=== PATIENT | male | born 1935 | race Caucasian/White ===

== ENCOUNTER 2016-10-13 05:53 | Day surgery (SDC) | payer MEDICARE, BC ==
[~2016-10-13] VITALS: Ht 188 cm; Wt 86.2 kg
[2016-10-13] VITALS (13 sets, daily range): BP systolic 114–152; BP diastolic 45–94; PULSE 68–134; RESP 18; TEMP 96.8–98.5; O2SAT 96–99
[~2016-10-13 05:53] MED LIST: ACIDTAB4 PO; BISA10SU8 PR; C 50TAB PO; CIPR500T93 PO; CLIN150 PO; CLOP75 PO; DIGO0.12 PO; DOCU1CAP39 PO; FE T325T PO; FLEEENE3 PR; MAGN30S PO; METO25 PO; OXYC5 PO; PANT20 PO; SUPETAB30 PO; TAMS0.4C67 PO; WARF-60 PO
[2016-10-13] MEDS ORDERED: HYDRGEL4 TOPICAL (06:38)
[2016-10-13] MEDS ORDERED: ENOX80P SQ (06:38)
[2016-10-13] MEDS ORDERED: DIGO0.12 PO (06:38)
[2016-10-13] MEDS ORDERED: MULT-135 PO (06:38)
[2016-10-13] MEDS ORDERED: HYDR-3535 PO (06:38)
[2016-10-13] MEDS ORDERED: COUM2.5T PO (06:38)
[2016-10-13] MEDS ORDERED: TAMS5CAP PO (06:38)
[2016-10-13] MEDS ORDERED: NITR2OIN (06:38)
[2016-10-13] MEDS ORDERED: MILK2400 PO (06:38)
[2016-10-13] MEDS ORDERED: LISI10TA3 PO (06:38)
[2016-10-13] MEDS ORDERED: ASCO500C PO (06:41)
[2016-10-13] MEDS ORDERED: ZINC220C3 PO (06:41)
[2016-10-13] MEDS ORDERED: HEPARIN-NS/PF INJ 500 ML ONE (08:20)
[2016-10-13] MEDS ORDERED: MIDAZOLAM HCL 2 MG/2 ML VIAL ONE ×2 (08:21→09:52)
[2016-10-13] MEDS ORDERED: HEPARIN SODIUM - IV 10,000 UNITS/10 ML VIAL ONE (09:02)
[2016-10-13] MEDS ORDERED: ADENOSINE IV SOLN 3 MG/ML 2 ML VIAL ONE (09:39)
[2016-10-13] MEDS ORDERED: CLOPIDOGREL 300 MG TAB ONE (10:25)
[2016-10-13] MEDS ORDERED: SODIUM CHLOR 0.9% 1000 ML INJ 1,000 ML IV SCH (10:25)
[2016-10-13] MEDS ORDERED: ATROPINE SULFATE 1 MG/ML VIAL IV PRN (10:30)
[2016-10-13] MEDS ORDERED: SODIUM CHLOR 0.9% 250 ML INJ 250 ML IV PRN (10:30)
[2016-10-13] MEDS ORDERED: ACETAMINOPHEN/HYDROcodone 325 MG/10 MG TAB PO PRN (10:30)
[2016-10-13] MEDS ORDERED: MORPHINE SULFATE 4 MG/ML INJ IV PUSH PRN (10:30)
[2016-10-13] MEDS ORDERED: MISC INFORMATION XX ONE (10:30)
[2016-10-13] MEDS ORDERED: oxyCODONE/ACETAMINOPHEN 10 MG/325 MG TAB PO PRN (10:30)
[2016-10-13] MEDS ORDERED: LORazepam 2 MG/ML VIAL IV PRN (10:30)
[2016-10-13] MEDS ORDERED: METOCLOPRAMIDE HCL 10 MG/2 ML VIAL IV PRN (10:30)
[2016-10-13] MEDS ORDERED: LIDOCAINE 2% JELLY 30 ML TUBE TOP PRN (10:30)
[2016-10-13] MEDS ORDERED: ONDANSETRON HCL 4 MG/2 ML VIAL IV PRN (10:30)
[2016-10-13] MEDS ORDERED: LIDOCAINE HCL 1% 50 ML VIAL INFIL PRN (10:30)
[2016-10-13] MEDS ORDERED: PLAV75TA29 PO (10:31)
[2016-10-13] MEDS ORDERED: CILO100T PO (10:31)
[2016-10-13] MEDS ORDERED: CLOPIDOGREL 300 MG TAB PO ONE (11:00)
[2016-10-13] MEDS ORDERED: BACITRACIN OINT 0.9 GM PKT TOP ONE (11:00)
[2016-10-13] MEDS ORDERED: MAGNESIUM HYDROXIDE SUSP 30 ML CUP PO PRN (11:00)
[2016-10-13] MEDS: oxyCODONE/ACETAMINOPHEN 5 MG/325 MG TAB PO PRN (11:04)
[2016-10-13 11:30] LABS: INTERNATIONAL NORMALIZED RATIO 1.4 RATIO; PROTHROMBIN TIME - PATIENT 16.1 SEC (9.8-11.6)
[2016-10-13] MEDS ORDERED: IOHEXOL 350 MG/ML 50 ML BTL (for Cath Lab) OTHER ONE (11:50)
[2016-10-13] MEDS ORDERED: IOHEXOL 350 MG/ML 100 ML BTL (for Cath Lab) OTHER ONE (11:50)
--- NOTE | 2016-10-13 13:02 | MA ---
cc: MORRO SIMS DATE: 10/13/2016 TYPE OF PROCEDURE: Peripheral angiography intervention. PROCEDURE PERFORMED 1. Fluoroscopy interpretation 2. Descending aortography. 3. Right lower extremity peripheral angiography with first, second, third order visualization interpretation. METHOD: Risks, benefits and alternatives were discussed with the patient, the patient understood, consented to the procedure. PROCEDURE The patient brought into the catheterization lab, placed on the catheterization table. Left groin was prepped and draped in sterile fashion. The left groin was anesthetized 2% lidocaine. The left common femoral artery was cannulated and a 5-Ethiopian 11 cm sheath was placed without difficulty. Descending aortography; descending aortography is preformed, in anterior-posterior view using 24 cc contrast injection, with good opacification. The He is aortography revealed mild infrarenal issues atherosclerosis. Bilateral renal arteries appear to be widely patent. Peripheral angiography; Right internal, external common iliac arteries have minor irregularities. Right common femoral and profunda arteries are patent. The right superficial femoral artery has mild stenosis proximally. The distal segment has high-grade calcific 90% stenosis. There is a tandem 80% stenosis in the proximal popliteal artery. Both the distal SFA and popliteal are heavily calcified. There is severe distal runoff to the foot. The anterior tibial is patent to the level of the ankle but the dorsalis pedis is occluded and there is minimal collateralization to the distal foot. Posterior tibial peroneal vessels are also occluded and not well collateralized distally. PERCUTANEOUS INTERVENTION: 6-Ethiopian 45 cm tumoral destination pinnacle sheath was advanced up-and-over the arch into the right superficial femoral artery 0.035 inches 260 cm stiff angle Glidewire was navigated down to the distal popliteal artery. A 0.035 inches trailblazer catheter is advanced behind it. Digital subtraction angiography was confirmed through the trailblazer catheter to best visualize the distal vessel. Anterior tibial has minor luminal irregularities up to the level of the ankle and then he was totally occluded. The posterior tibial is occluded. The peroneal is diffusely diseased in the proximal segment and then is occluded in the mid segment without good collateralization distally. We advanced a hydro ST 300 cm 0.014 inches wire down to the distal anterior tibial vessel. We tried to see if we can navigate wire down into the distal dorsalis pedis to improve flow to the foot, but we were unsuccessful. A 0.014 inch 300 cm Confianza wire was also unsuccessful. Since there was no collateralization to the distal posterior tibial peroneal vessels. It is very unlikely that even if we were able to get through the occlusion that it would maintain patency. Therefore we elected to proceed with intervention of the superficial popliteal arteries to a attempt to try and improve the inflow the best we could a 0.014 inch 335 cm viper wire was navigated down the distal anterior tibial vessel. Several adenosine and nitroglycerin injections were administered to avoid no reflow phenomenon due to poor distal runoff. A 1.5 mm CSI atherectomy catheter was then prepped. Orbital rotational atherectomy was performed and distal superficial femoral and proximal popliteal arteries. A 6.0 x 120 mm PATHSENSORStronic balloon was then deployed on two sequential inflations and the popliteal and distal superficial femoral artery. Repeat angiography showed TAM-III flow still some residual stenosis, a 6.0 x 150 mm drug coated balloon was then deployed in the distal superficial proximal popliteal artery for prolonged inflation. Repeat angiography showed no significant residual stenosis. There still was worsening of the distal runoff but there was still TAM II flow distally. The sheath was removed and was replaced with a short 6-Ethiopian 11 cm sheath. Heparin was administered throughout the entire procedure to maintain appropriate coagulation. CONCLUSIONS: 1. Severe right superficial popliteal artery is calcific stenosis. 2. Severe right lower extremity infrapopliteal disease with patent anterior tibial, but occluded posterior tibial peroneal, and dorsalis pedis vessels. 3. A successful rotational atherectomy and balloon angioplasty of the right superficial femoral and popliteal arteries. PLAN Hopefully this will translate to some improvement in distal runoff. Unfortunately do not think that his long-term prognosis for the foot is very good. Given that he has limited runoff from the anterior tibial the remainder of the vessels distally are small and not well collateralized. Lets hope his first toes heals. Discussed the case in detail with Dr. Byrne and we will watch him closely. He will be admitted overnight. Anticipate discharge tomorrow. Will see how he does in his recovery we may consider actually taking him back to the latter at some point the future to reevaluate the left lower extremity due to the nonhealing ulcer in the heel. MD Deborah Butt /10:37 AM /12:37 PM [email or web address]
[2016-10-13] MEDS: WARFARIN SOD 2.5 MG TAB PO SCH (15:49)
[2016-10-13] MEDS: CILOSTAZOL 100 MG TAB PO SCH (15:49)
[2016-10-13] MEDS: TAMSULOSIN HCL 0.4 MG CAP PO SCH (21:13)
[2016-10-14] VITALS (25 sets, daily range): BP systolic 83–144; BP diastolic 52–88; PULSE 79–132; RESP 12–18; TEMP 97.7–98.6; O2SAT 95–98
[2016-10-14] MEDS: CLOPIDOGREL 75 MG TAB PO SCH (07:47)
[2016-10-14] MEDS: MULTIVITAMIN TAB PO SCH (07:47)
[2016-10-14] MEDS: ZINC SULFATE 220 MG CAP PO SCH (07:47)
[2016-10-14] MEDS: CILOSTAZOL 100 MG TAB PO SCH ×2 (07:48→16:04)
[2016-10-14] MEDS: DIGOXIN 0.125 MG TAB PO SCH (07:48)
[2016-10-14] MEDS: LISINOPRIL 10 MG TAB PO SCH (07:48)
[2016-10-14] MEDS ORDERED: DILTIAZEM-CD 120 MG CAP ER PO SCH (09:00)
--- NOTE | 2016-10-14 09:59 | PD.CARD.PN ---
Subjective Subjective Remarks Mildly fast afib on tele, no sx. Objective Medications Administered Medications Medications (Trade) Dose Ordered Sig/Dustin Route PRN Reason Start Time Stop Time Status Last Admin Dose Admin Oxycodone/ Acetaminophen (Percocet 5-325 Mg) 1 tab Q4H PRN PO PAIN SCALE 3 TO 5 10/13/16 10:30 10/13/16 11:04 Oxycodone/ Acetaminophen (Percocet 10-325 Mg) 1 tab Q4H PRN PO PAIN SCALE 6 TO 10 10/13/16 10:30 10/13/16 16:44 Morphine Sulfate (Morphine Inj) 2 mg Q30M PRN IV PUSH BREAKTHROUGH PAIN 10/13/16 10:30 10/13/16 17:46 Clopidogrel Bisulfate (Plavix) 75 mg DAILY PO 10/14/16 09:00 10/14/16 07:47 Digoxin (Lanoxin) 0.125 mg DAILY PO 10/14/16 09:00 10/14/16 07:48 Lisinopril (Prinivil) 10 mg DAILY PO 10/14/16 09:00 10/14/16 07:48 Multivitamins (Theragran) 1 tab DAILY PO 10/14/16 09:00 10/14/16 07:47 Tamsulosin HCl (Flomax) 0.4 mg HS PO 10/13/16 21:00 10/13/16 21:13 Zinc Sulfate (Zinc Sulfate) 220 mg DAILY PO 10/14/16 09:00 10/14/16 07:47 Cilostazol (Pletal) 100 mg BIDAC PO 10/13/16 16:00 10/14/16 07:48 Warfarin Sodium (Coumadin) 2.5 mg DAILY@16 PO 10/13/16 16:00 10/13/16 15:49 Vital Signs / I&O Vital Signs Date Time Temp Pulse Resp B/P Pulse Ox O2 Delivery O2 Flow Rate FiO2 10/14/16 08:00 118 10/14/16 07:30 97.8 79 18 144/88 97 10/14/16 07:00 132 10/14/16 06:00 120 10/14/16 05:00 112 10/14/16 04:00 110 10/14/16 03:00 122 10/14/16 03:00 98.4 108 18 110/63 97 10/14/16 02:00 120 10/14/16 01:00 104 10/14/16 00:00 104 10/13/16 23:00 96.8 96 18 128/76 96 10/13/16 23:00 97 10/13/16 22:00 100 10/13/16 21:00 94 10/13/16 20:00 100 10/13/16 19:00 97 10/13/16 19:00 97.2 98 18 128/70 96 10/13/16 18:00 102 10/13/16 17:00 134 10/13/16 16:00 82 10/13/16 15:00 98.5 91 18 114/65 96 Arterial Line 10/13/16 15:00 97 10/13/16 14:00 68 10/13/16 13:00 94 10/13/16 12:30 98.5 88 18 136/45 98 Automatic Cuff 10/13/16 12:30 88 10/13/16 10:46 98 Room Air I/O 10/13/16 10/13/16 10/13/16 10/14/16 10/14/16 10/14/16 07:00 15:00 23:00 07:00 15:00 23:00 Intake Total 480 ml 240 ml Output Total 600 ml 300 ml Balance -120 ml -60 ml Intake Oral 480 ml 240 ml Output Urine Total 600 ml 300 ml Physical Exam GENERAL: This is a well-nourished, well-developed patient, in no apparent distress. CARDIOVASCULAR: mildly rapid rate and irregular rhythm without murmurs, gallops , or rubs. RESPIRATORY: Clear to auscultation. Breath sounds equal bilaterally. No wheezes , rales, or rhonchi. GASTROINTESTINAL: Abdomen soft, non-tender, nondistended. Normal, active bowel sounds MUSCULOSKELETAL:LLE partial foot amputation, cyanosis of R foot NEURO: Alert & Oriented x4 to person, place, time, situation. Moves all ext x4 Laboratory Laboratory Tests Test 10/13/16 11:00 Prothrombin Time 16.1 SEC Prothromb Time International 1.4 RATIO Ratio Assessment and Plan Problem List: (1) Atrial fibrillation Assessment and Plan: on warfarin, still fast, added another 120mg cardizem ( 240mg qd total). (2) PAD (peripheral artery disease) Assessment and Plan: s/p RLE arthrectomy by Dr. Harding, on plavix. Assessment and Plan If rate controlled on increased meds might be able to go home today, or more likely tomorrow. Bill Melo MD Oct 14, 2016 09:59
[2016-10-14] MEDS ORDERED: DILTIAZEM-CD 120 MG CAP ER PO ONE (10:00)
[2016-10-14] MEDS: oxyCODONE/ACETAMINOPHEN 5 MG/325 MG TAB PO PRN (13:01)
[2016-10-14] MEDS ORDERED: GLUCAGON 1 MG/ML VIAL OTHER PRN (15:30)
[2016-10-14] MEDS ORDERED: DEXTROSE 50% IN WATER 50 ML VIAL(D50) IV PUSH PRN (15:30)
[2016-10-14] MEDS ORDERED: WARFARIN SOD 2.5 MG TAB PO SCH (16:00)
[2016-10-14] MEDS: WARFARIN SOD 2.5 MG TAB PO SCH (16:03)
[2016-10-14] MEDS: MEDIUM DOSE INSULIN NOVOLOG SUPPLEMENTAL SCALE SQ SCH ×2 (16:09→21:00)
[2016-10-14] MEDS: TAMSULOSIN HCL 0.4 MG CAP PO SCH (21:00)
[2016-10-15] VITALS (16 sets, daily range): BP systolic 87–109; BP diastolic 45–56; PULSE 92–115; RESP 16–18; TEMP 98.2–98.6; O2SAT 94–97
[2016-10-15] MEDS: MEDIUM DOSE INSULIN NOVOLOG SUPPLEMENTAL SCALE SQ SCH ×2 (07:00→11:40)
[2016-10-15] MEDS: ZINC SULFATE 220 MG CAP PO SCH (07:54)
[2016-10-15] MEDS: CILOSTAZOL 100 MG TAB PO SCH (07:54)
[2016-10-15] MEDS: DIGOXIN 0.125 MG TAB PO SCH (07:54)
[2016-10-15] MEDS: CLOPIDOGREL 75 MG TAB PO SCH (07:54)
[2016-10-15] MEDS: LISINOPRIL 10 MG TAB PO SCH (07:54)
[2016-10-15] MEDS: MULTIVITAMIN TAB PO SCH (07:55)
[2016-10-15] MEDS ORDERED: DILTIAZEM-CD 120 MG CAP ER PO SCH (09:00)
--- NOTE | 2016-10-15 10:15 | PD.CARD.PN ---
Subjective Subjective Remarks Rates improved on diltiazem, no sx, he wants to go back to rehab Objective Medications Administered Medications Medications (Trade) Dose Ordered Sig/Dustin Route PRN Reason Start Time Stop Time Status Last Admin Dose Admin Oxycodone/ Acetaminophen (Percocet 5-325 Mg) 1 tab Q4H PRN PO PAIN SCALE 3 TO 5 10/13/16 10:30 10/14/16 13:01 Oxycodone/ Acetaminophen (Percocet 10-325 Mg) 1 tab Q4H PRN PO PAIN SCALE 6 TO 10 10/13/16 10:30 10/13/16 16:44 Morphine Sulfate (Morphine Inj) 2 mg Q30M PRN IV PUSH BREAKTHROUGH PAIN 10/13/16 10:30 10/13/16 17:46 Clopidogrel Bisulfate (Plavix) 75 mg DAILY PO 10/14/16 09:00 10/15/16 07:54 Digoxin (Lanoxin) 0.125 mg DAILY PO 10/14/16 09:00 10/15/16 07:54 Multivitamins (Theragran) 1 tab DAILY PO 10/14/16 09:00 10/15/16 07:55 Tamsulosin HCl (Flomax) 0.4 mg HS PO 10/13/16 21:00 10/14/16 21:00 Zinc Sulfate (Zinc Sulfate) 220 mg DAILY PO 10/14/16 09:00 10/15/16 07:54 Cilostazol (Pletal) 100 mg BIDAC PO 10/13/16 16:00 10/15/16 07:54 Warfarin Sodium (Coumadin) 2.5 mg DAILY@16 PO 10/13/16 16:00 10/14/16 16:03 Diltiazem HCl (Cardizem Cd) 240 mg DAILY PO 10/15/16 09:00 10/15/16 07:54 Vital Signs / I&O Vital Signs Date Time Temp Pulse Resp B/P Pulse Ox O2 Delivery O2 Flow Rate FiO2 10/15/16 08:00 98.2 115 18 109/56 97 10/15/16 07:00 108 10/15/16 06:00 96 10/15/16 05:00 104 10/15/16 04:00 104 10/15/16 03:00 105 10/15/16 03:00 98.6 104 16 92/54 96 10/15/16 02:00 100 10/15/16 01:00 104 10/15/16 00:00 102 10/14/16 23:00 98.6 114 16 83/52 95 10/14/16 23:00 103 10/14/16 22:00 112 10/14/16 21:00 112 10/14/16 20:00 106 10/14/16 19:00 106 10/14/16 19:00 98.1 98 12 97/57 96 10/14/16 18:04 97 10/14/16 17:01 98 10/14/16 16:00 97.7 108 18 124/60 97 10/14/16 16:00 105 10/14/16 15:00 101 10/14/16 14:00 106 10/14/16 13:00 111 10/14/16 12:00 109 10/14/16 11:00 116 10/14/16 11:00 98.1 119 18 110/59 98 I/O 10/14/16 10/14/16 10/14/16 10/15/16 10/15/16 10/15/16 07:00 15:00 23:00 07:00 15:00 23:00 Intake Total 240 ml 480 ml 240 ml Output Total 300 ml 220 ml 50 ml Balance -60 ml 260 ml 190 ml Intake Oral 240 ml 480 ml 240 ml Output Urine Total 300 ml 220 ml 50 ml # Voids 2 1 # Bowel Movements 0 Physical Exam GENERAL: This is a well-nourished, well-developed patient, in no apparent distress. CARDIOVASCULAR: mildly rapid rate and irregular rhythm without murmurs, gallops , or rubs. RESPIRATORY: Clear to auscultation. Breath sounds equal bilaterally. No wheezes , rales, or rhonchi. GASTROINTESTINAL: Abdomen soft, non-tender, nondistended. Normal, active bowel sounds MUSCULOSKELETAL:LLE partial foot amputation, cyanosis of R foot NEURO: Alert & Oriented x4 to person, place, time, situation. Moves all ext x4 Assessment and Plan Problem List: (1) Atrial fibrillation Assessment and Plan: on warfarin, up to 240mg diltiazem (2) PAD (peripheral artery disease) Assessment and Plan: s/p RLE arthrectomy by Dr. Harding, on plavix. Assessment and Plan ok to d/c home on med adjustments, has an order for INR tomorrow. Bill Melo MD Oct 15, 2016 10:15
[2016-10-15] MEDS ORDERED: LISI-519 PO (10:32)
[2016-10-15] MEDS ORDERED: CARD240C6 PO (10:35)
[2016-10-16] MEDS ORDERED: LISINOPRIL 5 MG TAB PO SCH (09:00)
[2016-11-07] MEDS ORDERED: MEGE40SU PO (14:46)
[2016-11-07] MEDS ORDERED: LISI-519 PO (14:46)
[2016-11-07] MEDS ORDERED: MULT-135 PO (14:46)
[2016-11-07] MEDS ORDERED: OXYC1TAB63 PO (14:46)
[2016-11-07] MEDS ORDERED: BACL10TA PO (14:46)
[2016-11-07] MEDS ORDERED: DOCU1CAP39 PO (14:46)
[2016-11-07] MEDS ORDERED: METF500 PO (14:46)
[2016-11-07] MEDS ORDERED: DILT-48 PO (14:46)
[2016-11-07] MEDS ORDERED: TAMS5CAP PO (14:46)
[2016-11-07] MEDS ORDERED: DIGO0.12 PO (14:46)
[2016-11-07] MEDS ORDERED: COUM4TAB PO (14:46)
[2016-11-07] MEDS ORDERED: FERR325T PO (14:46)
[2016-12-20] MEDS ORDERED: SENN1TAB PO (21:01)
[2016-12-20] MEDS ORDERED: VITA500T2 PO (21:01)
[2016-12-20] MEDS ORDERED: SENS113T TOPICAL (21:01)
[2016-12-20] MEDS ORDERED: COUM6TAB PO (21:01)
[2016-12-20] MEDS ORDERED: POLY17S PO (21:01)
== END 2016-10-15 13:11 ==
LOC: HDOC 05:53 → HDIC 05:55 → HCIS 13:05 → UNDOADMOB 16:58 → HDOC 16:58 → HCIS 16:58 → UNDODISOB 10-15 13:11 → HDOC 10-15 13:11
PROVIDERS: ATTEND Internal Medicine
DX: I70.211 Atherosclerosis of native arteries of extremities with intermittent claudication, right leg (principal); I48.91 Unspecified atrial fibrillation; I10 Essential (primary) hypertension; E11.9 Type 2 diabetes mellitus without complications; Z79.02 Long term (current) use of antithrombotics/antiplatelets; Z79.01 Long term (current) use of anticoagulants; Z79.84 Long term (current) use of oral hypoglycemic drugs
CPT/HCPCS: 36200; 37224; 37225; 75625; 75710; 85002; 85610; 86850; 86900; 86901; C1714; C1725; C1751; C1769; C1893; C2623; J0153; J1644; J1815; J2250; J2270; J3010; Q9967

== ENCOUNTER 2016-10-20 12:41 | Inpatient (IN) | payer MEDICARE, BC ==
[~2016-10-20] VITALS: Ht 188 cm; Wt 84.0 kg
[~2016-10-20 12:41] MED LIST changes: -ACIDTAB4 PO; +ASCO500C PO; -BISA10SU8 PR; -C 50TAB PO; +CARD240C6 PO; +CILO100T PO; -CIPR500T93 PO; -CLIN150 PO; -CLOP75 PO; +COUM2.5T PO; -DOCU1CAP39 PO; -FE T325T PO; -FLEEENE3 PR; +HYDR-3535 PO; +HYDRGEL4 TOPICAL; +LISI-519 PO; -MAGN30S PO; -METO25 PO; +MILK2400 PO; +MULT-135 PO; +NITR2OIN; -OXYC5 PO; -PANT20 PO; +PLAV75TA29 PO; -SUPETAB30 PO; -TAMS0.4C67 PO; +TAMS5CAP PO; -WARF-60 PO; +ZINC220C3 PO
[2016-10-20 12:45] VITALS: BP 119/64; PULSE 86; RESP 15; TEMP 97.6; O2SAT 97
--- NOTE | 2016-10-20 14:50 | PD ---
HPI Chief Complaint: Medical Clearance Time Seen by Provider: 14:04 Travel History International Travel<30 days: No Contact w/Intl Traveler<30days: No Traveled to known affect area: No History of Present Illness HPI 81 y/o male presents with black digit to his right big toe that is been present over the past couple weeks. The patient's states that they went to Dr. Cabral who is the clerk operator and shows me a prescription that he was referred here for admission and consultation with Dr. Ortiz with vascular surgery. Patient states that he was here recently 2 weeks ago and had an angiogram with Dr. fuentes. He states that he's had pain in that foot as well but denies other significant complaints. Quality pain is sharp. Severity is severe per patient. He denies any specific trauma. Duration is 3 or 4 weeks. helps supplement history. PFSH Past Medical History Hx Anticoagulant Therapy: Yes (COUMADIN) Atrial Fibrillation: Yes Autoimmune Disease: No Anxiety: No Depression: No Heart Rhythm Problems: No Cancer: Yes (BASAL CELL CARCINONA) Cardiovascular Problems: Yes (A-FIB) High Cholesterol: Yes Chemotherapy: No Chest Pain: No Congestive Heart Failure: No Diabetes: Yes Patient Takes Glucophage: No Diminished Hearing: No Endocrine: Yes Gastrointestinal Disorders: No GERD: No Genitourinary: No Hiatal Hernia: No Hypertension: Yes Immune Disorder: No Implanted Vascular Access Dvce: Yes Kidney Stones: No Musculoskeletal: No Neurologic: No 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) Reproductive: No Respiratory: No Integumentary: Yes Radiation Therapy: No Renal Failure: No Sickle Cell Disease: No Thyroid Disease: No Ulcer: No Past Surgical History Abdominal Surgery: No AICD: No Arteriovenous Shunt: No Cardiac Surgery: No Ear Surgery: No Eye Surgery: Yes (CATARACT ) Genitourinary Surgery: No Gynecologic Surgery: No Insulin Pump: No Joint Replacement: Yes (L KNEE SURGERY ) Oral Surgery: No Thoracic Surgery: No Other Surgery: Yes (left foot 5 digit amputation) Social History Alcohol Use: No Tobacco Use: No (quit) Substance Use: No Allergies-Medications (Allergen,Severity, Reaction): Coded Allergies: *MDRO Multi-Drug Resistant Organism (Verified Adverse Reaction, Unknown, ) 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 Reported Meds & Prescriptions Reported Meds & Active Scripts Active Cilostazol 100 Mg Tab 100 Mg PO BID Plavix (Clopidogrel Bisulfate) 75 Mg Tab 75 Mg PO DAILY Reported Mapap (Acetaminophen) 325 Mg Tab 650 Mg PO Q4HR PRN Diltiazem ER 24 HR 240 Mg Caper 240 Mg PO DAILY Lisinopril 5 Mg Tab 5 Mg PO DAILY Zinc Sulfate 220 Mg Cap 220 Mg PO DAILY Vitamin C (Ascorbic Acid) 500 Mg Cap 500 Mg PO DAILY Multi Vitamin (Multiple Vitamin) 1 Tab Tab 1 Tab PO DAILY Milk of Magnesia Concentrate Liq (Magnesium Hydroxide) 1,200 Mg/5 Ml Susp 30 Ml PO DAILY PRN Lortab (Hydrocodone-Acetaminophen) 10-325 Mg Tab 1 Tab PO Q4H PRN Hydrogel (Wound Dressings) 1 Application Gel 1 Applic TOPICAL EACH EVENING SHIFT Flomax (Tamsulosin HCl) 0.4 Mg Cap 0.4 Mg PO DAILY Digoxin 0.125 Mg Tab 0.125 Mg PO DAILY@0600 Coumadin (Warfarin) 2.5 Mg Tab 2.5 Mg PO DAILY@1600 Review of Systems Except as stated in HPI: all other systems reviewed are Neg Physical Exam Narrative GENERAL: Well-nourished, well-developed patient. SKIN: Black discoloration to right hallux with decreased cap refill HEAD: Normocephalic and atraumatic. EYES: No injection or drainage. ENT: No nasal drainage noted. NECK: Supple, trachea midline. CARDIOVASCULAR: Regular rate and rhythm RESPIRATORY: No increased effort. No accessory muscle use. GASTROINTESTINAL: Abdomen soft, non-tender, nondistended. EXTREMITIES: No edema.Pain with palpation of right hallux, no pain with other joints specifically other than generalized pain to right foot , palpable dorsalis pedis pulse noted on right and left, no lacerations over, compartments soft. NEUROLOGICAL: Awake and alert. Moves all extremities. Normal speech. Data Data Last Documented VS Vital Signs Date Time Temp Pulse Resp B/P Pulse Ox O2 Delivery O2 Flow Rate FiO2 10/20/16 14:17 16 10/20/16 12:45 97.6 86 119/64 97 Orders Magnesium (Mg) (10/20/16 14:12) Phosphorus (Po4) (10/20/16 14:12) Complete Blood Count With Diff (10/20/16 14:12) Comprehensive Metabolic Panel (10/20/16 14:12) Act Partial Throm Time (Ptt) (10/20/16 14:12) Prothrombin Time / Inr (Pt) (10/20/16 14:12) Iv Access Insert/Monitor (10/20/16 14:12) Ecg Monitoring (10/20/16 14:12) Oximetry (10/20/16 14:12) Type And Screen (10/20/16 14:12) Foot, Complete ([id number]) (10/20/16 ) Consult Vascular Surgery (10/20/16 ) Blood Culture (10/20/16 15:01) Vancomycin Inj (Vancomycin Inj) (10/20/16 15:15) Consult Podiatry (10/20/16 ) (Hub Use Only)Inp Phy Cons/Ref (10/20/16 ) Admit Order (Ed Use Only) (10/20/16 15:33) Labs Laboratory Tests Test 10/20/16 14:32 White Blood Count 17.8 TH/MM3 Red Blood Count 3.42 MIL/MM3 Hemoglobin 9.7 GM/DL Hematocrit 29.3 % Mean Corpuscular Volume 85.9 FL Mean Corpuscular Hemoglobin 28.4 PG Mean Corpuscular Hemoglobin 33.0 % Concent Red Cell Distribution Width 13.6 % Platelet Count 467 TH/MM3 Mean Platelet Volume 7.7 FL Neutrophils (%) (Auto) 82.8 % Lymphocytes (%) (Auto) 9.5 % Monocytes (%) (Auto) 5.8 % Eosinophils (%) (Auto) 0.9 % Basophils (%) (Auto) 1.0 % Neutrophils # (Auto) 14.8 TH/MM3 Lymphocytes # (Auto) 1.7 TH/MM3 Monocytes # (Auto) 1.0 TH/MM3 Eosinophils # (Auto) 0.2 TH/MM3 Basophils # (Auto) 0.2 TH/MM3 CBC Comment DIFF FINAL Differential Comment Prothrombin Time 27.3 SEC Prothromb Time International 2.4 RATIO Ratio Activated Partial 48.6 SEC Thromboplast Time Sodium Level 136 MEQ/L Potassium Level 4.0 MEQ/L Chloride Level 101 MEQ/L Carbon Dioxide Level 26.8 MEQ/L Anion Gap 8 MEQ/L Blood Urea Nitrogen 18 MG/DL Creatinine 1.38 MG/DL Estimat Glomerular Filtration 49 ML/MIN Rate Random Glucose 201 MG/DL Calcium Level 9.2 MG/DL Phosphorus Level 2.8 MG/DL Magnesium Level 1.9 MG/DL Total Bilirubin 0.6 MG/DL Aspartate Amino Transf 18 U/L (AST/SGOT) Alanine Aminotransferase 18 U/L (ALT/SGPT) Alkaline Phosphatase 102 U/L Total Protein 7.7 GM/DL Albumin 3.3 GM/DL Blood Type O POSITIVE Antibody Screen NEGATIVE MDM Medical Decision Making Medical Screen Exam Complete: Yes Emergency Medical Condition: Yes Medical Record Reviewed: Yes (past history confirmed, h/o mrsa) Interpretation(s) CBC & BMP Diagram 10/20/16 14:32 Last 24 hours Impressions Foot X-Ray 10/20/16 0000 Signed Impressions: Service Date/Time: Thursday, October 20, 2016 14:50 - CONCLUSION: Chronic changes and no evidence for acute fracture. Ryan Murhpy MD CBC & BMP Diagram 10/20/16 14:32 Differential Diagnosis Arterial occlusion, osteomyelitis, embolization Narrative Course Will check blood work, x-ray and discussed with vascular surgery Given elevated white count will discuss with his clerk operator about possible antibiotic coverage patient agrees to admit Physician Communication Physician Communication dr ortiz states to admit to medicine and no anticoagulant or imaging needed at this time dr peterson states to place on vancomycin with h/o mrsa and will follow dr julian agrees to admit Diagnosis Primary Impression: Ischemic foot Additional Impressions: Ischemic pain of foot Qualified Code: M79.671 - Ischemic pain of foot, right PAD (peripheral artery disease) Cellulitis of foot, right Admitting Information Admitting Physician Requests: Admit Vanessa Wilde MD Oct 20, 2016 14:50
--- NOTE | 2016-10-20 14:53 | RADRPT ---
EXAM DATE/TIME: 10/20/2016 14:50 [facility] COMPARISON: No previous studies available for comparison. INDICATIONS : Right foot pain, diabetic wound great toe and surrounding area. MEDICAL HISTORY : Diabetes mellitus type II. SURGICAL HISTORY : None. ENCOUNTER: Initial ACUITY: 3 weeks PAIN SCORE: 8/10 LOCATION: Right foot. FINDINGS: No definite fractures, or dislocations are identified. No definite lytic or sclerotic lesion is seen . Slight osteopenia is seen. There are degenerative changes within multiple joints mainly the interp halangeal joints and the first metatarsophalangeal joint. Chronic atherosclerotic calcifications are seen involving the visualized arteries. CONCLUSION: Chronic changes and no evidence for acute fracture. Ryan Murphy MD on October 20, 2016 at 14:49 Board Certified Radiologist. This report was verified electronically.
[2016-10-20 14:58] LABS: AUTOMATED NEUTROPHIL # 14.8 TH/MM3 (1.8-7.7); BASOPHIL # 0.2 TH/MM3 (0-0.2); EOSINOPHIL # 0.2 TH/MM3 (0-0.4); EOSINOPHIL % 0.9 % (0.0-4.0); HEMATOCRIT 29.3 % (39.0-51.0); HEMO FLAGS DIFF FINAL; LYMPH % 9.5 % (9.0-44.0); LYMPHOCYTE # 1.7 TH/MM3 (1.0-4.8); MEAN CELL VOLUME 85.9 FL (80.0-100.0); MEAN CORPUSCULAR HEMOGLOBIN 28.4 PG (27.0-34.0); MONO % 5.8 % (0.0-8.0); NEUT % 82.8 % (16.0-70.0); PLATELET COUNT 467 TH/MM3 (150-450); RED BLOOD COUNT 3.42 MIL/MM3 (4.50-5.90); RED CELL DISTRIBUTION WIDTH 13.6 % (11.6-17.2); WHITE BLOOD COUNT 17.8 TH/MM3 (4.0-11.0)
[2016-10-20] MEDS ORDERED: VANCOMYCIN INJ 1,000 MG in SODIUM CHLOR 0.9% 250 ML INJ 250 ML IV ONE (15:15)
[2016-10-20 15:22] LABS: ALT (GPT) 18 U/L (12-78); ANION GAP 8 MEQ/L (5-15); AST (GOT) 18 U/L (15-37); BICARBONATE 26.8 MEQ/L (21.0-32.0); BLOOD UREA NITROGEN 18 MG/DL (7-18); CHLORIDE 101 MEQ/L (98-107); GLOMERULAR FILTRATION RATE 49 ML/MIN (>89); MAGNESIUM 1.9 MG/DL (1.5-2.5); SODIUM (NA) 136 MEQ/L (136-145)
[2016-10-20 15:24] LABS: ALKALINE PHOSPHATASE 102 U/L (45-117); TOTAL BILIRUBIN ADULT 0.6 MG/DL (0.2-1.0)
[2016-10-20 15:36] LABS: APTT (PATIENT) 48.6 SEC (24.3-30.1); INTERNATIONAL NORMALIZED RATIO 2.4 RATIO; PROTHROMBIN TIME - PATIENT 27.3 SEC (9.8-11.6)
--- NOTE | 2016-10-20 15:46 | HHI.HP ---
[facility] Physician Non-Staff Admission Diagnosis right hallux pain and ischemia Diagnoses: (1) Ischemic pain of right foot (2) Ischemic foot (3) PAD (peripheral artery disease) (4) Cellulitis of foot, right (5) Gangrene of toe Chief Complaint: Right hallus pain Travel History International Travel<30 Days: No Contact w/Intl Traveler <30 Da: No Traveled to Known Affected Are: No History of Present Illness 81-year-old male with a history of paroxysmal atrial fibrillation, diabetes, severe PAD of the right foot who is s/p RLE arthrectomy 10/13/16 presented to the ED at the request of these podiatrists for evaluation of black and painful digit right big toe times several weeks duration. Patient states, despite recent angiography he continued to have severe right foot pain rated 10 out of 10 in intensity. He denies any recent trauma. Denies any febrile episode. Vascular surgery has been consulted Review of Systems Other 12 systems reviewed and are negative except for the one mentioned in history of present illness Past Family Social History Past Medical History Hypertension Diabetesnow diet controlled Atrial fibrillationon Coumadin PADstatus post left second toe amputation due to ischemia, status post right lower extremity arthrectomy and balloon angioplasty Past Surgical History s/p RLE arthrectomy 10/13/16 Left second toe amputation Right lower extremity arthrectomy and balloon angioplasty Left knee surgery Basal fall carcinoma of skin removal Reported Medications Cardizem CD 24 HR (Diltiazem CD 24 HR) 240 Mg Caper 240 Mg PO DAILY Lisinopril 5 Mg Tab 5 Mg PO DAILY Zinc Sulfate 220 Mg Cap 220 Mg PO DAILY Vitamin C (Ascorbic Acid) 500 Mg Cap 500 Mg PO Nitro-Bid Topical (Nitroglycerin) 2 % Oint 1 Inch .XX Q6H Multi Vitamin (Multiple Vitamin) 1 Tab Tab 1 Tab PO DAILY Milk of Magnesia Concentrate Liq (Magnesium Hydroxide) 1,200 Mg/5 Ml Susp 15 Ml PO DAILY PRN Lortab (Hydrocodone-Acetaminophen) 10-325 Mg Tab 1 Tab PO Q4H PRN Hydrogel (Wound Dressings) 1 Application Gel Flomax (Tamsulosin HCl) 0.4 Mg Cap 0.4 Mg PO HS Digoxin 0.125 Mg Tab 0.125 Mg PO DAILY Coumadin (Warfarin) 2.5 Mg Tab 2.5 Mg PO DAILY Allergies: Coded Allergies: *MDRO Multi-Drug Resistant Organism (Verified Adverse Reaction, Unknown, ) 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 Social History Alcohol Use: No Tobacco Use: No (quit) Substance Use: No Physical Exam Vital Signs Vital Signs Date Time Temp Pulse Resp B/P Pulse Ox O2 Delivery O2 Flow Rate FiO2 10/20/16 14:17 16 10/20/16 12:45 97.6 86 15 119/64 97 Physical Exam GENERAL: This is a well-nourished, well-developed patient, in no apparent distress. SKIN: Black discoloration to right hallux HEAD: Atraumatic. Normocephalic. No temporal or scalp tenderness. EYES: Pupils equal round and reactive. Extraocular motions intact. No scleral icterus. No injection or drainage. ENT: Nose without bleeding, purulent drainage or septal hematoma. Throat without erythema, tonsillar hypertrophy or exudate. Uvula midline. Airway patent. NECK: Trachea midline. No JVD or lymphadenopathy. Supple, nontender, no meningeal signs. CARDIOVASCULAR: Regular rate and rhythm without murmurs, gallops, or rubs. RESPIRATORY: Clear to auscultation. Breath sounds equal bilaterally. No wheezes , rales, or rhonchi. GASTROINTESTINAL: Abdomen soft, non-tender, nondistended. No hepato-splenomegaly , or palpable masses. No guarding. MUSCULOSKELETAL: Extremities without clubbing, cyanosis, or edema. No joint tenderness, effusion, or edema noted. No calf tenderness. Negative Homans sign bilaterally. NEUROLOGICAL: Awake and alert. Cranial nerves II through XII intact. Motor and sensory grossly within normal limits. Five out of 5 muscle strength in all muscle groups. Normal speech. Laboratory Laboratory Tests Test 10/20/16 14:32 White Blood Count 17.8 Red Blood Count 3.42 Hemoglobin 9.7 Hematocrit 29.3 Mean Corpuscular Volume 85.9 Mean Corpuscular Hemoglobin 28.4 Mean Corpuscular Hemoglobin 33.0 Concent Red Cell Distribution Width 13.6 Platelet Count 467 Mean Platelet Volume 7.7 Neutrophils (%) (Auto) 82.8 Lymphocytes (%) (Auto) 9.5 Monocytes (%) (Auto) 5.8 Eosinophils (%) (Auto) 0.9 Basophils (%) (Auto) 1.0 Neutrophils # (Auto) 14.8 Lymphocytes # (Auto) 1.7 Monocytes # (Auto) 1.0 Eosinophils # (Auto) 0.2 Basophils # (Auto) 0.2 CBC Comment DIFF FINAL Differential Comment Prothrombin Time 27.3 Prothromb Time International 2.4 Ratio Activated Partial 48.6 Thromboplast Time Sodium Level 136 Potassium Level 4.0 Chloride Level 101 Carbon Dioxide Level 26.8 Anion Gap 8 Blood Urea Nitrogen 18 Creatinine 1.38 Estimat Glomerular Filtration 49 Rate Random Glucose 201 Calcium Level 9.2 Phosphorus Level 2.8 Magnesium Level 1.9 Total Bilirubin 0.6 Aspartate Amino Transf 18 (AST/SGOT) Alanine Aminotransferase 18 (ALT/SGPT) Alkaline Phosphatase 102 Total Protein 7.7 Albumin 3.3 Blood Type O POSITIVE Antibody Screen NEGATIVE Result Diagram: 10/20/16 1432 10/20/16 143 Assessment and Plan Problem List: (1) Ischemic pain of right foot ICD Code: M79.671 Status: Acute (2) Ischemic foot ICD Code: I99.8 Status: Acute (3) PAD (peripheral artery disease) ICD Code: I73.9 Status: Acute (4) Atrial fibrillation ICD Code: I48.91 Status: Chronic (5) Cellulitis of foot, right ICD Code: L03.115 Status: Acute (6) Gangrene of toe ICD Code: I96 Status: Acute Assessment and Plan 81-year-old man with Ischemic pain of right foot Ischemic foot Severe PAD right foot Gangrene of toe Status post recent RLE arthrectomy 10/13/16 -Vascular surgery has been consulted for evaluation for possible amputation -Continue to hold Coumadin and monitor INR/PT and hold on starting heparin drip -Resume Plavix however hold on 10/22/16 Cellulitis right foot Status post post vancomycin 1 in ED, continue with antibiotic History of paroxysmal atrial fibrillation Hold Coumadin Resume Cardizem and digoxin. Monitor level Acute renal failure Gentle IV fluid hydration Anemia of chronic disease Check FOBT and Monitor H&H DVT prophylaxis: SCD to LLE only Code Status Full code Discussed Condition With Patient, ED physician Physician Certification 2 Midnight Certification Type: Admission for Inpatient Services Order for Inpatient Services The services are ordered in accordance with Medicare regulations or non- Medicare payer requirements, as applicable. In the case of services not specified as inpatient-only, they are appropriately provided as inpatient services in accordance with the 2-midnight benchmark. Estimated LOS (days): 2 days is the estimated time the patient will need to remain in the hospital, assuming treatment plan goals are met and no additional complications. Post-Hospital Plan: Not yet determined Jw Jaimes MD Oct 20, 2016 15:46
[2016-10-20 15:56] VITALS: O2SAT 98
[2016-10-20] MEDS ORDERED: DILT-48 PO (15:58)
[2016-10-20] MEDS ORDERED: ONDANSETRON HCL 4 MG/2 ML VIAL IVP PRN (16:00)
[2016-10-20] MEDS ORDERED: SODIUM CHLORIDE 0.9% FLUSH 10 ML FLUSH IV FLUSH PRN (16:00)
[2016-10-20] MEDS ORDERED: ENALAPRILAT 1.25 MG/ML VIAL IV PUSH PRN (16:00)
[2016-10-20] MEDS ORDERED: NALOXONE HCL 0.4 MG/ML AMP IV PRN (16:00)
[2016-10-20] MEDS ORDERED: ACETAMINOPHEN 325 MG TAB PO PRN (16:00)
[2016-10-20] MEDS ORDERED: MAPA325T PO (16:06)
--- NOTE | 2016-10-20 16:23 | PD.CAR.PN ---
CVT Progress Note Subjective/Hospital Course: Full consult dictated Patient has known unreconstructable disease in both legs and right forefoot is now gangrenous with streaking over the dorsum of the foot There is nothing to reconstruct by endovascular or open means in this patient will require right below-knee amputation Patient is on Coumadin and I will hold Coumadin for another day or 2 so probably by Sunday the INR will be below 2 at which point patient can go to the operating room to have the surgery Thanks J Objective: Vital Signs Date Time Temp Pulse Resp B/P Pulse Ox O2 Delivery O2 Flow Rate FiO2 10/20/16 15:56 98 Room Air 10/20/16 14:17 16 10/20/16 12:45 97.6 86 15 119/64 97 Labs: Laboratory Tests Test 10/20/16 14:32 White Blood Count 17.8 TH/MM3 (4.0-11.0) Red Blood Count 3.42 MIL/MM3 (4.50-5.90) Hemoglobin 9.7 GM/DL (13.0-17.0) Hematocrit 29.3 % (39.0-51.0) Mean Corpuscular Volume 85.9 FL (80.0-100.0) Mean Corpuscular Hemoglobin 28.4 PG (27.0-34.0) Mean Corpuscular Hemoglobin 33.0 % Concent (32.0-36.0) Red Cell Distribution Width 13.6 % (11.6-17.2) Platelet Count 467 TH/MM3 (150-450) Mean Platelet Volume 7.7 FL (7.0-11.0) Neutrophils (%) (Auto) 82.8 % (16.0-70.0) Lymphocytes (%) (Auto) 9.5 % (9.0-44.0) Monocytes (%) (Auto) 5.8 % (0.0-8.0) Eosinophils (%) (Auto) 0.9 % (0.0-4.0) Basophils (%) (Auto) 1.0 % (0.0-2.0) Neutrophils # (Auto) 14.8 TH/MM3 (1.8-7.7) Lymphocytes # (Auto) 1.7 TH/MM3 (1.0-4.8) Monocytes # (Auto) 1.0 TH/MM3 (0-0.9) Eosinophils # (Auto) 0.2 TH/MM3 (0-0.4) Basophils # (Auto) 0.2 TH/MM3 (0-0.2) CBC Comment DIFF FINAL Differential Comment Prothrombin Time 27.3 SEC (9.8-11.6) Prothromb Time International 2.4 RATIO Ratio Activated Partial 48.6 SEC Thromboplast Time (24.3-30.1) Sodium Level 136 MEQ/L (136-145) Potassium Level 4.0 MEQ/L (3.5-5.1) Chloride Level 101 MEQ/L (98-107) Carbon Dioxide Level 26.8 MEQ/L (21.0-32.0) Anion Gap 8 MEQ/L (5-15) Blood Urea Nitrogen 18 MG/DL (7-18) Creatinine 1.38 MG/DL (0.60-1.30) Estimat Glomerular Filtration 49 ML/MIN (>89) Rate Random Glucose 201 MG/DL (74-106) Calcium Level 9.2 MG/DL (8.5-10.1) Phosphorus Level 2.8 MG/DL (2.5-4.9) Magnesium Level 1.9 MG/DL (1.5-2.5) Total Bilirubin 0.6 MG/DL (0.2-1.0) Aspartate Amino Transf 18 U/L (15-37) (AST/SGOT) Alanine Aminotransferase 18 U/L (12-78) (ALT/SGPT) Alkaline Phosphatase 102 U/L (45-117) Total Protein 7.7 GM/DL (6.4-8.2) Albumin 3.3 GM/DL (3.4-5.0) Blood Type O POSITIVE Antibody Screen NEGATIVE Result Diagram: 10/20/162 10/20/162 Delmis Hess MD Oct 20, 2016 16:23
[2016-10-20] MEDS ORDERED: Vancomycin Consult Pharmacy 1 EA OTHER SCH (17:15)
--- NOTE | 2016-10-20 17:47 | MB ---
cc: MD BRIGIDO,[facility] DATE OF CONSULTATION: 10/20/2016. REASON FOR CONSULTATION: Gangrene of the right foot, ischemia of the right leg. HISTORY OF PRESENT ILLNESS: This 81-year-old gentleman presented to the office of Dr. Byrne with a gangrenous great toe of the right foot and cellulitis creeping up the right leg. The patient was transferred to the hospital for further care. It is noted that this gentleman has had this going on for several weeks and apparently he underwent two weeks ago and angiogram by Dr. Fuentes with some stent placement. There is a CT angiogram from earlier this month that reveals essentially occlusion of the vessels below the level of the knee. PAST MEDICAL HISTORY: His past medical history is that of: 1. Atrial fibrillation. 2. Diabetes mellitus, longstanding. 3. Hypertension. 4. Coronary artery disease. 5. Cataracts. PAST SURGICAL HISTORY: 1. Left knee replacement. 2. Left foot fifth digit amputation. 3. Basal cell carcinoma removal. MEDICATIONS: Coumadin. ALLERGIES: NO KNOWN ALLERGIES: SOCIAL HISTORY: The patient does not smoke anymore. He quit. He does not drink. PHYSICAL EXAMINATION: GENERAL: This is a pleasant 81-year-old gentleman in no acute distress. HEAD, EYES, EARS, NOSE, THROAT: Normocephalic. No trauma to the head. Pupils equal and reactive. Extraocular muscles intact. NECK: Bilateral carotid pulses and bilateral faint carotid bruits. CHEST: Bilateral breath sounds decreased over both lung reid consistent with some degree of COPD. HEART: Irregular rhythm about 86 to 87 beats per minute. ABDOMEN: Abdomen soft. No rebound. No guarding. No masses. EXTREMITIES: The patient actually has palpable femoral pulses and then no pulses beyond that in either leg. There is no popliteal pulse on the right or the left and then I get a very faint posterior tibial bilaterally which is probably by reconstitution. The left foot is cellulitic, cold and the great toe is gangrenous white and the second and the second and third toes are white and insensate. NEUROLOGIC: The patient is intact except for the feet where the patient has decreased sensation. GCS is 15. IMPRESSION AND RECOMMENDATIONS: A patient with cellulitis of the right foot and gangrene of the toes. I reviewed the CT angiogram. The patient has a non-reconstructable vascular disease. Inflow is compromised however present going down the superficial femoral artery as the patient has occlusion. The popliteal arteries are completely occluded. I cannot even tell the trifurcation vessels one from another except by the calcific courses. These are interrupted vessels and none of them run to the foot. The patient essentially has no viable recognizable flow below the level of the knee other than collateral flow with bits and pieces of each vessel. At this point, the patient will need a right below-knee amputation. There is nothing to reconstruct here. Will consult Dr. fuentes on Sunday for he saw the patient in placed stents earlier this month and will consult Dr. Soto for second opinion for amputation versus perhaps another round of angiography. CRITICAL CARE TIME: Forty (40) minutes. Delmis BONE/MARLEE /4:20 PM /5:38 PM JOSHUA
[2016-10-20] MEDS ORDERED: VANCOMYCIN 500 MG/NS 100 ML IV ONE ×2 (18:15)
[2016-10-20 20:01] VITALS: BP 112/59; PULSE 117; RESP 18; TEMP 96.5; O2SAT 97
[2016-10-20] MEDS: SODIUM CHLORIDE 0.9% FLUSH 10 ML FLUSH IV FLUSH SCH (20:14)
[2016-10-20] MEDS: ACETAMINOPHEN 325 MG TAB PO PRN (22:48)
[2016-10-20 23:52] VITALS: BP 122/55; PULSE 104; RESP 18; TEMP 97.1; O2SAT 94
[2016-10-21 04:41] LABS: AUTOMATED NEUTROPHIL # 10.1 TH/MM3 (1.8-7.7); BASOPHIL # 0.1 TH/MM3 (0-0.2); BASOPHIL % 0.4 % (0.0-2.0); EOSINOPHIL # 0.2 TH/MM3 (0-0.4); EOSINOPHIL % 1.8 % (0.0-4.0); HEMATOCRIT 24.2 % (39.0-51.0); HEMO FLAGS DIFF FINAL; LYMPH % 13.5 % (9.0-44.0); LYMPHOCYTE # 1.8 TH/MM3 (1.0-4.8); MEAN CORPUSCULAR HEMOGLOBIN 27.8 PG (27.0-34.0); MEAN CORPUSCULAR HGB CONC 33.1 % (32.0-36.0); MONO % 7.1 % (0.0-8.0); NEUT % 77.2 % (16.0-70.0); PLATELET COUNT 413 TH/MM3 (150-450); RED BLOOD COUNT 2.88 MIL/MM3 (4.50-5.90); RED CELL DISTRIBUTION WIDTH 13.9 % (11.6-17.2); WHITE BLOOD COUNT 13.1 TH/MM3 (4.0-11.0)
[2016-10-21 05:26] LABS: ALKALINE PHOSPHATASE 81 U/L (45-117); ALT (GPT) 15 U/L (12-78); ANION GAP 8 MEQ/L (5-15); AST (GOT) 11 U/L (15-37); BICARBONATE 28.1 MEQ/L (21.0-32.0); BLOOD UREA NITROGEN 17 MG/DL (7-18); CHLORIDE 103 MEQ/L (98-107); GLOMERULAR FILTRATION RATE 61 ML/MIN (>89); POTASSIUM 3.5 MEQ/L (3.5-5.1); SODIUM (NA) 139 MEQ/L (136-145); TOTAL BILIRUBIN ADULT 0.5 MG/DL (0.2-1.0)
[2016-10-21] MEDS: DIGOXIN 0.125 MG TAB PO SCH (05:33)
[2016-10-21] MEDS: ACETAMINOPHEN 325 MG TAB PO PRN (06:39)
[2016-10-21] MEDS ORDERED: CILOSTAZOL 100 MG TAB PO SCH (07:00)
[2016-10-21 08:00] VITALS: BP 142/74; PULSE 96; RESP 17; TEMP 96.6; O2SAT 96
[2016-10-21] MEDS: DILTIAZEM-CD 240 MG CAP ER PO SCH (08:42)
[2016-10-21] MEDS: LISINOPRIL 5 MG TAB PO SCH (08:42)
[2016-10-21] MEDS: TAMSULOSIN HCL 0.4 MG CAP PO SCH (08:42)
[2016-10-21] MEDS: SODIUM CHLORIDE 0.9% FLUSH 10 ML FLUSH IV FLUSH SCH ×2 (08:43→21:00)
[2016-10-21] MEDS ORDERED: CLOPIDOGREL 75 MG TAB PO SCH (09:00)
[2016-10-21] MEDS ORDERED: VANCOMYCIN INJ 1,000 MG in SODIUM CHLOR 0.9% 250 ML INJ 250 ML IV SCH (09:00)
--- NOTE | 2016-10-21 09:00 | PD.CONS ---
History of Present Illness Service Podiatry Consult Requested By ED Reason for Consult R necrotic foot Primary Care Physician Non-Staff Diagnoses: History of Present Illness Patient is known vasculopath who has had attempted procedures with Dr Harding in the past when the R toes began turning purple. I explained to the patient that demarcation of tissue may occur and he was followed up in clinic yesterday with worsening discoloration, cold R foot, and erythema to rearfoot/ankle. He was admitted for consultation for BKA and IV antibiotics. Past Family Social History Allergies: Coded Allergies: *MDRO Multi-Drug Resistant Organism (Verified Adverse Reaction, Unknown, ) 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 Past Medical History Hypertension Diabetesnow diet controlled Atrial fibrillationon Coumadin PADstatus post left second toe amputation due to ischemia, status post right lower extremity arthrectomy and balloon angioplasty Past Surgical History s/p RLE arthrectomy 10/13/16 Left transmetatarsal Right lower extremity arthrectomy and balloon angioplasty R TKA knee surgery Basal cell carcinoma of skin removal Active Ordered Medications Current Medications Medications (Trade) Dose Ordered Sig/Dustin Route Start Time Stop Time Status Last Admin (NS Flush) 2 ml UNSCH PRN IV FLUSH 10/20/16 16:00 (NS Flush) 2 ml BID IV FLUSH 10/20/16 21:00 10/21/16 08:43 (Tylenol) 650 mg Q4H PRN PO 10/20/16 16:00 (Zofran Inj) 4 mg Q6H PRN IVP 10/20/16 16:00 (Tylenol) 650 mg Q6H PRN PO 10/20/16 16:00 10/21/16 06:39 (Morphine Inj) 2 mg Q3H PRN IV 10/20/16 16:00 (Narcan Inj) 0.4 mg UNSCH PRN IV 10/20/16 16:00 (Vasotec Inj) 1.25 mg Q6H PRN IV PUSH 10/20/16 16:00 (Lanoxin) 0.125 mg DAILY@0600 PO 10/21/16 06:00 10/21/16 05:33 (Cardizem Cd) 240 mg DAILY PO 10/21/16 09:00 10/21/16 08:42 (Prinivil) 5 mg DAILY PO 10/21/16 09:00 10/21/16 08:42 Tamsulosin HCl 0.4 mg 0.4 mg DAILY PO 10/21/16 09:00 10/21/16 08:42 Pharmacy Profile Note 0 ml @ 0 mls/hr UNSCH OTHER 10/20/16 17:15 (Vancomycin Inj/ NS 500 ml Inj) 513 ml @ 250 mls/hr Q24H IV 10/21/16 18:00 Miscellaneous Information SPECIFIC LAB TO BE BRIAN... ONCE ONCE .XX 10/23/16 17:45 10/23/16 17:46 Family History Reported Medications nc Social History history of smoking, but quit Physical Exam Vital Signs Vital Signs Date Time Temp Pulse Resp B/P Pulse Ox O2 Delivery O2 Flow Rate FiO2 10/21/16 08:00 96.6 96 17 142/74 96 10/20/16 23:52 97.1 104 18 122/55 94 10/20/16 20:01 96.5 117 18 112/59 97 10/20/16 15:56 98 Room Air 10/20/16 14:17 16 10/20/16 12:45 97.6 86 15 119/64 97 Physical Exam L plantar posterior heel area has small ulcer 1cm diameter with 100% fibrous tissue. No surrounding erythema. No purulence. R foot cold to ankle and hallux purple, remaining digits white. Erythema to ankle. No jerel purulence noted. Painful Laboratory Laboratory Tests Test 10/20/16 10/21/16 14:32 03:46 White Blood Count 17.8 13.1 Red Blood Count 3.42 2.88 Hemoglobin 9.7 8.0 Hematocrit 29.3 24.2 Mean Corpuscular Volume 85.9 84.0 Mean Corpuscular Hemoglobin 28.4 27.8 Mean Corpuscular Hemoglobin 33.0 33.1 Concent Red Cell Distribution Width 13.6 13.9 Platelet Count 467 413 Mean Platelet Volume 7.7 7.3 Neutrophils (%) (Auto) 82.8 77.2 Lymphocytes (%) (Auto) 9.5 13.5 Monocytes (%) (Auto) 5.8 7.1 Eosinophils (%) (Auto) 0.9 1.8 Basophils (%) (Auto) 1.0 0.4 Neutrophils # (Auto) 14.8 10.1 Lymphocytes # (Auto) 1.7 1.8 Monocytes # (Auto) 1.0 0.9 Eosinophils # (Auto) 0.2 0.2 Basophils # (Auto) 0.2 0.1 CBC Comment DIFF FINAL DIFF FINAL Differential Comment Prothrombin Time 27.3 Prothromb Time International 2.4 Ratio Activated Partial 48.6 Thromboplast Time Sodium Level 136 139 Potassium Level 4.0 3.5 Chloride Level 101 103 Carbon Dioxide Level 26.8 28.1 Anion Gap 8 8 Blood Urea Nitrogen 18 17 Creatinine 1.38 1.15 Estimat Glomerular Filtration 49 61 Rate Random Glucose 201 103 Calcium Level 9.2 8.4 Phosphorus Level 2.8 Magnesium Level 1.9 Total Bilirubin 0.6 0.5 Aspartate Amino Transf 18 11 (AST/SGOT) Alanine Aminotransferase 18 15 (ALT/SGPT) Alkaline Phosphatase 102 81 Total Protein 7.7 6.1 Albumin 3.3 2.4 Blood Type O POSITIVE Antibody Screen NEGATIVE Date/Time Procedure Status Source Growth 10/20/16 15:45 Aerobic Blood Culture Received Blood Peripheral Pending 10/20/16 15:45 Anaerobic Blood Culture Received Blood Peripheral Pending Result Diagram: 10/21/16 0346 10/21/16 0346 Imaging Last Impressions Foot X-Ray 10/20/16 0000 Signed Impressions: Service Date/Time: Thursday, October 20, 2016 14:50 - CONCLUSION: Chronic changes and no evidence for acute fracture. Ryan Murphy MD Assessment and Plan Assessment and Plan Necrotic R foot with cellulitis. Agree with amputation per Dr Hess No further podiatric treatment planned her R foot. Ulcer L posterior heel Ordering multipodus boot L heel. Float heels in the meantime to reduce pressure. Dressing change orders in per nursing daily. Darlene Byrne DPM Oct 21, 2016 09:00
--- NOTE | 2016-10-21 09:53 | HHI.PR ---
Subjective Remarks 81-year-old male with a history of paroxysmal atrial fibrillation, diabetes, severe PAD of the right foot who is s/p RLE arthrectomy 10/13/16 presented to the ED at the request of these podiatrists for evaluation of black and painful digit right big toe times several weeks duration. Patient states, despite recent angiography he continued to have severe right foot pain rated 10 out of 10 in intensity. He denies any recent trauma. Denies any febrile episode. Vascular surgery has been consulted 10/21/2016-patient evaluated this AM. Tachycardic up to the 110s overnight. Patient is concerned about lesion over left heel that could be pressure ulcer. Otherwise, has no complaints. Pain well controlled. No CP or SOB. No F/C. Objective Vitals Vital Signs Date Time Temp Pulse Resp B/P Pulse Ox O2 Delivery O2 Flow Rate FiO2 10/21/16 08:00 96.6 96 17 142/74 96 10/20/16 23:52 97.1 104 18 122/55 94 10/20/16 20:01 96.5 117 18 112/59 97 10/20/16 15:56 98 Room Air 10/20/16 14:17 16 10/20/16 12:45 97.6 86 15 119/64 97 I/O 10/20/16 10/20/16 10/20/16 10/21/16 10/21/16 10/21/16 07:00 15:00 23:00 07:00 15:00 23:00 Intake Total 280 ml 280 ml Output Total 500 ml Balance 280 ml -220 ml Intake Oral 280 ml 280 ml IV Total 0 ml Output Urine Total 500 ml # Voids 1 # Bowel Movements 1 Result Diagram: 10/21/16 0346 10/21/16 0346 Objective Remarks GENERAL: This is a well-nourished, well-developed patient, in no apparent distress. SKIN: Cool and dry. LEs hairless. Gangrene over right 1st hallux. Stage 1 pressure ulcer over left heel. HEAD: Atraumatic. Normocephalic. No temporal or scalp tenderness. CARDIOVASCULAR: Regular rate and rhythm without murmurs, gallops, or rubs. No palpable pulses in LEs beyond femoral pulse. RESPIRATORY: Clear to auscultation. Breath sounds equal bilaterally. No wheezes , rales, or rhonchi. GASTROINTESTINAL: Abdomen soft, non-tender, nondistended. No hepato-splenomegaly , or palpable masses. No guarding. MUSCULOSKELETAL: Extremities without clubbing, cyanosis, or edema. No joint tenderness, effusion, or edema noted. No calf tenderness. Negative Homans sign bilaterally. NEUROLOGICAL: Awake and alert. Cranial nerves II through XII intact. Motor and sensory grossly within normal limits. Five out of 5 muscle strength in all muscle groups. Normal speech. A/P Problem List: (1) Ischemic pain of right foot ICD Code: M79.671 Status: Acute (2) Ischemic foot ICD Code: I99.8 Status: Acute (3) PAD (peripheral artery disease) ICD Code: I73.9 Status: Acute (4) Atrial fibrillation ICD Code: I48.91 Status: Chronic (5) Cellulitis of foot, right ICD Code: L03.115 Status: Acute (6) Gangrene of toe ICD Code: I96 Status: Acute (7) Pressure ulcer ICD Code: L89.90 Status: Acute Assessment and Plan 81-year-old man with 1. PAD right foot with gangrene hallux: vascular surgery has been consulted. Appreciate their care. They have recommended right BKA. Continue to hold Coumadin and Plavix. Monitor INR/PT in anticipation of surgery. 2. Cellulitis right foot: status post post vancomycin 1 in ED. Continue with vancomycin (10/20-). 3. History of paroxysmal Afib: hold Coumadin. INR 2.1 yesterday. Will add coags to today's labs. Resume Cardizem and digoxin. Add dig level to labs today. 4. ARF: resolved. Encourage PO hydration. 5. Anemia of chronic disease: check FOBT (I don't see hemoccult in EMR, will discuss with nurse). Hemoglobin down to 8 today from 9.7 on admission (suspect related to dilution, in part, with all cell lines decreased). 6. Left foot pressure ulcer: wound care nurse. 7. DVT prophylaxis: SCD to LLE only Problem Qualifiers (1) Pressure ulcer: Qualified Code: L89.621 - Decubitus ulcer of left heel, stage 1 Korey Pimentel MD R3 Oct 21, 2016 09:53
[2016-10-21 11:25] LABS: INTERNATIONAL NORMALIZED RATIO 2.6 RATIO; PROTHROMBIN TIME - PATIENT 30.1 SEC (9.8-11.6)
[2016-10-21 12:00] VITALS: BP 135/58; PULSE 94; RESP 17; TEMP 98; O2SAT 95
--- NOTE | 2016-10-21 12:09 | PD.VS.CON ---
History of Present Illness Chief Complaint: R great toe tissue loss Consult Requested by: Dr. Hess History of Present Illness 81 yo male with TL R LE. Recent R LE angiogram by Dr. Harding on 10/13. Pt notes that his great toe has progressed. Living in rehab at present. Previously reported to be ambulatory. L TMA from 2y ago. Past/Family/Social History Past Medical History HTN DM CAD a fib OA PAD Past Surgical History R knee replacement Home Medications Active Scripts Cilostazol 100 Mg Hwe136 Mg PO BID #60 TAB Ref 6 Prov:Branden Harding MD 10/13/16 Clopidogrel (Plavix)75 Mg Tab75 Mg PO DAILY #30 TAB Ref 11 Prov:Branden Harding MD 10/13/16 Reported Medications Acetaminophen (Mapap)325 Mg Lil643 Mg PO Q4HR PRN (MILD PAIN/ TEMP 100.4 OR OVER ) Ref 0 10/20/16 Diltiazem ER 24 HR 240 Mg Hsucf464 Mg PO DAILY #30 CAP Ref 0 10/20/16 Lisinopril 5 Mg Tab5 Mg PO DAILY #30 TAB Ref 0 10/15/16 Zinc Sulfate 220 Mg Fbn316 Mg PO DAILY Ref 0 10/13/16 Ascorbic Acid (Vitamin C)500 Mg Sdq085 Mg PO DAILY Ref 0 10/13/16 Multiple Vitamin (Multi Vitamin)1 Tab Tab1 Tab PO DAILY 10/13/16 Magnesium Hydroxide Concentrate Liq (Milk of Magnesia Concentrate Liq)1,200 Mg/ 5 Ml Susp30 Ml PO DAILY PRN (CONSTIPATION) #1 BOTTLE 10/13/16 Hydrocodone-Acetaminophen (Lortab)10-325 Mg Tab1 Tab PO Q4H PRN (MOD-SEV PAIN SCALE 4-10) Ref 0 10/13/16 Wound Dressings (Hydrogel)1 Application Gel1 Applic TOPICAL EACH EVENING SHIFT 10/13/16 Tamsulosin (Flomax)0.4 Mg Cap0.4 Mg PO DAILY #30 CAP Ref 0 10/13/16 Digoxin 0.125 Mg Tab0.125 Mg PO DAILY@0600 #30 TAB Ref 0 10/13/16 Warfarin (Coumadin)2.5 Mg Tab2.5 Mg PO DAILY@1600 #30 TAB Ref 0 10/13/16 Discontinued Reported Medications Diltiazem CD 24 HR (Cardizem CD 24 HR)240 Mg Neuzb108 Mg PO DAILY #30 CAP Ref 0 10/15/16 Nitroglycerin Topical (Nitro-Bid Topical)2 % Oint1 Inch .XX Q6H #1 TUBE Ref 0 10/13/16 Lisinopril 10 Mg Tab10 Mg PO DAILY #30 TAB Ref 0 10/13/16 Coded Allergies: *MDRO Multi-Drug Resistant Organism (Verified Adverse Reaction, Unknown, ) 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 Review of Systems Cardiovascular: COMPLAINS OF: Dyspnea on Exertion, DENIES: Chest pain Musculoskeletal: COMPLAINS OF: Joint pain Neurologic: COMPLAINS OF: Abnormal gait Physical Exam Vitals/I&O Date Time Temp Pulse Resp B/P Pulse Ox O2 Delivery O2 Flow Rate FiO2 10/21/16 08:00 96.6 96 17 142/74 96 10/20/16 23:52 97.1 104 18 122/55 94 10/20/16 20:01 96.5 117 18 112/59 97 10/20/16 15:56 98 Room Air 10/20/16 14:17 16 10/20/16 12:45 97.6 86 15 119/64 97 10/21/16 10/21/16 10/21/16 07:00 15:00 23:00 Intake Total 280 ml Output Total 500 ml Balance -220 ml Neuro: alert, oriented, [place] HEENT: NC/AT Neck: no JVD Heart: irreg rate Lungs: clear B Abdomen: NT Vascular: palpable R popliteal pulse, nothing distal Extremities: R great toe jerel tissue loss without obvious infection. No streaking erythema Forefoot ruborous c/w ischemia. L TMA well healed Laboratory Tests Test 10/20/16 10/21/16 10/21/16 14:32 03:46 10:58 White Blood Count 17.8 13.1 Red Blood Count 3.42 2.88 Hemoglobin 9.7 8.0 Hematocrit 29.3 24.2 Mean Corpuscular Volume 85.9 84.0 Mean Corpuscular Hemoglobin 28.4 27.8 Mean Corpuscular Hemoglobin 33.0 33.1 Concent Red Cell Distribution Width 13.6 13.9 Platelet Count 467 413 Mean Platelet Volume 7.7 7.3 Neutrophils (%) (Auto) 82.8 77.2 Lymphocytes (%) (Auto) 9.5 13.5 Monocytes (%) (Auto) 5.8 7.1 Eosinophils (%) (Auto) 0.9 1.8 Basophils (%) (Auto) 1.0 0.4 Neutrophils # (Auto) 14.8 10.1 Lymphocytes # (Auto) 1.7 1.8 Monocytes # (Auto) 1.0 0.9 Eosinophils # (Auto) 0.2 0.2 Basophils # (Auto) 0.2 0.1 CBC Comment DIFF FINAL DIFF FINAL Differential Comment Prothrombin Time 27.3 30.1 Prothromb Time International 2.4 2.6 Ratio Activated Partial 48.6 57.0 Thromboplast Time Sodium Level 136 139 Potassium Level 4.0 3.5 Chloride Level 101 103 Carbon Dioxide Level 26.8 28.1 Anion Gap 8 8 Blood Urea Nitrogen 18 17 Creatinine 1.38 1.15 Estimat Glomerular Filtration 49 61 Rate Random Glucose 201 103 Calcium Level 9.2 8.4 Phosphorus Level 2.8 Magnesium Level 1.9 Total Bilirubin 0.6 0.5 Aspartate Amino Transf 18 11 (AST/SGOT) Alanine Aminotransferase 18 15 (ALT/SGPT) Alkaline Phosphatase 102 81 Total Protein 7.7 6.1 Albumin 3.3 2.4 Blood Type O POSITIVE Antibody Screen NEGATIVE Digoxin Level 1.2 Date/Time Procedure Status Source Growth 10/20/16 15:45 Aerobic Blood Culture - Preliminary Resulted Blood Peripheral NO GROWTH IN 1 DAY 10/20/16 15:45 Anaerobic Blood Culture - Preliminary Resulted Blood Peripheral NO GROWTH IN 1 DAY Last 48 hours Impressions Foot X-Ray 10/20/16 0000 Signed Impressions: Service Date/Time: Thursday, October 20, 2016 14:50 - CONCLUSION: Chronic changes and no evidence for acute fracture. Ryan Murphy MD Angiogram from 10/13 reviewed - occlusion of distal tibial arteries Assessment and Plan Plan Severe PAD and I agree with Dr. Hess that ultimately may require BKA However, I think one attempt at aggressive endovascular recanalization of the infrapopliteal vessels is appropriate and am happy to perform this early in the week. However, since the patient is a known patient to Dr. Harding, I would ask that he be consulted first. I am available to help if needed. Rian Soto MD FACS education technician [facility] - Heart and Vascular Surgery at [facility] [phone] Rian Soto MD Oct 21, 2016 12:09
[2016-10-21 16:00] VITALS: BP 130/61; PULSE 85; RESP 16; TEMP 96.4; O2SAT 97
[2016-10-21] MEDS ORDERED: COLLAGENASE OINT 30 GM TUBE TOPICAL ONE (17:15)
[2016-10-21] MEDS: VANCOMYCIN INJ 1,300 MG in SODIUM CHLORID 0.9% 500 ML INJ 500 ML IV SCH (18:05)
[2016-10-21 20:00] VITALS: BP 130/60; PULSE 103; RESP 21; TEMP 96.9; O2SAT 96
[2016-10-21 23:39] VITALS: BP 120/59; PULSE 99; RESP 20; TEMP 97; O2SAT 95
[2016-10-22] VITALS (10 sets, daily range): BP systolic 132–149; BP diastolic 63–77; PULSE 86–104; RESP 16–19; TEMP 96.2–97.3; O2SAT 94–98
[2016-10-22] MEDS ORDERED: LACTATED RINGER'S 1000 ML IV PRN (01:15)
[2016-10-22] MEDS ORDERED: POVIDONE IODINE 5% (ANTISEPSIS KIT) 4 APPLICATIONS EACH NARE PRN (01:15)
[2016-10-22] MEDS ORDERED: CHLORHEXIDINE GLUCONATE 2 % 1 PACK (2 CLOTHS) TOPICAL PRN (01:15)
[2016-10-22 05:21] LABS: AUTOMATED NEUTROPHIL # 9.1 TH/MM3 (1.8-7.7); BASOPHIL # 0.1 TH/MM3 (0-0.2); BASOPHIL % 0.6 % (0.0-2.0); EOSINOPHIL # 0.2 TH/MM3 (0-0.4); EOSINOPHIL % 1.9 % (0.0-4.0); HEMATOCRIT 25.9 % (39.0-51.0); HEMO FLAGS DIFF FINAL; LYMPH % 13.8 % (9.0-44.0); LYMPHOCYTE # 1.7 TH/MM3 (1.0-4.8); MEAN CELL VOLUME 84.9 FL (80.0-100.0); MEAN CORPUSCULAR HEMOGLOBIN 27.8 PG (27.0-34.0); MEAN CORPUSCULAR HGB CONC 32.8 % (32.0-36.0); MONO % 8.4 % (0.0-8.0); NEUT % 75.3 % (16.0-70.0); PLATELET COUNT 419 TH/MM3 (150-450); RED BLOOD COUNT 3.05 MIL/MM3 (4.50-5.90); RED CELL DISTRIBUTION WIDTH 13.7 % (11.6-17.2); WHITE BLOOD COUNT 12.1 TH/MM3 (4.0-11.0)
[2016-10-22 05:40] LABS: APTT (PATIENT) 55.3 SEC (24.3-30.1); INTERNATIONAL NORMALIZED RATIO 2.3 RATIO; PROTHROMBIN TIME - PATIENT 26.8 SEC (9.8-11.6)
[2016-10-22 05:51] LABS: BICARBONATE 26.6 MEQ/L (21.0-32.0); POTASSIUM 3.5 MEQ/L (3.5-5.1)
[2016-10-22] MEDS: DIGOXIN 0.125 MG TAB PO SCH (06:21)
--- NOTE | 2016-10-22 08:16 | HHI.PR ---
Subjective Remarks Patient seen and examined this am. His vitals are stable and the patient is afebrile. Reporting some pain in his foot, but otherwise without any complaints. He denies SOB, difficulty breathing, or CP. Objective Vital Signs Date Time Temp Pulse Resp B/P Pulse Ox O2 Delivery O2 Flow Rate FiO2 10/22/16 03:18 18 10/21/16 23:39 97.0 99 20 120/59 95 10/21/16 20:00 96.9 103 21 130/60 96 10/21/16 16:00 96.4 85 16 130/61 97 10/21/16 12:00 98.0 94 17 135/58 95 I/O 10/21/16 10/21/16 10/21/16 10/22/16 10/22/16 10/22/16 07:00 15:00 23:00 07:00 15:00 23:00 Intake Total 280 ml 600 ml 240 ml 120 ml Output Total 500 ml 300 ml 500 ml 600 ml Balance -220 ml 300 ml -260 ml -480 ml Intake Oral 280 ml 600 ml 240 ml 120 ml IV Total 0 ml Output Urine Total 500 ml 300 ml 500 ml 600 ml # Bowel Movements 1 0 0 2 Result Diagram: 10/22/16 0324 10/22/16 0324 Imaging Last Impressions Foot X-Ray 10/20/16 0000 Signed Impressions: Service Date/Time: Thursday, October 20, 2016 14:50 - CONCLUSION: Chronic changes and no evidence for acute fracture. Ryan Murphy MD Other Results GENERAL: This is a well-nourished, well-developed patient, in no apparent distress. SKIN: Cool and dry. LEs hairless. Gangrene over right 1st hallux. Stage 1 pressure ulcer over left heel. HEAD: Atraumatic. Normocephalic. No temporal or scalp tenderness. CARDIOVASCULAR: Regular rate and rhythm without murmurs, gallops, or rubs. No palpable pulses in LEs beyond femoral pulse. RESPIRATORY: Clear to auscultation. Breath sounds equal bilaterally. No wheezes , rales, or rhonchi. GASTROINTESTINAL: Abdomen soft, non-tender, nondistended. No hepato-splenomegaly , or palpable masses. No guarding. MUSCULOSKELETAL: Extremities without clubbing, cyanosis, or edema. No joint tenderness, effusion, or edema noted. No calf tenderness. NEUROLOGICAL: Awake and alert. Motor and sensory grossly within normal limits. Normal speech. A/P Assessment and Plan 81-year-old male with a history of paroxysmal atrial fibrillation, diabetes, severe PAD of the right foot who is s/p RLE arthrectomy 10/13/16 presented to the ED at the request of these podiatrists for evaluation of black and painful digit right big toe times several weeks duration. Patient states, despite recent angiography he continued to have severe right foot pain rated 10 out of 10 in intensity. He denies any recent trauma. Denies any febrile episode. Vascular surgery has been consulted. 1. PAD right foot with gangrene hallux: CVT and vascular surgery has been consulted. BKA recommended. Per Dr. Soto, "Severe PAD and I agree with Dr. Hess that ultimately may require BKA. I reviewed the prior angiogram and discussed the findings with the patient and Dr. Hess. Will try to recanalize infrageniculate blood vessels tomorrow. If unsuccessful, will need BKA which Dr. Mendoza will perform later in the week.." Continue to hold Coumadin and Plavix. Monitor INR/PT in anticipation of surgery. 2. Cellulitis right foot: status post post vancomycin 1 in ED. Continue with vancomycin (10/20-). 3. History of paroxysmal Afib: hold Coumadin. INR 2.3 today (FFP ordered on 10/22 ). Cont Cardizem and digoxin. dig level 1.2 4. ARF: resolved. Encourage PO hydration. 5. Anemia of chronic disease: Hemoglobin relatively stable since yesterday. 2 units have been placed on hold for the patient. 6. Left foot pressure ulcer: wound care nurse. 7. DVT prophylaxis: SCD to LLE only. Currently therapeutic on Coumadin. Discharge Planning D/C pending further medical management. Patient may require surgery. Enedina Zaman MD R3 Oct 22, 2016 08:16
[2016-10-22] MEDS: TAMSULOSIN HCL 0.4 MG CAP PO SCH (08:24)
[2016-10-22] MEDS: SODIUM CHLORIDE 0.9% FLUSH 10 ML FLUSH IV FLUSH SCH ×2 (08:24→21:00)
[2016-10-22] MEDS: LISINOPRIL 5 MG TAB PO SCH (08:24)
[2016-10-22] MEDS: DILTIAZEM-CD 240 MG CAP ER PO SCH (08:24)
[2016-10-22] MEDS: COLLAGENASE OINT 30 GM TUBE TOPICAL SCH (08:25)
--- NOTE | 2016-10-22 08:35 | PD.VS.PN ---
Subjective Subjective/Hospital Course Pt w/ R LE tissue loss and severe infrageniculate occlusive disease Motor intact Objective Vitals/I&O Date Time Temp Pulse Resp B/P Pulse Ox O2 Delivery O2 Flow Rate FiO2 10/22/16 08:00 96.2 93 17 133/63 98 10/22/16 03:18 18 10/21/16 23:39 97.0 99 20 120/59 95 10/21/16 20:00 96.9 103 21 130/60 96 10/21/16 16:00 96.4 85 16 130/61 97 10/21/16 12:00 98.0 94 17 135/58 95 10/22/16 10/22/16 10/22/16 07:00 15:00 23:00 Intake Total 120 ml Output Total 600 ml Balance -480 ml Physical Exam palpable R LE popliteal pulse tissue loss R Hallux and forefoot with ischemic changes Laboratory Laboratory Tests Test 10/21/16 10/22/16 10/22/16 10:58 03:24 06:41 Prothrombin Time 30.1 26.8 Prothromb Time International 2.6 2.3 Ratio Activated Partial 57.0 55.3 Thromboplast Time White Blood Count 12.1 Red Blood Count 3.05 Hemoglobin 8.5 Hematocrit 25.9 Mean Corpuscular Volume 84.9 Mean Corpuscular Hemoglobin 27.8 Mean Corpuscular Hemoglobin 32.8 Concent Red Cell Distribution Width 13.7 Platelet Count 419 Mean Platelet Volume 7.3 Neutrophils (%) (Auto) 75.3 Lymphocytes (%) (Auto) 13.8 Monocytes (%) (Auto) 8.4 Eosinophils (%) (Auto) 1.9 Basophils (%) (Auto) 0.6 Neutrophils # (Auto) 9.1 Lymphocytes # (Auto) 1.7 Monocytes # (Auto) 1.0 Eosinophils # (Auto) 0.2 Basophils # (Auto) 0.1 CBC Comment DIFF FINAL Differential Comment Sodium Level 139 Potassium Level 3.5 Chloride Level 104 Carbon Dioxide Level 26.6 Anion Gap 8 Blood Urea Nitrogen 17 Creatinine 0.97 Estimat Glomerular Filtration 74 Rate Random Glucose 113 Calcium Level 8.4 Blood Bank Comment Date/Time Procedure Status Source Growth 10/20/16 15:45 Aerobic Blood Culture - Preliminary Resulted Blood Peripheral NO GROWTH IN 1 DAY 10/20/16 15:45 Anaerobic Blood Culture - Preliminary Resulted Blood Peripheral NO GROWTH IN 1 DAY Assessment and Plan Plan Severe PAD and I agree with Dr. Hess that ultimately may require BKA] I reviewed the prior angiogram and discussed the findings with the patient and Dr. Hess. Will try to recanalize infrageniculate blood vessels tomorrow. If unsuccessful, will need BKA which Dr. Mendoza will perform later in the week. Pt agrees with plan. Rian Soto MD FACS stake driver [facility] - Heart and Vascular Surgery at [facility] [phone] Rian Soto MD Oct 22, 2016 08:35
--- NOTE | 2016-10-22 08:38 | PD.VS.PN ---
Pre-operative Note Pre-operative diagnosis: R LE tissue loss, PAD Planned procedure: R LE angiogram, possible JALOUSIES INSTALLER/stent, possible atherectomy Interval History: Pt ready for OR Labs: Laboratory Results Test 10/22/16 03:24 White Blood Count 12.1 TH/MM3 (4.0-11.0) Red Blood Count 3.05 MIL/MM3 (4.50-5.90) Hemoglobin 8.5 GM/DL (13.0-17.0) Hematocrit 25.9 % (39.0-51.0) Mean Corpuscular Volume 84.9 FL (80.0-100.0) Mean Corpuscular Hemoglobin 27.8 PG (27.0-34.0) Mean Corpuscular Hemoglobin 32.8 % Concent (32.0-36.0) Red Cell Distribution Width 13.7 % (11.6-17.2) Platelet Count 419 TH/MM3 (150-450) Mean Platelet Volume 7.3 FL (7.0-11.0) Prothromb Time International 2.3 RATIO Ratio Sodium Level 139 MEQ/L (136-145) Potassium Level 3.5 MEQ/L (3.5-5.1) Chloride Level 104 MEQ/L (98-107) Carbon Dioxide Level 26.6 MEQ/L (21.0-32.0) Anion Gap 8 MEQ/L (5-15) Blood Urea Nitrogen 17 MG/DL (7-18) Random Glucose 113 MG/DL (74-106) Calcium Level 8.4 MG/DL (8.5-10.1) Blood: Transfuse 2U FFP today (pre-op) and re-check INR Imaging: Last Impressions Foot X-Ray 10/20/16 0000 Signed Impressions: Service Date/Time: Thursday, October 20, 2016 14:50 - CONCLUSION: Chronic changes and no evidence for acute fracture. Ryan Murphy MD Orders: NPO after MN Tx 2U FFP Recheck INR MIVF w/ HCO3 after MN Post-operative destination: PACU, then back to floor Consent: Informed consent has been obtained from Balta Shankar. I have explained the procedure in detail and discussed the risks, benefits, and potential complications. All questions have been answered. He understands that there is a reasonable chance of needing a BKA. Rian Soto MD Oct 22, 2016 08:38
--- NOTE | 2016-10-22 13:33 | EKG ---
Date Performed: 10/22/2016 Time Performed: 08:35:16 PTAGE: 81 years EKG: ATRIAL FIBRILLATION NONSPECIFIC ST & T-WAVE ABNORMALITY Compared to prior tracing no signif icant change ABNORMAL RHYTHM ECG PREVIOUS TRACING : 08/10/2015 17.24 DOCTOR: Toan Lr Interpretating Date/Time 10/22/2016 13:31:21
--- NOTE | 2016-10-22 14:14 | PD.CAR.PN ---
CVT Progress Note Subjective/Hospital Course: Full consult dictated Patient has known unreconstructable disease in both legs and right forefoot is now gangrenous with streaking over the dorsum of the foot There is nothing to reconstruct by endovascular or open means in this patient will require right below-knee amputation Patient is on Coumadin and I will hold Coumadin for another day or 2 so probably by Sunday the INR will be below 2 at which point patient can go to the operating room to have the surgery Thanks J 10/23/15 Dr. Soto's input is greatly appreciated Dr. Soto will take patient tomorrow to the operating room for angiogram and possible endovascular intervention If everything else fails patient will require below-knee amputation Objective: Vital Signs Date Time Temp Pulse Resp B/P Pulse Ox O2 Delivery O2 Flow Rate FiO2 10/22/16 12:00 96.3 89 17 146/64 97 10/22/16 11:46 96.3 89 16 146/64 97 10/22/16 11:15 96.5 93 17 138/65 95 10/22/16 09:38 96.4 92 16 147/77 97 10/22/16 09:38 96.4 92 16 147/77 97 10/22/16 09:23 96.3 90 18 149/70 95 10/22/16 09:18 96.3 86 17 149/70 95 10/22/16 08:00 96.2 93 17 133/63 98 10/22/16 03:18 18 10/21/16 23:39 97.0 99 20 120/59 95 10/21/16 20:00 96.9 103 21 130/60 96 10/21/16 16:00 96.4 85 16 130/61 97 Labs: Laboratory Tests Test 10/22/16 10/22/16 03:24 06:41 White Blood Count 12.1 TH/MM3 (4.0-11.0) Red Blood Count 3.05 MIL/MM3 (4.50-5.90) Hemoglobin 8.5 GM/DL (13.0-17.0) Hematocrit 25.9 % (39.0-51.0) Mean Corpuscular Volume 84.9 FL (80.0-100.0) Mean Corpuscular Hemoglobin 27.8 PG (27.0-34.0) Mean Corpuscular Hemoglobin 32.8 % Concent (32.0-36.0) Red Cell Distribution Width 13.7 % (11.6-17.2) Platelet Count 419 TH/MM3 (150-450) Mean Platelet Volume 7.3 FL (7.0-11.0) Neutrophils (%) (Auto) 75.3 % (16.0-70.0) Lymphocytes (%) (Auto) 13.8 % (9.0-44.0) Monocytes (%) (Auto) 8.4 % (0.0-8.0) Eosinophils (%) (Auto) 1.9 % (0.0-4.0) Basophils (%) (Auto) 0.6 % (0.0-2.0) Neutrophils # (Auto) 9.1 TH/MM3 (1.8-7.7) Lymphocytes # (Auto) 1.7 TH/MM3 (1.0-4.8) Monocytes # (Auto) 1.0 TH/MM3 (0-0.9) Eosinophils # (Auto) 0.2 TH/MM3 (0-0.4) Basophils # (Auto) 0.1 TH/MM3 (0-0.2) CBC Comment DIFF FINAL Differential Comment Prothrombin Time 26.8 SEC (9.8-11.6) Prothromb Time International 2.3 RATIO Ratio Activated Partial 55.3 SEC Thromboplast Time (24.3-30.1) Sodium Level 139 MEQ/L (136-145) Potassium Level 3.5 MEQ/L (3.5-5.1) Chloride Level 104 MEQ/L (98-107) Carbon Dioxide Level 26.6 MEQ/L (21.0-32.0) Anion Gap 8 MEQ/L (5-15) Blood Urea Nitrogen 17 MG/DL (7-18) Creatinine 0.97 MG/DL (0.60-1.30) Estimat Glomerular Filtration 74 ML/MIN (>89) Rate Random Glucose 113 MG/DL (74-106) Calcium Level 8.4 MG/DL (8.5-10.1) Blood Bank Comment Result Diagram: 10/22/16 0324 10/22/16 0324 Delmis Hess MD Oct 22, 2016 14:14
[2016-10-22] MEDS: ACETAMINOPHEN 325 MG TAB PO PRN ×2 (16:59→21:37)
[2016-10-22] MEDS: VANCOMYCIN INJ 1,300 MG in SODIUM CHLORID 0.9% 500 ML INJ 500 ML IV SCH (17:00)
[2016-10-22] MEDS: SODIUM BICARBONATE 8.4% INJ 50 MEQ in DEXTROSE 5% IN WATE 1000ML INJ 1,000 ML IV SCH ×2 (23:00)
[2016-10-23] MEDS: DIGOXIN 0.125 MG TAB PO SCH (06:11)
[2016-10-23 06:26] LABS: AUTOMATED NEUTROPHIL # 7.2 TH/MM3 (1.8-7.7); BASOPHIL # 0.1 TH/MM3 (0-0.2); BASOPHIL % 0.7 % (0.0-2.0); EOSINOPHIL # 0.2 TH/MM3 (0-0.4); EOSINOPHIL % 2.3 % (0.0-4.0); HEMATOCRIT 25.3 % (39.0-51.0); HEMO FLAGS DIFF FINAL; LYMPH % 15.8 % (9.0-44.0); LYMPHOCYTE # 1.6 TH/MM3 (1.0-4.8); MEAN CELL VOLUME 83.7 FL (80.0-100.0); MEAN CORPUSCULAR HEMOGLOBIN 28.1 PG (27.0-34.0); MEAN CORPUSCULAR HGB CONC 33.6 % (32.0-36.0); NEUT % 73.2 % (16.0-70.0); PLATELET COUNT 454 TH/MM3 (150-450); RED BLOOD COUNT 3.03 MIL/MM3 (4.50-5.90); RED CELL DISTRIBUTION WIDTH 13.8 % (11.6-17.2); WHITE BLOOD COUNT 9.8 TH/MM3 (4.0-11.0)
[2016-10-23 06:40] LABS: INTERNATIONAL NORMALIZED RATIO 1.6 RATIO; PROTHROMBIN TIME - PATIENT 17.6 SEC (9.8-11.6)
[2016-10-23 06:51] LABS: BICARBONATE 28.7 MEQ/L (21.0-32.0); POTASSIUM 3.5 MEQ/L (3.5-5.1)
[2016-10-23 08:00] VITALS: BP 139/61; PULSE 81; RESP 16; TEMP 96.7; O2SAT 98
[2016-10-23] MEDS: SODIUM CHLORIDE 0.9% FLUSH 10 ML FLUSH IV FLUSH SCH ×2 (09:00→21:34)
[2016-10-23] MEDS ORDERED: HEPARIN SODIUM - IV 10,000 UNITS/10 ML VIAL ONE (10:15)
[2016-10-23] MEDS ORDERED: FAMOTIDINE 20 MG/2 ML VIAL ONE (10:19)
[2016-10-23] MEDS ORDERED: IOHEXOL 300 MG/ML 50 ML BTL (for RAD DIAG) OTHER ONE (11:07)
--- NOTE | 2016-10-23 11:31 | HHI.PR ---
Subjective Remarks Admit for gangrene of the right first toe. Plan for vascular procedure today. No distress. No nausea. If revascularization fails, he may need a BKA as treatment. Objective Vital Signs Date Time Temp Pulse Resp B/P Pulse Ox O2 Delivery O2 Flow Rate FiO2 10/23/16 08:00 96.7 81 16 139/61 98 10/22/16 23:47 97.1 98 19 132/64 94 10/22/16 20:00 97.3 104 19 136/65 96 10/22/16 16:00 97.3 89 18 147/67 97 10/22/16 12:00 96.3 89 17 146/64 97 10/22/16 11:46 96.3 89 16 146/64 97 I/O 10/22/16 10/22/16 10/22/16 10/23/16 10/23/16 10/23/16 07:00 15:00 23:00 07:00 15:00 23:00 Intake Total 120 ml 1000 ml 440 ml 485 ml Output Total 600 ml 450 ml 800 ml 300 ml Balance -480 ml 550 ml -360 ml 185 ml Intake Oral 120 ml 360 ml 240 ml 120 ml IV Total 200 ml 365 ml FFP 640 ml Output Urine Total 600 ml 450 ml 800 ml 300 ml # Bowel Movements 2 0 2 Result Diagram: 10/23/16 0508 10/23/16 0508 Objective Remarks GENERAL: A&Ox3, NAD SKIN: Warm and dry. HEAD: Normocephalic. EYES: No scleral icterus. No injection or drainage. NECK: Supple, trachea midline. No JVD or lymphadenopathy. CARDIOVASCULAR: Regular rate and rhythm without murmurs, gallops, or rubs. RESPIRATORY: Breath sounds equal bilaterally. No accessory muscle use. GASTROINTESTINAL: Abdomen soft, non-tender, nondistended. MUSCULOSKELETAL: No cyanosis, or edema. Right Foot is bandaged. BACK: Nontender without obvious deformity. No CVA tenderness. Medications and IVs Administered Medications Medications (Trade) Dose Ordered Sig/Dustin Route PRN Reason Start Time Stop Time Status Last Admin Dose Admin Sodium Chloride (NS Flush) 2 ml BID IV FLUSH 10/20/16 21:00 10/22/16 08:24 Acetaminophen (Tylenol) 650 mg Q4H PRN PO TEMP > 100.4 10/20/16 16:00 10/22/16 01:29 Acetaminophen (Tylenol) 650 mg Q6H PRN PO PAIN SCALE 1 TO 2 10/20/16 16:00 10/22/16 21:37 Digoxin (Lanoxin) 0.125 mg DAILY@0600 PO 10/21/16 06:00 10/23/16 06:11 Diltiazem HCl (Cardizem Cd) 240 mg DAILY PO 10/21/16 09:00 10/22/16 08:24 Lisinopril (Prinivil) 5 mg DAILY PO 10/21/16 09:00 10/22/16 08:24 Tamsulosin HCl 0.4 mg 0.4 mg DAILY PO 10/21/16 09:00 10/22/16 08:24 Vancomycin HCl/ Sodium Chloride (Vancomycin Inj/ NS 500 ml Inj) 513 ml @ 250 mls/hr Q24H IV 10/21/16 18:00 10/22/16 17:00 Collagenase 1 applic 1 applic DAILY TOPICAL 10/22/16 09:00 10/22/16 08:25 Sodium Bicarbonate/ Dextrose (Sodium Bicarbonate 8.4% Inj/D5W 1000 ml Inj) 1,050 ml @ 42 mls/hr Q24H IV 10/22/16 23:00 10/22/16 23:00 A/P Problem List: (1) Cellulitis of foot, left ICD Code: L03.116 (2) Gangrene of toe ICD Code: I96 (3) Ischemic pain of foot ICD Code: M79.673 (4) Atrial fibrillation ICD Code: I48.91 (5) Pressure ulcer ICD Code: L89.90 (6) Nonhealing ulcer of left lower extremity ICD Code: L97.909 (7) Osteomyelitis ICD Code: M86.9 (8) PAD (peripheral artery disease) ICD Code: I73.9 (9) Cellulitis of foot, right ICD Code: L03.115 (10) Ischemic foot ICD Code: I99.8 (11) Ischemic pain of right foot ICD Code: M79.671 Assessment and Plan Right first toe Gangrene Right Foot Cellulitis PVD Vascuar surgery following Attempt at revascularization will occur today Possible need for BKA if revascularization is not possible Vancomycin A-fib Coumadin on hold for procedure(s) Telemetry Cardizem continued Digoxin continued Anemia of Chronic Disease Follow CBC Shows stability 2 units on hold if needed Left food pressure ulcer Daily wound care Montior clinically DVT Prophylaxis SCDs at LLE Resume coumadin when indicated Problem Qualifiers (1) Ischemic pain of foot: Qualified Code: M79.671 - Ischemic pain of foot, right (2) Pressure ulcer: Qualified Code: L89.621 - Decubitus ulcer of left heel, stage 1 Fuentes Garcia MD Oct 23, 2016 11:31
--- NOTE | 2016-10-23 12:06 | HHI.PR ---
cc: Delmis Hess MD Immediate Post Op Note Procedure Date: Oct 23, 2016 Pre Op Diagnosis: PAD, unreconstructable Post Op Diagnosis: Surgeon: Rian Soto Data Entry Email Processor(s): none Procedure: R LE angiogram Findings: occluded PT, peroneal Occluded distal AT and all named blood vessels in the foot Additional Information: will need R LE BKA Complications: none apparent Specimen(s) removed: none Estimated blood loss: 5 mL Anesthesia: General Drains: None Patient to: PACU Patient Condition: Good Date/Time of Procedure: SEE SURGICAL CARE RECORD Rian Soto MD Oct 23, 2016 12:06
[2016-10-23] MEDS ORDERED: DO NOT ADM ANY ANTICOAGULANT DRUGS PRN (12:13)
[2016-10-23 13:07] VITALS: O2SAT 98
[2016-10-23 13:40] VITALS: BP 142/75; PULSE 95; RESP 17; TEMP 96.4; O2SAT 98
[2016-10-23] MEDS ORDERED: ePHEDrine/NS 25 MG/5 ML SYR IV ONE (13:40)
[2016-10-23] MEDS ORDERED: PHENYLEPHRINE HCL 10 MG/ML VIAL IV ONE (13:40)
[2016-10-23] MEDS ORDERED: PROPOFOL 200 MG/20 ML AMP IV ONE (13:40)
[2016-10-23] MEDS ORDERED: NORMOSOL R INJ 1,000 ML IV ONE (13:40)
[2016-10-23] MEDS ORDERED: ONDANSETRON HCL 4 MG/2 ML VIAL IV PUSH ONE (13:40)
[2016-10-23] MEDS ORDERED: PHENYLEPH/NS 1000 MCG/10 ML SYR IV ONE (13:40)
[2016-10-23 16:00] VITALS: BP 150/77; PULSE 86; RESP 17; TEMP 95.6; O2SAT 99
[2016-10-23] MEDS ORDERED: PHARMACY ORDERED LAB ONE (17:45)
[2016-10-23] MEDS: DILTIAZEM-CD 240 MG CAP ER PO SCH (18:12)
[2016-10-23] MEDS: TAMSULOSIN HCL 0.4 MG CAP PO SCH (18:12)
[2016-10-23] MEDS: LISINOPRIL 5 MG TAB PO SCH (18:13)
[2016-10-23] MEDS: VANCOMYCIN INJ 1,300 MG in SODIUM CHLORID 0.9% 500 ML INJ 500 ML IV SCH (18:14)
[2016-10-23 18:24] VITALS: O2SAT 98
--- NOTE | 2016-10-23 18:30 | PD.CAR.PN ---
CVT Progress Note Subjective/Hospital Course: Full consult dictated Patient has known unreconstructable disease in both legs and right forefoot is now gangrenous with streaking over the dorsum of the foot There is nothing to reconstruct by endovascular or open means in this patient will require right below-knee amputation Patient is on Coumadin and I will hold Coumadin for another day or 2 so probably by Sunday the INR will be below 2 at which point patient can go to the operating room to have the surgery Thanks J 10/23/15 Dr. Soto's input is greatly appreciated Dr. Soto will take patient tomorrow to the operating room for angiogram and possible endovascular intervention If everything else fails patient will require below-knee amputation 10/23/[address] Soto. After valiant attempt to open a infrageniculate vessels, patient remains ischemic. Discussed with patient. For R BKA tomorrow Objective: Vital Signs Date Time Temp Pulse Resp B/P Pulse Ox O2 Delivery O2 Flow Rate FiO2 10/23/16 18:24 98 Nasal Cannula 2.00 10/23/16 13:40 96.4 95 17 142/75 98 10/23/16 13:15 97.8 90 14 137/79 98 Nasal Cannula 2 10/23/16 13:07 98 Nasal Cannula 2.00 10/23/16 13:00 89 13 127/75 98 Nasal Cannula 2 10/23/16 12:45 94 12 137/68 98 Nasal Cannula 2 10/23/16 12:30 96 16 138/70 97 Nasal Cannula 3 10/23/16 12:15 87 15 147/74 95 Nasal Cannula 3 10/23/16 12:10 97.9 104 15 128/76 95 Nasal Cannula 3 10/23/16 08:00 96.7 81 16 139/61 98 10/22/16 23:47 97.1 98 19 132/64 94 10/22/16 20:00 97.3 104 19 136/65 96 Result Diagram: 10/23/16 0508 10/23/16 0508 Delmis Hess MD Oct 23, 2016 18:30
[2016-10-23 19:24] LABS: VANCOMYCIN TROUGH 9.9 MCG/ML (5.0-10.0)
[2016-10-23 20:00] VITALS: BP 145/66; PULSE 97; RESP 20; TEMP 97.5; O2SAT 92
[2016-10-23] MEDS: COLLAGENASE OINT 30 GM TUBE TOPICAL SCH (21:20)
[2016-10-24] VITALS (7 sets, daily range): BP systolic 121–139; BP diastolic 59–65; PULSE 76–87; RESP 16–19; TEMP 96.5–98.1; O2SAT 92–97
[2016-10-24] MEDS: SODIUM BICARBONATE 8.4% INJ 50 MEQ in DEXTROSE 5% IN WATE 1000ML INJ 1,000 ML IV SCH ×4 (00:54→23:00)
[2016-10-24] MEDS: DIGOXIN 0.125 MG TAB PO SCH ×2 (06:00→07:04)
--- NOTE | 2016-10-24 08:58 | HHI.PR ---
Subjective Remarks awake and alert, slept well overnight minimal pain foot Objective Vitals Vital Signs Date Time Temp Pulse Resp B/P Pulse Ox O2 Delivery O2 Flow Rate FiO2 10/24/16 08:00 97.8 86 17 123/59 92 10/24/16 06:00 97.8 84 19 132/62 95 10/24/16 00:00 96.5 82 19 132/60 94 10/23/16 20:00 97.5 97 20 145/66 92 10/23/16 18:24 98 Nasal Cannula 2.00 10/23/16 16:00 95.6 86 17 150/77 99 10/23/16 13:40 96.4 95 17 142/75 98 10/23/16 13:15 97.8 90 14 137/79 98 Nasal Cannula 2 10/23/16 13:07 98 Nasal Cannula 2.00 10/23/16 13:00 89 13 127/75 98 Nasal Cannula 2 10/23/16 12:45 94 12 137/68 98 Nasal Cannula 2 10/23/16 12:30 96 16 138/70 97 Nasal Cannula 3 10/23/16 12:15 87 15 147/74 95 Nasal Cannula 3 10/23/16 12:10 97.9 104 15 128/76 95 Nasal Cannula 3 I/O 10/23/16 10/23/16 10/23/16 10/24/16 10/24/16 10/24/16 07:00 15:00 23:00 07:00 15:00 23:00 Intake Total 485 ml 1025 ml 360 ml Output Total 300 ml 475 ml 900 ml Balance 185 ml 550 ml -540 ml Intake Oral 120 ml 25 ml 360 ml IV Total 365 ml Other 1000 ml Output Urine Total 300 ml 475 ml 900 ml # Bowel Movements 2 0 0 Result Diagram: 10/23/16 0508 10/23/16 1800 Imaging Last Impressions Foot X-Ray 10/20/16 0000 Signed Impressions: Service Date/Time: Thursday, October 20, 2016 14:50 - CONCLUSION: Chronic changes and no evidence for acute fracture. Ryan Murphy MD Objective Remarks awake and alert, oriented x 3 anicteric lungs clear irregularly irregular rhythm abdomen- soft good bowel sounds rright foot- TMA left foot- ischemic- right hallus with superficial skin breakdown A/P Problem List: (1) Ischemic pain of right foot ICD Code: M79.671 Status: Acute (2) Ischemic foot ICD Code: I99.8 Status: Acute (3) PAD (peripheral artery disease) ICD Code: I73.9 Status: Acute (4) Atrial fibrillation ICD Code: I48.91 Status: Chronic (5) Cellulitis of foot, right ICD Code: L03.115 Status: Acute (6) Gangrene of toe ICD Code: I96 Status: Acute (7) Pressure ulcer ICD Code: L89.90 Status: Acute Assessment and Plan Right first toe Gangrene Right Foot Cellulitis PVD Vascuar surgery following for OR todat Vancomycin A-fib Coumadin on hold for procedure(s) Telemetry Cardizem continued Digoxin continued Anemia of Chronic Disease Follow CBC Shows stability 2 units on hold if needed Left food pressure ulcer Daily wound care Monitor clinically DVT Prophylaxis SCDs at LLE Resume coumadin when indicated- hold for OR Problem Qualifiers (1) Pressure ulcer: Qualified Code: L89.621 - Decubitus ulcer of left heel, stage 1 Theo Workman MD Oct 24, 2016 08:58
[2016-10-24] MEDS: COLLAGENASE OINT 30 GM TUBE TOPICAL SCH (09:00)
[2016-10-24] MEDS: SODIUM CHLORIDE 0.9% FLUSH 10 ML FLUSH IV FLUSH SCH ×2 (09:00→20:07)
[2016-10-24] MEDS: TAMSULOSIN HCL 0.4 MG CAP PO SCH (09:00)
[2016-10-24] MEDS: LISINOPRIL 5 MG TAB PO SCH (10:27)
[2016-10-24] MEDS: DILTIAZEM-CD 240 MG CAP ER PO SCH (10:27)
[2016-10-24] MEDS ORDERED: MIDAZOLAM HCL 2 MG/2 ML VIAL ONE (12:48)
[2016-10-24] MEDS ORDERED: FAMOTIDINE 20 MG/2 ML VIAL ONE (12:48)
[2016-10-24] MEDS ORDERED: KETAMINE HCL 500 MG/5 ML VIAL ONE (13:05)
[2016-10-24] MEDS ORDERED: PROPOFOL 200 MG/20 ML AMP IV ONE (13:10)
[2016-10-24] MEDS ORDERED: PHENYLEPH/NS 1000 MCG/10 ML SYR IV ONE (13:10)
[2016-10-24] MEDS ORDERED: ONDANSETRON HCL 4 MG/2 ML VIAL IV PUSH ONE (13:11)
[2016-10-24] MEDS ORDERED: fentaNYL CITRATE 250 MCG/5 ML AMP ONE (14:40)
[2016-10-24] MEDS ORDERED: *morphine SULFATE 8 MG/ML PERIprocedure ONLY ONE (14:44)
[2016-10-24] MEDS ORDERED: DO NOT ADM ANY ANTICOAGULANT DRUGS PRN (15:15)
[2016-10-24] MEDS: VANCOMYCIN INJ 1,500 MG in SODIUM CHLORID 0.9% 500 ML INJ 500 ML IV SCH (17:19)
[2016-10-24] MEDS: MORPHINE SULFATE 4 MG/ML INJ IV PRN (22:03)
[2016-10-25] VITALS (11 sets, daily range): BP systolic 115–154; BP diastolic 59–70; PULSE 94–104; RESP 17–20; TEMP 96.5–98.3; O2SAT 90–94
[2016-10-25] MEDS: RESP: ALBUTEROL 2.5 MG/IPRATROPIUM 0.5 MG NEB (PRN) NEB ×2 (04:52→20:20)
[2016-10-25] MEDS: DIGOXIN 0.125 MG TAB PO SCH (05:24)
[2016-10-25] MEDS: LISINOPRIL 5 MG TAB PO SCH (08:37)
[2016-10-25] MEDS: DILTIAZEM-CD 240 MG CAP ER PO SCH (08:37)
[2016-10-25] MEDS: TAMSULOSIN HCL 0.4 MG CAP PO SCH (08:37)
[2016-10-25] MEDS: SODIUM CHLORIDE 0.9% FLUSH 10 ML FLUSH IV FLUSH SCH ×2 (08:37→20:17)
[2016-10-25] MEDS: COLLAGENASE OINT 30 GM TUBE TOPICAL SCH ×2 (08:39→09:00)
--- NOTE | 2016-10-25 12:08 | HHI.PR ---
Subjective Remarks no complains "good" Objective Vitals Vital Signs Date Time Temp Pulse Resp B/P Pulse Ox O2 Delivery O2 Flow Rate FiO2 10/25/16 08:00 97.3 99 17 130/64 90 10/25/16 05:00 94 10/25/16 04:52 90 Venturi Mask 6.00 35 10/25/16 04:52 90 Nasal Cannula 2.00 10/25/16 04:00 98.2 98 20 145/69 90 10/25/16 00:00 98.0 104 18 154/70 92 10/24/16 22:08 17 10/24/16 19:44 97.0 76 18 129/59 92 10/24/16 16:00 98.1 82 17 121/59 96 10/24/16 15:25 70 16 127/63 95 Nasal Cannula 3 10/24/16 15:15 97.8 72 16 121/60 95 Nasal Cannula 3 10/24/16 15:00 71 16 119/59 94 Nasal Cannula 3 10/24/16 14:49 15 10/24/16 14:45 74 16 120/58 96 Nasal Cannula 4 10/24/16 14:35 98.1 79 18 122/59 92 Nasal Cannula 4 I/O 10/24/16 10/24/16 10/24/16 10/25/16 10/25/16 10/25/16 07:00 15:00 23:00 07:00 15:00 23:00 Intake Total 360 ml 550 ml 340 ml 250 ml Output Total 900 ml 525 ml 200 ml 120 ml Balance -540 ml 25 ml 140 ml 130 ml Intake Oral 360 ml 240 ml 250 ml IV Total 100 ml Other 550 ml Output Urine Total 900 ml 375 ml 200 ml 120 ml Estimated Blood Loss 150 ml # Bowel Movements 0 0 0 Result Diagram: 10/23/16 0508 10/25/16 0424 Imaging Last Impressions Foot X-Ray 10/20/16 0000 Signed Impressions: Service Date/Time: Thursday, October 20, 2016 14:50 - CONCLUSION: Chronic changes and no evidence for acute fracture. Ryan Murphy MD Objective Remarks awake and alert, oriented x 3 anicteric lungs clear irregularly irregular rhythm abdomen- soft good bowel sounds RLE- BKA stump dressing in place left foot- ischemic- right hallus with superficial skin breakdown A/P Problem List: (1) Ischemic pain of right foot ICD Code: M79.671 Status: Acute (2) Ischemic foot ICD Code: I99.8 Status: Acute (3) PAD (peripheral artery disease) ICD Code: I73.9 Status: Acute (4) Atrial fibrillation ICD Code: I48.91 Status: Chronic (5) Cellulitis of foot, right ICD Code: L03.115 Status: Acute (6) Gangrene of toe ICD Code: I96 Status: Acute (7) Pressure ulcer ICD Code: L89.90 Status: Acute Assessment and Plan Right toe/hallux Gangrene S/P BKA 10/24 PVD Vascuar surgery following Vancomycin A-fib Coumadin on hold for procedure(s) Telemetry Cardizem continued Digoxin continued restart OAC Anemia of Chronic Disease Follow CBC Shows stability 2 units on hold if needed Left food pressure ulcer Daily wound care Monitor clinically DVT Prophylaxis SCDs at [facility] Resume coumadin Problem Qualifiers (1) Pressure ulcer: Qualified Code: L89.621 - Decubitus ulcer of left heel, stage 1 Theo Workman MD Oct 25, 2016 12:08
--- NOTE | 2016-10-25 14:58 | MP ---
cc: RIAN SOTO MD DATE OF SURGERY October 23, 2016 PREOPERATIVE DIAGNOSIS Right lower extremity ischemic tissue loss. POSTOPERATIVE DIAGNOSIS: Right lower extremity ischemic tissue loss. OPERATION Right lower extremity angiogram. ATTENDING SURGEON Rian Soto MD ANESTHESIA General. INDICATION Mr. Shankar is an 81-year-old gentleman with peripheral vascular disease and right lower extremity tissue loss. He had an angiogram a couple of weeks ago but it did not clearly visualize his pedal blood vessels. He was taken to the operating room for angiogram and potential endovascular evaluation. Intraoperatively it was found that he had chronic occlusion of his distal AT, PT and peroneal and no named blood vessels in the foot and despite aggressive attempts at antegrade and retrograde recannulization we were unsuccessful. DESCRIPTION OF THE PROCEDURE Informed consent was obtained. The patient was taken to the operating room and placed supine on the operating table. An appropriate time out was taken to ensure the patient, identify the operative site and planned procedure. The administration of antibiotics was not necessary as this is a clean procedure without the planned implantation of any foreign object. Everyone in the room agreed with the time out and we proceeded. His bilateral groins and right leg were prepped and draped. Under ultrasound guidance the left common femoral artery was accessed with a 21 gauge micropuncture needle. This was exchanged using a Seldinger technique through micropuncture sheath through which a 0.05 glide wire was inserted through micropuncture sheath and was exchanged for a 5 Australian sheath and a VCF catheter was placed over the wire and through the sheath. We navigated the glide wire down through the right common femoral artery and the VCF catheter was exchanged for a CXI catheter and this was advanced with the glide wire down to the mid SFA. The glide wire was exchanged for a Peterson wire. The CXI catheter and 5 Australian sheath were removed and a 6 Australian 90 cm sheath was placed with the tip of the sheath in the popliteal artery. A CXI catheter was then placed and the NUT SORTER OPERATOR wire and ultimately glide were used to navigate into the anterior tibial artery and down the anterior tibial artery. The glide was then exchanged for a NUT SORTER OPERATOR which was used to attempt to recannulize his anterior tibial artery which was unsuccessful. The wire was removed and with the catheter in position ultrasonic graphic guidance was used to attempt to obtain access of the dorsalis pedis or posterior tibial arteries. Both of these were noted to be chronically occluded in the foot. Wire, catheter and sheath were removed from the left groin and the groin was closed with an Angio-Seal. INTERPRETATION The patient has patent SFA, profunda, popliteal artery without any hemodynamically significant stenoses. The anterior tibial artery was patent down to the distal calf at which point it terminates and there is no reconstitution in the foot. The posterior tibial artery is occluded at its origin all the way down to the foot and the peroneal artery is patent but diminutive and mcelroy out in mid calf. Rian Soto MD RJGeraldo/KK /12:10 PM /2:48 PM MTDD
--- NOTE | 2016-10-25 15:04 | MP ---
cc: DELMIS FOFANA MD DATE OF SURGERY: 10/24/2016 PREOPERATIVE DIAGNOSIS Gangrenous right foot and peripheral vascular disease. POSTOPERATIVE DIAGNOSIS Gangrenous right foot and peripheral vascular disease. OPERATIVE PROCEDURE Right below-knee amputation. SURGEON Jimena ANESTHESIA General. ESTIMATED BLOOD LOSS 100 cc. DETAILS OF PROCEDURE The patient was prepped and draped in the usual fashion. Indentation markings are made on the skin. The incision is made with a 10 blade proximally and carried out downward to create a posterior flap. This is deepened with the cautery medial and laterally. Laterally the anterior tibial artery and veins are clamped, divided and ligated with 2-0 Vicryl stick ties, [id number]. The fibula is exposed laterally. The tibia is now exposed. With a periosteal elevator the periosteum is elevated about two inches above the level of the incision. An oscillating is used to transect the tibia and fibula and then the neurovascular bundle is grasped with a clamp and transected with an amputation knife. The posterior flap is created and specimen removed. Meticulous hemostasis is obtained with 0 Vicryl stick ties for the branches of the anterior and posterior tibial arteries which are essentially occluded here as well as the veins. A few small bleeders are coagulated. The anterior tibial nerve is allowed to retract. The posterior flap is now flipped anteriorly and then washed with copious amounts of saline. The incision is now closed, deep fascia to deep fascia and superficial fascia to superficial with 0 Vicryl interrupted stitches. The skin is closed with 2-0 Prolene interrupted stitches. The patient tolerated the procedure well. Dressing was applied. Delmis BONE/KRISTY /6:44 PM /3:01 PM
[2016-10-25] MEDS ORDERED: WARFARIN SOD 5 MG TAB PO SCH (16:00)
[2016-10-25 16:30] LABS: INTERNATIONAL NORMALIZED RATIO 1.4 RATIO; PROTHROMBIN TIME - PATIENT 15.6 SEC (9.8-11.6)
[2016-10-25] MEDS: VANCOMYCIN INJ 1,500 MG in SODIUM CHLORID 0.9% 500 ML INJ 500 ML IV SCH (17:07)
[2016-10-25] MEDS: MORPHINE SULFATE 4 MG/ML INJ IV PRN ×2 (17:07→21:19)
[2016-10-26] VITALS: BP 118/58; PULSE 90; RESP 18; TEMP 98; O2SAT 92
[2016-10-26] MEDS: DIGOXIN 0.125 MG TAB PO SCH (05:11)
[2016-10-26 08:00] VITALS: BP 124/60; PULSE 90; RESP 19; TEMP 97.6; O2SAT 95
[2016-10-26 08:24] VITALS: O2SAT 94
[2016-10-26] MEDS: LISINOPRIL 5 MG TAB PO SCH (09:54)
[2016-10-26] MEDS: SODIUM CHLORIDE 0.9% FLUSH 10 ML FLUSH IV FLUSH SCH (09:54)
[2016-10-26] MEDS: DILTIAZEM-CD 240 MG CAP ER PO SCH (09:54)
[2016-10-26] MEDS: TAMSULOSIN HCL 0.4 MG CAP PO SCH (09:54)
[2016-10-26] MEDS: COLLAGENASE OINT 30 GM TUBE TOPICAL SCH (09:55)
--- NOTE | 2016-10-26 10:08 | HHI.PR ---
Subjective Remarks feels great, no pain Objective Vitals Vital Signs Date Time Temp Pulse Resp B/P Pulse Ox O2 Delivery O2 Flow Rate FiO2 10/26/16 08:00 97.6 90 19 124/60 95 10/26/16 00:00 98.0 90 18 118/58 92 10/25/16 21:31 18 10/25/16 20:00 94 10/25/16 17:43 91 Nasal Cannula 3.00 10/25/16 16:00 98.3 95 18 128/64 91 10/25/16 12:00 96.5 94 17 115/59 10/25/16 11:50 93 Nasal Cannula 3.00 I/O 10/25/16 10/25/16 10/25/16 10/26/16 10/26/16 10/26/16 07:00 15:00 23:00 07:00 15:00 23:00 Intake Total 250 ml 500 ml 240 ml 240 ml 120 ml Output Total 120 ml 125 ml 350 ml 300 ml Balance 130 ml 375 ml -110 ml -60 ml 120 ml Intake Oral 250 ml 500 ml 240 ml 240 ml 120 ml Output Urine Total 120 ml 125 ml 350 ml 300 ml # Bowel Movements 0 1 0 0 Result Diagram: 10/23/16 0508 10/25/16 0424 Imaging Last Impressions Foot X-Ray 10/20/16 0000 Signed Impressions: Service Date/Time: Thursday, October 20, 2016 14:50 - CONCLUSION: Chronic changes and no evidence for acute fracture. Ryan Murphy MD Objective Remarks awake and alert, oriented x 3 anicteric lungs clear irregularly irregular rhythm abdomen- soft good bowel sounds RLE- BKA stump dressing in place Left foot- s/p TMA, left heel- superficial breakdown, dry, no erythema Procedures 10/24- right BKA A/P Problem List: (1) Ischemic pain of right foot ICD Code: M79.671 Status: Acute (2) Ischemic foot ICD Code: I99.8 Status: Acute (3) PAD (peripheral artery disease) ICD Code: I73.9 Status: Acute (4) Atrial fibrillation ICD Code: I48.91 Status: Chronic (5) Cellulitis of foot, right ICD Code: L03.115 Status: Acute (6) Gangrene of toe ICD Code: I96 Status: Acute (7) Pressure ulcer ICD Code: L89.90 Status: Acute Assessment and Plan Right toe/hallux Gangrene S/P BKA 10/24 PVD Vascuar surgery following Vancomycin - will consult ID service to evaluate need for further antibiotics A-fib Coumadin restarted Telemetry Cardizem continued Digoxin continued check INR today Anemia of Chronic Disease Follow CBC- stable H and H 2 units on hold if needed Left food pressure ulcer- no signs of infection Daily wound care Monitor clinically DVT Prophylaxis SCDs at [facility] on coumadin DC to [place] today if accepted Problem Qualifiers (1) Pressure ulcer: Qualified Code: L89.621 - Decubitus ulcer of left heel, stage 1 Theo Workman MD Oct 26, 2016 10:08 Theo Workman MD Oct 26, 2016 10:08
[2016-10-26 11:10] LABS: INTERNATIONAL NORMALIZED RATIO 1.4 RATIO; PROTHROMBIN TIME - PATIENT 16.2 SEC (9.8-11.6)
[2016-10-26] MEDS: MORPHINE SULFATE 4 MG/ML INJ IV PRN (11:33)
[2016-10-26 12:00] VITALS: BP 115/68; PULSE 94; RESP 20; TEMP 98.7; O2SAT 100
[2016-10-26] MEDS ORDERED: oxyCODONE/ACETAMINOPHEN 5 MG/325 MG TAB PO PRN (12:00)
[2016-10-26] MEDS ORDERED: OXYC1TAB63 PO (12:51)
[2016-10-26] MEDS ORDERED: COUM5TAB PO (12:51)
[2016-10-26] MEDS ORDERED: COLL30T TOPICAL (12:51)
--- NOTE | 2016-10-26 12:55 | HHI.DS ---
Discharge Summary Admission Date Oct 20, 2016 at 15:35 Discharge Date: Oct 26, 2016 Admitting Diagnosis right hallux pain and ischemia (1) Ischemic pain of right foot ICD Code: M79.671 Diagnosis: Principal (2) Ischemic foot ICD Code: I99.8 Diagnosis: Principal (3) Gangrene of toe ICD Code: I96 Diagnosis: Principal (4) PAD (peripheral artery disease) ICD Code: I73.9 Diagnosis: Principal (5) Atrial fibrillation ICD Code: I48.91 Diagnosis: Secondary (6) Cellulitis of foot, right ICD Code: L03.115 Diagnosis: Secondary (7) Pressure ulcer ICD Code: L89.90 Diagnosis: Secondary Procedures 10/24- right BKA Brief History - From Admission 81-year-old male with a history of paroxysmal atrial fibrillation, diabetes, severe PAD of the right foot who is s/p RLE arthrectomy 10/13/16 presented to the ED at the request of these podiatrists for evaluation of black and painful digit right big toe times several weeks duration. Patient states, despite recent angiography he continued to have severe right foot pain rated 10 out of 10 in intensity. He denies any recent trauma. Denies any febrile episode. Vascular surgery has been consulted CBC/BMP: 10/23/16 0508 10/25/16 0424 Significant Findings Laboratory Tests Test 10/23/16 10/25/16 10/25/16 10/26/16 18:00 04:24 15:38 10:30 Estimat Glomerular Filtration 81 ML/MIN (>89) 82 ML/MIN (>89) Rate Prothrombin Time 15.6 SEC 16.2 SEC (9.8-11.6) (9.8-11.6) Imaging Last Impressions Foot X-Ray 10/20/16 0000 Signed Impressions: Service Date/Time: Sunday, October 20, 2016 14:50 - CONCLUSION: Chronic changes and no evidence for acute fracture. Ryan Murphy MD PE at Discharge awake and alert, oriented x 3 anicteric lungs clear irregularly irregular rhythm abdomen- soft good bowel sounds RLE- BKA stump dressing in place Left foot- s/p TMA, left heel- superficial breakdown, dry, no erythema Pt update on day of discharge awake and alert, afebrile motivated with PT Hospital Course Right toe/hallux Gangrene S/P BKA 10/24 PVD Vascuar surgery following seen by ID- no need for further antibiotics A-fib Coumadin restarted Telemetry Cardizem continued Digoxin continued check INR today Anemia of Chronic Disease Follow CBC- stable H and H 2 units on hold if needed Left food pressure ulcer- no signs of infection Daily wound care Monitor clinically DVT Prophylaxis SCDs at [facility] on coumadin DC to [place] today if accepted Pt Condition on Discharge: Stable Discharge Disposition: Rehab Inpatient Discharge Time: <= 30 minutes Discharge Instructions DIET: Follow Instructions for: As Tolerated, No Restrictions Activities you can perform: Weight Bearing as Preet Other Activity Instructions: per PT Follow up Referrals: Appointment for Follow Up - 1 Week with Delmis Hess MD New Medications: Collagenase (Santyl) 250 Unit/Gm Oin 1 APPLIC TOPICAL DAILY WOUND CARE Days 10 TUBE Oxycodone-Acetaminophen (Oxycodone-Acetaminophen) 5-325 mg Tab 1 TAB PO Q4-6H PRN PAIN #30 TAB Warfarin (Coumadin) 5 Mg Tab 5 MG PO DAILY@1600 pvd Days 30 TAB Continued Medications: Digoxin (Digoxin) 0.125 Mg Tab 0.125 MG PO DAILY@0600 Regulate Heart Beat #30 Ref 0 TAB Diltiazem ER 24 HR (Diltiazem ER 24 HR) 240 Mg Caper 240 MG PO DAILY #30 Ref 0 CAP Lisinopril (Lisinopril) 5 Mg Tab 5 MG PO DAILY Blood Pressure Management #30 Ref 0 TAB Magnesium Hydroxide Concentrate Liq (Milk of Magnesia Concentrate Liq) 1,200 Mg/ 5 Ml Susp 30 ML PO DAILY PRN CONSTIPATION #1 BOTTLE Multiple Vitamin (Multi Vitamin) 1 Tab Tab 1 TAB PO DAILY PROMOTE WOUND HEALING TAB Tamsulosin (Flomax) 0.4 Mg Cap 0.4 MG PO DAILY Manage Prostate Problems #30 Ref 0 CAP Discontinued Medications: Acetaminophen (Mapap) 325 Mg Tab 650 MG PO Q4HR PRN MILD PAIN/ TEMP 100.4 OR OVER Ref 0 TAB Ascorbic Acid (Vitamin C) 500 Mg Cap 500 MG PO DAILY PROMOTE SURGICAL SITE HEALING Ref 0 CAP Cilostazol (Cilostazol) 100 Mg Tab 100 MG PO BID pad #60 Ref 6 TAB Clopidogrel (Plavix) 75 Mg Tab 75 MG PO DAILY pad #30 Ref 11 TAB Hydrocodone-Acetaminophen (Lortab) 10-325 Mg Tab 1 TAB PO Q4H PRN MOD-SEV PAIN SCALE 4-10 Ref 0 TAB Warfarin (Coumadin) 2.5 Mg Tab 2.5 MG PO DAILY@1600 Prevent Blood Clot #30 Ref 0 TAB Wound Dressings (Hydrogel) 1 Application Gel 1 APPLIC TOPICAL EACH EVENING SHIFT WOUND CARE Zinc Sulfate (Zinc Sulfate) 220 Mg Cap 220 MG PO DAILY PROMOTE WOUND HEALING x 14 DAY Ref 0 CAP Theo Workman MD Oct 26, 2016 12:55
--- NOTE | 2016-10-26 18:21 | MB ---
cc: JAMIA CAMPOS MD DATE OF CONSULTATION 10/26/[address] Workman REASON FOR CONSULTATION Antibiotic recommendation on need for further antibiotic. Patient status post BKA on the right for ischemia/infection and history of PAD. HISTORY OF PRESENT ILLNESS This is an 81-year-old white male who underwent right [id number] amputation for ischemia. The patient developed ischemic right first toe and then developed pain in his foot. He developed right foot cellulitis which was creeping up the right leg and he was sent to the hospital for further management. Eventually he was worked up and he underwent [id number] amputation on the right. The patient has no complaints. He is afebrile. He notes that he has some pain in the right leg, but it is bearable. He is awake and alert. He has no fever or chills. PAST MEDICAL HISTORY 1. Hypertension, 2. Diabetes diet controlled 3. Atrial fibrillation, 4. Peripheral arterial disease 5. Right knee surgery on October 19, 2016 6. Left transmetatarsal amputation. 7. History of basal cell carcinoma of the skin. ALLERGIES NO KNOWN DRUG ALLERGIES. MEDICATIONS 1. Coumadin. 2. Vancomycin. 3. Cardizem. 4. Prinivil. 5. Flomax 6. Lanoxin 6. Tylenol 7. Inhaled Albuterol. SOCIAL HISTORY No tobacco, no alcohol. No illicit drugs. FAMILY HISTORY Noncontributory. REVIEW OF SYSTEMS Negative on 10-point review. PHYSICAL EXAMINATION GENERAL: This is a well-developed pleasant male in no acute distress. He is awake and alert and oriented. VITAL SIGNS: Temperature 98.7, BP 115/68, respirations 20, heart rate 94. HEENT: Head atraumatic. Extraocular movements grossly intact, pupils reactive to light. No icterus. Oropharynx no visible lesions. Moist mucosa. NECK: Supple without adenopathy. LUNGS: Clear breath sounds HEART: Regular rate and rhythm. No murmurs or rubs or gallops. ABDOMEN: Bowel sounds present, soft, nontender. RECTAL: Not performed. EXTREMITIES: The right [id number] amputation site has a surgical dressing in place. There is no visible edema. The left knee is mildly swollen. The left heel has a superficial ulceration which is very clean at the plantar aspect. No visible drainage. The patient has a well-healed surgical forefoot incision. SKIN: No rash. NEUROLOGIC: Nonfocal PSYCHIATRIC: The patient is calm and cooperative. LABORATORY DATA WBC 9.8, platelets 454, 73% neutrophils, hemoglobin 8.5, creatinine 0.89. IMPRESSION Patient status post right BKA for ischemic changes and cellulitis of the right foot and also gangrene and peripheral vascular disease. RECOMMENDATIONS Note that the patient is post surgery with BKA. There is no need to continue to treat with antibiotics since he had no evidence of systemic infection. The wound merely needs to be monitored for any problems with healing. I will discontinue vancomycin. Thank you for this consultation. I will not follow the patient since there is no need for Infectious Disease followup in this case. Jamia Campos MD FD/ /2:20 PM /6:01 PM
[2016-10-27] MEDS ORDERED: PHARMACY ORDERED LAB ONE (17:45)
[2016-11-07] MEDS ORDERED: LISI-519 PO (14:46)
[2016-11-07] MEDS ORDERED: DOCU1CAP39 PO (14:46)
[2016-11-07] MEDS ORDERED: FERR325T PO (14:46)
[2016-11-07] MEDS ORDERED: MEGE40SU PO (14:46)
[2016-11-07] MEDS ORDERED: BACL10TA PO (14:46)
[2016-11-07] MEDS ORDERED: MULT-135 PO (14:46)
[2016-11-07] MEDS ORDERED: TAMS5CAP PO (14:46)
[2016-11-07] MEDS ORDERED: METF500 PO (14:46)
[2016-11-07] MEDS ORDERED: COUM4TAB PO (14:46)
[2016-11-07] MEDS ORDERED: DIGO0.12 PO (14:46)
[2016-11-07] MEDS ORDERED: DILT-48 PO (14:46)
[2016-11-07] MEDS ORDERED: OXYC1TAB63 PO (14:46)
[2016-12-20] MEDS ORDERED: POLY17S PO (21:01)
[2016-12-20] MEDS ORDERED: SENS113T TOPICAL (21:01)
[2016-12-20] MEDS ORDERED: SENN1TAB PO (21:01)
[2016-12-20] MEDS ORDERED: COUM6TAB PO (21:01)
[2016-12-20] MEDS ORDERED: VITA500T2 PO (21:01)
== END 2016-10-26 15:47 | DRG 240 ==
LOC: NEPC 12:41 → NEDH 15:35 → N07A 19:20 → HCIS 10-23 13:19 → N07A 10-23 13:33
PROVIDERS: ADMIT Internal Medicine; ATTEND Internal Medicine
PROC: B42 Imaging, Lower Arteries, Computerized Tomography (CT Scan) (ICD-10-PCS; 2016-10-20)
PROC: 30233K1 Transfusion of Nonautologous Frozen Plasma into Peripheral Vein, Percutaneous Approach (ICD-10-PCS; 2016-10-22)
PROC: 0Y6J0Z3 Detachment at Left Lower Leg, Low, Open Approach (ICD-10-PCS; principal; 2016-10-24 12:55)
DX: E11.51 Type 2 diabetes mellitus with diabetic peripheral angiopathy without gangrene (principal); I70.261 Atherosclerosis of native arteries of extremities with gangrene, right leg; N17.9 Acute kidney failure, unspecified; I48.0 Paroxysmal atrial fibrillation; L03.115 Cellulitis of right lower limb; L89.621 Pressure ulcer of left heel, stage 1; L97.519 Non-pressure chronic ulcer of other part of right foot with unspecified severity; D63.8 Anemia in other chronic diseases classified elsewhere; I10 Essential (primary) hypertension; Z87.891 Personal history of nicotine dependence; Z79.01 Long term (current) use of anticoagulants
CPT/HCPCS: 36430; 73630; 75710; 76937; 80048; 80053; 80162; 80202; 82565; 83735; 84100; 85025; 85610; 85730; 86850; 86900; 86901; 86927; 87040; 88307; 88311; 93005; 94150; 94640; 94664; 99285; C1769; J1644; J2250; J2270; J2370; J2405; J3010; J3370; J7040; J7050; J7070; P9017; Q9967

== ENCOUNTER 2016-11-21 12:36 | Inpatient (IN) | payer MEDICARE, BC ==
[~2016-11-21 12:36] MED LIST changes: -ASCO500C PO; +BACL10TA PO; -CARD240C6 PO; -CILO100T PO; -COUM2.5T PO; +COUM4TAB PO; +DILT-48 PO; +DOCU1CAP39 PO; +FERR325T PO; -HYDR-3535 PO; -HYDRGEL4 TOPICAL; +MEGE40SU PO; +METF500 PO; -MILK2400 PO; -NITR2OIN; +OXYC1TAB63 PO; -PLAV75TA29 PO; -ZINC220C3 PO
--- NOTE | 2016-11-21 13:52 | RADRPT ---
EXAM DATE/TIME: 11/21/2016 13:23 [facility] COMPARISON: CHEST SINGLE AP, August 10, 2015, 17:10. INDICATIONS : Short of breath MEDICAL HISTORY : Diabetes mellitus type II. Cardiovascular disease. Hypertension. SURGICAL HISTORY : amputation left toes ENCOUNTER: Initial ACUITY: 1 day PAIN SCORE: 0/10 LOCATION: Bilateral chest FINDINGS: A single view of the chest demonstrates the lungs to be symmetrically aerated without evidence of mas s, infiltrate or effusion. Calcified granuloma left upper lobe. The cardiomediastinal contours are un remarkable. Osseous structures are intact. Kyphoplasty cement at the thoracolumbar junction. CONCLUSION: No acute disease. Jw Gonzalez MD on November 21, 2016 at 13:49 Board Certified Radiologist. This report was verified electronically.
[2016-11-21] MEDS ORDERED: DOCUSATE SODIUM 100 MG PO PRN (16:15)
[2016-11-21] MEDS ORDERED: DOCUSATE SODIUM 100 MG CAP PO PRN (16:30)
[2016-11-21] MEDS ORDERED: ceFAZolin 2 GM PREMIX 50 ML IV SCH (17:00)
[2016-11-21 17:04] VITALS: BP 115/53; PULSE 81; RESP 18; TEMP 96.4; O2SAT 100
--- NOTE | 2016-11-21 17:16 | MH ---
cc: DELMIS FOFANA MD DATE OF ADMISSION 11/21/[address] Fofana. ADMITTING DIAGNOSIS Gangrene of the right BKA stump. HISTORY OF THE PRESENT ILLNESS This pleasant 81-year-old gentleman was initially admitted somewhere in September of this year. At that time the patient was diagnosed with cellulitis and gangrene of the right foot. The patient underwent an angiogram by Dr. Harding several weeks ago before that. He had a stent placement. Since the stent placement the patient was getting worse and worse and a CT angiogram revealed complete occlusion of the vessels below the knee. He was worked up and underwent additional on table angiogram which again revealed no anatomically recognizable flow below the knee. The stent that was placed was occluded. For that reason the patient underwent right below-knee amputation. He did very well, was transferred to [facility] and before the discharge [facility] everything was nice, clean and healing well. The patient now comes two weeks later from some custodial and the entire lateral aspect of the stump anteriorly is gangrenous. The patient states that he does not remember falling on it and apparently it was being wrapped very tight for some reason. PAST MEDICAL HISTORY Is that of: 1. Atrial fibrillation. 2. Diabetes mellitus. 3. Hypertension. 4. Coronary artery disease. 5. Cataracts. PAST SURGICAL HISTORY 1. Bilateral knee replacement, right one a few months ago and the left one a few years ago. 2. Basal cell carcinoma removal. 3. Digit amputations as above stated by podiatry. MEDICATIONS Can be found in the record. SOCIAL HISTORY Does not smoke anymore, used to smoke. PHYSICAL EXAMINATION GENERAL: Reveals an 81-year-old gentleman in no acute distress. HEENT: Normocephalic. No trauma to the head. Pupils equally reactive. Extraocular muscles intact. NECK: Bilateral carotid pulses. Faint carotid bruits that were worked up and not felt to be significant. CHEST: Bilateral breath sounds, decreased of both lungs consistent with some degree of COPD. HEART: At this point very irregular, irregular rhythm with occasional PVCs about 85-90 beats per minute. ABDOMEN: Soft. No rebound or guarding. EXTREMITIES: The patient has palpable bilateral femoral pulses. On the left side there was a faint posterior tibial pulse. On the right side the patient has a below-knee amputation. IMPRESSION AND RECOMMENDATIONS I reviewed laboratory and diagnostic procedures. This gentleman has gangrene of the right BKA stump. There is also incision from the previous knee replacement. At this point there is no way to save this below-knee stump. This is very close to his knee prosthesis as well as the fact the patient cannot walk on this. ____ for shortening this would not make any difference because the patient is now wheelchair bound and cannot wear the prosthesis because of his age and general weakness. Therefore, I believe that the above-knee amputation is appropriate way to go. I have discussed this with his family and that is how we are going to proceed. Delmis BONE/KK /4:42 PM /4:48 PM
[2016-11-21 17:22] LABS: HEMATOCRIT 22.7 % (39.0-51.0); MEAN CORPUSCULAR HEMOGLOBIN 26.3 PG (27.0-34.0); MEAN CORPUSCULAR HGB CONC 32.1 % (32.0-36.0); PLATELET COUNT 397 TH/MM3 (150-450); RED BLOOD COUNT 2.77 MIL/MM3 (4.50-5.90); RED CELL DISTRIBUTION WIDTH 14.4 % (11.6-17.2); REVIEW FLAG FINAL; WHITE BLOOD COUNT 10.8 TH/MM3 (4.0-11.0)
[2016-11-21 17:29] LABS: INTERNATIONAL NORMALIZED RATIO 2.5 RATIO; PROTHROMBIN TIME - PATIENT 28.9 SEC (9.8-11.6)
[2016-11-21 17:52] LABS: ALT (GPT) 27 U/L (12-78); ANION GAP 10 MEQ/L (5-15); AST (GOT) 19 U/L (15-37); BICARBONATE 22.7 MEQ/L (21.0-32.0); BLOOD UREA NITROGEN 31 MG/DL (7-18); CHLORIDE 104 MEQ/L (98-107); GLOMERULAR FILTRATION RATE 70 ML/MIN (>89); MAGNESIUM 1.7 MG/DL (1.5-2.5); POTASSIUM 4.1 MEQ/L (3.5-5.1); SODIUM (NA) 137 MEQ/L (136-145)
[2016-11-21 17:54] LABS: ALKALINE PHOSPHATASE 86 U/L (45-117); TOTAL BILIRUBIN ADULT 0.2 MG/DL (0.2-1.0)
--- NOTE | 2016-11-21 17:55 | RADRPT ---
EXAM DATE/TIME: 11/21/2016 17:17 [place] COMPARISON: No previous studies available for comparison. INDICATIONS : Visulation of knee replacement hardware. MEDICAL HISTORY : None. SURGICAL HISTORY : Total knee replacement, right. amputation of right lower leg. ENCOUNTER: Subsequent ACUITY: 2 days PAIN SCORE: 0/10 LOCATION: Right knee FINDINGS: Total knee arthroplasty is present. Hardware is intact. Alignment is anatomic. A below knee amputatio n is noted. Severe calcific vascular disease is present in the soft tissues. CONCLUSION: Intact total knee arthroplasty Paulino Gonzalez MD on November 21, 2016 at 17:52 Board Certified Radiologist. This report was verified electronically.
[2016-11-21] MEDS: FERROUS SULFATE 325 MG (65 MG ELEMENTAL IRON) TAB PO SCH (18:02)
[2016-11-21] MEDS: metFORMIN HCL 500 MG TAB PO SCH (18:02)
--- NOTE | 2016-11-21 18:10 | PD.CONS ---
HPI Service [facility] Consult Requested By Surgical Team - Dr. Hess Reason for Consult Medical Management Primary Care Physician Unknown Diagnoses: History of Present Illness Written by Rosmery López, acting as scribe for Dr. Hendrickson on 11/21/16 at 18: 45. Patient is an 81-year-old male with primary medical history of paroxysmal atrial fibrillation, DM 2, HTN, status post right below the knee amputation who was recently discharged from [facility] 11/08/16 with right below the knee amputation wound healing to [facility] and now he had come back to the hospital secondary to entire lateral aspect of the stump anterior portion is gangrenous. He was seen by vascular surgeon Dr. Hess for a possible revision of the stump. States in have any trauma and did not know why Gangrenous. Denies pain and discomfort. Denies SOB/ dyspnea. Denies chest pain, palpitations, headaches, dizziness. Denies fevers, chills, n/ v/d. Denies hematuria, dysuria. Review of Systems Except as stated in HPI: all other systems reviewed are Neg Past Family Social History Allergies: Coded Allergies: *MDRO Multi-Drug Resistant Organism (Verified Adverse Reaction, Unknown, ) 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 MRSA PCR Screen NEGATIVE - 10/27/16 & 10/30/16 CLEARED PER INFECTION CONTROL PROTOCOL Past Medical History Hypertension Diabetesnow diet controlled Atrial fibrillationon Coumadin PADstatus post left second toe amputation due to ischemia, status post right lower extremity arthrectomy and balloon angioplasty Past Surgical History Status post right BKA s/p RLE arthrectomy 10/13/16 Left second toe amputation Right lower extremity arthrectomy and balloon angioplasty Left knee surgery Basal fall carcinoma of skin removal Reported Medications Reported Meds & Active Scripts Active Baclofen 10 Mg Tab 10 Mg PO HS Dok (Docusate Sodium) 100 Mg Cap 100 Mg PO BID PRN Ferrous Sulfate 325 Mg Tab 325 Mg PO BID@17 Megestrol Liq (Megestrol Acetate) 40 Mg/Ml Susp 400 Mg PO DAILY 30 Days Glucophage (Metformin HCl) 500 Mg Tab 500 Mg PO BIDPC Coumadin (Warfarin) 4 Mg Tab 4 Mg PO DAILY@16 Oxycodone-Acetaminophen 5-325 mg Tab 1 Tab PO Q4-6H PRN Diltiazem ER 24 HR 240 Mg Caper 240 Mg PO DAILY Lisinopril 5 Mg Tab 5 Mg PO DAILY Multi Vitamin (Multiple Vitamin) 1 Tab Tab 1 Tab PO DAILY Flomax (Tamsulosin HCl) 0.4 Mg Cap 0.4 Mg PO DAILY Digoxin 0.125 Mg Tab 0.125 Mg PO DAILY@0600 Active Ordered Medications Current Medications Medications (Trade) Dose Ordered Sig/Dustin Route Start Time Stop Time Status Last Admin (Lanoxin) 0.125 mg DAILY@0600 PO 11/22/16 06:00 (Cardizem Cd) 240 mg DAILY PO 11/22/16 09:00 (Ferrous Sulfate) 325 mg BID@12,17 PO 11/21/16 17:00 11/21/16 18:02 (Prinivil) 5 mg DAILY PO 11/22/16 09:00 (Megace Liq) 400 mg DAILY PO 11/22/16 09:00 (Glucophage) 500 mg BIDPC PO 11/21/16 18:00 11/21/16 18:02 (Theragran) 1 tab DAILY PO 11/22/16 09:00 (Percocet 5-325 Mg) 1 tab Q6H PRN PO 11/21/16 16:15 (Flomax) 0.4 mg DAILY PO 11/22/16 09:00 (Colace) 100 mg BID PRN PO 11/21/16 16:30 Family History Mother with rheumatic fever Social History Denies Alcohol use Denies tobacco use Denies illicit drug use Physical Exam Vital Signs Vital Signs Date Time Temp Pulse Resp B/P Pulse Ox O2 Delivery O2 Flow Rate FiO2 11/21/16 17:04 96.4 81 18 115/53 100 Physical Exam GENERAL: This is a pleasant, well-developed patient, in no apparent distress. SKIN: No rashes, ecchymoses. Warm and dry. HEAD: Atraumatic. Normocephalic. No temporal or scalp tenderness. EYES: Pupils equal round and reactive. Extraocular motions intact. No scleral icterus. No injection or drainage. ENT: Nose without bleeding. Throat without erythema. Uvula midline. Airway patent. NECK: Trachea midline. No JVD or lymphadenopathy. CARDIOVASCULAR: Regular rate and rhythm without murmurs, gallops, or rubs. RESPIRATORY: Diminished bases. No wheezes, rales, or rhonchi. GASTROINTESTINAL: Abdomen soft, non-tender, nondistended. BS Active x4. MUSCULOSKELETAL: Extremities without clubbing, cyanosis, Left foot trace edema. Right BKA incision site erythema, necrotic tissue anterior lateral area of the stump. Left heel blister, pink approx [id number] NEUROLOGICAL: Awake and alert. Oriented to place, person, time. Motor and sensory grossly within normal limits. Normal speech. Laboratory Laboratory Tests Test 11/21/16 16:30 White Blood Count 10.8 Red Blood Count 2.77 Hemoglobin 7.3 Hematocrit 22.7 Mean Corpuscular Volume 82.0 Mean Corpuscular Hemoglobin 26.3 Mean Corpuscular Hemoglobin 32.1 Concent Red Cell Distribution Width 14.4 Platelet Count 397 Mean Platelet Volume 7.4 Prothrombin Time 28.9 Prothromb Time International 2.5 Ratio Sodium Level 137 Potassium Level 4.1 Chloride Level 104 Carbon Dioxide Level 22.7 Anion Gap 10 Blood Urea Nitrogen 31 Creatinine 1.02 Estimat Glomerular Filtration 70 Rate Random Glucose 153 Calcium Level 9.0 Magnesium Level 1.7 Total Bilirubin 0.2 Aspartate Amino Transf 19 (AST/SGOT) Alanine Aminotransferase 27 (ALT/SGPT) Alkaline Phosphatase 86 Total Protein 7.0 Albumin 2.6 Blood Type O POSITIVE Result Diagram: 11/21/16 1630 11/21/16 1630 Imaging Last Impressions Knee X-Ray 11/21/16 0000 Signed Impressions: Service Date/Time: Monday, November 21, 2016 17:17 - CONCLUSION: Intact total knee arthroplasty Paulino Gonzalez MD Chest X-Ray 11/21/16 0000 Signed Impressions: Service Date/Time: Monday, November 21, 2016 13:23 - CONCLUSION: No acute disease. Jw Gonzalez MD Assessment and Plan Problem List: (1) HTN (hypertension) ICD Code: I10 Status: Chronic (2) PAD (peripheral artery disease) ICD Code: I73.9 Status: Chronic (3) Status post below knee amputation of right lower extremity ICD Code: Z89.511 Status: Acute (4) Nonhealing ulcer of left lower extremity ICD Code: L97.909 Status: Chronic (5) Pressure ulcer of left heel, unstageable ICD Code: L89.620 Status: Acute (6) Atrial fibrillation ICD Code: I48.91 Status: Chronic (7) DM type 2 (diabetes mellitus, type 2) ICD Code: E11.9 Status: Chronic Assessment and Plan Patient is an 81-year-old male with primary medical history of paroxysmal atrial fibrillation, DM 2, HTN, status post right below the knee amputation 4/ who was recently discharged from [facility] 11/08/16 with right below the knee amputation wound healing to [facility] and now he had come back to the hospital secondary to entire lateral aspect of the stump anterior portion is gangrenous. Consulted for medical management. S/P Right BKA 4/ Stump gangrene - Possible revision by surgery team tomorrow - Pain management HTN benign Afib, rate controlled, Chronic - On Coumadin INR 2.5. Hold Coumadin today. May need FFP prior to surgery, if surgery is to be done tomorrow - Continue home dose Cardizem 240mg daily , digoxin 0.125 mg daily, Lisinopril 5mg daily - Monitor heart rate and BP trend DM2, controlled - Latest Hemoglobin A1c 6.7 - 10/27/16 - On metformin at home, hold for now. Start Insulin sliding scale - Monitor Accu-Cheks. Monitor for hypoglycemia Anemia, normocytic normochromic possibly postoperatively Right BKA - H/H 7.3/22.7, may need blood transfusion prior to surgery and may be postop - Continue ferrous sulfate BID - Trend CBC Left Heel Blister - Unstageable PU - Heel pressure relief DVT prop Coumadin - hold for now for possible surgical intervention This note was transcribed by makayla [Rosmery López]. I, Dr. Howie Hendrickson personally performed the history, physical exam, and medical decision making; and confirmed the accuracy of the information in the transcribed note. Authenticated by Dr. Howie Hendrickson on 11/21/16 at 19:18. Code Status Full Code Discussed Condition With Patient, nursing Problem Qualifiers (1) DM type 2 (diabetes mellitus, type 2): Rosmery Vazquez November 21, 2016 18:10 Howie Hendrickson MD November 21, 2016 19:18
[2016-11-21] MEDS ORDERED: DEXTROSE 50% IN WATER 50 ML VIAL(D50) IV PRN (19:00)
[2016-11-21] MEDS ORDERED: GLUCAGON 1 MG/ML VIAL OTHER PRN (19:00)
--- NOTE | 2016-11-21 19:44 | EKG ---
Date Performed: 11/21/2016 Time Performed: 17:26:59 PTAGE: 81 years EKG: ATRIAL FIBRILLATION WITH ABERRANT CONDUCTION NONSPECIFIC T-WAVE ABNORMALITY ABNORMAL RHYTHM ECG PREVIOUS TRACING : 10/22/2016 08.35 Compared to prior tracing no significant change DOCTOR: Justin Jameson Interpretating Date/Time 11/21/2016 19:44:03
[2016-11-21 20:15] VITALS: BP 153/71; PULSE 94; RESP 18; TEMP 97; O2SAT 100
[2016-11-21] MEDS: INSULIN ASPART SUPPLEMENTAL SCALE SQ SCH (20:36)
[2016-11-21] MEDS: oxyCODONE/ACETAMINOPHEN 5 MG/325 MG TAB PO PRN (21:40)
[2016-11-21 23:55] VITALS: BP 131/60; PULSE 91; RESP 18; TEMP 97.6; O2SAT 97
[2016-11-22 04:26] VITALS: BP 120/60; PULSE 75; RESP 18; TEMP 97.4; O2SAT 99
[2016-11-22] MEDS: DIGOXIN 0.125 MG TAB PO SCH (06:07)
[2016-11-22] MEDS: INSULIN ASPART SUPPLEMENTAL SCALE SQ SCH ×4 (06:08→21:00)
--- NOTE | 2016-11-22 06:34 | PD.VS.CON ---
History of Present Illness Chief Complaint: Ischemic R BKA Consult Requested by: Dr. Hess History of Present Illness 81 yo male, non-ambulatory, who underwent R LE angio with failed intervention and subsequent BKA severa weeks ago. The patient was at rehab and presented back with drainage and discoloration of the distal aspect and lateral margin of the BKA stump. Pt denies unusual pain to the area and has no fevers/chills. He is nonambulatory. No history of trauma to stump. Past/Family/Social History Past Medical History a fib PAD DM HTN CAD Past Surgical History B TKR R BKA skin CA excisions Social History former smoker Home Medications Active Scripts Baclofen 10 Mg Tab10 Mg PO HS #30 TAB Prov:Isak Garcia MD 11/07/16 Docusate Sodium (Dok)100 Mg [id number] Mg PO BID PRN (CONSTIPATION) #60 CAP Prov:Isak Garcia MD 11/07/16 Ferrous Sulfate 325 Mg [id number] Mg PO BID@12,17 #60 TAB Prov:Isak Garcia MD 11/07/16 Megestrol Liq 40 Mg/Ml [id number] Mg PO DAILY 30 Days Prov:Isak Garcia MD 11/07/16 Metformin (Glucophage)500 Mg Mot595 Mg PO BIDPC #60 TAB Prov:Isak Garcia MD 11/07/16 Warfarin (Coumadin)4 Mg Tab4 Mg PO DAILY@16 #30 TAB Prov:Isak Garcia MD 11/07/16 Oxycodone-Acetaminophen 5-325 mg Tab1 Tab PO Q4-6H PRN (PAIN) #60 TAB Prov:Isak Garcia MD 11/07/16 Diltiazem ER 24 HR 240 Mg [id number] Mg PO DAILY #30 CAP Ref 0 Prov:Isak Garcia MD 11/07/16 Lisinopril 5 Mg Tab5 Mg PO DAILY #30 TAB Ref 0 Prov:Isak Garcia MD 11/07/16 Multiple Vitamin (Multi Vitamin)1 Tab Tab1 Tab PO DAILY #30 TAB Prov:Isak Garcia MD 11/07/16 Tamsulosin (Flomax)0.4 Mg Cap0.4 Mg PO DAILY #30 CAP Ref 0 Prov:Isak Garcia MD 11/07/16 Digoxin 0.125 Mg Tab0.125 Mg PO DAILY@0600 #30 TAB Ref 0 Prov:Isak Garcia MD 11/07/16 Coded Allergies: *MDRO Multi-Drug Resistant Organism (Verified Adverse Reaction, Unknown, ) 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 MRSA PCR Screen NEGATIVE - 10/27/16 & 10/30/16 CLEARED PER INFECTION CONTROL PROTOCOL Review of Systems Constitutional: DENIES: Fever, Chills Musculoskeletal: COMPLAINS OF: Stiffness Physical Exam Vitals/I&O Date Time Temp Pulse Resp B/P Pulse Ox O2 Delivery O2 Flow Rate FiO2 11/22/16 04:26 97.4 75 18 120/60 99 11/21/16 23:55 97.6 91 18 131/60 97 11/21/16 20:15 97.0 94 18 153/71 100 11/21/16 17:04 96.4 81 18 115/53 100 11/22/16 11/22/16 11/22/16 07:00 15:00 23:00 Output Total 400 ml Balance -400 ml Neuro: alert, resting comfortably HEENT: NC/AT, anicteric sclera Neck: no JVD Lungs: nonlabored breathing Vascular: R BKA with lateral stump ischemia, boggy discoloration of distal aspect Laboratory Tests Test 11/21/16 16:30 White Blood Count 10.8 Red Blood Count 2.77 Hemoglobin 7.3 Hematocrit 22.7 Mean Corpuscular Volume 82.0 Mean Corpuscular Hemoglobin 26.3 Mean Corpuscular Hemoglobin 32.1 Concent Red Cell Distribution Width 14.4 Platelet Count 397 Mean Platelet Volume 7.4 Prothrombin Time 28.9 Prothromb Time International 2.5 Ratio Sodium Level 137 Potassium Level 4.1 Chloride Level 104 Carbon Dioxide Level 22.7 Anion Gap 10 Blood Urea Nitrogen 31 Creatinine 1.02 Estimat Glomerular Filtration 70 Rate Random Glucose 153 Calcium Level 9.0 Magnesium Level 1.7 Total Bilirubin 0.2 Aspartate Amino Transf 19 (AST/SGOT) Alanine Aminotransferase 27 (ALT/SGPT) Alkaline Phosphatase 86 Total Protein 7.0 Albumin 2.6 Blood Type O POSITIVE Antibody Screen NEGATIVE Last 48 hours Impressions Knee X-Ray 11/21/16 0000 Signed Impressions: Service Date/Time: Monday, November 21, 2016 17:17 - CONCLUSION: Intact total knee arthroplasty Paulino Gonzalez MD Chest X-Ray 11/21/16 0000 Signed Impressions: Service Date/Time: Monday, November 21, 2016 13:23 - CONCLUSION: No acute disease. Jw Gonzalez MD Assessment and Plan Plan I agree with Dr. Hess that an AKA should be performed. I talked with the patient about the much higher likelihood of wound healing. We also talked that although it is possible to wear an "AK prosthesis" the chances of resuming ambulation is limited. The patient agrees with the plan. Dr. Hess to perform AKA today. Please call me with any questions. Rian Soto MD FACS tax manager [facility] - Heart and Vascular Surgery at [facility] [phone] Rian Soto MD November 22, 2016 06:34
[2016-11-22] MEDS: oxyCODONE/ACETAMINOPHEN 5 MG/325 MG TAB PO PRN (06:43)
[2016-11-22] MEDS ORDERED: INSULIN HUMAN REGULAR 1,000 UNITS/10 ML VIAL SQ PRN (07:00)
[2016-11-22] MEDS ORDERED: CHLORHEXIDINE GLUCONATE 2 % 1 PACK (2 CLOTHS) TOPICAL PRN (07:00)
[2016-11-22] MEDS ORDERED: POVIDONE IODINE 5% (ANTISEPSIS KIT) 4 APPLICATIONS EACH NARE PRN (07:00)
[2016-11-22] MEDS ORDERED: SODIUM CHLORID 0.9% 500 ML IV PRN (07:00)
[2016-11-22] MEDS ORDERED: METOPROLOL TARTRATE 25 MG TAB PO PRN (07:00)
[2016-11-22] MEDS ORDERED: LACTATED RINGER'S 1000 ML IV PRN (07:00)
[2016-11-22 07:22] LABS: AUTOMATED NEUTROPHIL # 6.2 TH/MM3 (1.8-7.7); BASOPHIL # 0.1 TH/MM3 (0-0.2); BASOPHIL % 1.1 % (0.0-2.0); EOSINOPHIL # 0.3 TH/MM3 (0-0.4); EOSINOPHIL % 3.2 % (0.0-4.0); HEMATOCRIT 22.3 % (39.0-51.0); HEMO FLAGS DIFF FINAL; LYMPH % 22.5 % (9.0-44.0); LYMPHOCYTE # 2.1 TH/MM3 (1.0-4.8); MEAN CELL VOLUME 80.6 FL (80.0-100.0); MEAN CORPUSCULAR HEMOGLOBIN 26.2 PG (27.0-34.0); MEAN CORPUSCULAR HGB CONC 32.5 % (32.0-36.0); NEUT % 66.2 % (16.0-70.0); PLATELET COUNT 414 TH/MM3 (150-450); RED BLOOD COUNT 2.76 MIL/MM3 (4.50-5.90); RED CELL DISTRIBUTION WIDTH 14.2 % (11.6-17.2); WHITE BLOOD COUNT 9.3 TH/MM3 (4.0-11.0)
[2016-11-22 07:28] LABS: INTERNATIONAL NORMALIZED RATIO 2.3 RATIO; PROTHROMBIN TIME - PATIENT 26.2 SEC (9.8-11.6)
[2016-11-22 07:45] LABS: BICARBONATE 22.5 MEQ/L (21.0-32.0); POTASSIUM 3.9 MEQ/L (3.5-5.1)
[2016-11-22] MEDS ORDERED: BUPIVACAINE HCL PF 0.5% 30 ML VIAL NERV BLOCK ONE (07:52)
[2016-11-22] MEDS ORDERED: DEXAMETHASONE SOD PHOS PF 10 MG/ML VIAL IV ONE (07:52)
[2016-11-22 08:02] VITALS: BP 114/61; PULSE 95; RESP 20; TEMP 96.7; O2SAT 98
[2016-11-22] MEDS ORDERED: PROPOFOL 200 MG/20 ML AMP IV ONE (08:13)
[2016-11-22] MEDS ORDERED: PHENYLEPH/NS 1000 MCG/10 ML SYR IV ONE (08:14)
[2016-11-22] MEDS ORDERED: ONDANSETRON HCL 4 MG/2 ML VIAL IV PUSH ONE (08:14)
[2016-11-22] MEDS ORDERED: ePHEDrine/NS 25 MG/5 ML SYR IV ONE (08:14)
[2016-11-22] MEDS ORDERED: LACTATED RINGER'S 1000 ML INJ 1,000 ML IV ONE (08:15)
[2016-11-22] MEDS: MEGESTROL ACETATE SUSP 400 MG/10 ML CUP PO SCH (08:45)
[2016-11-22] MEDS: TAMSULOSIN HCL 0.4 MG CAP PO SCH (08:46)
[2016-11-22] MEDS: MULTIVITAMIN TAB PO SCH (08:47)
[2016-11-22] MEDS: LISINOPRIL 5 MG TAB PO SCH (08:47)
[2016-11-22] MEDS: DILTIAZEM-CD 240 MG CAP ER PO SCH (08:47)
[2016-11-22] MEDS: FERROUS SULFATE 325 MG (65 MG ELEMENTAL IRON) TAB PO SCH ×2 (12:00→16:18)
[2016-11-22] MEDS ORDERED: SUGAMMADEX SODIUM 200 MG/2 ML VIAL IV PUSH ONE ×2 (14:00)
[2016-11-22] MEDS ORDERED: fentaNYL CITRATE 250 MCG/5 ML AMP ONE (14:00)
[2016-11-22] MEDS ORDERED: DO NOT ADM ANY ANTICOAGULANT DRUGS PRN (14:45)
--- NOTE | 2016-11-22 15:39 | HHI.PR ---
Subjective Remarks Patient seen postoperatively. He reports he is feeling ok. Minimal pain. No shortness of breath. Objective Vitals Vital Signs Date Time Temp Pulse Resp B/P Pulse Ox O2 Delivery O2 Flow Rate FiO2 11/22/16 14:00 97.7 89 12 134/60 97 Nasal Cannula 2 11/22/16 13:45 91 13 142/62 97 Nasal Cannula 2 11/22/16 13:30 88 12 140/66 98 Nasal Cannula 2 11/22/16 13:15 92 12 130/62 94 Nasal Cannula 2 11/22/16 13:10 97.5 86 12 153/67 94 Nasal Cannula 2 11/22/16 08:02 96.7 95 20 114/61 98 11/22/16 04:26 97.4 75 18 120/60 99 11/21/16 23:55 97.6 91 18 131/60 97 11/21/16 20:15 97.0 94 18 153/71 100 11/21/16 17:04 96.4 81 18 115/53 100 I/O 11/21/16 11/21/16 11/21/16 11/22/16 11/22/16 11/22/16 07:00 15:00 23:00 07:00 15:00 23:00 Intake Total 2200 ml Output Total 400 ml 1085 ml Balance -400 ml 1115 ml Intake Oral 0 ml IV Total 200 ml Packed Cells 500 ml Other 1500 ml Output Urine Total 400 ml 935 ml Estimated Blood Loss 150 ml # Voids 1 # Bowel Movements 0 Result Diagram: 11/22/16 0635 11/22/16 0635 Imaging Last Impressions Knee X-Ray 11/21/16 0000 Signed Impressions: Service Date/Time: Monday, November 21, 2016 17:17 - CONCLUSION: Intact total knee arthroplasty Paulino Gonzalez MD Chest X-Ray 11/21/16 0000 Signed Impressions: Service Date/Time: Monday, November 21, 2016 13:23 - CONCLUSION: No acute disease. Jw Gonzalez MD Objective Remarks GENERAL: This is a pleasant, well-developed patient, in no apparent distress. CARDIOVASCULAR: Regular rate and rhythm without murmurs, gallops, or rubs. RESPIRATORY: Diminished at the bases. No wheezes, rales, or rhonchi. GASTROINTESTINAL: Abdomen soft, non-tender, nondistended. BS Active x4. MUSCULOSKELETAL: S/P Right AKA. Dressing appear intact. Left heel blister, pink approx [id number] NEUROLOGICAL: Awake and alert. Oriented to place, person, time. Normal speech. A/P Problem List: (1) HTN (hypertension) ICD Code: I10 Status: Chronic (2) PAD (peripheral artery disease) ICD Code: I73.9 Status: Chronic (3) Status post below knee amputation of right lower extremity ICD Code: Z89.511 Status: Acute (4) Nonhealing ulcer of left lower extremity ICD Code: L97.909 Status: Chronic (5) Pressure ulcer of left heel, unstageable ICD Code: L89.620 Status: Acute (6) Atrial fibrillation ICD Code: I48.91 Status: Chronic (7) DM type 2 (diabetes mellitus, type 2) ICD Code: E11.9 Status: Chronic Assessment and Plan 81-year-old male with paroxysmal atrial fibrillation, DM 2, HTN, status post right below the knee amputation 4/ who was recently discharged from [facility] 11/08/16 with right below the knee amputation wound healing to [facility] returned to the hospital with below the knee gangrenous stump. Hospitalist service following for medical management. Right below the knee stump gangrene: - Patient is status post right AKA today 11/22/16 - Further plans per Vascular surgery - Pain management HTN benign Afib, rate controlled, Chronic - On Coumadin INR therapeutic. Coumadin held for surgery. Plan to resume tomorrow if ok with surgery. - Continue home dose Cardizem 240mg daily , digoxin 0.125 mg daily, Lisinopril 5mg daily - Monitor heart rate and BP trend DM2, controlled - Latest Hemoglobin A1c 6.7 - 10/27/16 - On metformin at home, hold for now. Start Insulin sliding scale - Monitor Accu-Cheks. Monitor for hypoglycemia Anemia, chronic normocytic normochromic possibly postoperatively Right BKA - Continue ferrous sulfate BID - Trend CBC - Transfuse as needed for Hgb<7 Left Heel Blister - Unstageable PU - Heel pressure relief DVT prop: INR therapeutic. Problem Qualifiers (1) DM type 2 (diabetes mellitus, type 2): Howie Hendrickson MD November 22, 2016 15:39
[2016-11-22 16:14] VITALS: BP 124/63; PULSE 94; RESP 20; TEMP 96.1; O2SAT 100
[2016-11-22 20:00] VITALS: BP 135/63; PULSE 57; RESP 20; TEMP 96.9; O2SAT 97
[2016-11-23] VITALS: BP 142/60; PULSE 92; RESP 20; TEMP 97.7; O2SAT 97
[2016-11-23 04:00] VITALS: BP 158/90; PULSE 87; RESP 20; TEMP 97; O2SAT 99
[2016-11-23] MEDS: DIGOXIN 0.125 MG TAB PO SCH (05:57)
[2016-11-23] MEDS: INSULIN ASPART SUPPLEMENTAL SCALE SQ SCH ×4 (06:44→22:27)
--- NOTE | 2016-11-23 07:49 | MP ---
cc: DELMIS FOFANA MD DATE OF SURGERY 11/22/2016 PREOPERATIVE DIAGNOSES 1. Peripheral vascular disease. 2. Diabetes mellitus. 3. Gangrene of the right BKA stump with dehiscence. POSTOPERATIVE DIAGNOSES 1. Peripheral vascular disease. 2. Diabetes mellitus. 3. Gangrene of the right BKA stump with dehiscence. PROCEDURE Above-knee amputation. SURGEON MD Jimena ANESTHESIA General. ESTIMATED BLOOD LOSS 100 cc. PROCEDURE IN DETAIL The patient prepped and draped the usual fashion. The outline of the incision is marked with a string indentation and then incision is made anteriorly with a 10 blade in a fish[place] fashion and then extended posteriorly in the same way. The incisions were deepened down with cautery. The quadriceps tendon to the patellar tendon is transected. Incision was carried laterally down to the femur and anteriorly to the femur. Medially the incision is carried down, then the superficial femoral artery is clamped, divided and double ligated with 0 Vicryl stick ties. The vessel is very calcified with some flow in it but not much. The femur is now freed up and then with a periosteal elevator the periosteum elevated about 4 inches above the level of the incision and then the femur is transected with an oscillating saw. The bone is rasped down and then posterior flap created with amputation knife. The area is irrigated with copious amounts of saline, meticulous hemostasis obtained and the incision closed in layers using #1 Vicryl for deep layers, #1 Vicryl for the superficial fascia; the skin was closed with 3-0 Prolene interrupted stitches. Dressing applied. The patient tolerated the procedure well. Delmis BONE/LAURIE /3:10 PM /7:37 AM
[2016-11-23 08:00] VITALS: BP 142/48; PULSE 83; RESP 20; TEMP 97.4; O2SAT 98
[2016-11-23] MEDS: MEGESTROL ACETATE SUSP 400 MG/10 ML CUP PO SCH (08:14)
[2016-11-23] MEDS: LISINOPRIL 5 MG TAB PO SCH (08:15)
[2016-11-23] MEDS: TAMSULOSIN HCL 0.4 MG CAP PO SCH (08:15)
[2016-11-23] MEDS: DILTIAZEM-CD 240 MG CAP ER PO SCH (08:15)
[2016-11-23] MEDS: MULTIVITAMIN TAB PO SCH (08:16)
[2016-11-23 09:48] LABS: HEMATOCRIT 28.5 % (39.0-51.0); MEAN CELL VOLUME 81.3 FL (80.0-100.0); MEAN CORPUSCULAR HEMOGLOBIN 26.4 PG (27.0-34.0); MEAN CORPUSCULAR HGB CONC 32.4 % (32.0-36.0); PLATELET COUNT 396 TH/MM3 (150-450); RED CELL DISTRIBUTION WIDTH 14.4 % (11.6-17.2); REVIEW FLAG FINAL
[2016-11-23 09:53] LABS: PROTHROMBIN TIME - PATIENT 22.7 SEC (9.8-11.6)
[2016-11-23 10:06] LABS: BICARBONATE 22.8 MEQ/L (21.0-32.0); POTASSIUM 4.1 MEQ/L (3.5-5.1)
[2016-11-23] MEDS: LEVOFLOXACIN 500 MG PREMIX INJ 100 ML IV SCH (11:55)
[2016-11-23] MEDS: FERROUS SULFATE 325 MG (65 MG ELEMENTAL IRON) TAB PO SCH ×2 (11:56→16:08)
[2016-11-23 12:00] VITALS: BP 131/65; PULSE 83; RESP 18; TEMP 96.2; O2SAT 98
[2016-11-23] MEDS: oxyCODONE/ACETAMINOPHEN 5 MG/325 MG TAB PO PRN ×2 (13:09→19:36)
--- NOTE | 2016-11-23 13:40 | PD.CAR.PN ---
CVT Progress Note Subjective/Hospital Course: Patient is status post the right AKA yesterday Incision is clean and dry dressing intact I've discussed disposition of this patient with his caregiver and they would like the patient to be placed in [facility] considering the difficulties that had in the last assisted I've discussed this today with case management Grateful for medicine consultation and follow-up with this unfortunate gentleman Plan to remove the dressing Sunday and after that patient will be able to go to rehabilitation Objective: Vital Signs Date Time Temp Pulse Resp B/P Pulse Ox O2 Delivery O2 Flow Rate FiO2 11/23/16 12:00 96.2 83 18 131/65 98 11/23/16 08:00 97.4 83 20 142/48 98 11/23/16 04:00 97.0 87 20 158/90 99 11/23/16 00:00 97.7 92 20 142/60 97 11/22/16 20:00 96.9 57 20 135/63 97 11/22/16 16:14 96.1 94 20 124/63 100 11/22/16 14:00 97.7 89 12 134/60 97 Nasal Cannula 2 11/22/16 13:45 91 13 142/62 97 Nasal Cannula 2 Labs: Laboratory Tests Test 11/23/16 08:43 White Blood Count 18.0 TH/MM3 (4.0-11.0) Red Blood Count 3.50 MIL/MM3 (4.50-5.90) Hemoglobin 9.2 GM/DL (13.0-17.0) Hematocrit 28.5 % (39.0-51.0) Mean Corpuscular Volume 81.3 FL (80.0-100.0) Mean Corpuscular Hemoglobin 26.4 PG (27.0-34.0) Mean Corpuscular Hemoglobin 32.4 % Concent (32.0-36.0) Red Cell Distribution Width 14.4 % (11.6-17.2) Platelet Count 396 TH/MM3 (150-450) Mean Platelet Volume 7.3 FL (7.0-11.0) Prothrombin Time 22.7 SEC (9.8-11.6) Prothromb Time International 2.0 RATIO Ratio Sodium Level 134 MEQ/L (136-145) Potassium Level 4.1 MEQ/L (3.5-5.1) Chloride Level 101 MEQ/L (98-107) Carbon Dioxide Level 22.8 MEQ/L (21.0-32.0) Anion Gap 10 MEQ/L (5-15) Blood Urea Nitrogen 19 MG/DL (7-18) Creatinine 0.89 MG/DL (0.60-1.30) Estimat Glomerular Filtration 82 ML/MIN (>89) Rate Random Glucose 140 MG/DL (74-106) Calcium Level 8.6 MG/DL (8.5-10.1) Result Diagram: 11/23/16 0843 11/23/16 0843 Delmis Hess MD November 23, 2016 13:39
--- NOTE | 2016-11-23 14:37 | HHI.PR ---
Subjective Remarks Patient reports he is feeling well today. No pain. No fevers. Objective Vitals Vital Signs Date Time Temp Pulse Resp B/P Pulse Ox O2 Delivery O2 Flow Rate FiO2 11/23/16 12:00 96.2 83 18 131/65 98 11/23/16 08:00 97.4 83 20 142/48 98 11/23/16 04:00 97.0 87 20 158/90 99 11/23/16 00:00 97.7 92 20 142/60 97 11/22/16 20:00 96.9 57 20 135/63 97 11/22/16 16:14 96.1 94 20 124/63 100 I/O 11/22/16 11/22/16 11/22/16 11/23/16 11/23/16 11/23/16 07:00 15:00 23:00 07:00 15:00 23:00 Intake Total 2200 ml 240 ml Output Total 400 ml 1085 ml 475 ml 475 ml Balance -400 ml 1115 ml -235 ml -475 ml Intake Oral 0 ml 240 ml IV Total 200 ml Packed Cells 500 ml Other 1500 ml Output Urine Total 400 ml 935 ml 475 ml 475 ml Estimated Blood Loss 150 ml # Voids 1 # Bowel Movements 0 0 0 Result Diagram: 11/23/16 0843 11/23/16 0843 Objective Remarks GENERAL: This is a pleasant, well-developed patient, in no apparent distress. CARDIOVASCULAR: Regular rate and rhythm without murmurs, gallops, or rubs. RESPIRATORY: Diminished at the bases. No wheezes, rales, or rhonchi. GASTROINTESTINAL: Abdomen soft, non-tender, nondistended. BS Active x4. MUSCULOSKELETAL: S/P Right AKA. Dressing appear intact. Left heel blister, pink approx [id number] NEUROLOGICAL: Awake and alert. Oriented to place, person, time. Normal speech. A/P Problem List: (1) HTN (hypertension) ICD Code: I10 Status: Chronic (2) PAD (peripheral artery disease) ICD Code: I73.9 Status: Chronic (3) Status post below knee amputation of right lower extremity ICD Code: Z89.511 Status: Acute (4) Nonhealing ulcer of left lower extremity ICD Code: L97.909 Status: Chronic (5) Pressure ulcer of left heel, unstageable ICD Code: L89.620 Status: Acute (6) Atrial fibrillation ICD Code: I48.91 Status: Chronic (7) DM type 2 (diabetes mellitus, type 2) ICD Code: E11.9 Status: Chronic Assessment and Plan 81-year-old male with paroxysmal atrial fibrillation, DM 2, HTN, status post right below the knee amputation who was recently discharged from [facility] 11/08/16 with right below the knee amputation wound healing to [facility] returned to the hospital with below the knee gangrenous stump. Hospitalist service following for medical management. Right below the knee stump gangrene: - Patient is status post right AKA 11/22/16 - Pain management -Vascular surgery planning to remove the dressing Sunday and after that patient will be need to go to rehabilitation, ideally [facility]. HTN benign Afib, rate controlled, Chronic - On Coumadin INR therapeutic. Coumadin held for surgery. Resume Coumadin today. - Continue home dose Cardizem 240mg daily , digoxin 0.125 mg daily, Lisinopril 5mg daily - Monitor heart rate and BP trend DM2, controlled -Last Hemoglobin A1c 6.7 - 10/27/16 - On metformin at home, hold for now. Start Insulin sliding scale - Monitor Accu-Cheks. Monitor for hypoglycemia Anemia, chronic normocytic normochromic possibly postoperatively Right BKA - Continue ferrous sulfate BID - Trend CBC - Transfuse as needed for Hgb<7 Left Heel Blister - Unstageable PU - Heel pressure relief DVT prop: INR therapeutic. Problem Qualifiers (1) DM type 2 (diabetes mellitus, type 2): Howie Hendrickson MD November 23, 2016 14:37
[2016-11-23 16:00] VITALS: BP_SYST 109; BP_SYST 86; BP_DIAS 52; BP_DIAS 54; PULSE 89; RESP 20; TEMP 96.7; O2SAT 97
[2016-11-23] MEDS: WARFARIN SOD 4 MG TAB PO SCH (16:08)
[2016-11-23 20:40] VITALS: BP 147/69; PULSE 97; RESP 17; TEMP 98.5; O2SAT 96
[2016-11-24 00:10] VITALS: BP 142/70; PULSE 90; RESP 18; TEMP 97.3; O2SAT 97
[2016-11-24] MEDS: oxyCODONE/ACETAMINOPHEN 5 MG/325 MG TAB PO PRN ×3 (03:35→20:04)
[2016-11-24 05:00] VITALS: BP 140/66; PULSE 88; RESP 19; TEMP 98.1; O2SAT 96
[2016-11-24] MEDS: INSULIN ASPART SUPPLEMENTAL SCALE SQ SCH ×4 (06:31→21:00)
[2016-11-24] MEDS: DIGOXIN 0.125 MG TAB PO SCH (06:32)
[2016-11-24 08:00] VITALS: BP 116/62; PULSE 87; RESP 17; TEMP 96.4; O2SAT 98
[2016-11-24 08:11] LABS: HEMATOCRIT 27.6 % (39.0-51.0); MEAN CELL VOLUME 81.5 FL (80.0-100.0); MEAN CORPUSCULAR HEMOGLOBIN 27.4 PG (27.0-34.0); MEAN CORPUSCULAR HGB CONC 33.6 % (32.0-36.0); PLATELET COUNT 383 TH/MM3 (150-450); RED BLOOD COUNT 3.39 MIL/MM3 (4.50-5.90); RED CELL DISTRIBUTION WIDTH 14.2 % (11.6-17.2); REVIEW FLAG FINAL
[2016-11-24 08:19] LABS: INTERNATIONAL NORMALIZED RATIO 1.6 RATIO; PROTHROMBIN TIME - PATIENT 18.6 SEC (9.8-11.6)
[2016-11-24] MEDS: LISINOPRIL 5 MG TAB PO SCH (08:45)
[2016-11-24] MEDS: MULTIVITAMIN TAB PO SCH (08:45)
[2016-11-24] MEDS: DILTIAZEM-CD 240 MG CAP ER PO SCH (08:45)
[2016-11-24] MEDS: TAMSULOSIN HCL 0.4 MG CAP PO SCH (08:45)
[2016-11-24] MEDS: MEGESTROL ACETATE SUSP 400 MG/10 ML CUP PO SCH (08:46)
[2016-11-24] MEDS: LEVOFLOXACIN 500 MG PREMIX INJ 100 ML IV SCH (11:01)
[2016-11-24] MEDS: FERROUS SULFATE 325 MG (65 MG ELEMENTAL IRON) TAB PO SCH ×2 (11:01→16:31)
[2016-11-24 12:00] VITALS: BP 143/69; PULSE 101; RESP 18; TEMP 97; O2SAT 98
--- NOTE | 2016-11-24 14:25 | HHI.PR ---
Subjective Remarks Follow-up visit status post right AKA, DM 2. Patient seen and examined today. Reports he is feeling well. Son at the bedside. Denies pain and discomfort. Denies SOB/ dyspnea. Denies chest pain, palpitations, headaches, dizziness. Denies fevers, chills, n/v/d. Denies hematuria, dysuria. Answered all questions and concerns. Objective Vitals Vital Signs Date Time Temp Pulse Resp B/P Pulse Ox O2 Delivery O2 Flow Rate FiO2 11/24/16 12:00 97.0 101 18 143/69 98 11/24/16 08:00 96.4 87 17 116/62 98 Automatic Cuff 11/24/16 05:00 98.1 88 19 140/66 96 11/24/16 00:10 97.3 90 18 142/70 97 11/23/16 20:40 98.5 97 17 147/69 96 11/23/16 16:00 96.7 89 20 86/52 97 109/54 I/O 11/23/16 11/23/16 11/23/16 11/24/16 11/24/16 11/24/16 06:59 14:59 22:59 06:59 14:59 22:59 Intake Total 675 ml 910 ml Output Total 475 ml 700 ml 0 ml 1225 ml Balance -475 ml -700 ml 675 ml -315 ml Intake Oral 675 ml 910 ml Output Urine Total 475 ml 700 ml 0 ml 1225 ml # Bowel Movements 0 1 0 0 Result Diagram: 11/24/16 0742 11/23/16 0843 Imaging Last Impressions Knee X-Ray 11/21/16 0000 Signed Impressions: Service Date/Time: Monday, November 21, 2016 17:17 - CONCLUSION: Intact total knee arthroplasty Paulino Gonzalez MD Chest X-Ray 11/21/16 0000 Signed Impressions: Service Date/Time: Monday, November 21, 2016 13:23 - CONCLUSION: No acute disease. Jw Gonzalez MD Objective Remarks GENERAL: This is a pleasant, well-developed patient, in no apparent distress. SKIN: No rashes, ecchymoses. Warm and dry. HEAD: Atraumatic. Normocephalic. No temporal or scalp tenderness. EYES: Pupils equal round and reactive. Extraocular motions intact. No scleral icterus. No injection or drainage. ENT: Nose without bleeding. Throat without erythema. Uvula midline. Airway patent. NECK: Trachea midline. No JVD or lymphadenopathy. CARDIOVASCULAR: Regular rate and rhythm without murmurs, gallops, or rubs. RESPIRATORY: Diminished bases. No wheezes, rales, or rhonchi. GASTROINTESTINAL: Abdomen soft, non-tender, nondistended. BS Active x4. MUSCULOSKELETAL: Extremities without clubbing, cyanosis, Left foot trace edema. Right AKA covered with lou wrap, trace edema, Left heel blister, pink approx [id number] NEUROLOGICAL: Awake and alert. Oriented to place, person, time. Motor and sensory grossly within normal limits. Normal speech. A/P Problem List: (1) HTN (hypertension) ICD Code: I10 Status: Chronic (2) PAD (peripheral artery disease) ICD Code: I73.9 Status: Chronic (3) Status post below knee amputation of right lower extremity ICD Code: Z89.511 Status: Acute (4) Nonhealing ulcer of left lower extremity ICD Code: L97.909 Status: Chronic (5) Pressure ulcer of left heel, unstageable ICD Code: L89.620 Status: Acute (6) Atrial fibrillation ICD Code: I48.91 Status: Chronic (7) DM type 2 (diabetes mellitus, type 2) ICD Code: E11.9 Status: Chronic Assessment and Plan Patient is an 81-year-old male with primary medical history of paroxysmal atrial fibrillation, DM 2, HTN, status post right below the knee amputation 4/ who was recently discharged from [facility] 11/08/16 with right below the knee amputation wound healing to [facility] and now he had come back to the hospital secondary to entire lateral aspect of the stump anterior portion is gangrenous. Consulted for medical management. S/P Right AKA 11/22/16 Right [id number] stump gangrene - Continue wound care - Pain management - Seen by vascular surgery plan to remove dressing Sunday. On for rehabilitation ideally [place] [facility] - PT to evaluate and treat. HTN benign Afib, rate controlled, Chronic - Restarted Coumadin. INR 1.6. - Continue home dose Cardizem 240mg daily , digoxin 0.125 mg daily, Lisinopril 5mg daily - Monitor heart rate and BP trend DM2, controlled - Latest Hemoglobin A1c 6.7 - 10/27/16 - On Insulin sliding scale, will restart metformin - Monitor Accu-Cheks. Monitor for hypoglycemia Anemia, normocytic normochromic possibly postoperatively Right BKA - Continue ferrous sulfate BID - Trend CBC - 7.2--> 9.2-->9.3 Left Heel Blister - Unstageable PU - Heel pressure relief DVT prop Coumadin Discussed with patient, son Inocencio, nursing, Dr. Hendrickson Problem Qualifiers (1) DM type 2 (diabetes mellitus, type 2): Rosmery Vazquez November 24, 2016 14:25
--- NOTE | 2016-11-24 15:15 | PD.CAR.PN ---
CVT Progress Note Subjective/Hospital Course: Patient is status post the right AKA yesterday Incision is clean and dry dressing intact I've discussed disposition of this patient with his caregiver and they would like the patient to be placed in [facility] considering the difficulties that had in the last [facility] I've discussed this today with case management Grateful for medicine consultation and follow-up with this unfortunate gentleman Plan to remove the dressing Sunday and after that patient will be able to go to rehabilitation 11/24/16 Dressing intact patient doing very well We will remove dressing tomorrow and after that patient can go to rehabilitation likely Sunday Doing very well Will need physical therapy Objective: Vital Signs Date Time Temp Pulse Resp B/P Pulse Ox O2 Delivery O2 Flow Rate FiO2 11/24/16 12:00 97.0 101 18 143/69 98 11/24/16 08:00 96.4 87 17 116/62 98 Automatic Cuff 11/24/16 05:00 98.1 88 19 140/66 96 11/24/16 00:10 97.3 90 18 142/70 97 11/23/16 20:40 98.5 97 17 147/69 96 11/23/16 16:00 96.7 89 20 86/52 97 109/54 Labs: Laboratory Tests Test 11/24/16 07:42 White Blood Count 14.0 TH/MM3 (4.0-11.0) Red Blood Count 3.39 MIL/MM3 (4.50-5.90) Hemoglobin 9.3 GM/DL (13.0-17.0) Hematocrit 27.6 % (39.0-51.0) Mean Corpuscular Volume 81.5 FL (80.0-100.0) Mean Corpuscular Hemoglobin 27.4 PG (27.0-34.0) Mean Corpuscular Hemoglobin 33.6 % Concent (32.0-36.0) Red Cell Distribution Width 14.2 % (11.6-17.2) Platelet Count 383 TH/MM3 (150-450) Mean Platelet Volume 7.3 FL (7.0-11.0) Prothrombin Time 18.6 SEC (9.8-11.6) Prothromb Time International 1.6 RATIO Ratio Result Diagram: 11/24/16 0742 11/23/16 0843 Delmis Hess MD November 24, 2016 15:15
[2016-11-24 16:00] VITALS: BP 110/50; PULSE 85; RESP 18; TEMP 97; O2SAT 97
[2016-11-24] MEDS: WARFARIN SOD 4 MG TAB PO SCH (16:31)
[2016-11-24 19:30] VITALS: BP 129/61; PULSE 91; RESP 18; TEMP 96.4; O2SAT 96
[2016-11-25] VITALS (7 sets, daily range): BP systolic 111–137; BP diastolic 44–66; PULSE 67–97; RESP 17–22; TEMP 95.8–98.6; O2SAT 97–100
[2016-11-25] MEDS: DIGOXIN 0.125 MG TAB PO SCH (04:59)
[2016-11-25] MEDS: INSULIN ASPART SUPPLEMENTAL SCALE SQ SCH ×4 (06:20→21:00)
[2016-11-25] MEDS: MEGESTROL ACETATE SUSP 400 MG/10 ML CUP PO SCH (08:51)
[2016-11-25] MEDS: LISINOPRIL 5 MG TAB PO SCH (08:51)
[2016-11-25] MEDS: MULTIVITAMIN TAB PO SCH (08:52)
[2016-11-25] MEDS: TAMSULOSIN HCL 0.4 MG CAP PO SCH (08:52)
[2016-11-25] MEDS: DILTIAZEM-CD 240 MG CAP ER PO SCH (08:52)
[2016-11-25] MEDS: metFORMIN HCL 500 MG TAB PO SCH ×2 (09:00→17:05)
--- NOTE | 2016-11-25 11:25 | PD.CAR.PN ---
CVT Progress Note Subjective/Hospital Course: Patient is status post the right AKA yesterday Incision is clean and dry dressing intact I've discussed disposition of this patient with his caregiver and they would like the patient to be placed in [facility] considering the difficulties that had in the last [facility] I've discussed this today with case management Grateful for medicine consultation and follow-up with this unfortunate gentleman Plan to remove the dressing Sunday and after that patient will be able to go to rehabilitation 11/24/16 Dressing intact patient doing very well We will remove dressing tomorrow and after that patient can go to rehabilitation likely Sunday Doing very well Will need physical therapy 11/25/16 Dressing removed incision is clean and dry and skin is well perfused Will dressed slightly and patient can transfer to [facility] next week I've discussed his care with his son and he would like to have him eventually transferred to [place] Objective: Vital Signs Date Time Temp Pulse Resp B/P Pulse Ox O2 Delivery O2 Flow Rate FiO2 11/25/16 08:50 96.6 81 19 125/62 98 11/25/16 04:19 97.2 90 18 137/66 99 11/25/16 01:00 96.5 76 18 115/65 99 11/24/16 19:30 96.4 91 18 129/61 96 11/24/16 16:00 97.0 85 18 110/50 97 11/24/16 12:00 97.0 101 18 143/69 98 Result Diagram: 11/24/16 0742 11/23/16 0843 Delmis Hess MD November 25, 2016 11:25
[2016-11-25] MEDS: FERROUS SULFATE 325 MG (65 MG ELEMENTAL IRON) TAB PO SCH ×2 (12:19→17:05)
[2016-11-25] MEDS: LEVOFLOXACIN 500 MG PREMIX INJ 100 ML IV SCH (12:19)
--- NOTE | 2016-11-25 13:38 | HHI.PR ---
Subjective Remarks Patient reports he is feeling well today. No pain at the right stump. He is eating and drinking well. Objective Vitals Vital Signs Date Time Temp Pulse Resp B/P Pulse Ox O2 Delivery O2 Flow Rate FiO2 11/25/16 12:46 98.6 89 17 117/56 99 11/25/16 08:50 96.6 81 19 125/62 98 11/25/16 04:19 97.2 90 18 137/66 99 11/25/16 01:00 96.5 76 18 115/65 99 11/24/16 19:30 96.4 91 18 129/61 96 11/24/16 16:00 97.0 85 18 110/50 97 I/O 11/24/16 11/24/16 11/24/16 11/25/16 11/25/16 11/25/16 07:00 15:00 23:00 07:00 15:00 23:00 Intake Total 910 ml 480 ml Output Total 1225 ml 350 ml Balance -315 ml 130 ml Intake Oral 910 ml 480 ml Output Urine Total 1225 ml 350 ml # Bowel Movements 0 Result Diagram: 11/24/16 0742 11/23/16 0843 Objective Remarks GENERAL: This is a pleasant, well-developed patient, in no apparent distress. CARDIOVASCULAR: Regular rate and rhythm without murmurs, gallops, or rubs. RESPIRATORY: Diminished at the bases. No wheezes, rales, or rhonchi. GASTROINTESTINAL: Abdomen soft, non-tender, nondistended. BS Active x4. MUSCULOSKELETAL: S/P Right AKA. Sutures and the wound appears clean and intact. NEUROLOGICAL: Awake and alert. Oriented to place, person, time. Normal speech. A/P Problem List: (1) HTN (hypertension) ICD Code: I10 Status: Chronic (2) PAD (peripheral artery disease) ICD Code: I73.9 Status: Chronic (3) Status post below knee amputation of right lower extremity ICD Code: Z89.511 Status: Acute (4) Nonhealing ulcer of left lower extremity ICD Code: L97.909 Status: Chronic (5) Pressure ulcer of left heel, unstageable ICD Code: L89.620 Status: Acute (6) Atrial fibrillation ICD Code: I48.91 Status: Chronic (7) DM type 2 (diabetes mellitus, type 2) ICD Code: E11.9 Status: Chronic Assessment and Plan 81-year-old male with paroxysmal atrial fibrillation, DM 2, HTN, status post right below the knee amputation 4/ who was recently discharged from [facility] 11/08/16 with right below the knee amputation wound healing to [facility] returned to the hospital with below the knee gangrenous stump. Hospitalist service following for medical management. Right below the knee stump gangrene: - Patient is status post right AKA 11/22/16 - Pain management -Vascular surgery planning to remove the dressing Sunday and after that patient will be need to go to rehabilitation, ideally [facility]. - On Levaquin IV per vascular surgery. HTN benign Afib, rate controlled, Chronic - On Coumadin INR therapeutic. Coumadin held for surgery. Resume Coumadin today. - Continue home dose Cardizem 240mg daily , digoxin 0.125 mg daily, Lisinopril 5mg daily - Monitor heart rate and BP trend DM2, controlled -Last Hemoglobin A1c 6.7 - 10/27/16 - On metformin at home, hold for now. Start Insulin sliding scale - Monitor Accu-Cheks. Monitor for hypoglycemia Anemia, chronic normocytic normochromic possibly postoperatively Right BKA - Continue ferrous sulfate BID - Trend CBC - Transfuse as needed for Hgb<7 Left Heel Blister - Unstageable PU - Heel pressure relief DVT prop: INR therapeutic. Problem Qualifiers (1) DM type 2 (diabetes mellitus, type 2): Howie Hendrickson MD November 25, 2016 13:38
[2016-11-25] MEDS: WARFARIN SOD 4 MG TAB PO SCH (14:51)
[2016-11-25] MEDS: oxyCODONE/ACETAMINOPHEN 5 MG/325 MG TAB PO PRN (14:52)
[2016-11-25 18:55] LABS: HEMATOCRIT 26.9 % (39.0-51.0); MEAN CELL VOLUME 82.5 FL (80.0-100.0); MEAN CORPUSCULAR HEMOGLOBIN 26.3 PG (27.0-34.0); MEAN CORPUSCULAR HGB CONC 31.9 % (32.0-36.0); PLATELET COUNT 373 TH/MM3 (150-450); RED BLOOD COUNT 3.27 MIL/MM3 (4.50-5.90); RED CELL DISTRIBUTION WIDTH 14.8 % (11.6-17.2); REVIEW FLAG FINAL; WHITE BLOOD COUNT 12.9 TH/MM3 (4.0-11.0)
[2016-11-25 19:02] LABS: INTERNATIONAL NORMALIZED RATIO 1.8 RATIO
[2016-11-25 19:08] LABS: BICARBONATE 23.7 MEQ/L (21.0-32.0); POTASSIUM 3.9 MEQ/L (3.5-5.1)
[2016-11-26] VITALS (7 sets, daily range): BP systolic 100–122; BP diastolic 4–62; PULSE 59–88; RESP 17–20; TEMP 95.5–97.2; O2SAT 94–98
[2016-11-26] MEDS: oxyCODONE/ACETAMINOPHEN 5 MG/325 MG TAB PO PRN ×2 (04:36→21:40)
[2016-11-26] MEDS: DIGOXIN 0.125 MG TAB PO SCH (06:00)
[2016-11-26] MEDS: INSULIN ASPART SUPPLEMENTAL SCALE SQ SCH ×4 (06:36→21:00)
[2016-11-26] MEDS: MEGESTROL ACETATE SUSP 400 MG/10 ML CUP PO SCH (08:16)
[2016-11-26] MEDS: LISINOPRIL 5 MG TAB PO SCH (08:17)
[2016-11-26] MEDS: TAMSULOSIN HCL 0.4 MG CAP PO SCH (08:17)
[2016-11-26] MEDS: metFORMIN HCL 500 MG TAB PO SCH ×2 (08:18→18:38)
[2016-11-26] MEDS: MULTIVITAMIN TAB PO SCH (08:18)
[2016-11-26] MEDS: DILTIAZEM-CD 240 MG CAP ER PO SCH (08:19)
[2016-11-26 08:44] LABS: INTERNATIONAL NORMALIZED RATIO 1.9 RATIO; PROTHROMBIN TIME - PATIENT 21.8 SEC (9.8-11.6)
[2016-11-26] MEDS: LEVOFLOXACIN 500 MG PREMIX INJ 100 ML IV SCH (11:51)
[2016-11-26] MEDS: FERROUS SULFATE 325 MG (65 MG ELEMENTAL IRON) TAB PO SCH ×2 (11:53→16:12)
--- NOTE | 2016-11-26 12:50 | PD.CAR.PN ---
CVT Progress Note Subjective/Hospital Course: Patient is status post the right AKA yesterday Incision is clean and dry dressing intact I've discussed disposition of this patient with his caregiver and they would like the patient to be placed in [facility] considering the difficulties that had in the last longterm I've discussed this today with case management Grateful for medicine consultation and follow-up with this unfortunate gentleman Plan to remove the dressing Sunday and after that patient will be able to go to rehabilitation 11/24/16 Dressing intact patient doing very well We will remove dressing tomorrow and after that patient can go to rehabilitation likely Sunday Doing very well Will need physical therapy 11/25/16 Dressing removed incision is clean and dry and skin is well perfused Will dressed slightly and patient can transfer to [facility] next week I've discussed his care with his son and he would like to have him eventually transferred to [place] 11/26/16 Patient doing very well at this time Stump is clean and dry May transfer to rehabilitation any time from my point Objective: Vital Signs Date Time Temp Pulse Resp B/P Pulse Ox O2 Delivery O2 Flow Rate FiO2 11/26/16 12:18 96.7 80 17 114/62 98 11/26/16 08:00 95.7 80 20 122/60 94 11/26/16 05:54 Manual Cuff/Auscultation Automatic Cuff 11/26/16 05:52 88 110/50 11/26/16 04:00 96.9 59 20 111/4 98 11/26/16 00:00 97.2 78 20 100/48 98 11/25/16 22:15 99 11/25/16 20:00 96.6 82 20 111/44 97 11/25/16 16:22 95.8 67 22 113/57 100 11/25/16 15:58 15 Labs: Laboratory Tests Test 11/26/16 07:54 Prothrombin Time 21.8 SEC (9.8-11.6) Prothromb Time International 1.9 RATIO Ratio Result Diagram: 11/25/16 1700 11/25/16 1700 Delmis Hess MD November 26, 2016 12:50
[2016-11-26] MEDS: WARFARIN SOD 4 MG TAB PO SCH (16:12)
--- NOTE | 2016-11-26 23:24 | HHI.PR ---
Subjective Remarks Patient seen this morning. Says he feels all right. Denies any chest pain or shortness of breath. Reports pain is controlled. Positive bowel movement. Objective Vital Signs Date Time Temp Pulse Resp B/P Pulse Ox O2 Delivery O2 Flow Rate FiO2 11/26/16 20:16 96.4 85 19 121/59 97 11/26/16 14:59 95.5 68 20 107/52 97 11/26/16 12:18 96.7 80 17 114/62 98 11/26/16 08:00 95.7 80 20 122/60 94 11/26/16 05:54 Manual Cuff/Auscultation Automatic Cuff 11/26/16 05:52 88 110/50 11/26/16 04:00 96.9 59 20 111/4 98 11/26/16 00:00 97.2 78 20 100/48 98 I/O 11/25/16 11/25/16 11/25/16 11/26/16 11/26/16 11/26/16 07:00 15:00 23:00 07:00 15:00 23:00 Intake Total 480 ml 600 ml 240 ml 60 ml 600 ml Output Total 350 ml 300 ml 200 ml 501 ml 300 ml Balance 130 ml 600 ml -60 ml -140 ml 99 ml -300 ml Intake Oral 480 ml 600 ml 240 ml 60 ml 600 ml Output Urine Total 350 ml 300 ml 200 ml 500 ml 300 ml Stool Total 1 ml # Bowel Movements 1 0 1 Result Diagram: 11/25/16 1700 11/25/16 1700 Objective Remarks GENERAL: patient sitting up in bed. Appears comfortable. SKIN: Warm and dry. HEAD: Normocephalic. EYES: No scleral icterus. No injection or drainage. NECK: Supple, trachea midline. No JVD. CARDIOVASCULAR: Regular rate and rhythm without murmurs, gallops, or rubs. RESPIRATORY: Breath sounds equal bilaterally. No accessory muscle use. GASTROINTESTINAL: Abdomen soft, non-tender, nondistended. MUSCULOSKELETAL: No cyanosis, or edema. BACK: Nontender without obvious deformity. No CVA tenderness. A/P Assessment and Plan ==== 11/26/16 No acute changes. Continues on antibiotics as per surgical service. Primary service plans for discharge to rehabilitation tomorrow. Blood sugars controlled in the low 100s -INR near therapeutic 1.9. 81-year-old male with paroxysmal atrial fibrillation, DM 2, HTN, status post right below the knee amputation who was recently discharged from [facility] 11/08/16 with right below the knee amputation wound healing to [facility] returned to the hospital with below the knee gangrenous stump. Hospitalist service following for medical management. Right below the knee stump gangrene: - Patient is status post right AKA 11/22/16 - Pain management -Vascular surgery planning to remove the dressing Sunday and after that patient will be need to go to rehabilitation, ideally [facility]. - On Levaquin IV per vascular surgery. HTN benign Afib, rate controlled, Chronic - On Coumadin. Coumadin held for surgery. Resume Coumadin today. - Continue home dose Cardizem 240mg daily , digoxin 0.125 mg daily, Lisinopril 5mg daily - Monitor heart rate and BP trend DM2, controlled -Last Hemoglobin A1c 6.7 - 10/27/16 - On metformin at home, hold for now. Start Insulin sliding scale - Monitor Accu-Cheks. Monitor for hypoglycemia Anemia, chronic normocytic normochromic possibly postoperatively Right BKA - Continue ferrous sulfate BID - Trend CBC - Transfuse as needed for Hgb<7 Left Heel Blister - Unstageable PU - Heel pressure relief DVT prop: INR 1.9 near therapeutic. Discharge Planning as per primary service. Zak Langley MD November 26, 2016 23:24
[2016-11-27 00:21] VITALS: BP 103/58; PULSE 80; RESP 18; TEMP 96.6; O2SAT 100
[2016-11-27 04:02] VITALS: BP 116/57; PULSE 89; RESP 18; TEMP 96.9; O2SAT 98
[2016-11-27] MEDS: oxyCODONE/ACETAMINOPHEN 5 MG/325 MG TAB PO PRN ×2 (05:27→14:35)
[2016-11-27] MEDS: DIGOXIN 0.125 MG TAB PO SCH (05:27)
[2016-11-27] MEDS: INSULIN ASPART SUPPLEMENTAL SCALE SQ SCH ×2 (06:32→11:00)
[2016-11-27] MEDS: metFORMIN HCL 500 MG TAB PO SCH (08:04)
[2016-11-27] MEDS: TAMSULOSIN HCL 0.4 MG CAP PO SCH (08:04)
[2016-11-27] MEDS: MEGESTROL ACETATE SUSP 400 MG/10 ML CUP PO SCH (08:04)
[2016-11-27] MEDS: DILTIAZEM-CD 240 MG CAP ER PO SCH (08:05)
[2016-11-27] MEDS: LISINOPRIL 5 MG TAB PO SCH (08:05)
[2016-11-27] MEDS: MULTIVITAMIN TAB PO SCH (08:05)
[2016-11-27 09:11] VITALS: BP 103/70; PULSE 77; RESP 18; TEMP 96.2; O2SAT 97
[2016-11-27 10:34] LABS: AUTOMATED NEUTROPHIL # 7.6 TH/MM3 (1.8-7.7); BASOPHIL # 0.1 TH/MM3 (0-0.2); BASOPHIL % 0.8 % (0.0-2.0); EOSINOPHIL # 0.5 TH/MM3 (0-0.4); EOSINOPHIL % 4.5 % (0.0-4.0); HEMATOCRIT 27.7 % (39.0-51.0); HEMO FLAGS DIFF FINAL; LYMPH % 21.1 % (9.0-44.0); LYMPHOCYTE # 2.4 TH/MM3 (1.0-4.8); MEAN CELL VOLUME 82.3 FL (80.0-100.0); MEAN CORPUSCULAR HEMOGLOBIN 26.9 PG (27.0-34.0); MEAN CORPUSCULAR HGB CONC 32.7 % (32.0-36.0); MONO % 6.8 % (0.0-8.0); NEUT % 66.8 % (16.0-70.0); PLATELET COUNT 371 TH/MM3 (150-450); RED BLOOD COUNT 3.37 MIL/MM3 (4.50-5.90); RED CELL DISTRIBUTION WIDTH 14.7 % (11.6-17.2); WHITE BLOOD COUNT 11.4 TH/MM3 (4.0-11.0)
[2016-11-27 10:45] VITALS: BP 108/56; PULSE 79; RESP 19; TEMP 96.2; O2SAT 98
[2016-11-27 11:03] LABS: MAGNESIUM 1.9 MG/DL (1.5-2.5)
--- NOTE | 2016-11-27 12:17 | PD.CAR.PN ---
CVT Progress Note Subjective/Hospital Course: Patient is status post the right AKA yesterday Incision is clean and dry dressing intact I've discussed disposition of this patient with his caregiver and they would like the patient to be placed in [facility] considering the difficulties that had in the last senior care I've discussed this today with case management Grateful for medicine consultation and follow-up with this unfortunate gentleman Plan to remove the dressing Sunday and after that patient will be able to go to rehabilitation 11/24/16 Dressing intact patient doing very well We will remove dressing tomorrow and after that patient can go to rehabilitation likely Sunday Doing very well Will need physical therapy 11/25/16 Dressing removed incision is clean and dry and skin is well perfused Will dressed slightly and patient can transfer to [facility] next week I've discussed his care with his son and he would like to have him eventually transferred to [place] 11/26/16 Patient doing very well at this time Stump is clean and dry May transfer to rehabilitation any time from my point 11/27/16 VSS Incision healing well Stump dry and well perfused Patient awaiting transfer to rehab and doesn't need hospital care at this time Objective: Vital Signs Date Time Temp Pulse Resp B/P Pulse Ox O2 Delivery O2 Flow Rate FiO2 11/27/16 09:11 96.2 77 18 103/70 97 11/27/16 06:27 18 11/27/16 04:02 96.9 89 18 116/57 98 11/27/16 00:21 96.6 80 18 103/58 100 11/26/16 20:16 96.4 85 19 121/59 97 11/26/16 14:59 95.5 68 20 107/52 97 11/26/16 12:18 96.7 80 17 114/62 98 Labs: Laboratory Tests Test 11/27/16 09:00 White Blood Count 11.4 TH/MM3 (4.0-11.0) Red Blood Count 3.37 MIL/MM3 (4.50-5.90) Hemoglobin 9.1 GM/DL (13.0-17.0) Hematocrit 27.7 % (39.0-51.0) Mean Corpuscular Volume 82.3 FL (80.0-100.0) Mean Corpuscular Hemoglobin 26.9 PG (27.0-34.0) Mean Corpuscular Hemoglobin 32.7 % Concent (32.0-36.0) Red Cell Distribution Width 14.7 % (11.6-17.2) Platelet Count 371 TH/MM3 (150-450) Mean Platelet Volume 7.9 FL (7.0-11.0) Neutrophils (%) (Auto) 66.8 % (16.0-70.0) Lymphocytes (%) (Auto) 21.1 % (9.0-44.0) Monocytes (%) (Auto) 6.8 % (0.0-8.0) Eosinophils (%) (Auto) 4.5 % (0.0-4.0) Basophils (%) (Auto) 0.8 % (0.0-2.0) Neutrophils # (Auto) 7.6 TH/MM3 (1.8-7.7) Lymphocytes # (Auto) 2.4 TH/MM3 (1.0-4.8) Monocytes # (Auto) 0.8 TH/MM3 (0-0.9) Eosinophils # (Auto) 0.5 TH/MM3 (0-0.4) Basophils # (Auto) 0.1 TH/MM3 (0-0.2) CBC Comment DIFF FINAL Differential Comment Sodium Level 135 MEQ/L (136-145) Potassium Level 4.0 MEQ/L (3.5-5.1) Chloride Level 102 MEQ/L (98-107) Carbon Dioxide Level 23.0 MEQ/L (21.0-32.0) Anion Gap 10 MEQ/L (5-15) Blood Urea Nitrogen 29 MG/DL (7-18) Creatinine 1.23 MG/DL (0.60-1.30) Estimat Glomerular Filtration 56 ML/MIN (>89) Rate Random Glucose 89 MG/DL (74-106) Calcium Level 8.9 MG/DL (8.5-10.1) Phosphorus Level 3.5 MG/DL (2.5-4.9) Magnesium Level 1.9 MG/DL (1.5-2.5) Albumin 2.6 GM/DL (3.4-5.0) Result Diagram: 11/27/16 0900 11/27/16 0900 Delmis Hess MD November 27, 2016 12:17
[2016-11-27] MEDS: LEVOFLOXACIN 500 MG PREMIX INJ 100 ML IV SCH (12:47)
[2016-11-27] MEDS: FERROUS SULFATE 325 MG (65 MG ELEMENTAL IRON) TAB PO SCH (12:47)
[2016-11-27] MEDS ORDERED: FERR200T PO (15:58)
[2016-11-27] MEDS ORDERED: MULTTAB67 PO (15:58)
[2016-11-28] MEDS ORDERED: COUM3TAB PO (09:57)
[2016-11-28] MEDS ORDERED: LEVO750T3 PO (09:57)
--- NOTE | 2016-12-14 06:37 | MD ---
cc: DELMIS FOFANA MD ADMISSION DATE: 11/21/2016 DISCHARGE DATE: 11/27/2016 HISTORY OF PRESENT DISEASE An 81-year-old gentleman was admitted after being seen in my office. The patient underwent successful BKA, spent some time in rehab and then was transferred to a snf. A month later he comes to my office with gangrene of the lateral aspect of the stump. The patient does not remember falling but this was very tightly bound and obviously nobody called either my office or is primary physician. At this point this was beyond the confines of salvage. In addition, the patient had a previous knee prosthesis which is now very close to this. HOSPITAL COURSE The patient underwent successful above-knee amputation. Postoperative course was uneventful. The patient recovered very well. He was restarted on diet and his medication and is transferred to rehab for further care. Delmis BONE/LAURIE /3:41 PM /6:34 AM
[2016-12-20] MEDS ORDERED: POLY17S PO (21:01)
[2016-12-20] MEDS ORDERED: COUM6TAB PO (21:01)
[2016-12-20] MEDS ORDERED: VITA500T2 PO (21:01)
[2016-12-20] MEDS ORDERED: SENN1TAB PO (21:01)
[2016-12-20] MEDS ORDERED: SENS113T TOPICAL (21:01)
== END 2016-11-27 14:43 | DRG 476 ==
LOC: N05B 12:44
PROVIDERS: ADMIT Surgery; ATTEND Surgery
PROC: 0Y670ZZ Detachment at Right Femoral Region, Open Approach (ICD-10-PCS; principal; 2016-11-22 10:48)
DX: T87.53 Necrosis of amputation stump, right lower extremity (principal); I48.0 Paroxysmal atrial fibrillation; Z79.01 Long term (current) use of anticoagulants; E11.51 Type 2 diabetes mellitus with diabetic peripheral angiopathy without gangrene; L89.620 Pressure ulcer of left heel, unstageable; I10 Essential (primary) hypertension; D64.9 Anemia, unspecified; I25.10 Atherosclerotic heart disease of native coronary artery without angina pectoris; Z96.653 Presence of artificial knee joint, bilateral; I73.9 Peripheral vascular disease, unspecified; Z87.891 Personal history of nicotine dependence; Z85.828 Personal history of other malignant neoplasm of skin
CPT/HCPCS: 36430; 71010; 73560; 80048; 80053; 80069; 82948; 83735; 85025; 85027; 85610; 86850; 86900; 86901; 86920; 88307; 88311; 93005; J0690; J1100; J1815; J1956; J2370; J2405; J3010; J7120; P9016

== ENCOUNTER 2016-11-28 09:55 | Inpatient (IN) | payer MEDICARE, BC ==
[~2016-11-28 09:55] MED LIST changes: +FERR200T PO; -FERR325T PO; -MULT-135 PO; +MULTTAB67 PO
[2016-11-28] MEDS ORDERED: COUM3TAB PO (09:57)
[2016-11-28] MEDS ORDERED: LEVO750T3 PO (09:57)
[2016-11-28] MEDS ORDERED: GLUCAGON 1 MG/ML VIAL OTHER PRN (10:30)
[2016-11-28] MEDS ORDERED: SODIUM CHLORIDE 0.9% FLUSH 5 ML FLUSH IV FLUSH PRN (10:30)
[2016-11-28] MEDS ORDERED: DEXTROSE 50% IN WATER 50 ML VIAL(D50) IV PUSH PRN (10:30)
--- NOTE | 2016-11-28 10:42 | HHI.HP ---
HPI Service Critical Care Medicine Primary Care Physician Unknown Admission Diagnosis CVA, acute Diagnosis: Chief Complaint: Stroke alert Travel History International Travel<30 Days: No Contact w/Intl Traveler <30 Da: No Traveled to Known Affected Are: No History of Present Illness Patient is an 81-year-old male with primary medical history of paroxysmal atrial fibrillation, DM 2, HTN, status post right below the knee amputation who was recently discharged from [facility] 11/08/16 with right below the knee amputation wound healing to [facility] and now he had come back to the hospital secondary to entire lateral aspect of the stump anterior portion is gangrenous. He was seen by vascular surgeon Dr. Hess for a possible revision of the stump. States in have any trauma and did not know why Gangrenous. Denies pain and discomfort. Denies SOB/ dyspnea. Denies chest pain, palpitations, headaches, dizziness. Denies fevers, chills, n/ v/d. Denies hematuria, dysuria. Underwent right stump revision, AKA last week, then to [place] rehab. While on Coumadin he developed dense right hemiplegia this morning -> stroke alert to [facility]. Discussed with Dr. Rubalcava. Review of Systems ROS Unobtainable, aphasic. Past Family Social History Allergies: Coded Allergies: *MDRO Multi-Drug Resistant Organism (Verified Adverse Reaction, Unknown, ) 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 MRSA PCR Screen NEGATIVE - 10/27/16 & 10/30/16 CLEARED PER INFECTION CONTROL PROTOCOL Past Medical History PFSH Past Family Social History Allergies: Coded Allergies: *MDRO Multi-Drug Resistant Organism (Verified Adverse Reaction, Unknown, ) 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 MRSA PCR Screen NEGATIVE - 10/27/16 & 10/30/16 CLEARED PER INFECTION CONTROL PROTOCOL Past Medical History Hypertension Diabetesnow diet controlled Atrial fibrillationon Coumadin PADstatus post left second toe amputation due to ischemia, status post right lower extremity arthrectomy and balloon angioplasty Past Surgical History Status post right BKA s/p RLE arthrectomy 10/13/16 Left second toe amputation Right lower extremity arthrectomy and balloon angioplasty Left knee surgery Basal fall carcinoma of skin removal Reported Medications Reported Meds & Active Scripts Active Baclofen 10 Mg Tab 10 Mg PO HS Dok (Docusate Sodium) 100 Mg Cap 100 Mg PO BID PRN Ferrous Sulfate 325 Mg Tab 325 Mg PO BID@12,17 Megestrol Liq (Megestrol Acetate) 40 Mg/Ml Susp 400 Mg PO DAILY 30 Days Glucophage (Metformin HCl) 500 Mg Tab 500 Mg PO BIDPC Coumadin (Warfarin) 4 Mg Tab 4 Mg PO DAILY@16 Oxycodone-Acetaminophen 5-325 mg Tab 1 Tab PO Q4-6H PRN Diltiazem ER 24 HR 240 Mg Caper 240 Mg PO DAILY Lisinopril 5 Mg Tab 5 Mg PO DAILY Multi Vitamin (Multiple Vitamin) 1 Tab Tab 1 Tab PO DAILY Flomax (Tamsulosin HCl) 0.4 Mg Cap 0.4 Mg PO DAILY Digoxin 0.125 Mg Tab 0.125 Mg PO DAILY@0600 Active Ordered Medications Current Medications Physical Exam Physical Exam Gen: Aphasic Head: Normal. Neck: Supple, airway widely patent. Lungs: Clear, no wheezes or crackles. Heart: Irreg, no m,r. No JVD. Abdomen: Soft, NT, ND, BS active Extremities: Warm, well perfused. New AKA right side. S/P left metatarsal amputation. Neuro: Flaccid right arm and right facial drop. Minimal flexion strength left hip. EDWIN. Aphasic. Left arm and leg normal. Assessment and Plan Assessment and Plan Assessment and Plan Problem List: (1) HTN Acute Right hemiplegia, CVA ICD Code: Status: Chronic (2) PAD (peripheral artery disease) ICD Code: I73.9 Status: Chronic (3) Status post below knee amputation of right lower extremity ICD Code: Z89.511 Status: Acute (4) Nonhealing ulcer of left lower extremity ICD Code: L97.909 Status: Chronic (5) Pressure ulcer of left heel, unstageable ICD Code: L89.620 Status: Acute (6) Atrial fibrillation ICD Code: I48.91 Status: Chronic (7) DM type 2 (diabetes mellitus, type 2) ICD Code: E11.9 Status: Chronic Assessment and Plan Patient is an 81-year-old male with primary medical history of paroxysmal atrial fibrillation, DM 2, HTN, status post right above knee amputation who was recently admitted to [facility]. He developed sudden right hemiplegia about 9 am today and was transferred back to the [facility] as a stroke alert. S/P Right AKA - Pain management HTN benign Afib, rate controlled, Chronic - On Coumadin INR 2.5. Hold Coumadin today. May need FFP prior to surgery, if surgery is to be done tomorrow - Continue home dose Cardizem 240mg daily , digoxin 0.125 mg daily, Lisinopril 5mg daily - Monitor heart rate and BP trend DM2, controlled - Latest Hemoglobin A1c 6.7 - 10/27/16 - On metformin at home, hold for now. Start Insulin sliding scale - Monitor Accu-Cheks. Monitor for hypoglycemia Anemia, normocytic normochromic possibly postoperatively Right BKA - H/H 7.3/22.7, may need blood transfusion prior to surgery and may be postop - Continue ferrous sulfate BID - Trend CBC Left Heel Blister - Unstageable PU - Heel pressure relief DVT prop Coumadin - Code Status Full Code Discussed Condition With Patient, nursing Problem Qualifiers (1) DM type 2 (diabetes mellitus, type 2): Overall impression: Critically ill with dense acute right hemiplegia and aphasia. Not a tPA candidate. A CT angiogram has been ordered to see if clot extraction is possible. Critical care 35 mins Ilir Dela Cruz MD November 28, 2016 10:42
[2016-11-28 10:55] LABS: BICARBONATE 23.1 MEQ/L (21.0-32.0); POTASSIUM 4.2 MEQ/L (3.5-5.1)
[2016-11-28] MEDS ORDERED: SODIUM CHLOR 0.9% 1000 ML INJ 1,000 ML IV SCH (11:00)
[2016-11-28] MEDS: SODIUM CHLOR 0.9% 1000 ML INJ 1,000 ML IV SCH (11:00)
[2016-11-28] MEDS: INSULIN ASPART SUPPLEMENTAL SCALE SQ SCH ×3 (11:00→21:00)
[2016-11-28] MEDS ORDERED: VERAPAMIL HCL 5 MG/2 ML VIAL ONE ×2 (11:13→11:16)
[2016-11-28] MEDS ORDERED: IOHEXOL 350 MG/ML 10 ML VIAL (for RAD DIAG) IV ONE (11:20)
--- NOTE | 2016-11-28 11:36 | MB ---
cc: JUDITH EDMONDS M.D. DATE OF CONSULTATION 11/28/2016 REASON FOR CONSULTATION Stroke alert HISTORY OF PRESENT ILLNESS Mr. Shankar is very pleasant 81-year-old man who has a history of atrial fibrillation and a history of peripheral vascular disease, recent ficvd-zxz-fxyx amputation on the right due to gangrene of the right zbedt-ehy-rnna amputation stump with dehisence. The surgery was performed on November 22, 2016. The patient was at [facility] and was doing well. This morning, he was seen normal last at 08:00 a.m. Apparently at that time, had normal mobility of both upper and lower extremities, as well as normal speech. He was then assessed at about 09:20 this morning was found to have neurologic change with a dense right hemiplegia, as well as an expressive aphasia and therefore a stroke alert was called. The patient is on Coumadin because of atrial fibrillation and the recent INR obtained this morning was 2.3 with a PT of 26.3. He did have a CT scan of the brain performed this morning as per the stroke alert process and there was no acute change noted. There is cortical atrophy bilaterally, ischemic demyelinization, no hemorrhage. No edema was identified. PAST MEDICAL HISTORY 1. He has a history of recent right ifnfp-yus-hqle amputation as noted above. 2. He has a history of atrial fibrillation. 3. Hypertension 4. Type 2 diabetes 5. Peripheral vascular disease 6. Left knee replacement surgery 7. Left second toe amputation in the past. ALLERGIES He has no known drug allergies noted. MEDICATIONS 1. Coumadin 2. Tylenol 3. Dextrose 4. Digoxin 5. Diltiazem 6. Iron sulfate 7. Glucagon 8. Levaquin 9. Prinivil 10 Magnesium hydroxide 11. Megestrol 12. Metformin 13. Multivitamin 14. Oxycodone for pain 15. Tamsulosin 16. Senna NEUROLOGIC EXAMINATION His blood pressure is 140/68, pulse 86, respirations are 20, temperature 98.2 degrees. Higher cortical function, he is alert. He has an expressive aphasia. He cannot say any words, cannot repeat simple phrases. He can follow simple commands. Cranial nerves: He has got a right facial droop. Other cranial nerves are normal. On motor exam, he has got a right hemiparesis. The right arm is roughly 2/5 in strength. The right leg is status post AKA and he does appear to be weak in flexing at the hip I would say roughly 2/5. NIH stroke scale is currently pending. CT of the brain is as noted above. No acute change. LABORATORY DATA INR 2.3, APTT 26.3. White count 12,600, hemoglobin 9.2, hematocrit 28.3% platelet count is 411,000. Sodium is 134, potassium 7, chloride 104, BUN is 37 and creatinine 1.08, GFR 65, glucose 120, AST 15, ALT is 18. IMPRESSION 1. 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 2. History of atrial fibrillation fully anticoagulated on Coumadin. The patient is not a candidate for IV tPA given the prolonged INR at 2.3 on Coumadin as well as recent surgery. However, we will proceed with a stat CT angiogram of the carotid arteries in the neck, as well as the brain to see if there may be any large vessel occlusive disease that might be amenable to endovascular therapy. MD JONATHAN Martin/LIBRADO /10:32 AM /11:27 AM
[2016-11-28] MEDS ORDERED: DO NOT ADM ANY ANTICOAGULANT DRUGS PRN (12:30)
[2016-11-28] MEDS ORDERED: METOPROLOL TARTRATE 5 MG/5 ML VIAL ONE (12:33)
[2016-11-28] MEDS ORDERED: DIGOXIN 0.5 MG/2 ML VIAL ONE (12:34)
--- NOTE | 2016-11-28 13:00 | MB ---
cc: JUDITH EDMONDS M.D. DATE OF CONSULTATION 11/28/2016 ADDENDUM The patient has had an NIH stroke scale performed and this was 6. MD JONATHAN Martin/LIBRADO /10:43 AM /1:00 PM
--- NOTE | 2016-11-28 13:23 | PD.RAD ---
Post Procedure Progress Note Pre Procedure Diagnosis: (1) Stroke due to embolism Post Procedure Diagnosis: (1) Stroke due to embolism Procedure Date: November 28, 2016 Supervising Radiologist: Khadar Lentz Proceduralist/Assist: Huong Archer RT(R), RT Jasen(R)() Anesthesia: General Plan of Activity Patient to Unit: PACU Patient Condition: Fair See PACS Report for procedural detail/treatment Vascular-Arterial Procedure Procedure 1 Procedure Site: Cerebral (left MCA) Procedure(s): Angiogram, Embolectomy Access Access Site(s): Right Femoral Artery Closure Site(s): Right vascular closure device (PerClose) Findings: Occlusion of left MCA. Successful recannulization with vacuum embolectomy Khadar Lentz MD November 28, 2016 13:23
[2016-11-28] MEDS ORDERED: IODIXANOL 320 MG/ML 50 ML VIAL (for RAD SPEC) I-ARTERIAL ONE (13:40)
--- NOTE | 2016-11-28 13:54 | RADRPT ---
EXAM DATE/TIME: 11/28/2016 10:50 [facility] COMPARISON: No previous studies available for comparison. INDICATIONS : Stroke alert, right side facial droop and right arm weakness IV CONTRAST: 75 cc Omnipaque 350 (iohexol) IV ; Cumulative dose for multiple exams. RADIATION DOSE: 15.23 CTDIvol (mGy) ; Combined studies MEDICAL HISTORY : Cardiovascular disease. Hypertension. SURGICAL HISTORY : Right AKA ENCOUNTER: Initial ACUITY: 1 day PAIN SCALE: Non-responsive LOCATION: cranial TECHNIQUE: Volumetric scanning was performed using a multi-row detector CT scanner. The data was post processed with a variety of visualization algorithms including full volume maximum intensity projection, multi -planar sliding thin slab reformation, curved planar reformation, and surface rendering techniques. Using automated exposure control and adjustment of the mA and/or kV according to patient size, radiat ion dose was kept as low as reasonably achievable to obtain optimal diagnostic quality images. FINDINGS: Very limited examination due to motion artifact. I do believe the in flow is patent to the skull base . The right MCA territory appears to be intact but I do believe that there is occlusion in the region of the left M2 segment. Again, anatomic detail is quite limited. Posterior cerebral arteries appear to be patent as well. On the first few images, there is a 3.9 cm area of masslike consolidation in the right apex. Both inf ectious and neoplastic processes should be considered. CONCLUSION: 1. Limited exam due to motion artifact. 2. I do believe that there is occlusive/near occlusive embolus to the left MCA territory in the regio n of the M2 segment. Patient will be transferred to interventional radiology for possible embolectomy . 3.9 cm area of consolidation in the right lung apex. Both neoplastic and infectious processes should be considered. Recommend a dedicated CT scan of the chest without contrast once the patient is stable for further evaluation. Khadar Lentz MD on November 28, 2016 at 13:29 Board Certified Radiologist. This report was verified electronically.
--- NOTE | 2016-11-28 14:57 | RADRPT ---
EXAM DATE/TIME: 11/28/2016 10:50 [facility] COMPARISON: No previous studies available for comparison. INDICATIONS : Stroke alert, right side facial droop and right arm weakness IV CONTRAST: 75 cc Omnipaque 350 (iohexol) IV ; Cumulative dose for multiple exams. RADIATION DOSE: 15.23 CTDIvol (mGy) ; Combined studies MEDICAL HISTORY : Cardiovascular disease. Hypertension. SURGICAL HISTORY : Right AKA ENCOUNTER: Initial ACUITY: 1 day PAIN SCALE: Non-responsive LOCATION: neck Elevated flow velocities and ICA/CCA ratios have been found to correlate with increased degrees of vessel stenosis, calculated as percentage of diameter relative to a normal segment of distal ICA/CCA. TECHNIQUE: Volumetric scanning was performed using a multirow detector CT scanner. The data was post processed with a variety of visualization algorithms including full-volume maximum intensity projection, multip lanar sliding thin-slab reformation, curved-planar reformation, and surface-rendering techniques. Us ing automated exposure control and adjustment of the mA and/or kV according to patient size, radiatio n dose was kept as low as reasonably achievable to obtain optimal diagnostic quality images. FINDINGS: AORTIC ARCH: There is a three-vessel origin of the great vessels from the aorta. Dense atherosclerotic calcificati on of the arch and ostia of the arch vessels with no significant stenosis. RIGHT CAROTID: The common carotid artery is intact. Dense atherosclerotic calcification of the carotid bifurcation e xtending up into the internal with no significant stenosis. Distal internal is difficult to evaluate due to motion artifact. The external carotid artery is intact. LEFT CAROTID: The common carotid artery is intact. Dense atherosclerotic calcification of the carotid bifurcation e xtending up into the internal with no significant stenosis. Distal internal is difficult to evaluate due to motion artifact. The external carotid artery is intact. VERTEBRALS: The vertebrals are diminutive but patent distal vertebrals were obscured by motion artifact. CONCLUSION: 1. Dense atherosclerotic calcification of the aortic arch and ostia the arch vessels as well as both carotid bifurcations with no significant stenosis. 2. Distal internal carotids and vertebrals are difficult to evaluate due to severe motion artifact. Khadar Lentz MD on November 28, 2016 at 14:48 Board Certified Radiologist. This report was verified electronically.
[2016-11-28 15:00] VITALS: PULSE 98
--- NOTE | 2016-11-28 15:03 | RADRPT ---
EXAM DATE/TIME: 11/28/2016 14:12 [facility] COMPARISON: CTA CAROTID ARTERIES W 3D RECON, November 28, 2016, 10:50. CHEST SINGLE AP, November 21, 2016, 13:23. INDICATIONS : Stroke alert. MEDICAL HISTORY : Cardiovascular disease. Hypertension SURGICAL HISTORY : Right AKA. ENCOUNTER: Initial ACUITY: 1 day PAIN SCORE: Non-responsive. LOCATION: Bilateral chest FINDINGS: AP view of the chest demonstrates a normal-sized cardiac silhouette with calcification of the aorta. There is dense calcification of the mitral anulus. Lungs are underinflated. There is calcified granul bonnie in the left upper lobe that is stable. No effusion or pneumothorax is identified. There is subtle opacity at the medial right lung apex. Bone and soft tissues demonstrate no acute finding. CONCLUSION: 1. Focal consolidative opacity at the right lung apex. Both infection and neoplasm are considerations . Suggest dedicated chest CT with IV contrast once patient's condition permits. 2. No other acute finding is identified. Paulino Urbina MD on November 28, 2016 at 14:59 Board Certified Radiologist. This report was verified electronically.
[2016-11-28 15:26] VITALS: O2SAT 97
[2016-11-28] MEDS ORDERED: LORazepam 2 MG/ML VIAL IV PUSH PRN (16:00)
[2016-11-28 17:50] LABS: HEMOGLOBIN A1b 1.7 %; HEMOGLOBIN Ao 84.3 %; HEMOGLOBIN P3 5.8 %
--- NOTE | 2016-11-28 19:01 | EC ---
Study Study Date:11/28/2016 STUDY CONCLUSIONS SUMMARY Procedure narrative: Image quality was poor. The study was technically limited due to poor acoustic window availability. Due to poor imaging, difficult to transplant nurse practitioner anything clinically on this echocardiogram. If clinical concern, consider different modality. If LV function is below 40, please consider prescribing an ACEI or ARB or document rationale for non-use. PROCEDURE DATA STUDY STATUS: Elective. Procedure: Transthoracic echocardiography. Image quality was poor. The study was technically limited due to poor acoustic window availability. Scanning was performed from the parasternal, apical, and subcostal acoustic windows. Study completion: The patient tolerated the procedure well. Transthoracic echocardiography. M-mode, complete 2D, complete spectral Doppler, and color Doppler. Patient status: Inpatient. CARDIAC ANATOMY LEFT VENTRICLE: Not well visualized. AORTIC VALVE: Not well visualized. MITRAL VALVE: Not well visualized. RIGHT VENTRICLE: Not visualized. PULMONIC VALVE: Not visualized. TRICUSPID VALVE: Not visualized. BASIC MEASUREMENTS ADULT NORMAL Aortic valve Leaflet separation 20 mm 15-26 BASIC MEASUREMENTS ADULT NORMAL Aortic valve Leaflet separation 20 mm 15-26 Aorta Root diameter, ED 30 mm 20-37 Left atrium Anterior-posterior dimension, ES *43 mm 19-40 LA/aortic root ratio 1.43 LEGEND: Mean values are shown as u=mean value. Asterisk (*) noguera values outside specified normal range. Prepared and signed by Joe Fatima [id number]
[2016-11-28 20:00] VITALS: BP 135/77; PULSE 92; RESP 24; TEMP 97.7; O2SAT 100
[2016-11-28] MEDS: SODIUM CHLORIDE 0.9% FLUSH 5 ML FLUSH IV FLUSH SCH (20:28)
[2016-11-28 21:30] VITALS: O2SAT 100
[2016-11-28 22:00] VITALS: PULSE 103
[2016-11-29] VITALS (14 sets, daily range): BP systolic 135–158; BP diastolic 18–80; PULSE 73–106; RESP 17–26; TEMP 97.5–98.4; O2SAT 95–100
[2016-11-29] MEDS: SODIUM CHLOR 0.9% 1000 ML INJ 1,000 ML IV SCH ×2 (01:18→17:45)
[2016-11-29 04:58] LABS: HDL CHOLESTEROL 30.6 MG/DL (40.0-60.0)
[2016-11-29] MEDS: DIGOXIN 0.125 MG TAB PO SCH (06:00)
[2016-11-29] MEDS: INSULIN ASPART SUPPLEMENTAL SCALE SQ SCH ×4 (06:13→21:38)
[2016-11-29] MEDS: SODIUM CHLORIDE 0.9% FLUSH 5 ML FLUSH IV FLUSH SCH ×2 (09:00→21:00)
[2016-11-29] MEDS: DILTIAZEM-CD 240 MG CAP ER PO SCH (09:09)
[2016-11-29] MEDS: TAMSULOSIN HCL 0.4 MG CAP PO SCH (09:09)
--- NOTE | 2016-11-29 09:44 | EKG ---
Date Performed: 11/28/2016 Time Performed: 10:32:06 PTAGE: 81 years EKG: sinus tachycardia Inferior infarct - age undetermined Possible anteroseptal infarct - age u ndetermined Lateral ST-T changes may be due to myocardial ischemia Abnormal ECG NO PREVIOUS TRACING DOCTOR: Branden Harding Interpretating Date/Time 11/29/2016 09:43:00
--- NOTE | 2016-11-29 12:21 | RADRPT ---
EXAM DATE/TIME: 11/29/2016 10:33 [facility] COMPARISON: CTA BRAIN W 3D RECON, November 28, 2016, 10:50. CT BRAIN W/O CONTRAST, November 28, 2016, 9:45. INDICATIONS : CVA. MEDICAL HISTORY : Hypertension. Diabetes mellitus type 2. Atrial fibrillation and basal cell carcinoma. SURGICAL HISTORY : Cataract surgery, left knee surgery, right BKA and left AKA. ENCOUNTER: Initial ACUITY: 1 day PAIN SCORE: 0/10 LOCATION: Head. TECHNIQUE: Multiplanar, multisequence MRI of the brain was performed without contrast. FINDINGS: CEREBRUM: There is abnormal signal on the diffusion weighted images throughout the left temporal lobe, left bas al ganglia, left caudate, and internal capsule regions. There is scattered more punctate areas of abn ormal signal in the occipital, parietal, and frontal lobes. The ventricles are widened. There is some mass effect on the lateral aspect of the left lateral ventricle from the infarct. The cortical sulci are widened. No evidence of midline shift or hemorrhage. No extraaxial fluid collections are seen. The pituitary gland and suprasellar cistern are normal in configuration. WHITE MATTER: There are numerous areas, some which are confluent, of signal abnormality within the cerebral white m atter in the periventricular regions POSTERIOR FOSSA: There is a small 0.6 cm area of signal abnormality in the left medial cerebellar hemisphere on the di ffusion, flair, and T2-weighted images likely representing some T2 shine through phenomenon. Otherwis e, the cerebellum and brainstem are intact. The 4th ventricle is midline. The cerebellopontine angle is unremarkable. The cerebellar tonsils are normal in position. EXTRACRANIAL: The visualized portions of the orbits are unremarkable. There is left maxillary, right ethmoid and ri ght sphenoid sinus disease. CONCLUSION: 1. Left middle cerebral artery territory acute infarction involving the left temporal lobe, left basa l ganglia, left internal capsule, and left caudate. There are some scattered punctate areas of infarc tion involving the left frontal, parietal, and occipital lobes. 2. Age-related atrophy and suspected small vessel ischemic change in the white matter. 3. Suspected old insult resulting in signal abnormality in the medial left cerebellar hemisphere incl uding T2 shine through phenomenon on the diffusion-weighted images. 4. Sinus disease. Paulino Brady MD on November 29, 2016 at 12:04 Board Certified Radiologist. This report was verified electronically.
--- NOTE | 2016-11-29 14:26 | HHI.CCPN ---
Subjective Remarks/Hospital Course Patient is an 81-year-old male with primary medical history of paroxysmal atrial fibrillation, DM 2, HTN, status post right below the knee amputation who was recently discharged from [facility] 11/08/16 with right below the knee amputation wound healing to [facility] and now he had come back to the hospital secondary to entire lateral aspect of the stump anterior portion is gangrenous. He was seen by vascular surgeon Dr. Hess for a possible revision of the stump. States in have any trauma and did not know why Gangrenous. Denies pain and discomfort. Denies SOB/ dyspnea. Denies chest pain, palpitations, headaches, dizziness. Denies fevers, chills, n/ v/d. Denies hematuria, dysuria. Underwent right stump revision, AKA last week, then to [place] re[facility]. While on Coumadin he developed dense right hemiplegia this morning -> stroke alert to [facility]. Discussed with Dr. Rubalcava. Improved speech today. Increased movement right arm. Objective Vital Signs Date Time Temp Pulse Resp B/P Pulse Ox O2 Delivery O2 Flow Rate FiO2 11/29/16 06:00 73 11/29/16 05:58 100 Nasal Cannula 2.00 11/29/16 04:00 97.8 17 153/68 11/28/16 15:26 21 Intake and Output 11/28/16 11/28/16 11/29/16 08:00 16:00 00:00 Intake Total 157 ml 602 ml Output Total 650 ml 450 ml Balance -493 ml 152 ml Result Diagram: 11/28/16 1020 Objective Remarks Gen: Aphasic Head: Normal. Neck: Supple, airway widely patent. Lungs: Clear, no wheezes or crackles. Heart: Irreg, no m,r. No JVD. Abdomen: Soft, NT, ND, BS active Extremities: Warm, well perfused. New AKA right side. S/P left metatarsal amputation. Neuro: 3/5 right arm, right facial drop. Minimal flexion strength left hip. EDWIN. Aphasic. Left arm and leg normal. A/P Assessment and Plan Assessment and Plan Problem List: (1) HTN Acute Right hemiplegia, CVA ICD Code: Status: Chronic (2) PAD (peripheral artery disease) ICD Code: I73.9 Status: Chronic (3) Status post below knee amputation of right lower extremity ICD Code: Z89.511 Status: Acute (4) Nonhealing ulcer of left lower extremity ICD Code: L97.909 Status: Chronic (5) Pressure ulcer of left heel, unstageable ICD Code: L89.620 Status: Acute (6) Atrial fibrillation ICD Code: I48.91 Status: Chronic (7) DM type 2 (diabetes mellitus, type 2) ICD Code: E11.9 Status: Chronic Assessment and Plan Patient is an 81-year-old male with primary medical history of paroxysmal atrial fibrillation, DM 2, HTN, status post right above knee amputation who was recently admitted to [facility]. He developed sudden right hemiplegia about 9 am today and was transferred back to the [facility] as a stroke alert. S/P Right AKA - Pain management HTN benign Afib, rate controlled, Chronic - On Coumadin INR 2.5. Hold Coumadin today. May need FFP prior to surgery, if surgery is to be done tomorrow - Continue home dose Cardizem 240mg daily , digoxin 0.125 mg daily, Lisinopril 5mg daily - Monitor heart rate and BP trend DM2, controlled - Latest Hemoglobin A1c 6.7 - 10/27/16 - On metformin at home, hold for now. Start Insulin sliding scale - Monitor Accu-Cheks. Monitor for hypoglycemia Anemia, normocytic normochromic possibly postoperatively Right BKA - H/H 7.3/22.7, may need blood transfusion prior to surgery and may be postop - Continue ferrous sulfate BID - Trend CBC Left Heel Blister - Unstageable PU - Heel pressure relief DVT prop Coumadin - Code Status Full Code Discussed Condition With Patient, nursing Problem Qualifiers (1) DM type 2 (diabetes mellitus, type 2): Overall impression: Resolving acute right hemiplegia and aphasia. Ilir Dela Cruz MD November 29, 2016 14:26
--- NOTE | 2016-11-29 15:13 | RADRPT ---
EXAM DATE/TIME: 11/28/2016 00:00 [place] COMPARISON: No previous studies available for comparison. INDICATIONS : Stroke alert patient in need of cerebral angiogram with possible intervention. MEDICAL HISTORY : 1.AFIB 2.HTN 3.PAD 4.DM 5.DVT 6.Pressure ulcer of the left heal 7.MRSA SURGICAL HISTORY : 1.Right lower extremity amputation ENCOUNTER: Initial ACUITY: 1 day PAIN SCORE: Nonresponsive. FLUORO TIME: 8.8 IMAGE SERIES: 9 ACCESS SITE: Right Femoral artery CONTRAST: 50 cc Visipaque (iodixanol) TIMELINE: Interventional team called: n/a Interventional team arrived: n/a Interventional team ready: 1110 am Patient arrival: 1116 am Groin puncture: 1130 am Recanalization: 1155 am Anesthesia and pain control was provided by the Anesthesia department. PROCEDURE : 1. Ultrasound-guided puncture of the access site. 2. Angiography of the access site prior to closure device. 3. Conscious sedation with continuous EKG and Oximetry monitoring. 4. Percutaneous closure of the access site. 5. Angiography of the left MCA territory 6. Penumbra embolectomy, left M1-M2 junction The risks, benefits and alternatives to the procedure were explained and verbal and written consent w as obtained. The site was prepped in sterile fashion. Full sterile technique was used, including ca p, mask, sterile gloves and gown and a large sterile sheet. Hand hygiene and 2% chlorhexidine and/or betadine/alcohol prep was utilized per protocol for cutaneous antisepsis. The skin and subcutaneous tissues were infiltrated with local anesthetic solution. With ultrasound and fluoroscopic guidance the selected artery was punctured and a vascular sheath was placed. Angiography of the common femoral artery was performed for evaluation prior to percutaneous closure device placement. Left common carotid artery was selected with the MADDIE 2 catheter. Catheter and wire were advanced up in to the distal common. Contrast injection showed a normal configuration of the bifurcation. MediPort w darrell was guided into the external carotid to facilitate placement of the 6 Tajik neuron sheath. The s roman was then guided into the internal just proximal to the Delfina portion of the vessel. Contrast i njection confirmed occlusion of the left MCA territory at the junction of the M1 and M2 segment just proximal to the expected location of the lenticular striates. The Marksman catheter and agility wire were preloaded into the 068 Penumbra and the coaxial system wa s then advanced through the neuron sheath into the internal. The agility wire and Marksman catheter w as then manipulated up to the level of the occlusion. The occlusion was traversed and intraluminal po sition in the distal branches of the MCA territorial were confirmed with positive contrast. The Penum bra catheter was then advanced to the edge of the embolus and connected to aspiration. After 90 secon ds, the penumbra was removed with aspiration of the side-port sheath. Contrast injection showed compl ete lutheran of antegrade flow. Sheath Hemostasis was obtained with the prescribed medicated closure device. Conscious sedation was performed with the prescribed dosages and duration as above in the presence of an independent trained radiology nurse to assist in the monitoring of the patient. EKG and oximetry remained stable throug hout the procedure. CONCLUSION: Successful embolectomy at the junction of the left M1-M2 territory with lutheran of antegrade flow. Khadar Lentz MD on November 29, 2016 at 15:02 Board Certified Radiologist. This report was verified electronically.
--- NOTE | 2016-11-29 16:31 | HHI.PR ---
Review/Management Diagnosis left MCA stroke s/p successful thrombectomy of left mca thrombus atrial fib. Plan hold coumadin for next 3-4 days due to risk of hemorrhage into the stroke. Diagnosis/Plan: Subjective Subjective Comments s/p successful left MCA thrombectomy improved right side strength Active Medications Current Medications Medications (Trade) Dose Ordered Sig/Dustin Route Start Time Stop Time Status Last Admin (NS Flush) 2 ml BID IV FLUSH 11/28/16 21:00 11/28/16 20:28 (NS Flush) 2 ml UNSCH PRN IV FLUSH 11/28/16 10:30 (NovoLOG SUPPLEMENTAL SCALE) 1 ACHS SQ 11/28/16 11:00 (D50w (Vial) Inj) 50 ml UNSCH PRN IV PUSH 11/28/16 10:30 (Glucagon Inj) 1 mg UNSCH PRN OTHER 11/28/16 10:30 (Lanoxin) 0.125 mg DAILY@0600 PO 11/29/16 06:00 (Cardizem Cd) 240 mg DAILY PO 11/29/16 09:00 11/29/16 09:09 Tamsulosin HCl 0.4 mg 0.4 mg DAILY PO 11/29/16 09:00 11/29/16 09:09 (NS 1000 ml Inj) 1,000 ml @ 70 mls/hr [id number] IV 11/28/16 11:00 11/29/16 01:18 Allergies Allergies Coded Allergies *MDRO Multi-Drug Resistant Organism (Verified Adverse Reaction, Unknown, ) Exam I&O / VS 11/28/16 11/28/16 11/29/16 15:00 23:00 07:00 Intake Total 157 ml 602 ml 443 ml Output Total 650 ml 450 ml 375 ml Balance -493 ml 152 ml 68 ml Intake Oral 50 ml 0 ml 0 ml IV Total 107 ml 602 ml 443 ml Output Urine Total 650 ml 450 ml 375 ml Vital Signs Date Time Temp Pulse Resp B/P Pulse Ox O2 Delivery O2 Flow Rate FiO2 11/29/16 06:00 73 11/29/16 05:58 100 Nasal Cannula 2.00 11/29/16 04:00 80 11/29/16 04:00 97.8 80 17 153/68 100 11/29/16 02:00 90 11/29/16 00:00 86 11/29/16 00:00 97.8 86 20 158/74 100 11/28/16 22:00 103 11/28/16 21:30 100 Nasal Cannula 2.00 11/28/16 20:00 97.7 92 24 135/77 100 11/28/16 19:00 100 Nasal Cannula 2.00 Respiratory: Lungs CTA, Non-labored respirations Cardiology: Normal rate Musculoskeletal: ROM Exam Comments alert, expressive aphasia, follow commands CN right upper motor neuron CN 7 palsey MOTOR--4/5 RUE and RLE, 5/5 LUE and LLE Objective Radiology Results MRI--left MCA stroke. Micro and Labs Laboratory Tests Test 11/29/16 03:40 Triglycerides Level 75 Cholesterol Level 155 LDL Cholesterol 109 HDL Cholesterol 30.6 Cholesterol/HDL Ratio 5.06 Nick Rubalcava PhD MD November 29, 2016 16:31
--- NOTE | 2016-11-29 17:27 | PD.CONS ---
[facility] Service Rehabilitation Medicine Consult Requested By Nick Rubalcava MD Reason for Consult Comprehensive rehabilitation evaluation. Primary Care Physician Unknown History of Present Illness Balta Shankar is an 81 year old male who has a complicated history including admission to [facility] 10/13/16 with a cool right foot with increased pain for which he underwent right peripheral angiogram with rotational atherectomy and balloon angioplasty due to right SFA and popliteal stenosis. He was discharged home but was then re-admitted 10/20/16 with a black and painful right great toe. Endovascular intervention was attempted on 10/23/16 but was not successful. He subsequently required right BKA 10/24/[address] Hess due to ischemic gangrene of right foot. He was admitted to [facility] 10/26/16 and then to SNF on 11/08/16. He was admitted to [facility] 11/21/16 due to infected surgical wound and underwent R AKA on 11/22/16. He was admitted to [facility] 11/27/16 for inpatient rehabilitation. On 11/28/16 he developed the acute onset of right hemiplegia. CTA showed left MCA occlusion/near occlusion and he underwent successful embolectomy. Brain MRI showed left MCA infarct left temporal/basal ganglia/internal capsule/ caudate with some scatter punctate infarcted areas in left frontal/parietal and occipital areas. Review of Systems ROS Limitations: Clinical Condition, Speech Impaired Respiratory: DENIES: Shortness of breath Cardiovascular: DENIES: Chest pain Gastrointestinal: DENIES: Abdominal pain Neurologic: COMPLAINS OF: Speech Problems Past Family Social History Allergies: Coded Allergies: *MDRO Multi-Drug Resistant Organism (Verified Adverse Reaction, Unknown, ) 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 MRSA PCR Screen NEGATIVE - 10/27/16 & 10/30/16 CLEARED PER INFECTION CONTROL PROTOCOL Past Medical History Atrial fibrillation DM HTN PVD Past Surgical History Right BKA Left toe amputation Current Medications Current Medications Medications (Trade) Dose Ordered Sig/Dustin Route Start Time Stop Time Status Last Admin (NS Flush) 2 ml BID IV FLUSH 11/28/16 21:00 11/28/16 20:28 (NS Flush) 2 ml UNSCH PRN IV FLUSH 11/28/16 10:30 (NovoLOG SUPPLEMENTAL SCALE) 1 ACHS SQ 11/28/16 11:00 (D50w (Vial) Inj) 50 ml UNSCH PRN IV PUSH 11/28/16 10:30 (Glucagon Inj) 1 mg UNSCH PRN OTHER 11/28/16 10:30 (Lanoxin) 0.125 mg DAILY@0600 PO 11/29/16 06:00 (Cardizem Cd) 240 mg DAILY PO 11/29/16 09:00 11/29/16 09:09 Tamsulosin HCl 0.4 mg 0.4 mg DAILY PO 11/29/16 09:00 11/29/16 09:09 (NS 1000 ml Inj) 1,000 ml @ 70 mls/hr [id number] IV 11/28/16 11:00 11/29/16 01:18 (Lipitor) 10 mg DAILY PO 11/30/16 09:00 Exam I&O / VS 11/28/16 11/28/16 11/29/16 15:00 23:00 07:00 Intake Total 157 ml 602 ml 443 ml Output Total 650 ml 450 ml 375 ml Balance -493 ml 152 ml 68 ml Intake Oral 50 ml 0 ml 0 ml IV Total 107 ml 602 ml 443 ml Output Urine Total 650 ml 450 ml 375 ml Vital Signs Date Time Temp Pulse Resp B/P Pulse Ox O2 Delivery O2 Flow Rate FiO2 11/29/16 06:00 73 11/29/16 05:58 100 Nasal Cannula 2.00 11/29/16 04:00 80 11/29/16 04:00 97.8 80 17 153/68 100 11/29/16 02:00 90 11/29/16 00:00 86 11/29/16 00:00 97.8 86 20 158/74 100 11/28/16 22:00 103 11/28/16 21:30 100 Nasal Cannula 2.00 11/28/16 20:00 97.7 92 24 135/77 100 11/28/16 19:00 100 Nasal Cannula 2.00 General: No acute distress, Other (Dejesus) Respiratory: Lungs CTA, Non-labored respirations, BS equal Gastrointestinal: Positive Bowel Sounds, Non-Distended, Non-Tender Cardiovascular: Normal rate, Irregular Rhythm Skin: Other (No rash noted) Musculoskeletal: Swelling (None in left LE) Psychiatric: Cooperative, Appropriate mood & affect Orientation: oriented to Self, oriented to Situation, unable to asses Place, unable to asses Time Neurologic: Pupils (PERRLA), EOM (intact), Facial Symmetry (Right facial froop) , Speech (Aphasic) Motor: Right Upper Extremity (4/5), Left Upper Extremity (5/5), Right Lower Extremity (Right AKA dressing in place with no drainage noted), Left Lower Extremity (5/5) Sensory Unable to accurately assess DTRs: Normal (In UE) Clonus: Negative (Left LE) Assessment and Plan Diagnosis: (1) Acute ischemic left MCA stroke Assessment 1. Left MCA ischemic stroke S/P embolectomy with aphasia, right hemiparesis 2. Right AKA 11/22/16 3. Atrial fibrillation 4. HTN 5. DM 6. PVD/PAD Plan 1. PT to mobilize as medical and neuro status allows 2. OT for ADL's 3. ST for swallow evaluation and now on mechanical soft diet with thin liquids. Speech and communication eval and treat 4. Will need ongoing rehabilitation at discharge and case management is addressing referrals 5. Will follow while hospitalized and at discharge as appropriate Thank you for this consult. Nickie Dahl MD November 29, 2016 17:26
[2016-11-29 18:41] LABS: APTT (PATIENT) 49.7 SEC (24.3-30.1); INTERNATIONAL NORMALIZED RATIO 2.6 RATIO; PROTHROMBIN TIME - PATIENT 30.4 SEC (9.8-11.6)
[2016-11-30] VITALS (11 sets, daily range): BP systolic 114–166; BP diastolic 58–102; PULSE 68–104; RESP 15–22; TEMP 97–98.7; O2SAT 96–100
[2016-11-30] MEDS: SODIUM CHLOR 0.9% 1000 ML INJ 1,000 ML IV SCH ×2 (05:54→21:12)
[2016-11-30] MEDS: DIGOXIN 0.125 MG TAB PO SCH (06:00)
[2016-11-30] MEDS: INSULIN ASPART SUPPLEMENTAL SCALE SQ SCH ×4 (07:00→21:13)
[2016-11-30] MEDS: ATORVASTATIN 10 MG TAB PO SCH (09:00)
[2016-11-30] MEDS: SODIUM CHLORIDE 0.9% FLUSH 5 ML FLUSH IV FLUSH SCH ×2 (09:00→21:13)
[2016-11-30] MEDS: TAMSULOSIN HCL 0.4 MG CAP PO SCH (09:00)
[2016-11-30] MEDS: DILTIAZEM-CD 240 MG CAP ER PO SCH (09:00)
[2016-11-30] MEDS ORDERED: COLLAGENASE OINT 30 GM TUBE TOPICAL SCH (11:00)
--- NOTE | 2016-11-30 14:29 | HHI.PR ---
Subjective Remarks Mr. Shankar has had improvement since arrival with expressive aphasia and right hemiplegia. He has improvement in both his speaking and strength, but neither is at his previous baseline. No complaints when seen. Family inquires about heparin or Lovenox, due to a history of DVT; he has been on Coumadin as an outpatient and was therapeutic as of yesterday. Presently it has been between 24-48 hours after his CVA onset. Coumadin, or other blood thinners, will be avoided for 3-4 days, out of respect for his present bleed risk. Objective Vital Signs Date Time Temp Pulse Resp B/P Pulse Ox O2 Delivery O2 Flow Rate FiO2 11/30/16 12:00 98.3 104 20 137/64 100 11/30/16 12:00 104 11/30/16 10:00 96 11/30/16 08:00 94 11/30/16 08:00 98.4 94 22 166/102 100 11/30/16 07:00 100 Room Air 11/30/16 06:00 68 11/30/16 04:00 68 11/30/16 04:00 98.6 83 15 160/72 100 11/30/16 02:00 77 11/30/16 00:00 103 11/30/16 00:00 98.7 103 20 146/70 100 11/29/16 22:00 97 11/29/16 20:00 Room Air 11/29/16 20:00 98.4 106 22 150/77 100 11/29/16 20:00 106 11/29/16 18:00 88 11/29/16 16:00 98 11/29/16 16:00 97.6 98 23 145/18 100 I/O 11/29/16 11/29/16 11/29/16 11/30/16 11/30/16 11/30/16 07:00 15:00 23:00 07:00 15:00 23:00 Intake Total 443 ml 1085 ml 499 ml Output Total 375 ml 1100 ml 900 ml Balance 68 ml -15 ml -401 ml Intake Oral 0 ml 0 ml IV Total 443 ml 1085 ml 499 ml Output Urine Total 375 ml 1100 ml 900 ml # Bowel Movements 0 0 Result Diagram: 11/28/16 1020 Imaging Last Impressions Brain MRI 11/29/16 0000 Signed Impressions: Service Date/Time: Tuesday, November 29, 2016 10:33 - CONCLUSION: 1. Left middle cerebral artery territory acute infarction involving the left temporal lobe, left basal ganglia, left internal capsule, and left caudate. There are some scattered punctate areas of infarction involving the left frontal, parietal, and occipital lobes. 2. Age-related atrophy and suspected small vessel ischemic change in the white matter. 3. Suspected old insult resulting in signal abnormality in the medial left cerebellar hemisphere including T2 shine through phenomenon on the diffusion-weighted images. 4. Sinus disease. Paulino Brady MD Neck CTA 11/28/16 Signed Impressions: Service Date/Time: Monday, November 28, 2016 10:50 - CONCLUSION: 1. Dense atherosclerotic calcification of the aortic arch and ostia the arch vessels as well as both carotid bifurcations with no significant stenosis. 2. Distal internal carotids and vertebrals are difficult to evaluate due to severe motion artifact. Khadar Lentz MD Head CTA 11/28/16 Signed Impressions: Service Date/Time: Monday, November 28, 2016 10:50 - CONCLUSION: 1. Limited exam due to motion artifact. 2. I do believe that there is occlusive/near occlusive embolus to the left MCA territory in the region of the M2 segment. Patient will be transferred to interventional radiology for possible embolectomy. 3.9 cm area of consolidation in the right lung apex. Both neoplastic and infectious processes should be considered. Recommend a dedicated CT scan of the chest without contrast once the patient is stable for further evaluation. Khadar Lentz MD Chest X-Ray 11/28/16 Signed Impressions: Service Date/Time: Monday, November 28, 2016 14:12 - CONCLUSION: 1. Focal consolidative opacity at the right lung apex. Both infection and neoplasm are considerations. Suggest dedicated chest CT with IV contrast once patient's condition permits. 2. No other acute finding is identified. Paulino Urbina MD Cerebral Arteriogram 11/28/16 Signed Impressions: Service Date/Time: Monday, November 28, 2016 00:00 - CONCLUSION: Successful embolectomy at the junction of the left M1-M2 territory with synagogue of antegrade flow. Khadar Lentz MD Objective Remarks GENERAL: NAD, A&Ox3 SKIN: Warm and dry. HEAD: Normocephalic. EYES: No scleral icterus. No injection or drainage. NECK: Supple, trachea midline. No JVD or lymphadenopathy. CARDIOVASCULAR: Regular rate and rhythm without murmurs, gallops, or rubs. RESPIRATORY: Breath sounds equal bilaterally. No accessory muscle use. GASTROINTESTINAL: Abdomen soft, non-tender, nondistended. MUSCULOSKELETAL: No cyanosis, or edema. BKA at right. left leg weakness with missing toes at left foot. BACK: Nontender without obvious deformity. No CVA tenderness. NEURO: mild right hemiplegia, expressive aphasia Medications and IVs Administered Medications Medications (Trade) Dose Ordered Sig/Dustin Route PRN Reason Start Time Stop Time Status Last Admin Dose Admin IV Flush (NS Flush) 2 ml BID IV FLUSH 11/28/16 21:00 11/30/16 09:00 Insulin Aspart (NovoLOG SUPPLEMENTAL SCALE) 1 ACHS SQ 11/28/16 11:00 11/29/16 21:38 Digoxin (Lanoxin) 0.125 mg DAILY@0600 PO 11/29/16 06:00 11/30/16 06:00 Diltiazem HCl (Cardizem Cd) 240 mg DAILY PO 11/29/16 09:00 11/30/16 09:00 Tamsulosin HCl 0.4 mg 0.4 mg DAILY PO 11/29/16 09:00 11/30/16 09:00 Sodium Chloride (NS 1000 ml Inj) 1,000 ml @ 70 mls/hr [id number] IV 11/28/16 11:00 11/30/16 05:54 Atorvastatin Calcium (Lipitor) 10 mg DAILY PO 11/30/16 09:00 11/30/16 09:00 Collagenase (Santyl Oint) 1 applic DAILY TOPICAL 11/30/16 11:00 11/30/16 12:07 A/P Problem List: (1) Acute ischemic left MCA stroke ICD Code: I63.512 (2) Stroke due to embolism ICD Code: I63.9 (3) Above knee amputation of right lower extremity ICD Code: Z89.611 (4) Impaired mobility and activities of daily living ICD Code: Z74.09 (5) Expressive aphasia ICD Code: R47.01 (6) Right hemiplegia ICD Code: G81.91 Assessment and Plan Assessment and Plan 81 year old male admitted with an acute CVA and symptoms of expressive aphasia and right hemiplegia Acute CVA Some improvements seen since onset of stroke Continue PT, OT, ST Neurology following Transfer out of ICU to Med/Surg unit Hx of A-fib Hx of DVT Counadin on hold given acute CVA Resume at 3-4 days after CVA Follow INR Global Weakness Right Hemiplegia PT SNF anticipated at discharge Recent above the knee amputation at right leg Supportive care PT HTN Allow for elevations in BP Holding BP treatments for 72 hours after stroke DM2 Follow blood sugars Insulin Sliding Scale Diabetic Diet Anemia Follow CBC No need for transfusion at this point Fuentes Garcia MD Nov 30, 2016 2:28 pm
--- NOTE | 2016-11-30 18:58 | HHI.PR ---
Review/Management Diagnosis left MCA stroke s/p successful thrombectomy of left mca thrombus atrial fib. Plan hold coumadin for next 3-4 days due to risk of hemorrhage into the stroke. Diagnosis/Plan: Subjective Subjective Comments No acute events reported Active Medications Current Medications Medications (Trade) Dose Ordered Sig/Dustin Route Start Time Stop Time Status Last Admin (NS Flush) 2 ml BID IV FLUSH 11/28/16 21:00 11/30/16 09:00 (NS Flush) 2 ml UNSCH PRN IV FLUSH 11/28/16 10:30 (NovoLOG SUPPLEMENTAL SCALE) 1 ACHS SQ 11/28/16 11:00 11/30/16 16:00 (D50w (Vial) Inj) 50 ml UNSCH PRN IV PUSH 11/28/16 10:30 (Glucagon Inj) 1 mg UNSCH PRN OTHER 11/28/16 10:30 (Lanoxin) 0.125 mg DAILY@0600 PO 11/29/16 06:00 11/30/16 06:00 (Cardizem Cd) 240 mg DAILY PO 11/29/16 09:00 11/30/16 09:00 Tamsulosin HCl 0.4 mg 0.4 mg DAILY PO 11/29/16 09:00 11/30/16 09:00 (NS 1000 ml Inj) 1,000 ml @ 70 mls/hr [id number] IV 11/28/16 11:00 11/30/16 05:54 (Lipitor) 10 mg DAILY PO 11/30/16 09:00 11/30/16 09:00 (Santyl Oint) 1 applic DAILY TOPICAL 11/30/16 11:00 11/30/16 12:07 Allergies Allergies Coded Allergies *MDRO Multi-Drug Resistant Organism (Verified Adverse Reaction, Unknown, ) Exam I&O / VS 11/29/16 11/29/16 11/30/16 15:00 23:00 07:00 Intake Total 1085 ml 499 ml Output Total 1100 ml 900 ml Balance -15 ml -401 ml Intake Oral 0 ml IV Total 1085 ml 499 ml Output Urine Total 1100 ml 900 ml # Bowel Movements 0 0 Vital Signs Date Time Temp Pulse Resp B/P Pulse Ox O2 Delivery O2 Flow Rate FiO2 11/30/16 16:45 97.0 86 17 114/58 98 11/30/16 16:06 100 21 11/30/16 14:00 91 11/30/16 12:00 98.3 104 20 137/64 100 11/30/16 12:00 104 11/30/16 10:00 96 11/30/16 08:00 94 11/30/16 08:00 98.4 94 22 166/102 100 11/30/16 07:00 100 Room Air 11/30/16 06:00 68 11/30/16 04:00 68 11/30/16 04:00 98.6 83 15 160/72 100 11/30/16 02:00 77 11/30/16 00:00 103 11/30/16 00:00 98.7 103 20 146/70 100 11/29/16 22:00 97 11/29/16 20:00 Room Air 11/29/16 20:00 98.4 106 22 150/77 100 11/29/16 20:00 106 Respiratory: Lungs CTA, Non-labored respirations, BS equal Cardiology: Normal rate, Irregular Rhythm Musculoskeletal: Swelling (None in left LE) Exam Comments alert, expressive aphasia, follow commands CN right upper motor neuron CN 7 palsey MOTOR--4/5 RUE and RLE, 5/5 LUE and LLE Nick Rubalcava PhD Nov 30, 2016 18:58
[2016-12-01] VITALS: BP 138/70; PULSE 86; RESP 20; TEMP 98; O2SAT 93
[2016-12-01 01:16] VITALS: PULSE 75
[2016-12-01 04:00] VITALS: BP 134/76; PULSE 100; RESP 18; TEMP 98.8; O2SAT 95
[2016-12-01] MEDS: DIGOXIN 0.125 MG TAB PO SCH (05:20)
[2016-12-01] MEDS: INSULIN ASPART SUPPLEMENTAL SCALE SQ SCH ×2 (06:19→11:51)
[2016-12-01 08:40] LABS: HEMATOCRIT 28.9 % (39.0-51.0); MEAN CELL VOLUME 81.4 FL (80.0-100.0); MEAN CORPUSCULAR HEMOGLOBIN 27.3 PG (27.0-34.0); MEAN CORPUSCULAR HGB CONC 33.5 % (32.0-36.0); PLATELET COUNT 370 TH/MM3 (150-450); RED BLOOD COUNT 3.55 MIL/MM3 (4.50-5.90); RED CELL DISTRIBUTION WIDTH 14.9 % (11.6-17.2); REVIEW FLAG FINAL; WHITE BLOOD COUNT 10.3 TH/MM3 (4.0-11.0)
[2016-12-01] MEDS: DILTIAZEM-CD 240 MG CAP ER PO SCH (08:41)
[2016-12-01] MEDS: SODIUM CHLORIDE 0.9% FLUSH 5 ML FLUSH IV FLUSH SCH (08:41)
[2016-12-01] MEDS: ATORVASTATIN 10 MG TAB PO SCH (08:41)
[2016-12-01] MEDS: TAMSULOSIN HCL 0.4 MG CAP PO SCH (08:41)
[2016-12-01 08:55] LABS: INTERNATIONAL NORMALIZED RATIO 1.6 RATIO
[2016-12-01 09:03] LABS: BICARBONATE 24.4 MEQ/L (21.0-32.0); POTASSIUM 3.6 MEQ/L (3.5-5.1)
[2016-12-01 09:56] VITALS: BP 144/69; PULSE 92; RESP 18; TEMP 96.3; O2SAT 99
[2016-12-01] MEDS ORDERED: COLL30T TOPICAL (12:27)
[2016-12-01] MEDS ORDERED: LIPI10TA PO (12:27)
[2016-12-01 13:44] VITALS: BP 129/67; PULSE 81; RESP 19; TEMP 96.4; O2SAT 99
--- NOTE | 2016-12-01 14:01 | HHI.DS ---
Discharge Summary Admission Date November 28, 2016 at 10:14 Discharge Date: Dec 01, 2016 Admitting Diagnosis CVA, acute (1) Acute ischemic left MCA stroke ICD Code: I63.512 Diagnosis: Principal Procedures None Brief History - From Admission Patient is an 81-year-old male with primary medical history of paroxysmal atrial fibrillation, DM 2, HTN, status post right below the knee amputation who was recently discharged from [facility] 11/08/16 with right below the knee amputation wound healing to [facility] and now he had come back to the hospital secondary to entire lateral aspect of the stump anterior portion is gangrenous. He was seen by vascular surgeon Dr. Hess for a possible revision of the stump. States in have any trauma and did not know why Gangrenous. Denies pain and discomfort. Denies SOB/ dyspnea. Denies chest pain, palpitations, headaches, dizziness. Denies fevers, chills, n/ v/d. Denies hematuria, dysuria. Underwent right stump revision, AKA last week, then to [facility]. While on Coumadin he developed dense right hemiplegia this morning -> stroke alert to [facility]. Discussed with Dr. Rubalcava. CBC/BMP: 12/01/16 0725 12/01/16 0725 Significant Findings Laboratory Tests Test 11/29/16 11/29/16 12/01/16 03:40 17:30 07:25 LDL Cholesterol 109 MG/DL (0-99) HDL Cholesterol 30.6 MG/DL (40.0-60.0) Prothrombin Time 30.4 SEC 18.0 SEC (9.8-11.6) (9.8-11.6) Activated Partial 49.7 SEC Thromboplast Time (24.3-30.1) Red Blood Count 3.55 MIL/MM3 (4.50-5.90) Hemoglobin 9.7 GM/DL (13.0-17.0) Hematocrit 28.9 % (39.0-51.0) Imaging Last Impressions Brain MRI 11/29/16 0000 Signed Impressions: Service Date/Time: Tuesday, November 29, 2016 10:33 - CONCLUSION: 1. Left middle cerebral artery territory acute infarction involving the left temporal lobe, left basal ganglia, left internal capsule, and left caudate. There are some scattered punctate areas of infarction involving the left frontal, parietal, and occipital lobes. 2. Age-related atrophy and suspected small vessel ischemic change in the white matter. 3. Suspected old insult resulting in signal abnormality in the medial left cerebellar hemisphere including T2 shine through phenomenon on the diffusion-weighted images. 4. Sinus disease. Paulino Brady MD Neck CTA 11/28/16 Signed Impressions: Service Date/Time: Monday, November 28, 2016 10:50 - CONCLUSION: 1. Dense atherosclerotic calcification of the aortic arch and ostia the arch vessels as well as both carotid bifurcations with no significant stenosis. 2. Distal internal carotids and vertebrals are difficult to evaluate due to severe motion artifact. Khadar Lentz MD Head CTA 11/28/16 Signed Impressions: Service Date/Time: Monday, November 28, 2016 10:50 - CONCLUSION: 1. Limited exam due to motion artifact. 2. I do believe that there is occlusive/near occlusive embolus to the left MCA territory in the region of the M2 segment. Patient will be transferred to interventional radiology for possible embolectomy. 3.9 cm area of consolidation in the right lung apex. Both neoplastic and infectious processes should be considered. Recommend a dedicated CT scan of the chest without contrast once the patient is stable for further evaluation. Khadar Lentz MD Chest X-Ray 11/28/16 Signed Impressions: Service Date/Time: Monday, November 28, 2016 14:12 - CONCLUSION: 1. Focal consolidative opacity at the right lung apex. Both infection and neoplasm are considerations. Suggest dedicated chest CT with IV contrast once patient's condition permits. 2. No other acute finding is identified. Paulino Urbina MD Cerebral Arteriogram 11/28/16 Signed Impressions: Service Date/Time: Monday, November 28, 2016 00:00 - CONCLUSION: Successful embolectomy at the junction of the left M1-M2 territory with adventist of antegrade flow. Khadar Lentz MD Hospital Course Mr. Shankar is an 81-year-old male. Been in our hospital for a right knee amputation which was an [id number] amputation. He been recovering in our rehabilitation center, inpatient. He had an onset of CVA-like symptoms including difficulty speaking and right-sided weakness. He was readmitted to the hospital. Workup shows he had a CVA of the left MCA distribution. He has had some improvement in his right arm function and in speech. The right arm function is near baseline. Speech is not yet near baseline. Presently he is day 3 after the stroke. Right now he is medically stable for transfer back to rehabilitation. He will resume blood pressure medications in the morning. Additionally he will resume Coumadin with monitoring. Medically stable for transfer to inpatient rehabilitation. Pt Condition on Discharge: Stable Discharge Disposition: Rehab Inpatient Discharge Time: > 30 minutes Discharge Instructions DIET: Follow Instructions for: As Tolerated, No Restrictions Activities you can perform: Regular-No Restrictions Follow up Referrals: Neurology - 2 Weeks PCP Follow-up - 2 Weeks New Medications: Atorvastatin (Lipitor) 10 Mg Tab 10 MG PO DAILY Cholesterol Management #30 TAB Collagenase (Santyl) 250 Unit/Gm Oin 1 APPLIC TOPICAL DAILY Skin #1 TUBE Continued Medications: Digoxin (Digoxin) 0.125 Mg Tab 0.125 MG PO DAILY@0600 Regulate Heart Beat #30 Ref 0 TAB Diltiazem ER 24 HR (Diltiazem ER 24 HR) 240 Mg Caper 240 MG PO DAILY #30 Ref 0 CAP Ferrous Sulfate (Feosol) 200 Mg Tab 325 MG PO 12,17 Nutritional Supplement #60 Ref 0 TAB Lisinopril (Lisinopril) 5 Mg Tab 5 MG PO DAILY Blood Pressure Management #30 Ref 0 TAB Megestrol Liq (Megestrol Liq) 40 Mg/Ml Susp 400 MG PO DAILY appetite stimulant Days 30 Metformin (Glucophage) 500 Mg Tab 500 MG PO BIDPC #60 TAB Multiple Vitamin (Multiple Vitamin) 1 Tab 1 TAB PO DAILY Nutritional Supplement Ref 0 TAB Oxycodone-Acetaminophen (Oxycodone-Acetaminophen) 5-325 mg Tab 1 TAB PO Q4-6H PRN PAIN #60 TAB Tamsulosin (Flomax) 0.4 Mg Cap 0.4 MG PO DAILY Manage Prostate Problems #30 Ref 0 CAP Warfarin (Coumadin) 3 Mg Tab 3 MG PO DAILY@16 #30 TAB Discontinued Medications: Levofloxacin (Levofloxacin) 750 Mg Tablet 750 MG PO DAILY #10 Fuentes Garcia MD Dec 01, 2016 14:01
[2016-12-01 14:36] VITALS: PULSE 69
[2016-12-20] MEDS ORDERED: POLY17S PO (21:01)
[2016-12-20] MEDS ORDERED: SENS113T TOPICAL (21:01)
[2016-12-20] MEDS ORDERED: COUM6TAB PO (21:01)
[2016-12-20] MEDS ORDERED: VITA500T2 PO (21:01)
[2016-12-20] MEDS ORDERED: SENN1TAB PO (21:01)
== END 2016-12-01 15:05 | DRG 24 ==
LOC: N03B 10:14 → N05B 11-30 16:19
PROVIDERS: ADMIT Surgery Surgical Critical Care; ATTEND Hospitalist
PROC: 03CG3ZZ Extirpation of Matter from Intracranial Artery, Percutaneous Approach (ICD-10-PCS; principal; 2016-11-28)
PROC: B31R1ZZ Fluoroscopy of Intracranial Arteries using Low Osmolar Contrast (ICD-10-PCS; 2016-11-28)
DX: I63.412 Cerebral infarction due to embolism of left middle cerebral artery (principal); E11.51 Type 2 diabetes mellitus with diabetic peripheral angiopathy without gangrene; G81.01 Flaccid hemiplegia affecting right dominant side; I48.0 Paroxysmal atrial fibrillation; Z89.611 Acquired absence of right leg above knee; L89.620 Pressure ulcer of left heel, unstageable; R47.01 Aphasia; I10 Essential (primary) hypertension; D64.9 Anemia, unspecified; R53.1 Weakness; R29.810 Facial weakness; R29.706 NIHSS score 6; Z86.718 Personal history of other venous thrombosis and embolism; Z79.84 Long term (current) use of oral hypoglycemic drugs; Z85.828 Personal history of other malignant neoplasm of skin; Z79.01 Long term (current) use of anticoagulants
CPT/HCPCS: 61645; 70496; 70498; 70551; 71010; 76937; 80048; 80061; 82948; 83036; 85027; 85610; 85730; 87641; 93005; 93306; C1760; C1769; C1887; C1894; G0269; J1160; J1815; J7030; Q9967

== ENCOUNTER 2016-12-20 23:15 | Inpatient (IN) | payer MEDICARE, BC ==
[~2016-12-20 23:15] MED LIST changes: -BACL10TA PO; +COLL30T TOPICAL; +COUM3TAB PO; -COUM4TAB PO; +COUM6TAB PO; -DOCU1CAP39 PO; +LIPI10TA PO; +POLY17S PO; +SENN1TAB PO; +SENS113T TOPICAL; +VITA500T2 PO
[2016-12-20] MEDS ORDERED: ATOR40TA16 PO (23:56)
[2016-12-21] VITALS (14 sets, daily range): BP systolic 126–159; BP diastolic 66–79; PULSE 88–118; RESP 15–25; TEMP 97.4–98.5; O2SAT 95–99
[2016-12-21] MEDS ORDERED: MISCELLANEOUS NURSING INFORMATION XX SCH (00:45)
[2016-12-21] MEDS ORDERED: DEXTROSE 50% IN WATER 50 ML VIAL(D50) IV PUSH PRN ×2 (00:45→11:00)
[2016-12-21] MEDS ORDERED: SODIUM CHLORIDE 0.9% FLUSH 10 ML FLUSH IV FLUSH PRN (00:45)
[2016-12-21] MEDS ORDERED: CHLORHEXIDINE GLUCONATE 2 % 1 PACK (2 CLOTHS) TOP PRN (00:45)
[2016-12-21] MEDS ORDERED: GLUCAGON 1 MG/ML VIAL OTHER PRN ×2 (00:45→11:00)
[2016-12-21] MEDS ORDERED: SODIUM CHLORIDE 0.9% FLUSH 5 ML FLUSH IV FLUSH PRN ×2 (00:45→11:00)
--- NOTE | 2016-12-21 00:46 | HHI.HP ---
HPI Service [facility] Primary Care Physician Unknown Admission Diagnosis Diagnoses: Travel History International Travel<30 Days: No Contact w/Intl Traveler <30 Da: No Traveled to Known Affected Are: No History of Present Illness History from review of medical records, nursing staff, rapid response team, and patient himself. Rapid response was called on this patient last night because patient was found to be quite confused and not making sense when his nurse evaluated him. The nurse reported that patient spoke to his son over the phone and right after that, he was an entirely different and having trouble finding words. The nurse noticed immediately that there was a significant change in his mental status from the beginning of her shift to at that point. Therefore she had called stroke alert. Per nursing staff and also according to EMR, patient was somewhat lethargic in the morning and was having trouble and asked that he was not able to participate in OT. He was started on Prozac yesterday and therefore it was stopped after this lethargy. Head CT was done at that time which did not show any acute changes. At the time of my exam at [facility], patient was awake. He did not make much sense when he talks. He was not able to answer open-ended questions. He was having trouble finding words and was clearly having expressive aphasia. However he was able to answer yes or no questions correctly. For example, when asked whether he has history of atrial fibrillation, he would say yes. When asked whether he takes blood thinners, he would answer yes as well. When asked to name television, thumb, patient was unable to do so. At the time of rapid response, the team and resident physicians had called stroke alert as well after their evaluation. We have therefore discussed with neurologist data processing systems consultant to Dr. Ruiz. Head CT stat was done at that time. This was personally reviewed. No evidence of acute changes. I-STAT labs were done which was also personally reviewed. MRI studies were pending at the time of my exam. Patient himself on further questioning denies any other symptoms such as chest pain/shortness of breath/palpitations. He denies any urinary symptoms. Denies seeing any blood in his stool or his urine. Again, it is unclear how much of the answers are reliable due to his acute mental status changes. Review of Systems Except as stated in HPI: all other systems reviewed are Neg Past Family Social History Past Medical History Hypertension Diabetesdiet controlled per notes. Patient was on sliding scale coverage. Atrial fibrillationon Coumadin Peripheral arterial disease Recent multiple hospitalizations: October 13, 2016admitted to our hospital because of limb threatening ischemia and had undergone right peripheral angiogram was rotational atherectomy and balloon angioplasty. He was then discharged home and readmitted on October 20, 2016 with gangrenous of the right toe for which he had endovascular intervention which was unsuccessful. 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 Readmitted on October 26, 2016 with discharge on November 08, 2016. Readmitted again on November 21, 2016. Right AKA on November 22, 2016. He was then transferred to [facility] for rehabilitation on November 27, 2016. November 28, 2016acute right hemiplegia with imaging studies showing left MCA infarct for which he had embolectomy. Then discharged to [facility] rehabilitation on December 01, 2016. He has been at [facility] since then until today. Past Surgical History Status post rightn AKA s/p RLE arthrectomy 10/13/16 Left second toe amputation Right lower extremity arthrectomy and balloon angioplasty Left knee surgery Basal cell carcinoma of skin removal Reported Medications meds from [facility] reviewed Allergies: Coded Allergies: *MDRO Multi-Drug Resistant Organism (Verified Adverse Reaction, Unknown, ) 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 MRSA PCR Screen NEGATIVE - 10/27/16 & 10/30/16 CLEARED PER INFECTION CONTROL PROTOCOL Family History per EMR: mother had rheumatic fever Social History per EMR: no hx of etoh abuse/smoking/drugs. Physical Exam Vital Signs Vital Signs Date Time Temp Pulse Resp B/P Pulse Ox O2 Delivery O2 Flow Rate FiO2 12/21/16 00:03 97.4 88 17 131/70 98 Physical Exam GENERAL: This is a well-nourished, well-developed patient, in no apparent distress. SKIN: No rashes, ecchymoses or lesions. Cool and dry. HEAD: Atraumatic. Normocephalic. No temporal or scalp tenderness. EYES: No scleral icterus. No injection or drainage. ENT: Nose without bleeding, purulent drainage or septal hematoma. Airway patent. NECK: Trachea midline. No JVD. Supple, nontender, no meningeal signs. CARDIOVASCULAR: Regular rate and rhythm without murmurs, gallops, or rubs. RESPIRATORY: Clear to auscultation. Breath sounds equal bilaterally. No wheezes , rales, or rhonchi. GASTROINTESTINAL: Abdomen soft, non-tender, nondistended. No guarding. MUSCULOSKELETAL: Extremities without clubbing, cyanosis, or edema. No calf tenderness. NEUROLOGICAL: Awake , somewhat confused and able to answer yes or no questions.Not able to name objects, expressive aphasia. Does not follow commands entirely either, Laboratory labs done at [facility] reviewed Imaging Head CTdone while patient was at [facility] prior to our arrival reviewed. No acute infarct or hemorrhage or mass. Chest x-raypersonally reviewed. No Evidence of pneumothorax/pleural effusions/ infiltrates. Assessment and Plan Assessment and Plan Impression: Acute altered mental statuswith associated expressive aphasia CVA Chronic anticoagulationon Coumadin with INR of 2.1 Hypertension Diabetesdiet controlled per notes. Patient was on sliding scale coverage. Atrial fibrillationon Coumadin Peripheral arterial disease Recent multiple hospitalizations: October 13, 2016admitted to our hospital because of limb threatening ischemia and had undergone right peripheral angiogram was rotational atherectomy and balloon angioplasty. He was then discharged home and readmitted on October 20, 2016 with gangrenous of the right toe for which he had endovascular intervention which was unsuccessful. 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 Readmitted on October 26, 2016 with discharge on November 08, 2016. Readmitted again on November 21, 2016. Right AKA on November 22, 2016. He was then transferred to [facility] for rehabilitation on November 27, 2016. November 28, 2016acute right hemiplegia with imaging studies showing left MCA infarct for which he had embolectomy. Then discharged to [facility] rehabilitation on December 01, 2016. He has been at [facility] since then until today. Plan: Transfer patient to medical floor. Neurochecks every 4 hours. Further imaging studies done for stroke alert with MRI, MRA. Reports noted. Patient with acute on subacute CVA Nothing by mouth. Swallow evaluation. Would hold Coumadin at this point. Advised nurse to call neurology with MRI findings to address for the anticoagulation. Patient was acute on subacute CVA. At this point would consider holding Coumadin to avoid hemorrhagic transformation for the next 24 hours or so. What needs neurology opinion on this. Permissive hypertension. Continue statins. DVT prophylaxisat present INR is 2.1. Would continue Coumadin once neurology clears it in the next 24 hours or so. GI prophylaxison pantoprazole. Discussed Condition With Patient, nursing staff, resident team Physician Certification 2 Midnight Certification Type: Admission for Inpatient Services Order for Inpatient Services The services are ordered in accordance with Medicare regulations or non- Medicare payer requirements, as applicable. In the case of services not specified as inpatient-only, they are appropriately provided as inpatient services in accordance with the 2-midnight benchmark. Estimated LOS (days): 3 days is the estimated time the patient will need to remain in the hospital, assuming treatment plan goals are met and no additional complications. Post-Hospital Plan: Not yet determined Nasra Marte MD Dec 21, 2016 00:46
[2016-12-21] MEDS ORDERED: CHLORHEXIDINE GLUCONATE 2 % 1 PACK (2 CLOTHS)(extra cloths) TOPICAL PRN (01:00)
[2016-12-21] MEDS ORDERED: ASPIRIN 81 MG CHEW TAB PO SCH (01:15)
[2016-12-21] MEDS: CHLORHEXIDINE GLUCONATE 2 % 1 PACK (2 CLOTHS) TOP SCH (04:00)
[2016-12-21] MEDS: CHLORHEXIDINE GLUCONATE 2 % 1 PACK (2 CLOTHS)(taper/protocol) TOPICAL SCH (04:00)
[2016-12-21] MEDS: INSULIN ASPART SUPPLEMENTAL SCALE SQ SCH ×5 (06:36→19:55)
[2016-12-21] MEDS: DIGOXIN 0.125 MG TAB PO SCH (06:36)
[2016-12-21] MEDS: SODIUM CHLORIDE 0.9% FLUSH 5 ML FLUSH IV FLUSH SCH ×2 (09:00→19:55)
[2016-12-21] MEDS ORDERED: SODIUM CHLORIDE 0.9% FLUSH 10 ML FLUSH SCH (09:00)
[2016-12-21] MEDS: PANTOPRAZOLE SOD 40 MG DELAYED RELEASE TAB PO SCH (09:58)
--- NOTE | 2016-12-21 10:17 | HHI.PR ---
Subjective Remarks Patient seen in follow-up for acute CVA. He can answer yes or no to questions. He follows commands. However has word finding difficulties. Cannot answer open-ended questions. Objective Vitals Vital Signs Date Time Temp Pulse Resp B/P Pulse Ox O2 Delivery O2 Flow Rate FiO2 12/21/16 06:00 96 12/21/16 04:00 94 12/21/16 04:00 98.3 94 22 126/70 99 12/21/16 02:00 88 12/21/16 01:39 98 21 12/21/16 00:03 97.4 88 17 131/70 98 12/21/16 00:00 89 12/21/16 00:00 89 I/O 12/20/16 12/20/16 12/20/16 12/21/16 12/21/16 12/21/16 07:00 15:00 23:00 07:00 15:00 23:00 Intake Total 268 ml Balance 268 ml IV Total 268 ml # Voids 1 Objective Remarks GENERAL: This is a well-nourished, well-developed patient, in no acute distress. CARDIOVASCULAR: Normal rate and irregular rhythm without murmurs, gallops, or rubs. RESPIRATORY: Good respiratory efforts. Breath sounds equal and clear to auscultation bilaterally. GASTROINTESTINAL: Abdomen soft, non-tender, non-distended. Normal active bowel sounds MUSCULOSKELETAL: Status post right AKA. NEURO: Awake and alert. Can follow commands and answer yes and no. Word finding difficulties. Some confusion. PSYCH: Appropriate mood and affect. 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 Patient was readmitted to [facility] on 12/01/2016. On 12/20/16 he was noted to have a change in mental status. MRI revealed a left-sided acute superimposed over subacute infarct. Acute over subacute left-sided CVA. 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 He developed new symptoms on 12/20/16. A stroke alert was called but he was not a candidate for TPA given he was already anticoagulated. -Appreciate neurology consult Warfarin on hold secondary to risk of conversion to hemorrhagic stroke. - PT, OT, speech therapy eval. Atrial fibrillation - [id number] score 7 (>75 yrs, HTN, Stroke, PAD, DM). - Continue diltiazem 240 mg by mouth daily, digoxin 0.125 mg by mouth daily -Further recommendations needed from neurology regarding when to restart Coumadin. Hypertension - well controlled -Monitor BP off antihypertensives. Hyperlipidemia - continue atorvastatin 40 mg by mouth daily at bedtime. Diabetes mellitus -Hold metformin, continue sliding-scale insulin. - Accu-Cheks Anemia - Iron studies obtained on 10/28 indicative of iron deficiency anemia. - continue on iron supplementation. BPH - continue Tamsulosin 0.4mg QDay. Discharge Planning Possible transfer to floor in the morning if remains stable. Howie Hendrickson MD Dec 21, 2016 10:17
--- NOTE | 2016-12-21 11:36 | MB ---
cc: JUDITH EDMONDS M.D. DATE OF CONSULTATION 12/21/2016 REASON FOR CONSULTATION Stroke alert HISTORY OF PRESENT ILLNESS Mr. Shankar is an 81-year-old man who has a history of previous left hemisphere stroke. [facility], had sudden onset of speech changes with difficulty getting words out with confusion and a stroke alert was called. The patient was anticoagulated for atrial fibrillation on Coumadin and had an INR that was elevated above 2. At that time, he was evaluated with a CT scan of the brain showing atrophy, ischemic demyelinization and no acute changes present. He had an MRI of the brain performed as well showing an acute left sided stroke superimposed on subacute infarcts, new infarct seen in the periventricular white matter in the left frontal lobe, parietal lobe and subcortical regions of left parietal temporal lobes. No hemorrhages identified. He also underwent evaluation with CTA of the head showing extensive atherosclerotic disease, but no large vessel occlusion, chronic consolidation in the right lung apex suspicious for possible neoplasm. The patient also had a CT angiogram of the neck showing no evidence of any significant carotid stenosis. His Coumadin has been on hold because of the risk of hemorrhagic transformation. He has remained about the same clinically. PAST MEDICAL HISTORY 1. History of atrial fibrillation. 2. Hypertension 3. Diabetes 4. Right lower extremity amputation for peripheral vascular Disease. 5. History of a prior stroke in October with right-sided weakness and aphasia. MEDICATIONS Current medications are: 1. Iron sulfate 2. Lipitor 3. Protonix 4. Lanoxin 5. He was on Coumadin which is currently on hold. NEUROLOGIC EXAMINATION Blood pressure is 126/70, pulse is 94, respirations 22, temperature 98 degrees. Higher cortical functions, he is alert. He has a moderate expressive aphasia, difficulty following commands. Cranial nerves: He had a right facial droop. On motor exam, he has some mild weakness in the right arm 4/5 with left arm being 5/5, left leg 5/5. He has had an amputation of the right lower extremity. IMAGING STUDIES As noted above. LABORATORY DATA He had a white count yesterday of 11,200, hemoglobin 8.7, hematocrit 26%, platelets 186,000, INR 2.1 yesterday, PT 24.1, APTT 40.6. Sodium is 134, potassium 4.9, BUN is 32, creatinine 0.8, chloride 100, glucose 144. IMPRESSION Acute left hemisphere stroke superimposed upon a subacute stroke. The patient was not a candidate for IV TPA yesterday because of the anticoagulation. RECOMMENDATIONS I would agree with holding the Coumadin for now because of the hemorrhagic risk. I will repeat the CT scan in the next several days to reinstitute Coumadin at that time if the stroke appears stable. Continue monitoring with neuro checks carefully as well. MD JONATHAN Martin/LIBRADO /10:54 AM /11:32 AM
[2016-12-21] MEDS: FERROUS SULFATE 325 MG (65 MG ELEMENTAL IRON) TAB PO SCH ×2 (13:38→17:05)
[2016-12-21 15:59] LABS: HEMOGLOBIN A1a 1.1 %; HEMOGLOBIN Ao 83.6 %; HEMOGLOBIN LA1C 1.8 %; HEMOGLOBIN P3 4.5 %
[2016-12-21] MEDS: ATORVASTATIN 40 MG TAB PO SCH (19:55)
[2016-12-21] MEDS ORDERED: SODIUM CHLORIDE 0.9% FLUSH 5 ML FLUSH IV FLUSH SCH (21:00)
[2016-12-22] VITALS (8 sets, daily range): BP systolic 136–168; BP diastolic 71–93; PULSE 99–126; RESP 15–20; TEMP 96.5–98.2; O2SAT 90–100
[2016-12-22] MEDS: CHLORHEXIDINE GLUCONATE 2 % 1 PACK (2 CLOTHS)(taper/protocol) TOPICAL SCH (03:14)
[2016-12-22] MEDS: CHLORHEXIDINE GLUCONATE 2 % 1 PACK (2 CLOTHS) TOP SCH (03:14)
[2016-12-22] MEDS: DIGOXIN 0.125 MG TAB PO SCH (05:50)
[2016-12-22 06:00] LABS: HEMATOCRIT 28.2 % (39.0-51.0); MEAN CELL VOLUME 80.1 FL (80.0-100.0); MEAN CORPUSCULAR HEMOGLOBIN 26.7 PG (27.0-34.0); MEAN CORPUSCULAR HGB CONC 33.4 % (32.0-36.0); PLATELET COUNT 302 TH/MM3 (150-450); RED BLOOD COUNT 3.52 MIL/MM3 (4.50-5.90); RED CELL DISTRIBUTION WIDTH 15.7 % (11.6-17.2); REVIEW FLAG FINAL; WHITE BLOOD COUNT 9.6 TH/MM3 (4.0-11.0)
[2016-12-22 06:23] LABS: BICARBONATE 22.2 MEQ/L (21.0-32.0); POTASSIUM 4.1 MEQ/L (3.5-5.1)
[2016-12-22] MEDS: INSULIN ASPART SUPPLEMENTAL SCALE SQ SCH ×4 (06:24→21:00)
[2016-12-22 06:25] LABS: HDL CHOLESTEROL 40.9 MG/DL (40.0-60.0)
--- NOTE | 2016-12-22 07:34 | MG ---
cc: BEATA HAWKINS MD Lab No: [id number] Date: 12/21/2016 Age: 81 Sex: M Race: __ DATE OF 1935 INDICATIONS An 81-year-old with a history of confusion. DESCRIPTION Some initial fast frequencies followed by theta and delta 20-50 microvolts suggestive of stage II sleep. Some subtle slowing left posterior region compared to the right. Reduced driving. Single lead EKG showing sinus rhythm. Reasonably good EEG variability and reactivity. INTERPRETATION Mild encephalopathy in sleep state with very slight asymmetric left posterior hemisphere slowing. Clinical correlation. MD ODALIS Del Cid/LIBRADO /9:54 PM /7:34 AM
--- NOTE | 2016-12-22 08:36 | HHI.PR ---
Review/Management Diagnosis recurrent cva afib Plan recheck CT brain today. If no sign of hemorrhage, ok to resume coumadin Diagnosis/Plan: Subjective Subjective Comments No acute events reported Active Medications Current Medications Medications (Trade) Dose Ordered Sig/Dustin Route Start Time Stop Time Status Last Admin Miscellaneous Information 1 Q361D XX 12/21/16 00:45 12/21/16 00:45 (Chlorhexidine 2% Cloth) 3 pack Taper DAILY@04 TOP 12/21/16 04:00 12/17/17 03:59 12/22/16 03:14 (Chlorhexidine 2% Cloth) 3 pack UNSCH PRN TOP 12/21/16 00:45 (NS Flush) 2 ml BID IV FLUSH 12/21/16 09:00 12/21/16 09:00 (NS Flush) 2 ml UNSCH PRN IV FLUSH 12/21/16 00:45 Miscellaneous Information Patient in critical care unit? Ass... Q361D .XX 12/21/16 01:00 12/21/16 01:00 (Chlorhexidine 2% Cloth) 3 pack DAILY@04 TOPICAL 12/21/16 04:00 12/25/16 04:01 12/21/16 04:00 (Chlorhexidine 2% Cloth) 3 pack UNSCH PRN TOPICAL 12/21/16 01:00 12/26/16 00:53 (Lipitor) 40 mg HS PO 12/21/16 21:00 12/21/16 19:55 (Lanoxin) 0.125 mg DAILY@0600 PO 12/21/16 06:00 12/22/16 05:50 (Ferrous Sulfate) 325 mg BID@ PO 12/21/16 12:00 12/21/16 17:05 (Protonix) 40 mg DAILY PO 12/21/16 09:00 12/21/16 09:58 (NovoLOG SUPPLEMENTAL SCALE) 1 ACHS SQ 12/21/16 11:00 (D50w (Vial) Inj) 50 ml UNSCH PRN IV PUSH 12/21/16 11:00 (Glucagon Inj) 1 mg UNSCH PRN OTHER 12/21/16 11:00 Allergies Allergies Coded Allergies *MDRO Multi-Drug Resistant Organism (Verified Adverse Reaction, Unknown, ) Exam I&O / VS 6/12/21/16 12/22/16 15:00 23:00 07:00 Intake Total 698 ml 620 ml 604 ml Output Total 600 ml 400 ml 550 ml Balance 98 ml 220 ml 54 ml Intake Oral 0 ml 100 ml 50 ml IV Total 698 ml 520 ml 554 ml Output Urine Total 600 ml 400 ml 550 ml # Bowel Movements 0 0 0 Vital Signs Date Time Temp Pulse Resp B/P Pulse Ox O2 Delivery O2 Flow Rate FiO2 12/22/16 08:14 97 21 12/22/16 04:00 98.2 105 16 161/75 96 12/22/16 00:00 98.1 99 15 157/93 100 12/21/16 20:52 97 21 12/21/16 20:00 98.0 118 20 137/71 99 12/21/16 18:00 98 12/21/16 16:00 98 12/21/16 16:00 98.3 100 23 159/79 97 12/21/16 14:00 98 12/21/16 12:00 95 12/21/16 12:00 98.5 95 15 152/70 98 12/21/16 10:00 94 Respiratory: Lungs CTA, Non-labored respirations, BS equal Cardiology: Normal rate, Irregular Rhythm Musculoskeletal: ROM Exam Comments alert, follow commands Cn intact Motor 4/5 rue 5/5 lue Objective Micro and Labs Laboratory Tests Test 12/22/16 05:17 White Blood Count 9.6 Red Blood Count 3.52 Hemoglobin 9.4 Hematocrit 28.2 Mean Corpuscular Volume 80.1 Mean Corpuscular Hemoglobin 26.7 Mean Corpuscular Hemoglobin 33.4 Concent Red Cell Distribution Width 15.7 Platelet Count 302 Mean Platelet Volume 8.0 Sodium Level 137 Potassium Level 4.1 Chloride Level 104 Carbon Dioxide Level 22.2 Anion Gap 11 Blood Urea Nitrogen 16 Creatinine 0.71 Estimat Glomerular Filtration 106 Rate Random Glucose 65 Calcium Level 8.9 Triglycerides Level 113 Cholesterol Level 138 LDL Cholesterol 75 HDL Cholesterol 40.9 Cholesterol/HDL Ratio 3.37 Nick Rubalcava PhD Dec 22, 2016 08:36
[2016-12-22] MEDS: SODIUM CHLORIDE 0.9% FLUSH 5 ML FLUSH IV FLUSH SCH ×2 (09:00→21:00)
[2016-12-22] MEDS: PANTOPRAZOLE SOD 40 MG DELAYED RELEASE TAB PO SCH (09:17)
--- NOTE | 2016-12-22 11:34 | RADRPT ---
EXAM DATE/TIME: 12/22/2016 11:15 [place] COMPARISON: CT BRAIN W/O CONTRAST, December 20, 2016, 21:01. INDICATIONS : Follow up stroke alert. RADIATION DOSE: 41.89 CTDIvol (mGy) MEDICAL HISTORY : Cardiovascular disease. Cerebrovascular disease. Hypertension. Diabetes SURGICAL HISTORY : None. ENCOUNTER: Initial ACUITY: 1 day PAIN SCALE: 0/10 LOCATION: cranial TECHNIQUE: Multiple contiguous axial images were obtained of the head. Using automated exposure control and adj ustment of the mA and/or kV according to patient size, radiation dose was kept as low as reasonably a chievable to obtain optimal diagnostic quality images. DICOM format image data is available electro nically for review and comparison. FINDINGS: CEREBRUM: The ventricles are normal for age. No evidence of midline shift, mass lesion, hemorrhage or acute in farction. No extra-axial fluid collections are seen. POSTERIOR FOSSA: The cerebellum and brainstem are intact. The 4th ventricle is midline. The cerebellopontine angle i s unremarkable. EXTRACRANIAL: The visualized portion of the orbits is intact. SKULL: The calvaria is intact. No evidence of skull fracture. CONCLUSION: No acute intracranial abnormality. George Nesbitt MD on December 22, 2016 at 11:27 Board Certified Radiologist. This report was verified electronically.
[2016-12-22] MEDS: FERROUS SULFATE 325 MG (65 MG ELEMENTAL IRON) TAB PO SCH ×2 (11:47→16:23)
--- NOTE | 2016-12-22 15:54 | HHI.PR ---
Subjective Remarks Patient seen and examined Resting comfortably in bed No fever or chills, no new weakness or vision headache or lightheaded Objective Vitals Vital Signs Date Time Temp Pulse Resp B/P Pulse Ox O2 Delivery O2 Flow Rate FiO2 12/22/16 09:00 126 12/22/16 08:14 97 21 12/22/16 08:00 107 12/22/16 08:00 97.3 107 16 168/77 90 12/22/16 04:00 98.2 105 16 161/75 96 12/22/16 00:00 98.1 99 15 157/93 100 12/21/16 20:52 97 21 12/21/16 20:00 98.0 118 20 137/71 99 12/21/16 18:00 98 12/21/16 16:00 98 12/21/16 16:00 98.3 100 23 159/79 97 I/O 12/21/16 12/21/16 12/21/16 12/22/16 12/22/16 12/22/16 07:00 15:00 23:00 07:00 15:00 23:00 Intake Total 268 ml 698 ml 620 ml 604 ml 350 ml Output Total 600 ml 400 ml 550 ml 600 ml Balance 268 ml 98 ml 220 ml 54 ml -250 ml Intake Oral 0 ml 100 ml 50 ml 50 ml IV Total 268 ml 698 ml 520 ml 554 ml 300 ml Output Urine Total 600 ml 400 ml 550 ml 600 ml # Voids 1 # Bowel Movements 0 0 0 0 Result Diagram: 12/22/1651612/22/16516 Objective Remarks GENERAL: This is a well-nourished, well-developed patient, in no acute distress. CARDIOVASCULAR: Normal rate and irregular rhythm without murmurs, gallops, or rubs. RESPIRATORY: Fair entry. Breath sounds equal and clear to auscultation bilaterally. GASTROINTESTINAL: Abdomen soft, non-tender, non-distended. Normal active bowel sounds MUSCULOSKELETAL: Status post right AKA. NEURO: Awake and alert. Can follow commands and answer yes and no. Word finding difficulties. Some confusion. PSYCH: Appropriate mood and affect. 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 Patient was readmitted to [facility] on 12/01/2016. On 12/20/16 he was noted to have a change in mental status. MRI revealed a left-sided acute superimposed over subacute infarct. Acute over subacute left-sided CVA. 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 He developed new symptoms on 12/20/16. A stroke alert was called but he was not a candidate for TPA given he was already anticoagulated. Neurology following appreciate their help, resume Coumadin when okay with neurology Warfarin on hold secondary to risk of conversion to hemorrhagic stroke. - PT, OT, speech therapy eval. Atrial fibrillation heart rate slightly above 100 we'll monitor, consider adding another rate control agent like metoprolol - [id number] score 7 (>75 yrs, HTN, Stroke, PAD, DM). - ON digoxin 0.125 mg by mouth daily Hypertension - well controlled -Monitor BP off antihypertensives. Hyperlipidemia - continue atorvastatin 40 mg by mouth daily at bedtime. Diabetes mellitus -Hold metformin, continue sliding-scale insulin. - Accu-Cheks Anemia - Iron studies obtained on 10/28 indicative of iron deficiency anemia. - continue on iron supplementation. BPH - continue Tamsulosin 0.4mg QDay. Alise Wright MD Dec 22, 2016 15:54
[2016-12-22] MEDS: ATORVASTATIN 40 MG TAB PO SCH (21:23)
[2016-12-23] VITALS: BP 138/73; PULSE 102; RESP 16; TEMP 95.7; O2SAT 99
[2016-12-23 04:00] VITALS: BP 130/77; PULSE 108; RESP 18; TEMP 96.3; O2SAT 100
[2016-12-23] MEDS: DIGOXIN 0.125 MG TAB PO SCH (06:04)
[2016-12-23] MEDS: INSULIN ASPART SUPPLEMENTAL SCALE SQ SCH ×4 (06:10→21:00)
[2016-12-23 08:26] VITALS: BP 135/76; PULSE 88; RESP 16; TEMP 96; O2SAT 96
[2016-12-23] MEDS: SODIUM CHLORIDE 0.9% FLUSH 5 ML FLUSH IV FLUSH SCH ×2 (09:00→21:00)
[2016-12-23] MEDS: PANTOPRAZOLE SOD 40 MG DELAYED RELEASE TAB PO SCH (09:01)
[2016-12-23 12:18] VITALS: BP 131/72; PULSE 98; RESP 18; TEMP 95.8; O2SAT 94
[2016-12-23] MEDS: FERROUS SULFATE 325 MG (65 MG ELEMENTAL IRON) TAB PO SCH ×2 (12:25→17:28)
[2016-12-23] MEDS ORDERED: BISACODYL 10 MG SUPP RECTAL PRN (14:00)
[2016-12-23] MEDS: DOCUSATE SODIUM 50 MG/SENNA 8.6 MG TAB PO SCH ×2 (15:03→21:53)
--- NOTE | 2016-12-23 15:03 | HHI.PR ---
Subjective Remarks Resting in bed no acute complain Awaiting [facility] acceptance back Objective Vitals Vital Signs Date Time Temp Pulse Resp B/P Pulse Ox O2 Delivery O2 Flow Rate FiO2 12/23/16 12:18 95.8 98 18 131/72 94 12/23/16 08:26 96.0 88 16 135/76 96 12/23/16 04:00 96.3 108 18 130/77 100 12/23/16 00:00 95.7 102 16 138/73 99 12/22/16 20:19 21 12/22/16 20:00 96.5 101 18 136/71 98 12/22/16 16:00 97.7 101 20 146/71 98 I/O 12/22/16 12/22/16 12/22/16 12/23/16 12/23/16 12/23/16 07:00 15:00 23:00 07:00 15:00 23:00 Intake Total 604 ml 350 ml Output Total 550 ml 600 ml Balance 54 ml -250 ml Intake Oral 50 ml 50 ml IV Total 554 ml 300 ml Output Urine Total 550 ml 600 ml # Voids 2 3 1 # Bowel Movements 0 0 0 0 Result Diagram: 12/22/1651612/22/16516 Objective Remarks GENERAL: This is a well-nourished, well-developed patient, in no acute distress. CARDIOVASCULAR: Normal rate and irregular rhythm without murmurs, gallops, or rubs. RESPIRATORY: Fair entry. Breath sounds equal and clear to auscultation bilaterally. GASTROINTESTINAL: Abdomen soft, non-tender, non-distended. Normal active bowel sounds MUSCULOSKELETAL: Status post right AKA. NEURO: Awake and alert. Can follow commands and answer yes and no. Word finding difficulties. Some confusion. PSYCH: Appropriate mood and affect. 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 Patient was readmitted to [facility] on 12/01/2016. On 12/20/16 he was noted to have a change in mental status. MRI revealed a left-sided acute superimposed over subacute infarct. Acute over subacute left-sided CVA. 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 He developed new symptoms on 12/20/16. A stroke alert was called but he was not a candidate for TPA given he was already anticoagulated. Neurology following appreciate their help, resume Coumadin when okay with neurology Warfarin on hold secondary to risk of conversion to hemorrhagic stroke. - PT, OT, speech therapy eval. Atrial fibrillation heart rate slightly above 100 we'll monitor, consider adding another rate control agent like metoprolol - [id number] score 7 (>75 yrs, HTN, Stroke, PAD, DM). - ON digoxin 0.125 mg by mouth daily Hypertension - well controlled -Monitor BP off antihypertensives. Hyperlipidemia - continue atorvastatin 40 mg by mouth daily at bedtime. Diabetes mellitus -Hold metformin, continue sliding-scale insulin. - Accu-Cheks Anemia - Iron studies obtained on 10/28 indicative of iron deficiency anemia. - continue on iron supplementation. BPH - continue Tamsulosin 0.4mg QDay. Alise Wright MD Dec 23, 2016 15:03
[2016-12-23 16:00] VITALS: BP 141/76; PULSE 108; RESP 18; TEMP 97.3; O2SAT 97
[2016-12-23 19:57] VITALS: BP 143/73; PULSE 114; RESP 18; TEMP 97.8; O2SAT 98
[2016-12-23] MEDS: ATORVASTATIN 40 MG TAB PO SCH (21:53)
[2016-12-23] MEDS: CHLORHEXIDINE GLUCONATE 2 % 1 PACK (2 CLOTHS) TOP SCH (21:55)
[2016-12-23] MEDS: CHLORHEXIDINE GLUCONATE 2 % 1 PACK (2 CLOTHS)(taper/protocol) TOPICAL SCH (21:55)
[2016-12-24 00:01] VITALS: BP 101/66; PULSE 101; RESP 18; TEMP 96.2; O2SAT 96
[2016-12-24 04:15] VITALS: BP 143/73; PULSE 99; RESP 16; TEMP 96.3; O2SAT 98
[2016-12-24] MEDS: INSULIN ASPART SUPPLEMENTAL SCALE SQ SCH ×4 (06:13→21:00)
[2016-12-24] MEDS: DIGOXIN 0.125 MG TAB PO SCH (06:13)
[2016-12-24] MEDS: MAGNESIUM HYDROXIDE SUSP 30 ML CUP PO PRN (07:16)
[2016-12-24 08:03] VITALS: BP 141/93; PULSE 106; RESP 18; TEMP 96; O2SAT 98
[2016-12-24 08:12] VITALS: PULSE 98
[2016-12-24] MEDS: PANTOPRAZOLE SOD 40 MG DELAYED RELEASE TAB PO SCH (09:00)
[2016-12-24] MEDS: DOCUSATE SODIUM 50 MG/SENNA 8.6 MG TAB PO SCH ×2 (09:00→21:06)
[2016-12-24] MEDS: SODIUM CHLORIDE 0.9% FLUSH 5 ML FLUSH IV FLUSH SCH ×2 (09:00→21:00)
[2016-12-24] MEDS: METOPROLOL TARTRATE 25 MG TAB PO SCH ×2 (09:42→21:06)
[2016-12-24] MEDS ORDERED: ENOXAPARIN SODIUM 60 MG/0.6 ML SYRINGE SQ SCH (11:00)
[2016-12-24] MEDS: FERROUS SULFATE 325 MG (65 MG ELEMENTAL IRON) TAB PO SCH ×2 (11:22→17:55)
[2016-12-24 12:46] VITALS: BP 133/62; PULSE 69; RESP 18; TEMP 96.5; O2SAT 99
[2016-12-24 14:17] LABS: INTERNATIONAL NORMALIZED RATIO 1.3 RATIO; PROTHROMBIN TIME - PATIENT 14.8 SEC (9.8-11.6)
--- NOTE | 2016-12-24 14:54 | HHI.PR ---
Subjective Remarks Mr. Shankar, laying in bed comfortably today and in any new complain such as headache blurry vision chest pain or muscle weakness We still waiting on facility for rehabilitation, he was not accepted at [facility] per case management We resumed Coumadin awaiting INR today if less than 2 we will need to bridge with Lovenox since patient is at high risk for stroke Objective Vitals Vital Signs Date Time Temp Pulse Resp B/P Pulse Ox O2 Delivery O2 Flow Rate FiO2 12/24/16 12:46 96.5 69 18 133/62 99 12/24/16 08:12 98 12/24/16 08:03 96.0 106 18 141/93 98 12/24/16 04:15 96.3 99 16 143/73 98 12/24/16 00:01 96.2 101 18 101/66 96 12/23/16 19:57 97.8 114 18 143/73 98 12/23/16 16:00 97.3 108 18 141/76 97 I/O 12/23/16 12/23/16 12/23/16 12/24/16 12/24/16 12/24/16 07:00 15:00 23:00 07:00 15:00 23:00 Intake Total 80 ml Output Total 100 ml Balance 80 ml -100 ml Intake Oral 80 ml Output Urine Total 100 ml # Voids 3 1 2 1 # Bowel Movements 0 0 Result Diagram: 12/22/1651612/22/16516 Objective Remarks GENERAL: This is a well-nourished, well-developed patient, in no acute distress. CARDIOVASCULAR: Normal rate and irregular rhythm without murmurs, gallops, or rubs. RESPIRATORY: Fair entry. Breath sounds equal and clear to auscultation bilaterally. GASTROINTESTINAL: Abdomen soft, non-tender, non-distended. Normal active bowel sounds MUSCULOSKELETAL: Status post right AKA. NEURO: Awake and alert. Can follow commands and answer yes and no. Word finding difficulties. Some confusion. PSYCH: Appropriate mood and affect. 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 Patient was readmitted to [facility] on 12/01/2016. On 12/20/16 he was noted to have a change in mental status. MRI revealed a left-sided acute superimposed over subacute infarct. Acute over subacute left-sided CVA. 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 He developed new symptoms on 12/20/16. A stroke alert was called but he was not a candidate for TPA given he was already anticoagulated. Neurology following appreciate their help, resume Coumadin when okay with neurology Warfarin initially placed on hold secondary to risk of conversion to hemorrhagic stroke. - PT, OT, speech therapy eval. Atrial fibrillation heart rate still above 100 we'll monitor, will add metoprolol 25 mg - [id number] score 7 (>75 yrs, HTN, Stroke, PAD, DM). Neurology agree with resuming Coumadin at this point, INR today check it's 1.3, we will bridge with Lovenox (patient at high risk for going back into another stroke, so it's indicated to bridge with Lovenox to avoid another stroke, discussed with pharmacy, they will follow INR closely - ON digoxin 0.125 mg by mouth daily Hypertension - well controlled -Monitor BP off antihypertensives. Hyperlipidemia - continue atorvastatin 40 mg by mouth daily at bedtime. Diabetes mellitus -Hold metformin, continue sliding-scale insulin. - Accu-Cheks Anemia - Iron studies obtained on 10/28 indicative of iron deficiency anemia. - continue on iron supplementation. BPH - continue Tamsulosin 0.4mg QDay. Discharge Planning Awaiting rehabilitation placement Alise Wright MD Dec 24, 2016 14:54
[2016-12-24] MEDS: WARFARIN SOD 6 MG TAB PO SCH (15:50)
[2016-12-24] MEDS: ENOXAPARIN SODIUM 80 MG/0.8 ML SYRINGE SQ SCH (18:32)
[2016-12-24 20:00] VITALS: BP 130/62; PULSE 95; RESP 18; TEMP 96.1; O2SAT 97
[2016-12-24] MEDS: ATORVASTATIN 40 MG TAB PO SCH (21:06)
[2016-12-24] MEDS: CHLORHEXIDINE GLUCONATE 2 % 1 PACK (2 CLOTHS) TOP SCH (21:07)
[2016-12-24] MEDS: CHLORHEXIDINE GLUCONATE 2 % 1 PACK (2 CLOTHS)(taper/protocol) TOPICAL SCH (21:07)
[2016-12-25] VITALS (8 sets, daily range): BP systolic 106–143; BP diastolic 58–80; PULSE 63–96; RESP 18–20; TEMP 95.9–97.8; O2SAT 96–98
[2016-12-25] MEDS: MAGNESIUM HYDROXIDE SUSP 30 ML CUP PO PRN (05:57)
[2016-12-25] MEDS: DIGOXIN 0.125 MG TAB PO SCH (05:57)
[2016-12-25] MEDS: ENOXAPARIN SODIUM 80 MG/0.8 ML SYRINGE SQ SCH (05:58)
[2016-12-25] MEDS: INSULIN ASPART SUPPLEMENTAL SCALE SQ SCH ×4 (05:59→21:00)
[2016-12-25] MEDS: SODIUM CHLORIDE 0.9% FLUSH 5 ML FLUSH IV FLUSH SCH ×2 (09:00→21:21)
[2016-12-25] MEDS: PANTOPRAZOLE SOD 40 MG DELAYED RELEASE TAB PO SCH (09:22)
[2016-12-25] MEDS: DOCUSATE SODIUM 50 MG/SENNA 8.6 MG TAB PO SCH ×2 (09:22→21:00)
[2016-12-25] MEDS: METOPROLOL TARTRATE 25 MG TAB PO SCH (09:22)
--- NOTE | 2016-12-25 09:45 | HHI.PR ---
Subjective Remarks ff/u for acute on subacute CVA Patient has expressive aphasia. He is able to follow commands. d/w patient's nurse who stated that patient is at his baseline. He has no focal neurological deficit except for expressive aphasia. There has been no issues since he was last seen. Objective Vitals Vital Signs Date Time Temp Pulse Resp B/P Pulse Ox O2 Delivery O2 Flow Rate FiO2 12/25/16 07:38 95.9 93 18 128/76 97 12/25/16 04:00 96.9 92 20 143/77 98 12/25/16 00:00 96.6 96 20 140/69 98 12/24/16 20:00 96.1 95 18 130/62 97 12/24/16 12:46 96.5 69 18 133/62 99 I/O 12/24/16 12/24/16 12/24/16 12/25/16 12/25/16 12/25/16 07:00 15:00 23:00 07:00 15:00 23:00 Intake Total 60 ml Output Total 100 ml 100 ml Balance -100 ml -40 ml Intake Oral 60 ml Output Urine Total 100 ml 100 ml # Voids 1 6 # Bowel Movements 0 0 Result Diagram: 12/22/16 0517 12/22/16 0517 Imaging Last Impressions Head CT 12/22/16 0000 Signed Impressions: Service Date/Time: Thursday, December 22, 2016 11:15 - CONCLUSION: No acute intracranial abnormality. George Nesbitt MD Objective Remarks GENERAL: in NAD CARDIOVASCULAR: Regular rate and rhythm without murmurs, gallops, or rubs. RESPIRATORY: Breath sounds equal bilaterally. No accessory muscle use. GASTROINTESTINAL: Abdomen soft, non-tender, nondistended. MUSCULOSKELETAL:right AKA BACK: Nontender without obvious deformity. No CVA tenderness. NEUR: AAO X 0. Patient strength is grossly intact. Cranial nerve II-12 is intact. Patient has expressive asphasia but is able to follow commands. Medications and IVs Current Medications Sodium Chloride (NS Flush) 2 ml UNSCH PRN IV FLUSH FLUSH AFTER USING IV ACCESS ; Start 12/21/16 at 00:45; Stop 12/21/16 at 00:50; Status DC Sodium Chloride (NS Flush) 2 ml BID .XX ; Start 12/21/16 at 09:00; Stop at 09:00; Status DC Miscellaneous Information 1 Q361D XX Last administered on 12/21/16 00:45; Start 12/21/16 at 00:45 Chlorhexidine Gluconate (Chlorhexidine 2% Cloth) 3 pack Taper DAILY@04 TOP Last administered on 12/22/16 03:14; Start 12/21/16 at 04:00; Stop 12/17/17 at 03:59 Chlorhexidine Gluconate (Chlorhexidine 2% Cloth) 3 pack UNSCH PRN TOP HYGIENIC CARE; Start 12/21/16 at 00:45 IV Flush (NS Flush) 2 ml BID IV FLUSH Last administered on 12/25/16 09:00; Start 12/21/16 at 09:00 IV Flush (NS Flush) 2 ml UNSCH PRN IV FLUSH FLUSH AFTER USING IV ACCESS; Start 12/21/16 at 00:45 Insulin Aspart (NovoLOG SUPPLEMENTAL SCALE) 1 ACHS SQ ; Start 12/21/16 at 07:00 ; Stop 12/21/16 at 10:56; Status DC Dextrose (D50w (Vial) Inj) 50 ml UNSCH PRN IV PUSH HYPOGLYCEMIA-SEE COMMENTS; Start 12/21/16 at 00:45; Stop 12/21/16 at 10:57; Status DC Glucagon (Glucagon Inj) 1 mg UNSCH PRN OTHER HYPOGLYCEMIA-SEE COMMENTS; Start 12/21/16 at 00:45; Stop 12/21/16 at 10:57; Status DC Miscellaneous Information Patient in critical care unit? Ass... Q361D .XX Last administered on 12/21/16 01:00; Start 12/21/16 at 01:00 Chlorhexidine Gluconate (Chlorhexidine 2% Cloth) 3 pack DAILY@04 TOPICAL Last administered on 12/21/16 04:00; Start 12/21/16 at 04:00; Stop 12/25/16 at 04:01 ; Status DC Chlorhexidine Gluconate (Chlorhexidine 2% Cloth) 3 pack UNSCH PRN TOPICAL HYGIENIC CARE; Start 12/21/16 at 01:00; Stop 12/26/16 at 00:53 Aspirin (Aspirin Chew) 81 mg NOW PO Last administered on 12/21/16 01:31; Start 12/21/16 at 01:15; Stop 12/21/16 at 03:00; Status DC Atorvastatin Calcium (Lipitor) 40 mg HS PO Last administered on 12/24/16 21:06 ; Start 12/21/16 at 21:00 Digoxin (Lanoxin) 0.125 mg DAILY@0600 PO Last administered on 12/25/16 05:57; Start 12/21/16 at 06:00 Ferrous Sulfate (Ferrous Sulfate) 325 mg BID@,17 PO Last administered on 12/24 17:55; Start 12/21/16 at 12:00 Pantoprazole Sodium (Protonix) 40 mg DAILY PO Last administered on 12/25/16 09 :22; Start 12/21/16 at 09:00 IV Flush (NS Flush) 2 ml BID IV FLUSH ; Start 12/21/16 at 21:00; Status UNV IV Flush (NS Flush) 2 ml UNSCH PRN IV FLUSH FLUSH AFTER USING IV ACCESS; Start 12/21/16 at 11:00; Status UNV Insulin Aspart (NovoLOG SUPPLEMENTAL SCALE) 1 ACHS SQ Last administered on 12/24 11:22; Start 12/21/16 at 11:00 Dextrose (D50w (Vial) Inj) 50 ml UNSCH PRN IV PUSH HYPOGLYCEMIA-SEE COMMENTS; Start 12/21/16 at 11:00 Glucagon (Glucagon Inj) 1 mg UNSCH PRN OTHER HYPOGLYCEMIA-SEE COMMENTS; Start 12/21/16 at 11:00 Senna/Docusate Sodium (Celi-Colace) 1 tab BID PO Last administered on 09:22; Start 12/23/16 at 14:00 Bisacodyl (Dulcolax Supp) 10 mg DAILY PRN RECTAL Constipation Last administered on 12/25/16 05:58; Start 12/23/16 at 14:00 Magnesium Hydroxide (Milk Of Magnesia Liq) 30 ml DAILY PRN PO Constipation Last administered on 12/25/16 05:57; Start 12/23/16 at 14:00 Metoprolol Tartrate 25 mg 25 mg Q12HR PO Last administered on 12/25/16 09:22; Start 12/24/16 at 09:15 Pharmacy Profile Note (Coumadin Consult Pharmacy) 0 ml @ 0 mls/hr UNSCH OTHER ; Start 12/24/16 at 09:15 Enoxaparin Sodium (Lovenox Inj) 68 mg Q12H SQ ; Start 12/24/16 at 11:00; Stop at 14:38; Status DC Enoxaparin Sodium (Lovenox Inj) 70 mg Q12H SQ Last administered on 12/25/16 05 :58; Start 12/24/16 at 18:00; Stop 12/25/16 at 09:41; Status DC Warfarin Sodium (Coumadin) 6 mg DAILY@1600 PO Last administered on 12/24/16 15 :50; Start 12/24/16 at 16:00 Patient Medication Teaching (Coumadin Booklet) 1 ONCE ONCE .XX Last administered on 12/24/16 15:50; Start 12/24/16 at 14:45; Stop 12/24/16 at 14:46 ; Status DC A/P Assessment and Plan 81-year-old male with a history of atrial fibrillation, hypertension, diabetes mellitus who has had a very complicated hospital course during which 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 Patient was readmitted to [facility] on 12/01/2016. On 12/20/16 he was noted to have a change in mental status. MRI revealed a left-sided acute superimposed over subacute infarct. Acute over subacute left-sided CVA. 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 He developed new symptoms on 12/20/16. A stroke alert was called but he was not a candidate for TPA given he was already anticoagulated. Neurology following appreciate their help and on 12/22/2016 stated that it was okay to restart Coumadin. Warfarin initially placed on hold secondary to risk of conversion to hemorrhagic stroke. - PT, OT, speech therapy eval. -Per evaluation recommended for patient to go to a rehabilitation facility. Pending placement. Atrial fibrillation heart rate -Metoprolol 25 mg by mouth twice a day was added yesterday and which there is mild improvement in the heart rate. Will increase metoprolol to 50 mg by mouth twice a day since heart rates in the 90s. - [id number] score 7 (>75 yrs, HTN, Stroke, PAD, DM). - ON digoxin 0.125 mg by mouth daily -Neurologist Dr. Rubalcava stated okay to restart Coumadin. Per previous attending it was recommended to bridge patient with Lovenox. I did not recommend bridging with Lovenox due to increase risk of intracranial bleed, so I spoke with Dr. Rubalcava over the phone today in regards to this management and he stated that he agrees with me and only prefers restarting Coumadin and to not bridge due to increased risk of intracranial bleed. -Lovenox discontinued and I dealt with patient's nurse in regards to management. Hypertension - well controlled -Monitor BP off antihypertensives. Hyperlipidemia - continue atorvastatin 40 mg by mouth daily at bedtime. Diabetes mellitus -Hold metformin, continue sliding-scale insulin. - Accu-Cheks Anemia - Iron studies obtained on 10/28 indicative of iron deficiency anemia. - continue on iron supplementation. BPH - continue Tamsulosin 0.4mg QDay. Discharge Planning Pending placement. Joslyn Ya MD Dec 25, 2016 09:45
[2016-12-25] MEDS ORDERED: METOPROLOL TARTRATE 25 MG TAB PO ONE (10:00)
[2016-12-25] MEDS: FERROUS SULFATE 325 MG (65 MG ELEMENTAL IRON) TAB PO SCH ×2 (12:14→17:02)
[2016-12-25 14:06] LABS: INTERNATIONAL NORMALIZED RATIO 1.3 RATIO; PROTHROMBIN TIME - PATIENT 14.9 SEC (9.8-11.6)
[2016-12-25] MEDS: WARFARIN SOD 6 MG TAB PO SCH (17:02)
[2016-12-25] MEDS: ATORVASTATIN 40 MG TAB PO SCH (21:19)
[2016-12-25] MEDS: METOPROLOL TARTRATE 50 MG TAB PO SCH (21:19)
[2016-12-26] VITALS: BP 120/64; PULSE 89; RESP 21; TEMP 98.1; O2SAT 97
[2016-12-26] MEDS: CHLORHEXIDINE GLUCONATE 2 % 1 PACK (2 CLOTHS) TOP SCH (04:00)
[2016-12-26 04:30] VITALS: BP 122/60; PULSE 88; RESP 20; TEMP 97.9; O2SAT 96
[2016-12-26] MEDS: DIGOXIN 0.125 MG TAB PO SCH (06:03)
[2016-12-26] MEDS: INSULIN ASPART SUPPLEMENTAL SCALE SQ SCH ×4 (06:03→22:30)
[2016-12-26 08:03] VITALS: BP 143/68; PULSE 78; RESP 20; TEMP 96.5; O2SAT 99
[2016-12-26] MEDS: PANTOPRAZOLE SOD 40 MG DELAYED RELEASE TAB PO SCH (09:00)
[2016-12-26] MEDS: SODIUM CHLORIDE 0.9% FLUSH 5 ML FLUSH IV FLUSH SCH ×2 (09:00→22:30)
[2016-12-26] MEDS: METOPROLOL TARTRATE 50 MG TAB PO SCH ×2 (09:54→22:30)
[2016-12-26] MEDS: DOCUSATE SODIUM 50 MG/SENNA 8.6 MG TAB PO SCH ×2 (09:54→22:31)
--- NOTE | 2016-12-26 11:13 | HHI.PR ---
Subjective Remarks Follow-up for CVA Patient continues to be aphasic follows commands. His nurse at bedside. Patient has no complaints. Objective Vitals Vital Signs Date Time Temp Pulse Resp B/P Pulse Ox O2 Delivery O2 Flow Rate FiO2 12/26/16 08:03 96.5 78 20 143/68 99 12/26/16 04:30 97.9 88 20 122/60 96 12/26/16 00:00 98.1 89 21 120/64 97 12/25/16 23:00 89 12/25/16 20:30 97.8 93 19 119/61 98 12/25/16 16:16 96.0 63 20 141/80 97 12/25/16 12:27 95.9 69 19 106/58 96 I/O 12/25/16 12/25/16 12/25/16 12/26/16 12/26/16 12/26/16 07:00 15:00 23:00 07:00 15:00 23:00 Intake Total 60 ml 120 ml 400 ml 100 ml Output Total 100 ml Balance -40 ml 120 ml 400 ml 100 ml Intake Oral 60 ml 120 ml 400 ml 100 ml Output Urine Total 100 ml # Voids 1 1 4 # Bowel Movements 0 2 0 0 Result Diagram: 12/22/1651612/22/1617 Objective Remarks GENERAL: in NAD CARDIOVASCULAR: Regular rate and rhythm without murmurs, gallops, or rubs. RESPIRATORY: Breath sounds equal bilaterally. No accessory muscle use. GASTROINTESTINAL: Abdomen soft, non-tender, nondistended. MUSCULOSKELETAL:right AKA BACK: Nontender without obvious deformity. No CVA tenderness. NEUR: AAO X 0. Patient strength is grossly intact. Cranial nerve II-12 is intact. Patient has expressive asphasia but is able to follow commands. Medications and IVs Current Medications Sodium Chloride (NS Flush) 2 ml UNSCH PRN IV FLUSH FLUSH AFTER USING IV ACCESS ; Start 12/21/16 at 00:45; Stop 12/21/16 at 00:50; Status DC Sodium Chloride (NS Flush) 2 ml BID .XX ; Start 12/21/16 at 09:00; Stop at 09:00; Status DC Miscellaneous Information 1 Q361D XX Last administered on 12/21/16t 00:45; Start 12/21/16 at 00:45 Chlorhexidine Gluconate (Chlorhexidine 2% Cloth) Taper DAILY@04 TOP Last administered on 12/22/16 03:14; Start 12/21/16 at 04:00; Stop 12/17/17 at 03:59 Chlorhexidine Gluconate (Chlorhexidine 2% Cloth) 3 pack UNSCH PRN TOP HYGIENIC CARE; Start 12/21/16 at 00:45 IV Flush (NS Flush) 2 ml BID IV FLUSH Last administered on 12/26/16 09:00; Start 12/21/16 at 09:00 IV Flush (NS Flush) 2 ml UNSCH PRN IV FLUSH FLUSH AFTER USING IV ACCESS; Start 12/21/16 at 00:45 Insulin Aspart (NovoLOG SUPPLEMENTAL SCALE) 1 ACHS SQ ; Start 12/21/16 at 07:00 ; Stop 12/21/16 at 10:56; Status DC Dextrose (D50w (Vial) Inj) 50 ml UNSCH PRN IV PUSH HYPOGLYCEMIA-SEE COMMENTS; Start 12/21/16 at 00:45; Stop 12/21/16 at 10:57; Status DC Glucagon (Glucagon Inj) 1 mg UNSCH PRN OTHER HYPOGLYCEMIA-SEE COMMENTS; Start 12/21/16 at 00:45; Stop 12/21/16 at 10:57; Status DC Miscellaneous Information Patient in critical care unit? Ass... Q361D .XX Last administered on 12/21/16 01:00; Start 12/21/16 at 01:00 Chlorhexidine Gluconate (Chlorhexidine 2% Cloth) 3 pack DAILY@04 TOPICAL Last administered on 12/21/16 04:00; Start 12/21/16 at 04:00; Stop 12/25/16 at 04:01 ; Status DC Chlorhexidine Gluconate (Chlorhexidine 2% Cloth) 3 pack UNSCH PRN TOPICAL HYGIENIC CARE; Start 12/21/16 at 01:00; Stop 12/26/16 at 00:53; Status DC Aspirin (Aspirin Chew) 81 mg NOW PO Last administered on 12/21/16 01:31; Start 12/21/16 at 01:15; Stop 12/21/16 at 03:00; Status DC Atorvastatin Calcium (Lipitor) 40 mg HS PO Last administered on 12/25/16 21:19 ; Start 12/21/16 at 21:00 Digoxin (Lanoxin) 0.125 mg DAILY@0600 PO Last administered on 12/26/16 06:03; Start 12/21/16 at 06:00 Ferrous Sulfate (Ferrous Sulfate) 325 mg BID@,17 PO Last administered on 12/25 17:02; Start 12/21/16 at 12:00 Pantoprazole Sodium (Protonix) 40 mg DAILY PO Last administered on 12/25/16 09 :22; Start 12/21/16 at 09:00 IV Flush (NS Flush) 2 ml BID IV FLUSH ; Start 12/21/16 at 21:00; Status UNV IV Flush (NS Flush) 2 ml UNSCH PRN IV FLUSH FLUSH AFTER USING IV ACCESS; Start 12/21/16 at 11:00; Status UNV Insulin Aspart (NovoLOG SUPPLEMENTAL SCALE) 1 ACHS SQ Last administered on 12/25 12:15; Start 12/21/16 at 11:00 Dextrose (D50w (Vial) Inj) 50 ml UNSCH PRN IV PUSH HYPOGLYCEMIA-SEE COMMENTS; Start 12/21/16 at 11:00 Glucagon (Glucagon Inj) 1 mg UNSCH PRN OTHER HYPOGLYCEMIA-SEE COMMENTS; Start 12/21/16 at 11:00 Senna/Docusate Sodium (Celi-Colace) 1 tab BID PO Last administered on 09:54; Start 12/23/16 at 14:00 Bisacodyl (Dulcolax Supp) 10 mg DAILY PRN RECTAL Constipation Last administered on 12/25/16 05:58; Start 12/23/16 at 14:00 Magnesium Hydroxide (Milk Of Magnesia Liq) 30 ml DAILY PRN PO Constipation Last administered on 12/25/16 05:57; Start 12/23/16 at 14:00 Metoprolol Tartrate 25 mg 25 mg Q12HR PO Last administered on 12/25/16 09:22; Start 12/24/16 at 09:15; Stop 12/25/16 at 09:55; Status DC Pharmacy Profile Note (Coumadin Consult Pharmacy) 0 ml @ 0 mls/hr UNSCH OTHER ; Start 12/24/16 at 09:15 Enoxaparin Sodium (Lovenox Inj) 68 mg Q12H SQ ; Start 12/24/16 at 11:00; Stop at 14:38; Status DC Enoxaparin Sodium (Lovenox Inj) 70 mg Q12H SQ Last administered on 12/25/16 05 :58; Start 12/24/16 at 18:00; Stop 12/25/16 at 09:41; Status DC Warfarin Sodium (Coumadin) 6 mg DAILY@1600 PO Last administered on 12/25/16 17 :02; Start 12/24/16 at 16:00 Patient Medication Teaching (Coumadin Booklet) 1 ONCE ONCE .XX Last administered on 12/24/16 15:50; Start 12/24/16 at 14:45; Stop 12/24/16 at 14:46 ; Status DC Metoprolol Tartrate (Lopressor) 50 mg Q12HR PO Last administered on 12/26/16 09:54; Start 12/25/16 at 21:00 Metoprolol Tartrate (Lopressor) 25 mg ONCE ONCE PO Last administered on 12:14; Start 12/25/16 at 10:00; Stop 12/25/16 at 10:01; Status DC Warfarin Sodium (Coumadin) 2 mg ONCE PO ; Start 12/26/16 at 16:00; Stop at 23:59 A/P Assessment and Plan 81-year-old male with a history of atrial fibrillation, hypertension, diabetes mellitus who has had a very complicated hospital course during which 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 Patient was readmitted to [facility] on 12/01/2016. On 12/20/16 he was noted to have a change in mental status. MRI revealed a left-sided acute superimposed over subacute infarct. Acute over subacute left-sided CVA. 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 He developed new symptoms on 12/20/16. A stroke alert was called but he was not a candidate for TPA given he was already anticoagulated. Neurology following appreciate their help and on 12/22/2016 stated that it was okay to restart Coumadin. Warfarin initially placed on hold secondary to risk of conversion to hemorrhagic stroke. - PT, OT, speech therapy eval. -Per evaluation recommended for patient to go to a rehabilitation facility. Pending placement. -Form signed. Atrial fibrillation heart rate -On metoprolol 50 mg by mouth twice a day with better control heart rate. - [id number] score 7 (>75 yrs, HTN, Stroke, PAD, DM). - ON digoxin 0.125 mg by mouth daily -On Coumadin. INR is 1.3. Pharmacist is dosing. Hypertension - well controlled -Monitor BP off antihypertensives. Hyperlipidemia - continue atorvastatin 40 mg by mouth daily at bedtime. Diabetes mellitus -Hold metformin, continue sliding-scale insulin. - Accu-Cheks Anemia - Iron studies obtained on 10/28 indicative of iron deficiency anemia. - continue on iron supplementation. BPH - continue Tamsulosin 0.4mg QDay. Discharge Planning Pending placement. d/w case management. Joslyn Ya MD Dec 26, 2016 11:13
[2016-12-26] MEDS: FERROUS SULFATE 325 MG (65 MG ELEMENTAL IRON) TAB PO SCH ×3 (12:00→17:56)
[2016-12-26 12:10] LABS: INTERNATIONAL NORMALIZED RATIO 1.4 RATIO
[2016-12-26 12:48] VITALS: BP 143/69; PULSE 85; RESP 19; TEMP 96.6; O2SAT 100
[2016-12-26 15:46] VITALS: BP 146/72; PULSE 82; RESP 19; TEMP 95.6; O2SAT 100
[2016-12-26] MEDS ORDERED: WARFARIN SOD 2 MG TAB PO SCH (16:00)
[2016-12-26] MEDS: WARFARIN SOD 6 MG TAB PO SCH (17:56)
[2016-12-26 20:45] VITALS: BP 130/75; PULSE 86; RESP 19; TEMP 97.8; O2SAT 97
[2016-12-26] MEDS: ATORVASTATIN 40 MG TAB PO SCH (22:31)
[2016-12-27] VITALS (7 sets, daily range): BP systolic 128–165; BP diastolic 68–88; PULSE 76–100; RESP 18–21; TEMP 95.3–98; O2SAT 96–100
[2016-12-27] MEDS: CHLORHEXIDINE GLUCONATE 2 % 1 PACK (2 CLOTHS) TOP SCH (03:07)
[2016-12-27] MEDS: DIGOXIN 0.125 MG TAB PO SCH (05:43)
[2016-12-27] MEDS: INSULIN ASPART SUPPLEMENTAL SCALE SQ SCH ×4 (05:43→20:00)
[2016-12-27] MEDS: PANTOPRAZOLE SOD 40 MG DELAYED RELEASE TAB PO SCH (08:09)
[2016-12-27] MEDS: METOPROLOL TARTRATE 50 MG TAB PO SCH ×2 (08:09→20:00)
[2016-12-27] MEDS: DOCUSATE SODIUM 50 MG/SENNA 8.6 MG TAB PO SCH ×2 (08:09→20:00)
[2016-12-27] MEDS: SODIUM CHLORIDE 0.9% FLUSH 5 ML FLUSH IV FLUSH SCH ×2 (08:15→20:01)
[2016-12-27 10:15] LABS: INTERNATIONAL NORMALIZED RATIO 1.7 RATIO; PROTHROMBIN TIME - PATIENT 18.8 SEC (9.8-11.6)
[2016-12-27] MEDS: FERROUS SULFATE 325 MG (65 MG ELEMENTAL IRON) TAB PO SCH ×2 (10:58→16:13)
--- NOTE | 2016-12-27 11:07 | HHI.PR ---
Subjective Remarks Follow-up for CVA When asked patient if he is doing well he stated that he is doing well. When I asked patient for his name he was not able to tell me his name. Patient able to follow commands. Objective Vitals Vital Signs Date Time Temp Pulse Resp B/P Pulse Ox O2 Delivery O2 Flow Rate FiO2 12/27/16 07:41 95.3 88 18 165/76 96 12/27/16 05:40 98.0 100 21 128/88 96 12/27/16 03:12 76 12/27/16 00:30 97.7 88 20 128/80 96 12/26/16 20:45 97.8 86 19 130/75 97 12/26/16 15:46 95.6 82 19 146/72 100 12/26/16 12:48 96.6 85 19 143/69 100 I/O 12/26/16 12/26/16 12/26/16 12/27/16 12/27/16 12/27/16 07:00 15:00 23:00 07:00 15:00 23:00 Intake Total 100 ml 480 ml 500 ml 400 ml Output Total 400 ml Balance 100 ml 480 ml 500 ml 0 ml Intake Oral 100 ml 480 ml 500 ml 400 ml Output Urine Total 400 ml # Voids 4 3 2 # Bowel Movements 0 0 0 Objective Remarks GENERAL: in NAD CARDIOVASCULAR: Regular rate and rhythm without murmurs, gallops, or rubs. RESPIRATORY: Breath sounds equal bilaterally. No accessory muscle use. GASTROINTESTINAL: Abdomen soft, non-tender, nondistended. MUSCULOSKELETAL:right AKA stump is dry clean and intact BACK: Nontender without obvious deformity. No CVA tenderness. NEUR: AAO X 0. Patient strength is grossly intact. Cranial nerve II-12 is intact. Patient has expressive asphasia but is able to follow commands. Medications and IVs Current Medications Sodium Chloride (NS Flush) 2 ml UNSCH PRN IV FLUSH FLUSH AFTER USING IV ACCESS ; Start 12/21/16 at 00:45; Stop 12/21/16 at 00:50; Status DC Sodium Chloride (NS Flush) 2 ml BID .XX ; Start 12/21/16 at 09:00; Stop at 09:00; Status DC Miscellaneous Information 1 Q361D XX Last administered on 12/21/16t 00:45; Start 12/21/16 at 00:45 Chlorhexidine Gluconate (Chlorhexidine 2% Cloth) Taper DAILY@04 TOP Last administered on 12/22/16 03:14; Start 12/21/16 at 04:00; Stop 12/17/17 at 03:59 Chlorhexidine Gluconate (Chlorhexidine 2% Cloth) 3 pack UNSCH PRN TOP HYGIENIC CARE; Start 12/21/16 at 00:45 IV Flush (NS Flush) 2 ml BID IV FLUSH Last administered on 12/27/16 08:15; Start 12/21/16 at 09:00 IV Flush (NS Flush) 2 ml UNSCH PRN IV FLUSH FLUSH AFTER USING IV ACCESS; Start 12/21/16 at 00:45 Insulin Aspart (NovoLOG SUPPLEMENTAL SCALE) 1 ACHS SQ ; Start 12/21/16 at 07:00 ; Stop 12/21/16 at 10:56; Status DC Dextrose (D50w (Vial) Inj) 50 ml UNSCH PRN IV PUSH HYPOGLYCEMIA-SEE COMMENTS; Start 12/21/16 at 00:45; Stop 12/21/16 at 10:57; Status DC Glucagon (Glucagon Inj) 1 mg UNSCH PRN OTHER HYPOGLYCEMIA-SEE COMMENTS; Start 12/21/16 at 00:45; Stop 12/21/16 at 10:57; Status DC Miscellaneous Information Patient in critical care unit? Ass... Q361D .XX Last administered on 12/21/16 01:00; Start 12/21/16 at 01:00 Chlorhexidine Gluconate (Chlorhexidine 2% Cloth) 3 pack DAILY@04 TOPICAL Last administered on 12/21/16 04:00; Start 12/21/16 at 04:00; Stop 12/25/16 at 04:01 ; Status DC Chlorhexidine Gluconate (Chlorhexidine 2% Cloth) 3 pack UNSCH PRN TOPICAL HYGIENIC CARE; Start 12/21/16 at 01:00; Stop 12/26/16 at 00:53; Status DC Aspirin (Aspirin Chew) 81 mg NOW PO Last administered on 12/21/16 01:31; Start 12/21/16 at 01:15; Stop 12/21/16 at 03:00; Status DC Atorvastatin Calcium (Lipitor) 40 mg HS PO Last administered on 12/26/16 22:31 ; Start 12/21/16 at 21:00 Digoxin (Lanoxin) 0.125 mg DAILY@0600 PO Last administered on 12/27/16 05:43; Start 12/21/16 at 06:00 Ferrous Sulfate (Ferrous Sulfate) 325 mg BID@12,17 PO Last administered on 12/27 10:58; Start 12/21/16 at 12:00 Pantoprazole Sodium (Protonix) 40 mg DAILY PO Last administered on 12/27/16 08 :09; Start 12/21/16 at 09:00 IV Flush (NS Flush) 2 ml BID IV FLUSH ; Start 12/21/16 at 21:00; Status UNV IV Flush (NS Flush) 2 ml UNSCH PRN IV FLUSH FLUSH AFTER USING IV ACCESS; Start 12/21/16 at 11:00; Status UNV Insulin Aspart (NovoLOG SUPPLEMENTAL SCALE) 1 ACHS SQ Last administered on 12/26 18:04; Start 12/21/16 at 11:00 Dextrose (D50w (Vial) Inj) 50 ml UNSCH PRN IV PUSH HYPOGLYCEMIA-SEE COMMENTS; Start 12/21/16 at 11:00 Glucagon (Glucagon Inj) 1 mg UNSCH PRN OTHER HYPOGLYCEMIA-SEE COMMENTS; Start 12/21/16 at 11:00 Senna/Docusate Sodium (Celi-Colace) 1 tab BID PO Last administered on 08:09; Start 12/23/16 at 14:00 Bisacodyl (Dulcolax Supp) 10 mg DAILY PRN RECTAL Constipation Last administered on 12/25/16 05:58; Start 12/23/16 at 14:00 Magnesium Hydroxide (Milk Of Magnesia Liq) 30 ml DAILY PRN PO Constipation Last administered on 12/25/16 05:57; Start 12/23/16 at 14:00 Metoprolol Tartrate 25 mg 25 mg Q12HR PO Last administered on 12/25/16 09:22; Start 12/24/16 at 09:15; Stop 12/25/16 at 09:55; Status DC Pharmacy Profile Note (Coumadin Consult Pharmacy) 0 ml @ 0 mls/hr UNSCH OTHER ; Start 12/24/16 at 09:15 Enoxaparin Sodium (Lovenox Inj) 68 mg Q12H SQ ; Start 12/24/16 at 11:00; Stop at 14:38; Status DC Enoxaparin Sodium (Lovenox Inj) 70 mg Q12H SQ Last administered on 12/25/16 05 :58; Start 12/24/16 at 18:00; Stop 12/25/16 at 09:41; Status DC Warfarin Sodium (Coumadin) 6 mg DAILY@1600 PO Last administered on 12/26/16 17 :56; Start 12/24/16 at 16:00 Patient Medication Teaching (Coumadin Booklet) 1 ONCE ONCE .XX Last administered on 12/24/16 15:50; Start 12/24/16 at 14:45; Stop 12/24/16 at 14:46 ; Status DC Metoprolol Tartrate (Lopressor) 50 mg Q12HR PO Last administered on 12/27/16 08:09; Start 12/25/16 at 21:00 Metoprolol Tartrate (Lopressor) 25 mg ONCE ONCE PO Last administered on 12:14; Start 12/25/16 at 10:00; Stop 12/25/16 at 10:01; Status DC Warfarin Sodium (Coumadin) 2 mg ONCE PO Last administered on 12/26/16 17:55; Start 12/26/16 at 16:00; Stop 12/26/16 at 23:59; Status DC A/P Assessment and Plan 81-year-old male with a history of atrial fibrillation, hypertension, diabetes mellitus who presented with altered mental status Acute over subacute left-sided CVA. 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 He developed new symptoms on 12/20/16. A stroke alert was called but he was not a candidate for TPA given he was already anticoagulated. Neurology following appreciate their help and on 12/22/2016 stated that it was okay to restart Coumadin. Warfarin initially placed on hold secondary to risk of conversion to hemorrhagic stroke. - PT, OT, speech therapy eval. -Per evaluation recommended for patient to go to a rehabilitation facility. Pending placement. -Form signed. Atrial fibrillation heart rate -On metoprolol 50 mg by mouth twice a day with better control heart rate. - [id number] score 7 (>75 yrs, HTN, Stroke, PAD, DM). - ON digoxin 0.125 mg by mouth daily -On Coumadin. INR is 1.4. Pharmacist is dosing. Hypertension - well controlled -Monitor BP off antihypertensives. Hyperlipidemia - continue atorvastatin 40 mg by mouth daily at bedtime. Diabetes mellitus -Hold metformin, continue sliding-scale insulin. - Accu-Cheks Anemia - Iron studies obtained on 10/28 indicative of iron deficiency anemia. - continue on iron supplementation. BPH - continue Tamsulosin 0.4mg QDay. Discharge Planning Patient is medically clear for discharge pending placement. d/w case management. Joslyn Ya MD Dec 27, 2016 11:07
[2016-12-27] MEDS: WARFARIN SOD 6 MG TAB PO SCH (16:15)
[2016-12-27] MEDS: ATORVASTATIN 40 MG TAB PO SCH (20:00)
[2016-12-28] VITALS (7 sets, daily range): BP systolic 111–179; BP diastolic 63–79; PULSE 68–98; RESP 16–20; TEMP 95.4–97.1; O2SAT 94–100
[2016-12-28] MEDS: CHLORHEXIDINE GLUCONATE 2 % 1 PACK (2 CLOTHS) TOP SCH (03:04)
[2016-12-28] MEDS: INSULIN ASPART SUPPLEMENTAL SCALE SQ SCH ×4 (06:10→21:00)
[2016-12-28] MEDS: DIGOXIN 0.125 MG TAB PO SCH (06:10)
[2016-12-28] MEDS: SODIUM CHLORIDE 0.9% FLUSH 5 ML FLUSH IV FLUSH SCH ×2 (09:00→21:00)
[2016-12-28] MEDS: PANTOPRAZOLE SOD 40 MG DELAYED RELEASE TAB PO SCH (09:24)
[2016-12-28] MEDS: METOPROLOL TARTRATE 50 MG TAB PO SCH ×2 (09:24→21:36)
[2016-12-28] MEDS: DOCUSATE SODIUM 50 MG/SENNA 8.6 MG TAB PO SCH ×2 (09:24→21:36)
[2016-12-28] MEDS: FERROUS SULFATE 325 MG (65 MG ELEMENTAL IRON) TAB PO SCH ×2 (11:07→16:32)
[2016-12-28 11:20] LABS: INTERNATIONAL NORMALIZED RATIO 2.2 RATIO; PROTHROMBIN TIME - PATIENT 25.4 SEC (9.8-11.6)
--- NOTE | 2016-12-28 15:34 | HHI.PR ---
Subjective Remarks Follow-up for CVA Patient is a complaints. Patient is actually able to express himself better today. He stated that he is doing well. He could not tell me his first name but was able to tell me his last name. Patient follows command. Objective Vitals Vital Signs Date Time Temp Pulse Resp B/P Pulse Ox O2 Delivery O2 Flow Rate FiO2 12/28/16 12:47 96.3 68 16 137/69 98 12/28/16 08:30 96.9 86 16 179/79 100 12/28/16 04:00 95.4 82 16 144/68 94 12/28/16 00:15 98 12/28/16 00:00 96.4 76 18 115/69 99 12/27/16 20:00 95.7 88 20 134/68 98 12/27/16 16:45 95.6 94 18 129/68 100 I/O 12/27/16 12/27/16 12/27/16 12/28/16 12/28/16 12/28/16 07:00 15:00 23:00 07:00 15:00 23:00 Intake Total 400 ml 360 ml 240 ml Output Total 400 ml Balance 0 ml 360 ml 240 ml Intake Oral 400 ml 360 ml 240 ml Output Urine Total 400 ml # Voids 2 2 # Bowel Movements 0 0 Imaging Last Impressions Head CT 12/22/16 0000 Signed Impressions: Service Date/Time: Thursday, December 22, 2016 11:15 - CONCLUSION: No acute intracranial abnormality. George Nesbitt MD Objective Remarks GENERAL: in NAD CARDIOVASCULAR: Regular rate and rhythm without murmurs, gallops, or rubs. RESPIRATORY: Breath sounds equal bilaterally. No accessory muscle use. GASTROINTESTINAL: Abdomen soft, non-tender, nondistended. MUSCULOSKELETAL:right AKA stump is dry clean and intact BACK: Nontender without obvious deformity. No CVA tenderness. NEUR: AAO X 0. Patient strength is grossly intact. Cranial nerve II-12 is intact. Patient has expressive asphasia but is able to follow commands. Medications and IVs Current Medications Sodium Chloride (NS Flush) 2 ml UNSCH PRN IV FLUSH FLUSH AFTER USING IV ACCESS ; Start 12/21/16 at 00:45; Stop 12/21/16 at 00:50; Status DC Sodium Chloride (NS Flush) 2 ml BID .XX ; Start 12/21/16 at 09:00; Stop at 09:00; Status DC Miscellaneous Information 1 Q361D XX Last administered on 12/21/16 00:45; Start 12/21/16 at 00:45 Chlorhexidine Gluconate (Chlorhexidine 2% Cloth) Taper DAILY@04 TOP Last administered on 12/22/16 03:14; Start 12/21/16 at 04:00; Stop 12/17/17 at 03:59 Chlorhexidine Gluconate (Chlorhexidine 2% Cloth) 3 pack UNSCH PRN TOP HYGIENIC CARE; Start 12/21/16 at 00:45 IV Flush (NS Flush) 2 ml BID IV FLUSH Last administered on 12/28/16 09:00; Start 12/21/16 at 09:00 IV Flush (NS Flush) 2 ml UNSCH PRN IV FLUSH FLUSH AFTER USING IV ACCESS; Start 12/21/16 at 00:45 Insulin Aspart (NovoLOG SUPPLEMENTAL SCALE) 1 ACHS SQ ; Start 12/21/16 at 07:00 ; Stop 12/21/16 at 10:56; Status DC Dextrose (D50w (Vial) Inj) 50 ml UNSCH PRN IV PUSH HYPOGLYCEMIA-SEE COMMENTS; Start 12/21/16 at 00:45; Stop 12/21/16 at 10:57; Status DC Glucagon (Glucagon Inj) 1 mg UNSCH PRN OTHER HYPOGLYCEMIA-SEE COMMENTS; Start 12/21/16 at 00:45; Stop 12/21/16 at 10:57; Status DC Miscellaneous Information Patient in critical care unit? Ass... Q361D .XX Last administered on 12/21/16 01:00; Start 12/21/16 at 01:00 Chlorhexidine Gluconate (Chlorhexidine 2% Cloth) 3 pack DAILY@04 TOPICAL Last administered on 12/21/16 04:00; Start 12/21/16 at 04:00; Stop 12/25/16 at 04:01 ; Status DC Chlorhexidine Gluconate (Chlorhexidine 2% Cloth) 3 pack UNSCH PRN TOPICAL HYGIENIC CARE; Start 12/21/16 at 01:00; Stop 12/26/16 at 00:53; Status DC Aspirin (Aspirin Chew) 81 mg NOW PO Last administered on 12/21/16 01:31; Start 12/21/16 at 01:15; Stop 12/21/16 at 03:00; Status DC Atorvastatin Calcium (Lipitor) 40 mg HS PO Last administered on 12/27/16 20:00 ; Start 12/21/16 at 21:00 Digoxin (Lanoxin) 0.125 mg DAILY@0600 PO Last administered on 12/28/16 06:10; Start 12/21/16 at 06:00 Ferrous Sulfate (Ferrous Sulfate) 325 mg BID@ PO Last administered on 12/28 11:07; Start 12/21/16 at 12:00 Pantoprazole Sodium (Protonix) 40 mg DAILY PO Last administered on 12/28/16 09 :24; Start 12/21/16 at 09:00 IV Flush (NS Flush) 2 ml BID IV FLUSH ; Start 12/21/16 at 21:00; Status UNV IV Flush (NS Flush) 2 ml UNSCH PRN IV FLUSH FLUSH AFTER USING IV ACCESS; Start 12/21/16 at 11:00; Status UNV Insulin Aspart (NovoLOG SUPPLEMENTAL SCALE) 1 ACHS SQ Last administered on 12/26 18:04; Start 12/21/16 at 11:00 Dextrose (D50w (Vial) Inj) 50 ml UNSCH PRN IV PUSH HYPOGLYCEMIA-SEE COMMENTS; Start 12/21/16 at 11:00 Glucagon (Glucagon Inj) 1 mg UNSCH PRN OTHER HYPOGLYCEMIA-SEE COMMENTS; Start 12/21/16 at 11:00 Senna/Docusate Sodium (Celi-Colace) 1 tab BID PO Last administered on 09:24; Start 12/23/16 at 14:00 Bisacodyl (Dulcolax Supp) 10 mg DAILY PRN RECTAL Constipation Last administered on 12/25/16 05:58; Start 12/23/16 at 14:00 Magnesium Hydroxide (Milk Of Magnesia Liq) 30 ml DAILY PRN PO Constipation Last administered on 12/25/16 05:57; Start 12/23/16 at 14:00 Metoprolol Tartrate 25 mg 25 mg Q12HR PO Last administered on 12/25/16 09:22; Start 12/24/16 at 09:15; Stop 12/25/16 at 09:55; Status DC Pharmacy Profile Note (Coumadin Consult Pharmacy) 0 ml @ 0 mls/hr UNSCH OTHER ; Start 12/24/16 at 09:15 Enoxaparin Sodium (Lovenox Inj) 68 mg Q12H SQ ; Start 12/24/16 at 11:00; Stop at 14:38; Status DC Enoxaparin Sodium (Lovenox Inj) 70 mg Q12H SQ Last administered on 12/25/16 05 :58; Start 12/24/16 at 18:00; Stop 12/25/16 at 09:41; Status DC Warfarin Sodium (Coumadin) 6 mg DAILY@1600 PO Last administered on 12/27/16 16 :15; Start 12/24/16 at 16:00 Patient Medication Teaching (Coumadin Booklet) 1 ONCE ONCE .XX Last administered on 12/24/16 15:50; Start 12/24/16 at 14:45; Stop 12/24/16 at 14:46 ; Status DC Metoprolol Tartrate (Lopressor) 50 mg Q12HR PO Last administered on 12/28/16 09:24; Start 12/25/16 at 21:00 Metoprolol Tartrate (Lopressor) 25 mg ONCE ONCE PO Last administered on 12:14; Start 12/25/16 at 10:00; Stop 12/25/16 at 10:01; Status DC Warfarin Sodium (Coumadin) 2 mg ONCE PO Last administered on 12/26/16 17:55; Start 12/26/16 at 16:00; Stop 12/26/16 at 23:59; Status DC A/P Assessment and Plan 81-year-old male with a history of atrial fibrillation, hypertension, diabetes mellitus who presented with altered mental status Acute over subacute left-sided CVA. 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 He developed new symptoms on 12/20/16. A stroke alert was called but he was not a candidate for TPA given he was already anticoagulated. Neurology following appreciate their help and on 12/22/2016 stated that it was okay to restart Coumadin. Warfarin initially placed on hold secondary to risk of conversion to hemorrhagic stroke. - PT, OT, speech therapy eval. -Per evaluation recommended for patient to go to a rehabilitation facility. Pending placement. -Form signed. Atrial fibrillation heart rate -On metoprolol 50 mg by mouth twice a day with better control heart rate. - [id number] score 7 (>75 yrs, HTN, Stroke, PAD, DM). - ON digoxin 0.125 mg by mouth daily -On Coumadin. INR is 2.2. Pharmacist is dosing. Hypertension - well controlled -Monitor BP off antihypertensives. Hyperlipidemia - continue atorvastatin 40 mg by mouth daily at bedtime. Diabetes mellitus -Hold metformin, continue sliding-scale insulin. - Accu-Cheks Anemia - Iron studies obtained on 10/28 indicative of iron deficiency anemia. - continue on iron supplementation. BPH - continue Tamsulosin 0.4mg QDay. Discharge Planning Patient's son will be here on Sunday and wants to take patient to [place]. Joslyn Ya MD Dec 28, 2016 15:33
[2016-12-28] MEDS: WARFARIN SOD 6 MG TAB PO SCH (16:33)
[2016-12-28] MEDS: metFORMIN HCL 500 MG TAB PO SCH (18:00)
[2016-12-28] MEDS ORDERED: TUBERCULIN, PPD 5 UNITS/0.1 ML SYRINGE I-DERMAL ONE (20:00)
[2016-12-28] MEDS: ATORVASTATIN 40 MG TAB PO SCH (21:36)
[2016-12-29] VITALS: BP 136/69; PULSE 88; RESP 20; TEMP 96.2; O2SAT 97
[2016-12-29 04:00] VITALS: BP 141/67; PULSE 73; RESP 20; TEMP 95.8; O2SAT 93
[2016-12-29] MEDS: CHLORHEXIDINE GLUCONATE 2 % 1 PACK (2 CLOTHS) TOP SCH ×2 (04:00→22:06)
[2016-12-29] MEDS: DIGOXIN 0.125 MG TAB PO SCH (06:34)
[2016-12-29] MEDS: INSULIN ASPART SUPPLEMENTAL SCALE SQ SCH ×4 (07:00→21:00)
[2016-12-29] MEDS: PANTOPRAZOLE SOD 40 MG DELAYED RELEASE TAB PO SCH (08:19)
[2016-12-29] MEDS: DOCUSATE SODIUM 50 MG/SENNA 8.6 MG TAB PO SCH ×2 (08:19→21:00)
[2016-12-29] MEDS: METOPROLOL TARTRATE 50 MG TAB PO SCH ×2 (08:19→22:02)
[2016-12-29] MEDS: SODIUM CHLORIDE 0.9% FLUSH 5 ML FLUSH IV FLUSH SCH ×2 (08:20→21:00)
[2016-12-29 08:36] VITALS: BP 154/76; PULSE 77; RESP 16; TEMP 97.3; O2SAT 97
[2016-12-29 08:49] LABS: INTERNATIONAL NORMALIZED RATIO 2.6 RATIO
[2016-12-29] MEDS: metFORMIN HCL 500 MG TAB PO SCH ×2 (09:00→17:07)
[2016-12-29] MEDS: FERROUS SULFATE 325 MG (65 MG ELEMENTAL IRON) TAB PO SCH ×2 (12:11→17:07)
[2016-12-29 12:29] VITALS: BP 128/63; PULSE 57; RESP 16; TEMP 96.8; O2SAT 98
[2016-12-29] MEDS ORDERED: COMMODE 3-IN-11 MIS (13:59)
[2016-12-29] MEDS ORDERED: WHEEMIS3 (13:59)
[2016-12-29] MEDS ORDERED: HOSP BED1 (13:59)
--- NOTE | 2016-12-29 14:10 | HHI.PR ---
Subjective Remarks f/u for CVA Patient's continues to have expressive aphasia but he is able to answer simple questions. He stated that he has no complaints. He can only tell me his first name. He was unable to tell me his last name. She denies any pain. No acute events. Objective Vitals Vital Signs Date Time Temp Pulse Resp B/P Pulse Ox O2 Delivery O2 Flow Rate FiO2 12/29/16 12:29 96.8 57 16 128/63 98 12/29/16 08:36 97.3 77 16 154/76 97 12/29/16 04:00 95.8 73 20 141/67 93 12/29/16 00:00 96.2 88 20 136/69 97 12/28/16 20:00 97.1 90 20 111/63 97 12/28/16 16:12 96.6 71 16 139/70 100 I/O 12/28/16 12/28/16 12/28/16 12/29/16 12/29/16 12/29/16 07:00 15:00 23:00 07:00 15:00 23:00 Intake Total 240 ml 480 ml Balance 240 ml 480 ml Intake Oral 240 ml 480 ml # Voids 2 4 1 1 # Bowel Movements 1 Objective Remarks GENERAL: in NAD CARDIOVASCULAR: Regular rate and rhythm without murmurs, gallops, or rubs. RESPIRATORY: Breath sounds equal bilaterally. No accessory muscle use. GASTROINTESTINAL: Abdomen soft, non-tender, nondistended. MUSCULOSKELETAL:right AKA stump is dry clean and intact BACK: Nontender without obvious deformity. No CVA tenderness. NEUR: AAO X 0. Patient strength is grossly intact. Cranial nerve II-12 is intact. Patient has expressive asphasia but is able to follow commands. Medications and IVs Current Medications Sodium Chloride (NS Flush) 2 ml UNSCH PRN IV FLUSH FLUSH AFTER USING IV ACCESS ; Start 12/21/16 at 00:45; Stop 12/21/16 at 00:50; Status DC Sodium Chloride (NS Flush) 2 ml BID .XX ; Start 12/21/16 at 09:00; Stop at 09:00; Status DC Miscellaneous Information 1 Q361D XX Last administered on 12/21/16t 00:45; Start 12/21/16 at 00:45 Chlorhexidine Gluconate (Chlorhexidine 2% Cloth) Taper DAILY@04 TOP Last administered on 12/22/16 03:14; Start 12/21/16 at 04:00; Stop 12/17/17 at 03:59 Chlorhexidine Gluconate (Chlorhexidine 2% Cloth) 3 pack UNSCH PRN TOP HYGIENIC CARE; Start 12/21/16 at 00:45 IV Flush (NS Flush) 2 ml BID IV FLUSH Last administered on 12/29/16 08:20; Start 12/21/16 at 09:00 IV Flush (NS Flush) 2 ml UNSCH PRN IV FLUSH FLUSH AFTER USING IV ACCESS; Start 12/21/16 at 00:45 Insulin Aspart (NovoLOG SUPPLEMENTAL SCALE) 1 ACHS SQ ; Start 12/21/16 at 07:00 ; Stop 12/21/16 at 10:56; Status DC Dextrose (D50w (Vial) Inj) 50 ml UNSCH PRN IV PUSH HYPOGLYCEMIA-SEE COMMENTS; Start 12/21/16 at 00:45; Stop 12/21/16 at 10:57; Status DC Glucagon (Glucagon Inj) 1 mg UNSCH PRN OTHER HYPOGLYCEMIA-SEE COMMENTS; Start 12/21/16 at 00:45; Stop 12/21/16 at 10:57; Status DC Miscellaneous Information Patient in critical care unit? Ass... Q361D .XX Last administered on 12/21/16 01:00; Start 12/21/16 at 01:00 Chlorhexidine Gluconate (Chlorhexidine 2% Cloth) 3 pack DAILY@04 TOPICAL Last administered on 12/21/16 04:00; Start 12/21/16 at 04:00; Stop 12/25/16 at 04:01 ; Status DC Chlorhexidine Gluconate (Chlorhexidine 2% Cloth) 3 pack UNSCH PRN TOPICAL HYGIENIC CARE; Start 12/21/16 at 01:00; Stop 12/26/16 at 00:53; Status DC Aspirin (Aspirin Chew) 81 mg NOW PO Last administered on 12/21/16 01:31; Start 12/21/16 at 01:15; Stop 12/21/16 at 03:00; Status DC Atorvastatin Calcium (Lipitor) 40 mg HS PO Last administered on 12/28/16 21:36 ; Start 12/21/16 at 21:00 Digoxin (Lanoxin) 0.125 mg DAILY@0600 PO Last administered on 12/29/16 06:34; Start 12/21/16 at 06:00 Ferrous Sulfate (Ferrous Sulfate) 325 mg BID@ PO Last administered on 12/29 12:11; Start 12/21/16 at 12:00 Pantoprazole Sodium (Protonix) 40 mg DAILY PO Last administered on 12/29/16 08 :19; Start 12/21/16 at 09:00 IV Flush (NS Flush) 2 ml BID IV FLUSH ; Start 12/21/16 at 21:00; Status UNV IV Flush (NS Flush) 2 ml UNSCH PRN IV FLUSH FLUSH AFTER USING IV ACCESS; Start 12/21/16 at 11:00; Status UNV Insulin Aspart (NovoLOG SUPPLEMENTAL SCALE) 1 ACHS SQ Last administered on 12/26 18:04; Start 12/21/16 at 11:00 Dextrose (D50w (Vial) Inj) 50 ml UNSCH PRN IV PUSH HYPOGLYCEMIA-SEE COMMENTS; Start 12/21/16 at 11:00 Glucagon (Glucagon Inj) 1 mg UNSCH PRN OTHER HYPOGLYCEMIA-SEE COMMENTS; Start 12/21/16 at 11:00 Senna/Docusate Sodium (Celi-Colace) 1 tab BID PO Last administered on 08:19; Start 12/23/16 at 14:00 Bisacodyl (Dulcolax Supp) 10 mg DAILY PRN RECTAL Constipation Last administered on 12/25/16 05:58; Start 12/23/16 at 14:00 Magnesium Hydroxide (Milk Of Magnesia Liq) 30 ml DAILY PRN PO Constipation Last administered on 12/25/16 05:57; Start 12/23/16 at 14:00 Metoprolol Tartrate 25 mg 25 mg Q12HR PO Last administered on 12/25/16 09:22; Start 12/24/16 at 09:15; Stop 12/25/16 at 09:55; Status DC Pharmacy Profile Note (Coumadin Consult Pharmacy) 0 ml @ 0 mls/hr UNSCH OTHER ; Start 12/24/16 at 09:15 Enoxaparin Sodium (Lovenox Inj) 68 mg Q12H SQ ; Start 12/24/16 at 11:00; Stop at 14:38; Status DC Enoxaparin Sodium (Lovenox Inj) 70 mg Q12H SQ Last administered on 12/25/16 05 :58; Start 12/24/16 at 18:00; Stop 12/25/16 at 09:41; Status DC Warfarin Sodium (Coumadin) 6 mg DAILY@1600 PO Last administered on 12/28/16 16 :33; Start 12/24/16 at 16:00; Status Hold Patient Medication Teaching (Coumadin Booklet) 1 ONCE ONCE .XX Last administered on 12/24/16 15:50; Start 12/24/16 at 14:45; Stop 12/24/16 at 14:46 ; Status DC Metoprolol Tartrate (Lopressor) 50 mg Q12HR PO Last administered on 12/29/16 08:19; Start 12/25/16 at 21:00 Metoprolol Tartrate (Lopressor) 25 mg ONCE ONCE PO Last administered on 12:14; Start 12/25/16 at 10:00; Stop 12/25/16 at 10:01; Status DC Warfarin Sodium (Coumadin) 2 mg ONCE PO Last administered on 12/26/16 17:55; Start 12/26/16 at 16:00; Stop 12/26/16 at 23:59; Status DC Metformin HCl (Glucophage) 500 mg BIDPC PO Last administered on 12/29/16 09:00 ; Start 12/28/16 at 18:00 Tuberculin PPD (Ppd Inj) 5 units ONCE ONCE I-DERMAL Last administered on 21:42; Start 12/28/16 at 20:00; Stop 12/28/16 at 20:01; Status DC Miscellaneous Information (Skin Test Result) 1 Q24H .XX ; Start 12/29/16 at 20: 00; Stop 12/31/16 at 20:01 Warfarin Sodium (Coumadin) 5 mg ONCE ONCE PO ; Start 12/29/16 at 16:00; Stop at 16:01; Status Cancel Warfarin Sodium (Coumadin) 4 mg ONCE ONCE PO ; Start 12/29/16 at 16:00; Stop at 16:01 A/P Assessment and Plan 81-year-old male with a history of atrial fibrillation, hypertension, diabetes mellitus who presented with altered mental status Acute over subacute left-sided CVA. 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 He developed new symptoms on 12/20/16. A stroke alert was called but he was not a candidate for TPA given he was already anticoagulated. Neurology following appreciate their help and on 12/22/2016 stated that it was okay to restart Coumadin. Warfarin initially placed on hold secondary to risk of conversion to hemorrhagic stroke. - PT, OT, speech therapy eval. -Per evaluation recommended for patient to go to a rehabilitation facility. Atrial fibrillation heart rate -On metoprolol 50 mg by mouth twice a day with better control heart rate. - [id number] score 7 (>75 yrs, HTN, Stroke, PAD, DM). - ON digoxin 0.125 mg by mouth daily -On Coumadin. INR is 2.6. Pharmacist is dosing. Hypertension - well controlled -Monitor BP off antihypertensives. Hyperlipidemia - continue atorvastatin 40 mg by mouth daily at bedtime. Diabetes mellitus -Hold metformin, continue sliding-scale insulin. - Accu-Cheks Anemia - Iron studies obtained on 10/28 indicative of iron deficiency anemia. - continue on iron supplementation. BPH - continue Tamsulosin 0.4mg QDay. Discharge Planning Patient son will be here on Wednesday 01/03 to pick pulling machine tender patient in order to bring into [place]. [facility] will evaluate patient tomorrow to see if he qualifies. Order for hospital bed, wheelchair with legs, and [address] Joslyn Ya MD Dec 29, 2016 14:10
--- NOTE | 2016-12-29 14:26 | PD.CONS ---
[facility] Service Rehabilitation Medicine Consult Requested By iNck Rubalcava MD Reason for Consult Comprehensive rehabilitation evaluation. Primary Care Physician Unknown History of Present Illness Balta Shankar is an 81 year old male known to me from inpatient rehabilitation ( [facility]) admission 12/01/16. Patient was initially admitted to [facility] 10/13/16 with a cool right foot with increased pain for which he underwent right peripheral angiogram with rotational atherectomy and balloon angioplasty due to right SFA and popliteal stenosis. He was discharged home but was then re-admitted 10/20/16 with ischemic right great toe. Endovascular intervention was attempted on 10/23/16 but was not successful. He subsequently required right BKA 10/24/[address] Hess due to ischemic gangrene of right foot. He was admitted to [facility] 10/26/16 and then to SNF on 11/08/16. He was re-admitted to [facility] 11/21/16 due to gangrene of stump and underwent R AKA on 11/22/16. He was re-admitted to [facility] 11/27/16 for inpatient rehabilitation. On 11/28/16 he developed the acute onset of right hemiplegia and stroke alert was called.He was on Coumadin at that time with therapeutic INR 2.3. He was re-admitted to [facility] 11/28/16. CTA showed left MCA occlusion/ near occlusion and he underwent successful embolectomy. Brain MRI showed left MCA infarct left temporal/basal ganglia/internal capsule/ caudate with some scatter punctate infarcted areas in left frontal/parietal and occipital areas. The patient re-admitted to [facility] for comprehensive inpatient rehabilitation 12/01/16. He subsequently developed increased speech impairment 12/21/16 and was readmitted to [facility] due to recurrent stroke. MRI showed left acute on subacute infarct in the periventricular white matter and subcortical areas of the left frontal and parietal areas. Review of Systems ROS Limitations: Speech Impaired Respiratory: DENIES: Shortness of breath Cardiovascular: DENIES: Chest pain Gastrointestinal: DENIES: Abdominal pain Neurologic: COMPLAINS OF: Speech Problems, Poor Balance Past Family Social History Allergies: Coded Allergies: *MDRO Multi-Drug Resistant Organism (Verified Adverse Reaction, Unknown, ) 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 MRSA PCR Screen NEGATIVE - 10/27/16 & 10/30/16 VRE (urine)-12/18/16 Past Medical History Atrial fibrillation HTN DM PAD Past Surgical History Right AKA Current Medications Current Medications Medications (Trade) Dose Ordered Sig/Dustin Route Start Time Stop Time Status Last Admin Miscellaneous Information 1 Q361D XX 12/21/16 00:45 12/21/16 00:45 (Chlorhexidine 2% Cloth) Taper DAILY@04 TOP 12/21/16 04:00 12/17/17 03:59 12/22/16 03:14 (Chlorhexidine 2% Cloth) 3 pack UNSCH PRN TOP 12/21/16 00:45 (NS Flush) 2 ml BID IV FLUSH 12/21/16 09:00 12/29/16 08:20 (NS Flush) 2 ml UNSCH PRN IV FLUSH 12/21/16 00:45 Miscellaneous Information Patient in critical care unit? Ass... Q361D .XX 12/21/16 01:00 12/21/16 01:00 (Lipitor) 40 mg HS PO 12/21/16 21:00 12/28/16 21:36 (Lanoxin) 0.125 mg DAILY@0600 PO 12/21/16 06:00 12/29/16 06:34 (Ferrous Sulfate) 325 mg BID@ PO 12/21/16 12:00 12/29/16 12:11 (Protonix) 40 mg DAILY PO 12/21/16 09:00 12/29/16 08:19 (NovoLOG SUPPLEMENTAL SCALE) 1 ACHS SQ 12/21/16 11:00 12/26/16 18:04 (D50w (Vial) Inj) 50 ml UNSCH PRN IV PUSH 12/21/16 11:00 (Glucagon Inj) 1 mg UNSCH PRN OTHER 12/21/16 11:00 (Celi-Colace) 1 tab BID PO 12/23/16 14:00 12/29/16 08:19 (Dulcolax Supp) 10 mg DAILY PRN RECTAL 12/23/16 14:00 12/25/16 05:58 Magnesium Hydroxide 30 ml 30 ml DAILY PRN PO 12/23/16 14:00 12/25/16 05:57 (Coumadin Consult Pharmacy) 0 ml @ 0 mls/hr UNSCH OTHER 12/24/16 09:15 (Coumadin) 6 mg DAILY@1600 PO 12/24/16 16:00 Hold 12/28/16 16:33 (Lopressor) 50 mg Q12HR PO 12/25/16 21:00 12/29/16 08:19 (Glucophage) 500 mg BIDPC PO 12/28/16 18:00 12/29/16 09:00 (Skin Test Result) 1 Q24H .XX 12/29/16 20:00 12/31/16 20:01 (Coumadin) 4 mg ONCE ONCE PO 12/29/16 16:00 12/29/16 16:01 Family History Mother: Rheumatic fever Social History Family lives in [place] and plan to transfer to [facility] level of care. No tobacco or ETOH history Exam I&O / VS 12/28/16 12/28/16 12/29/16 15:00 23:00 07:00 Intake Total 480 ml Balance 480 ml Intake Oral 480 ml # Voids 4 1 # Bowel Movements 1 Vital Signs Date Time Temp Pulse Resp B/P Pulse Ox O2 Delivery O2 Flow Rate FiO2 12/29/16 12:29 96.8 57 16 128/63 98 12/29/16 08:36 97.3 77 16 154/76 97 12/29/16 04:00 95.8 73 20 141/67 93 12/29/16 00:00 96.2 88 20 136/69 97 12/28/16 20:00 97.1 90 20 111/63 97 12/28/16 16:12 96.6 71 16 139/70 100 General: No acute distress, Other (Sitting up in bedside chair not many parent distress) Respiratory: Lungs CTA, Non-labored respirations, BS equal Gastrointestinal: Positive Bowel Sounds, Non-Distended, Non-Tender Cardiovascular: Normal rate, Irregular Rhythm Musculoskeletal: ROM, Swelling (None in distal left lower extremity) Psychiatric: Cooperative, Appropriate mood & affect Orientation: oriented to Self, unable to asses Place, unable to asses Time, unable to asses Situation Neurologic: Pupils (PERRLA), EOM (Intact), Speech (Appropriately answers yes no questions; aphasic with word finding difficulties) Motor: Right Upper Extremity (4+/5), Left Upper Extremity (4+/5), Right Lower Extremity (hip flexion 4/5; right AKA), Left Lower Extremity (hip flexion and knee extension 4/5) Assessment and Plan Diagnosis: (1) Stroke due to embolism Precerebral and cerebral artery: middle cerebral artery Laterality of affected vessel: left Qualified Code: I63.412 - Cerebrovascular accident (CVA ) due to embolism of left middle cerebral artery (2) Above knee amputation of right lower extremity Assessment 1. Patient progressing with physical therapy now moderate to minimal assistance of 2 for transfers. Discussed with PT and patient is participating and progressing. Continue to mobilize. Apraxia appears to be improving 2. Occupational therapy is addressing ADLs and now set up for feeding and grooming and moderate assistance for upper body dressing/maximal assistance for lower body dressing 3. Speech therapy addressing swallowing tolerating mechanical soft diet with thin liquids. Aphasia treatment being provided and yes no accuracy for simple questions appears to be improving 4. Case management is addressing discharge planning in conjunction with family. Plan is to transfer patient to [place] to assisted living facility 01/03. Patient will need ongoing PT/OT/ST and assistance with all mobility and ADLs and 24 hours supervision for safety. Equipment has been ordered. 5. Will continue to follow Thank you for this consult Nickie Dahl MD Dec 29, 2016 14:26
--- NOTE | 2016-12-29 15:54 | HHI.PR ---
Review/Management Diagnosis recurrent cva afib Plan continue coumadin Diagnosis/Plan: Subjective Subjective Comments No acute events reported Active Medications Current Medications Medications (Trade) Dose Ordered Sig/Dustin Route Start Time Stop Time Status Last Admin Miscellaneous Information 1 Q361D XX 12/21/16 00:45 12/21/16 00:45 (Chlorhexidine 2% Cloth) Taper DAILY@04 TOP 12/21/16 04:00 12/17/17 03:59 12/22/16 03:14 (Chlorhexidine 2% Cloth) 3 pack UNSCH PRN TOP 12/21/16 00:45 (NS Flush) 2 ml BID IV FLUSH 12/21/16 09:00 12/29/16 08:20 (NS Flush) 2 ml UNSCH PRN IV FLUSH 12/21/16 00:45 Miscellaneous Information Patient in critical care unit? Ass... Q361D .XX 12/21/16 01:00 12/21/16 01:00 (Lipitor) 40 mg HS PO 12/21/16 21:00 12/28/16 21:36 (Lanoxin) 0.125 mg DAILY@0600 PO 12/21/16 06:00 12/29/16 06:34 (Ferrous Sulfate) 325 mg BID@ PO 12/21/16 12:00 12/29/16 12:11 (Protonix) 40 mg DAILY PO 12/21/16 09:00 12/29/16 08:19 (NovoLOG SUPPLEMENTAL SCALE) 1 ACHS SQ 12/21/16 11:00 12/26/16 18:04 (D50w (Vial) Inj) 50 ml UNSCH PRN IV PUSH 12/21/16 11:00 (Glucagon Inj) 1 mg UNSCH PRN OTHER 12/21/16 11:00 (Celi-Colace) 1 tab BID PO 12/23/16 14:00 12/29/16 08:19 (Dulcolax Supp) 10 mg DAILY PRN RECTAL 12/23/16 14:00 12/25/16 05:58 Magnesium Hydroxide 30 ml 30 ml DAILY PRN PO 12/23/16 14:00 12/25/16 05:57 (Coumadin Consult Pharmacy) 0 ml @ 0 mls/hr UNSCH OTHER 12/24/16 09:15 (Coumadin) 6 mg DAILY@1600 PO 12/24/16 16:00 Hold 12/28/16 16:33 (Lopressor) 50 mg Q12HR PO 12/25/16 21:00 12/29/16 08:19 (Glucophage) 500 mg BIDPC PO 12/28/16 18:00 12/29/16 09:00 (Skin Test Result) 1 Q24H .XX 12/29/16 20:00 12/31/16 20:01 (Coumadin) 4 mg ONCE ONCE PO 12/29/16 16:00 12/29/16 16:01 Allergies Allergies Coded Allergies *MDRO Multi-Drug Resistant Organism (Verified Adverse Reaction, Unknown, ) Exam I&O / VS 12/28/16 12/28/16 12/29/16 15:00 23:00 07:00 Intake Total 480 ml Balance 480 ml Intake Oral 480 ml # Voids 4 1 # Bowel Movements 1 Vital Signs Date Time Temp Pulse Resp B/P Pulse Ox O2 Delivery O2 Flow Rate FiO2 12/29/16 12:29 96.8 57 16 128/63 98 12/29/16 08:36 97.3 77 16 154/76 97 12/29/16 04:00 95.8 73 20 141/67 93 12/29/16 00:00 96.2 88 20 136/69 97 12/28/16 20:00 97.1 90 20 111/63 97 12/28/16 16:12 96.6 71 16 139/70 100 Respiratory: Lungs CTA, Non-labored respirations, BS equal Cardiology: Normal rate, Irregular Rhythm Musculoskeletal: ROM, Swelling (None in distal left lower extremity) Exam Comments alert, follow commands Cn intact Motor 5/5 rue 5/5 lue Objective Micro and Labs Laboratory Tests Test 12/29/16 07:47 Prothrombin Time 30.0 Prothromb Time International 2.6 Ratio Nick Rubalcava PhD Dec 29, 2016 15:54
[2016-12-29] MEDS ORDERED: WARFARIN SOD 4 MG TAB PO ONE (16:00)
[2016-12-29] MEDS ORDERED: WARFARIN SOD 5 MG TAB PO ONE (16:00)
[2016-12-29 16:31] VITALS: BP 151/69; PULSE 90; RESP 16; TEMP 96.5; O2SAT 100
[2016-12-29 20:00] VITALS: BP 147/75; PULSE 93; PULSE 96; RESP 20; TEMP 98.7; O2SAT 98
[2016-12-29] MEDS: SKIN TEST RESULT SCH (20:00)
[2016-12-29] MEDS: ATORVASTATIN 40 MG TAB PO SCH (22:02)
[2016-12-30] VITALS (8 sets, daily range): BP systolic 91–141; BP diastolic 51–75; PULSE 57–92; RESP 17–20; TEMP 95.9–98.1; O2SAT 97–100
[2016-12-30] MEDS: DIGOXIN 0.125 MG TAB PO SCH (04:59)
[2016-12-30] MEDS: INSULIN ASPART SUPPLEMENTAL SCALE SQ SCH ×4 (06:44→21:00)
[2016-12-30 07:29] LABS: INTERNATIONAL NORMALIZED RATIO 2.7 RATIO; PROTHROMBIN TIME - PATIENT 30.8 SEC (9.8-11.6)
[2016-12-30] MEDS: SODIUM CHLORIDE 0.9% FLUSH 5 ML FLUSH IV FLUSH SCH ×2 (09:00→21:00)
[2016-12-30] MEDS: DOCUSATE SODIUM 50 MG/SENNA 8.6 MG TAB PO SCH ×2 (09:13→21:00)
[2016-12-30] MEDS: PANTOPRAZOLE SOD 40 MG DELAYED RELEASE TAB PO SCH (09:13)
[2016-12-30] MEDS: metFORMIN HCL 500 MG TAB PO SCH ×2 (09:14→16:55)
[2016-12-30] MEDS: METOPROLOL TARTRATE 50 MG TAB PO SCH ×2 (09:14→21:00)
[2016-12-30] MEDS: FERROUS SULFATE 325 MG (65 MG ELEMENTAL IRON) TAB PO SCH ×2 (11:52→16:18)
[2016-12-30 14:35] LABS: POTASSIUM 3.8 MEQ/L (3.5-5.1)
--- NOTE | 2016-12-30 15:55 | HHI.PR ---
Subjective Remarks Patient awake alert resting in bed He still aphasic but he was trying to asked me when his he can be moved or when is his family are going to come to pick him up so I answered him in 4 days The nurse approached me today about his heart rate going bradycardic in the low 40s so we'll check his BMP, digoxin level, and in dropped his Lopressor to 25 mg twice a day Patient denied complaints me Objective Vitals Vital Signs Date Time Temp Pulse Resp B/P Pulse Ox O2 Delivery O2 Flow Rate FiO2 12/30/16 12:02 97.2 67 18 127/69 99 12/30/16 10:46 57 12/30/16 08:09 97.0 72 17 122/68 99 12/30/16 04:00 95.9 77 20 141/66 97 12/30/16 00:00 98.0 92 20 110/75 98 12/29/16 20:00 96 12/29/16 20:00 98.7 93 20 147/75 98 12/29/16 16:31 96.5 90 16 151/69 100 I/O 12/29/16 12/29/16 12/29/16 12/30/16 12/30/16 12/30/16 07:00 15:00 23:00 07:00 15:00 23:00 Intake Total 200 ml Balance 200 ml Intake Oral 200 ml # Voids 1 4 1 2 # Bowel Movements 1 Result Diagram: 12/30/16 1313 Objective Remarks GENERAL: This is a well-nourished, well-developed patient, in no acute distress. CARDIOVASCULAR: Bradycardic irregular rhythm without murmurs, gallops, or rubs. RESPIRATORY: Fair entry. Breath sounds equal and clear to auscultation bilaterally. GASTROINTESTINAL: Abdomen soft, non-tender, non-distended. Normal active bowel sounds MUSCULOSKELETAL: Status post right AKA. NEURO: Awake and alert. Biphasic but still Can follow some commands and answer yes and no. PSYCH: Appropriate mood and affect. A/P Assessment and Plan 12/30: Acute bradycardia in the lower 40s without significant change in symptoms, no chest pain, patient on digoxin and Lopressor, I ordered stat BMP, dig level, decrease Lopressor to 25 twice a day Reviewing BMP showing very minimal azotemia with a BNP of 29, patient is on metformin we'll check lactic acid, the level within normal limits, will monitor heart rate closely on a lower dose of Lopressor Repeat BMP in a.m. A/P: 81-year-old male with a history of atrial fibrillation, hypertension, diabetes mellitus who presented with altered mental status Acute over subacute left-sided CVA. 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 He developed new symptoms on 12/20/16. A stroke alert was called but he was not a candidate for TPA given he was already anticoagulated. Neurology following appreciate their help and on 12/22/2016 stated that it was okay to restart Coumadin. Warfarin initially placed on hold secondary to risk of conversion to hemorrhagic stroke. - PT, OT, speech therapy eval. -Per evaluation recommended for patient to go to a rehabilitation facility. Atrial fibrillation heart rate -Initially was On metoprolol 50 mg by mouth twice a day - [id number] score 7 (>75 yrs, HTN, Stroke, PAD, DM). - ON digoxin 0.125 mg by mouth daily -On Coumadin. INR is 2.6. Pharmacist is dosing. Hypertension - well controlled -Monitor BP off antihypertensives. Hyperlipidemia - continue atorvastatin 40 mg by mouth daily at bedtime. Diabetes mellitus -Hold metformin, continue sliding-scale insulin. - Accu-Cheks Anemia - Iron studies obtained on 10/28 indicative of iron deficiency anemia. - continue on iron supplementation. BPH - continue Tamsulosin 0.4mg QDay. Discharge Planning Discussed with rn case manager hospice Patient son will be here on Wednesday 01/03 to brain picker patient in order to bring into [place]. [facility] working on evaluate patientto see if he qualifies. Order for hospital bed, wheelchair with legs, and [address] Alise Wright MD Dec 30, 2016 15:55
[2016-12-30] MEDS ORDERED: WARFARIN SOD 4 MG TAB PO SCH (16:00)
[2016-12-30] MEDS: SKIN TEST RESULT SCH (20:00)
[2016-12-30] MEDS: ATORVASTATIN 40 MG TAB PO SCH (21:08)
[2016-12-30] MEDS: CHLORHEXIDINE GLUCONATE 2 % 1 PACK (2 CLOTHS) TOP SCH (23:25)
[2016-12-31] VITALS (8 sets, daily range): BP systolic 119–144; BP diastolic 65–76; PULSE 77–100; RESP 16–19; TEMP 96–98.2; O2SAT 96–100
[2016-12-31] MEDS: DIGOXIN 0.125 MG TAB PO SCH (05:10)
[2016-12-31] MEDS: INSULIN ASPART SUPPLEMENTAL SCALE SQ SCH ×4 (05:11→20:51)
[2016-12-31] MEDS: SODIUM CHLORIDE 0.9% FLUSH 5 ML FLUSH IV FLUSH SCH ×2 (08:24→20:49)
[2016-12-31] MEDS: metFORMIN HCL 500 MG TAB PO SCH ×2 (08:25→18:15)
[2016-12-31] MEDS: PANTOPRAZOLE SOD 40 MG DELAYED RELEASE TAB PO SCH (08:25)
[2016-12-31] MEDS: METOPROLOL TARTRATE 50 MG TAB PO SCH ×2 (08:26→20:51)
[2016-12-31] MEDS: DOCUSATE SODIUM 50 MG/SENNA 8.6 MG TAB PO SCH ×2 (08:26→20:51)
[2016-12-31 09:59] LABS: INTERNATIONAL NORMALIZED RATIO 2.9 RATIO; PROTHROMBIN TIME - PATIENT 33.8 SEC (9.8-11.6)
[2016-12-31] MEDS: FERROUS SULFATE 325 MG (65 MG ELEMENTAL IRON) TAB PO SCH ×2 (12:04→18:16)
--- NOTE | 2016-12-31 17:18 | HHI.PR ---
Subjective Remarks Patient was sleeping when I entered the room, to verbal stimuli but he is confused only able to mention his name Heart rate is much better today he doesn't seem to be in pain We are waiting for his son to pick him up to go to [place], meanwhile case management social worker working on [facility] acceptance Objective Vitals Vital Signs Date Time Temp Pulse Resp B/P Pulse Ox O2 Delivery O2 Flow Rate FiO2 12/31/16 16:13 98.2 99 19 125/72 100 12/31/16 12:01 97.3 78 19 144/65 99 12/31/16 08:03 96.5 79 18 135/76 99 12/31/16 04:10 96.0 100 16 128/70 96 12/31/16 00:08 96.0 88 16 127/76 98 12/30/16 21:00 85 12/30/16 20:00 96.0 82 18 91/51 100 I/O 12/30/16 12/30/16 12/30/16 12/31/16 12/31/16 12/31/16 07:00 15:00 23:00 07:00 15:00 23:00 # Voids 2 4 2 2 # Bowel Movements 0 0 Result Diagram: 12/30/16 1313 Objective Remarks GENERAL: This is a well-nourished, well-developed patient, in no acute distress. CARDIOVASCULAR: Bradycardic irregular rhythm without murmurs, gallops, or rubs. RESPIRATORY: Fair entry. Breath sounds equal and clear to auscultation bilaterally. GASTROINTESTINAL: Abdomen soft, non-tender, non-distended. Normal active bowel sounds MUSCULOSKELETAL: Status post right AKA. NEURO: Awake and alert. Biphasic but still Can follow some commands and answer yes and no. PSYCH: Appropriate mood and affect. A/P Assessment and Plan 12/30: Acute bradycardia in the lower 40s without significant change in symptoms, no chest pain, patient on digoxin and Lopressor, I ordered stat BMP, dig level, decrease Lopressor to 25 twice a day Reviewing BMP showing very minimal azotemia with a BNP of 29, patient is on metformin we'll check lactic acid, the level within normal limits, will monitor heart rate closely on a lower dose of Lopressor Repeat BMP in a.m. 12/31: Heart rate improved, no acute issue, [facility] continue meanwhile case management social worker working on transfer to [facility] A/P: 81-year-old male with a history of atrial fibrillation, hypertension, diabetes mellitus who presented with altered mental status Acute over subacute left-sided CVA. 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 He developed new symptoms on 12/20/16. A stroke alert was called but he was not a candidate for TPA given he was already anticoagulated. Neurology following appreciate their help and on 12/22/2016 stated that it was okay to restart Coumadin. Warfarin initially placed on hold secondary to risk of conversion to hemorrhagic stroke. - PT, OT, speech therapy eval. -Per evaluation recommended for patient to go to a rehabilitation facility. Atrial fibrillation heart rate -Initially was On metoprolol 50 mg by mouth twice a day - [id number] score 7 (>75 yrs, HTN, Stroke, PAD, DM). - ON digoxin 0.125 mg by mouth daily -On Coumadin. INR is 2.6. Pharmacist is dosing. Hypertension - well controlled -Monitor BP off antihypertensives. Hyperlipidemia - continue atorvastatin 40 mg by mouth daily at bedtime. Diabetes mellitus -Hold metformin, continue sliding-scale insulin. - Accu-Cheks Anemia - Iron studies obtained on 10/28 indicative of iron deficiency anemia. - continue on iron supplementation. BPH - continue Tamsulosin 0.4mg QDay. Discharge Planning Discussed with case management social worker Patient son will be here on Wednesday 01/03 to peanut picker patient in order to bring into [place]. [facility] working on evaluate patientto see if he qualifies. Order for hospital bed, wheelchair with legs, and [address] Alise Wright MD Dec 31, 2016 17:18
[2016-12-31] MEDS: WARFARIN SOD 2 MG TAB PO SCH (18:16)
[2016-12-31] MEDS: ATORVASTATIN 40 MG TAB PO SCH (20:50)
[2017-01-01] VITALS (8 sets, daily range): BP systolic 111–141; BP diastolic 61–78; PULSE 20–101; RESP 20; TEMP 95.3–96.8; O2SAT 95–99
[2017-01-01] MEDS: CHLORHEXIDINE GLUCONATE 2 % 1 PACK (2 CLOTHS) TOP SCH (01:00)
[2017-01-01] MEDS: DIGOXIN 0.125 MG TAB PO SCH (05:48)
[2017-01-01] MEDS: INSULIN ASPART SUPPLEMENTAL SCALE SQ SCH ×4 (05:48→21:00)
[2017-01-01 08:49] LABS: INTERNATIONAL NORMALIZED RATIO 2.9 RATIO
[2017-01-01] MEDS: metFORMIN HCL 500 MG TAB PO SCH (08:49)
[2017-01-01] MEDS: PANTOPRAZOLE SOD 40 MG DELAYED RELEASE TAB PO SCH (08:49)
[2017-01-01] MEDS: METOPROLOL TARTRATE 50 MG TAB PO SCH ×2 (08:49→22:12)
[2017-01-01] MEDS: DOCUSATE SODIUM 50 MG/SENNA 8.6 MG TAB PO SCH ×2 (08:50→21:00)
[2017-01-01] MEDS: SODIUM CHLORIDE 0.9% FLUSH 5 ML FLUSH IV FLUSH SCH ×2 (08:50→21:00)
[2017-01-01] MEDS ORDERED: SODIUM CHLOR 0.9% 1000 ML INJ 1,000 ML IV SCH (10:30)
[2017-01-01] MEDS: FERROUS SULFATE 325 MG (65 MG ELEMENTAL IRON) TAB PO SCH ×2 (12:19→16:08)
[2017-01-01 13:28] LABS: AUTOMATED NEUTROPHIL # 6.6 TH/MM3 (1.8-7.7); BASOPHIL # 0.1 TH/MM3 (0-0.2); BASOPHIL % 0.8 % (0.0-2.0); EOSINOPHIL # 0.2 TH/MM3 (0-0.4); HEMATOCRIT 35.7 % (39.0-51.0); HEMO FLAGS DIFF FINAL; LYMPHOCYTE # 2.9 TH/MM3 (1.0-4.8); MEAN CELL VOLUME 81.6 FL (80.0-100.0); MEAN CORPUSCULAR HEMOGLOBIN 26.6 PG (27.0-34.0); MEAN CORPUSCULAR HGB CONC 32.6 % (32.0-36.0); MONO % 6.5 % (0.0-8.0); NEUT % 62.7 % (16.0-70.0); PLATELET COUNT 324 TH/MM3 (150-450); RED BLOOD COUNT 4.37 MIL/MM3 (4.50-5.90); RED CELL DISTRIBUTION WIDTH 16.8 % (11.6-17.2); WHITE BLOOD COUNT 10.5 TH/MM3 (4.0-11.0)
--- NOTE | 2017-01-01 16:04 | HHI.PR ---
Subjective Remarks Clinically about the same, he is aphasic awake alert however lactic acid is 2 patient has been resumed on metformin which can be the reason for the lactic acidosis will DC metformin and continue with insulin sliding scale INR is 2.9 today pharmacy following Objective Vitals Vital Signs Date Time Temp Pulse Resp B/P Pulse Ox O2 Delivery O2 Flow Rate FiO2 01/01/17 12:00 96.3 20 20 114/61 99 01/01/17 08:00 96.8 89 20 127/72 98 01/01/17 07:00 66 01/01/17 04:00 96.0 83 20 111/72 99 01/01/17 00:00 96.3 80 20 140/78 95 12/31/16 20:54 100 12/31/16 20:53 96.0 90 18 119/69 98 12/31/16 16:13 98.2 99 19 125/72 100 I/O 12/31/16 12/31/16 12/31/16 01/01/17 01/01/17 01/01/17 07:00 15:00 23:00 07:00 15:00 23:00 Intake Total 500 ml 375 ml Balance 500 ml 375 ml Intake Oral 500 ml IV Total 375 ml # Voids 2 3 2 # Bowel Movements 0 0 Result Diagram: 01/01/17 1230 12/30/16 1313 Objective Remarks GENERAL: This is a well-nourished, well-developed patient, in no acute distress. CARDIOVASCULAR: Bradycardic irregular rhythm without murmurs, gallops, or rubs. RESPIRATORY: Fair entry. Breath sounds equal and clear to auscultation bilaterally. GASTROINTESTINAL: Abdomen soft, non-tender, non-distended. Normal active bowel sounds MUSCULOSKELETAL: Status post right AKA. NEURO: Awake and alert. Biphasic but still Can follow some commands and answer yes and no. PSYCH: Appropriate mood and affect. A/P Assessment and Plan 12/30: Acute bradycardia in the lower 40s without significant change in symptoms, no chest pain, patient on digoxin and Lopressor, I ordered stat BMP, dig level, decrease Lopressor to 25 twice a day Reviewing BMP showing very minimal azotemia with a BNP of 29, patient is on metformin we'll check lactic acid, the level within normal limits, will monitor heart rate closely on a lower dose of Lopressor Repeat BMP in a.m. 12/31: Heart rate improved, no acute issue, awaiting family to come to town to take continue meanwhile patient case coordinator working on transfer to [facility] 7/B: Clinically but the same, aphasic [id number], lactic acidosis at 2, will DC metformin most likely the culprit, cover with insulin sliding scale INR 2.9 today, still increasing pharmacy following may need to back off on the dose A/P: 81-year-old male with a history of atrial fibrillation, hypertension, diabetes mellitus who presented with altered mental status Acute over subacute left-sided CVA. 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 He developed new symptoms on 12/20/16. A stroke alert was called but he was not a candidate for TPA given he was already anticoagulated. Neurology following appreciate their help and on 12/22/2016 stated that it was okay to restart Coumadin. Warfarin initially placed on hold secondary to risk of conversion to hemorrhagic stroke. - PT, OT, speech therapy eval. -Per evaluation recommended for patient to go to a rehabilitation facility. Atrial fibrillation heart rate -Initially was On metoprolol 50 mg by mouth twice a day - [id number] score 7 (>75 yrs, HTN, Stroke, PAD, DM). - ON digoxin 0.125 mg by mouth daily -On Coumadin. INR is 2.6. Pharmacist is dosing. Hypertension - well controlled -Monitor BP off antihypertensives. Hyperlipidemia - continue atorvastatin 40 mg by mouth daily at bedtime. Diabetes mellitus -Hold metformin, continue sliding-scale insulin. - Accu-Cheks Anemia - Iron studies obtained on 10/28 indicative of iron deficiency anemia. - continue on iron supplementation. BPH - continue Tamsulosin 0.4mg QDay. Discharge Planning Discussed with patient case coordinator Patient son will be here on Wednesday 01/03 to oyster picker patient in order to bring into [place]. [facility] working on evaluate patientto see if he qualifies. Order for hospital bed, wheelchair with legs, and [address] Alise Wright MD Jan 01, 2017 16:04
[2017-01-01] MEDS: WARFARIN SOD 2 MG TAB PO SCH (16:08)
[2017-01-01] MEDS: ATORVASTATIN 40 MG TAB PO SCH (22:12)
[2017-01-02] VITALS (8 sets, daily range): BP systolic 113–140; BP diastolic 61–87; PULSE 20–85; RESP 18–20; TEMP 95.3–98.9; O2SAT 97–99
[2017-01-02] MEDS: CHLORHEXIDINE GLUCONATE 2 % 1 PACK (2 CLOTHS) TOP SCH (03:44)
[2017-01-02] MEDS: INSULIN ASPART SUPPLEMENTAL SCALE SQ SCH ×4 (05:51→21:00)
[2017-01-02] MEDS: DIGOXIN 0.125 MG TAB PO SCH (05:52)
[2017-01-02 07:35] LABS: INTERNATIONAL NORMALIZED RATIO 3.3 RATIO; PROTHROMBIN TIME - PATIENT 38.4 SEC (9.8-11.6)
[2017-01-02] MEDS: DOCUSATE SODIUM 50 MG/SENNA 8.6 MG TAB PO SCH ×2 (08:39→21:00)
[2017-01-02] MEDS: PANTOPRAZOLE SOD 40 MG DELAYED RELEASE TAB PO SCH (08:39)
[2017-01-02] MEDS: METOPROLOL TARTRATE 50 MG TAB PO SCH ×2 (08:39→21:02)
[2017-01-02] MEDS: SODIUM CHLORIDE 0.9% FLUSH 5 ML FLUSH IV FLUSH SCH ×2 (08:40→21:00)
[2017-01-02] MEDS: FERROUS SULFATE 325 MG (65 MG ELEMENTAL IRON) TAB PO SCH ×2 (11:03→16:12)
--- NOTE | 2017-01-02 15:54 | HHI.PR ---
Subjective Remarks Patient is aphasic today, not answering question, he is able to follow commands only if I do it for him so he can imitate(example: Raising arms) Afebrile, awaiting family to take patient to [place] Objective Vitals Vital Signs Date Time Temp Pulse Resp B/P Pulse Ox O2 Delivery O2 Flow Rate FiO2 01/02/17 13:03 64 01/02/17 12:18 95.3 67 20 140/65 98 01/02/17 08:29 97.1 75 20 113/61 99 01/02/17 04:00 97.0 83 20 120/76 97 01/02/17 00:00 98.9 75 20 133/87 99 01/01/17 22:00 95.3 71 20 122/68 99 01/01/17 21:00 101 01/01/17 16:00 96.2 83 20 141/67 98 I/O 01/01/17 01/01/17 01/01/17 01/02/17 01/02/17 01/02/17 07:00 15:00 23:00 07:00 15:00 23:00 Intake Total 855 ml Balance 855 ml Intake Oral 480 ml IV Total 375 ml # Voids 2 3 1 1 1 # Bowel Movements 0 1 Result Diagram: 01/01/17 1230 12/30/16 1313 Objective Remarks GENERAL: This is a well-nourished, well-developed patient, in no acute distress. CARDIOVASCULAR: Bradycardic irregular rhythm without murmurs, gallops, or rubs. RESPIRATORY: Fair entry. Breath sounds equal and clear to auscultation bilaterally. GASTROINTESTINAL: Abdomen soft, non-tender, non-distended. Normal active bowel sounds MUSCULOSKELETAL: Status post right AKA. NEURO: Awake and alert. Biphasic but still Can follow some commands and answer yes and no. PSYCH: Appropriate mood and affect. A/P Assessment and Plan 12/30: Acute bradycardia in the lower 40s without significant change in symptoms, no chest pain, patient on digoxin and Lopressor, I ordered stat BMP, dig level, decrease Lopressor to 25 twice a day Reviewing BMP showing very minimal azotemia with a BNP of 29, patient is on metformin we'll check lactic acid, the level within normal limits, will monitor heart rate closely on a lower dose of Lopressor Repeat BMP in a.m. 12/31: Heart rate improved, no acute issue, awaiting family to come to [facility] to take continue meanwhile rn case management working on transfer to [facility] 01/01: Clinically but the same, aphasic [id number], lactic acidosis at 2, will DC metformin most likely the culprit, cover with insulin sliding scale INR 2.9 today, still increasing pharmacy following may need to back off on the dose 01/02: Coumadin toxicity INR 3.3, hold Coumadin, adjusted dose, continue current care A/P: 81-year-old male with a history of atrial fibrillation, hypertension, diabetes mellitus who presented with altered mental status Acute over subacute left-sided CVA. 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 He developed new symptoms on 12/20/16. A stroke alert was called but he was not a candidate for TPA given he was already anticoagulated. Neurology following appreciate their help and on 12/22/2016 stated that it was okay to restart Coumadin. Warfarin initially placed on hold secondary to risk of conversion to hemorrhagic stroke. - PT, OT, speech therapy eval. -Per evaluation recommended for patient to go to a rehabilitation facility. Atrial fibrillation heart rate -Initially was On metoprolol 50 mg by mouth twice a day - [id number] score 7 (>75 yrs, HTN, Stroke, PAD, DM). - ON digoxin 0.125 mg by mouth daily -On Coumadin. INR is 2.6. Pharmacist is dosing. Hypertension - well controlled -Monitor BP off antihypertensives. Hyperlipidemia - continue atorvastatin 40 mg by mouth daily at bedtime. Diabetes mellitus -Hold metformin, continue sliding-scale insulin. - Accu-Cheks Anemia - Iron studies obtained on 10/28 indicative of iron deficiency anemia. - continue on iron supplementation. BPH - continue Tamsulosin 0.4mg QDay. Discharge Planning Discussed with rn case management Patient son will be here on Wednesday 01/03 to warp picker patient in order to bring into [place]. [facility] working on evaluate patientto see if he qualifies. Order for hospital bed, wheelchair with legs, and [address] Alise Wright MD Jan 02, 2017 15:54
[2017-01-02] MEDS: ATORVASTATIN 40 MG TAB PO SCH (21:02)
[2017-01-03] VITALS: BP 124/68; PULSE 74; RESP 18; TEMP 96.3; O2SAT 98
[2017-01-03] MEDS: CHLORHEXIDINE GLUCONATE 2 % 1 PACK (2 CLOTHS) TOP SCH (02:42)
[2017-01-03] MEDS: INSULIN ASPART SUPPLEMENTAL SCALE SQ SCH ×3 (06:06→15:45)
[2017-01-03] MEDS: DIGOXIN 0.125 MG TAB PO SCH (06:06)
[2017-01-03 06:53] VITALS: BP 136/68; PULSE 72; RESP 17; TEMP 95.2; O2SAT 100
[2017-01-03] MEDS: METOPROLOL TARTRATE 50 MG TAB PO SCH (08:25)
[2017-01-03] MEDS: DOCUSATE SODIUM 50 MG/SENNA 8.6 MG TAB PO SCH (08:25)
[2017-01-03] MEDS: PANTOPRAZOLE SOD 40 MG DELAYED RELEASE TAB PO SCH (08:25)
[2017-01-03] MEDS: SODIUM CHLORIDE 0.9% FLUSH 5 ML FLUSH IV FLUSH SCH (08:26)
[2017-01-03 08:39] VITALS: BP 166/76; PULSE 94; RESP 18; TEMP 96.4; O2SAT 98
[2017-01-03 10:28] VITALS: PULSE 81
[2017-01-03] MEDS: FERROUS SULFATE 325 MG (65 MG ELEMENTAL IRON) TAB PO SCH ×2 (11:17→15:40)
[2017-01-03 11:25] LABS: INTERNATIONAL NORMALIZED RATIO 2.7 RATIO
[2017-01-03 12:26] VITALS: BP 152/70; PULSE 74; RESP 18; TEMP 96.5; O2SAT 99
[2017-01-03] MEDS ORDERED: METO-309 PO (13:30)
[2017-01-03] MEDS ORDERED: COUM2TAB PO (13:30)
[2017-01-03] MEDS ORDERED: PANT40TA3 PO (13:30)
--- NOTE | 2017-01-03 14:03 | HHI.DS ---
Discharge Summary Admission Date Dec 20, 2016 at 23:55 Discharge Date: Jan 03, 2017 Admitting Diagnosis (1) Above knee amputation of right lower extremity ICD Code: Z89.611 (2) Stroke due to embolism ICD Code: I63.9 (3) Acute ischemic left MCA stroke ICD Code: I63.512 (4) Atrial fibrillation ICD Code: I48.91 (5) PAD (peripheral artery disease) ICD Code: I73.9 (6) DM type 2 (diabetes mellitus, type 2) ICD Code: E11.9 (7) HTN (hypertension) ICD Code: I10 Procedures See below Brief History - From Admission History from review of medical records, nursing staff, rapid response team, and patient himself. Rapid response was called on this patient last night because patient was found to be quite confused and not making sense when his nurse evaluated him. The nurse reported that patient spoke to his son over the phone and right after that, he was an entirely different and having trouble finding words. The nurse noticed immediately that there was a significant change in his mental status from the beginning of her shift to at that point. Therefore she had called stroke alert. Per nursing staff and also according to EMR, patient was somewhat lethargic in the morning and was having trouble and asked that he was not able to participate in OT. He was started on Prozac yesterday and therefore it was stopped after this lethargy. Head CT was done at that time which did not show any acute changes. At the time of my exam at [facility], patient was awake. He did not make much sense when he talks. He was not able to answer open-ended questions. He was having trouble finding words and was clearly having expressive aphasia. However he was able to answer yes or no questions correctly. For example, when asked whether he has history of atrial fibrillation, he would say yes. When asked whether he takes blood thinners, he would answer yes as well. When asked to name television, thumb, patient was unable to do so. At the time of rapid response, the team and resident physicians had called stroke alert as well after their evaluation. We have therefore discussed with neurologist garbage person to Dr. Ruiz. Head CT stat was done at that time. This was personally reviewed. No evidence of acute changes. I-STAT labs were done which was also personally reviewed. MRI studies were pending at the time of my exam. Patient himself on further questioning denies any other symptoms such as chest pain/shortness of breath/palpitations. He denies any urinary symptoms. Denies seeing any blood in his stool or his urine. Again, it is unclear how much of the answers are reliable due to his acute mental status changes. CBC/BMP: 01/01/17 1230 12/30/16 1313 Significant Findings Laboratory Tests Test 01/01/17 01/01/17 01/02/17 01/03/17 07:37 12:30 07:12 09:56 Prothrombin Time 34.0 SEC 38.4 SEC 31.0 SEC (9.8-11.6) (9.8-11.6) (9.8-11.6) Red Blood Count 4.37 MIL/MM3 (4.50-5.90) Hemoglobin 11.6 GM/DL (13.0-17.0) Hematocrit 35.7 % (39.0-51.0) Mean Corpuscular Hemoglobin 26.6 PG (27.0-34.0) PE at Discharge GENERAL: This is a well-nourished, well-developed patient, in no acute distress. CARDIOVASCULAR: Bradycardic irregular rhythm without murmurs, gallops, or rubs. RESPIRATORY: Fair entry. Breath sounds equal and clear to auscultation bilaterally. GASTROINTESTINAL: Abdomen soft, non-tender, non-distended. Normal active bowel sounds MUSCULOSKELETAL: Status post right AKA. NEURO: Awake and alert. Can follow some simple questions PSYCH: Appropriate mood and affect. Hospital Course 81 years old male with history of atrial fibrillation hypertension the pedis mellitus and hyperlipidemia, and BPH admitted with Acute over subacute leftsided CVA. 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 He developed new symptoms on 12/20/16. A stroke alert was called but he was not a candidate for TPA given he was already anticoagulated. Neurology consulted and followed patient, on 12/22/2016 stated that it was okay to restart Coumadin. Warfarin initially placed on hold secondary to risk of conversion to hemorrhagic stroke.PT, OT, speech therapy eval. recommended for patient to go to a rehabilitation facility. \For Atrial fibrillation heart rate on digoxin and Lopressor, [id number] score 7 (>75 yrs, HTN, Stroke, PAD, DM). Coumadin management has been done, as well as blood pressure control. Plan was for the family and the son to come and moss picker the patient and take continue work however today, gearcase assembler was told that family is okay to transfer patient to rehabilitation until they him to town and pick him up [id number] encounter performed with the patient on discharge day, as well as physical exam, summary of hospitalization course and postdischarge plan has been D/W the patient. D/W nurse D/W gearcase assembler. Discharge medications reviewed and printed and signed, post discharge follow up visit with PCP and other specialist as well as Brief hospital course and discharge summary has been placed. Pt Condition on Discharge: Stable Discharge Disposition: Discharge to SNF Discharge Time: > 30 minutes Discharge Instructions DIET: Follow Instructions for: Heart Healthy Diet, Diabetic Diet Speech Therapy-Diet Recommends: Mechanical Soft Activities you can perform: See Additionl Instruction Other Activity Instructions: Per PT recommendation New Orders: PT/INR - Next Day New Medications: Commode 3-in-1 (Commode 3-in-1) 1 Mis Mis 1 EA .ROUTE DIRECTED #1 Ref 0 EA Hospital Bed - Electric (Hospital Bed - Electric) 1 Ea Ea 1 EA .ROUTE DIRECTED #1 Ref 0 EA Wheelchair Elevated Leg (Wheelchair Elevated Leg) 1 Mis Mis 1 EA .ROUTE DIRECTED #1 Ref 0 EA Metoprolol Tartrate (Lopressor) 50 Mg Tab 25 MG PO Q12HR afib #60 TAB Pantoprazole (Pantoprazole) 40 Mg Tab 40 MG PO DAILY gi #30 TAB Warfarin (Coumadin) 2 Mg Tab 2 MG PO DAILY@1600 afib #30 TAB Continued Medications: Ascorbic Acid (C 500/Romi Hips) 500 Mg Tab 500 MG PO BID #1 TAB Atorvastatin (Atorvastatin) 40 Mg Tab 40 MG PO HS #1 TAB Digoxin (Digoxin) 0.125 Mg Tab 0.125 MG PO DAILY@0600 Regulate Heart Beat #30 Ref 0 TAB Ferrous Sulfate (Feosol) 200 Mg Tab 325 MG PO 12,17 Nutritional Supplement #60 Ref 0 TAB Multiple Vitamin (Multiple Vitamin) 1 Tab 1 TAB PO DAILY Nutritional Supplement Ref 0 TAB Tamsulosin (Flomax) 0.4 Mg Cap 0.4 MG PO DAILY Manage Prostate Problems #30 Ref 0 CAP Alise Wright MD Jan 03, 2017 14:03 Alise Wright MD Jan 03, 2017 14:03
--- NOTE | 2017-01-03 14:05 | HHI.PR ---
Subjective Remarks Sitting on the chair he is more alert and answering simpler question, better than yesterday, family decided on discharging patient to rehabilitation until they [facility] to [facility] and take him to [place] Objective Vitals Vital Signs Date Time Temp Pulse Resp B/P Pulse Ox O2 Delivery O2 Flow Rate FiO2 01/03/17 12:26 96.5 74 18 152/70 99 01/03/17 10:28 81 01/03/17 08:39 96.4 94 18 166/76 98 01/03/17 06:53 95.2 72 17 136/68 100 01/03/17 00:00 96.3 74 18 124/68 98 01/02/17 20:05 75 01/02/17 20:00 96.2 85 18 129/64 99 01/02/17 16:22 96.5 20 20 140/76 97 I/O 01/02/17 01/02/17 01/02/17 01/03/17 01/03/17 01/03/17 07:00 15:00 23:00 07:00 15:00 23:00 # Voids 1 1 2 3 # Bowel Movements 1 1 0 Result Diagram: 01/01/17 1230 12/30/16 1313 Objective Remarks GENERAL: This is a well-nourished, well-developed patient, in no acute distress. CARDIOVASCULAR: Bradycardic irregular rhythm without murmurs, gallops, or rubs. RESPIRATORY: Fair entry. Breath sounds equal and clear to auscultation bilaterally. GASTROINTESTINAL: Abdomen soft, non-tender, non-distended. Normal active bowel sounds MUSCULOSKELETAL: Status post right AKA. NEURO: Awake and alert. Biphasic but still Can follow some commands and answer yes and no. PSYCH: Appropriate mood and affect. Procedures See below A/P Problem List: (1) Above knee amputation of right lower extremity ICD Code: Z89.611 Status: Acute (2) Stroke due to embolism ICD Code: I63.9 Status: Acute (3) Acute ischemic left MCA stroke ICD Code: I63.512 Status: Acute (4) Atrial fibrillation ICD Code: I48.91 Status: Chronic (5) PAD (peripheral artery disease) ICD Code: I73.9 Status: Chronic (6) DM type 2 (diabetes mellitus, type 2) ICD Code: E11.9 Status: Chronic (7) HTN (hypertension) ICD Code: I10 Status: Chronic Assessment and Plan 12/30: Acute bradycardia in the lower 40s without significant change in symptoms, no chest pain, patient on digoxin and Lopressor, I ordered stat BMP, dig level, decrease Lopressor to 25 twice a day Reviewing BMP showing very minimal azotemia with a BNP of 29, patient is on metformin we'll check lactic acid, the level within normal limits, will monitor heart rate closely on a lower dose of Lopressor Repeat BMP in a.m. 12/31: Heart rate improved, no acute issue, awaiting family to come to town to take continue meanwhile special education case manager working on transfer to [facility] 01/01: Clinically but the same, aphasic [id number], lactic acidosis at 2, will DC metformin most likely the culprit, cover with insulin sliding scale INR 2.9 today, still increasing pharmacy following may need to back off on the dose 01/02: Coumadin toxicity INR 3.3, hold Coumadin, adjusted dose, continue current care 01/03: Family decided on rehabilitation transfer until they are in town to take patient to [place], Stable transfer to rehabilitation A/P: 81-year-old male with a history of atrial fibrillation, hypertension, diabetes mellitus who presented with altered mental status Acute over subacute left-sided CVA. 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 He developed new symptoms on 12/20/16. A stroke alert was called but he was not a candidate for TPA given he was already anticoagulated. Neurology following appreciate their help and on 12/22/2016 stated that it was okay to restart Coumadin. Warfarin initially placed on hold secondary to risk of conversion to hemorrhagic stroke. - PT, OT, speech therapy eval. -Per evaluation recommended for patient to go to a rehabilitation facility. Atrial fibrillation heart rate -Initially was On metoprolol 50 mg by mouth twice a day - [id number] score 7 (>75 yrs, HTN, Stroke, PAD, DM). - ON digoxin 0.125 mg by mouth daily -On Coumadin. INR is 2.6. Pharmacist is dosing. Hypertension - well controlled -Monitor BP off antihypertensives. Hyperlipidemia - continue atorvastatin 40 mg by mouth daily at bedtime. Diabetes mellitus -Hold metformin, continue sliding-scale insulin. - Accu-Cheks Anemia - Iron studies obtained on 10/28 indicative of iron deficiency anemia. - continue on iron supplementation. BPH - continue Tamsulosin 0.4mg QDay. Discharge Planning Discussed with special education case manager Patient son will be here on Wednesday 01/03 to pickling tank operator patient in order to bring into [place]. [facility] working on evaluate patientto see if he qualifies. Order for hospital bed, wheelchair with legs, and [address] Problem Qualifiers (1) Stroke due to embolism: Qualified Code: I63.412 - Cerebrovascular accident (CVA) due to embolism of left middle cerebral artery Alise Wright MD Jan 03, 2017 14:05
[2017-01-03] MEDS: WARFARIN SOD 2 MG TAB PO SCH (15:40)
[2017-01-03 16:27] VITALS: BP 152/67; PULSE 72; RESP 18; TEMP 96.3; O2SAT 98
== END 2017-01-03 18:24 | DRG 65 ==
LOC: HIMN 23:55 → N05A 12-22 11:28
PROVIDERS: ADMIT Hospitalist; ATTEND Hospitalist
DX: I63.40 Cerebral infarction due to embolism of unspecified cerebral artery (principal); I69.351 Hemiplegia and hemiparesis following cerebral infarction affecting right dominant side; I48.91 Unspecified atrial fibrillation; R00.1 Bradycardia, unspecified; I10 Essential (primary) hypertension; E11.9 Type 2 diabetes mellitus without complications; D50.9 Iron deficiency anemia, unspecified; Z89.611 Acquired absence of right leg above knee; Z85.828 Personal history of other malignant neoplasm of skin; Z79.01 Long term (current) use of anticoagulants; I73.9 Peripheral vascular disease, unspecified; I69.320 Aphasia following cerebral infarction; R48.2 Apraxia; E78.5 Hyperlipidemia, unspecified; N40.0 Benign prostatic hyperplasia without lower urinary tract symptoms
CPT/HCPCS: 70450; 80048; 80061; 80162; 82948; 83036; 83605; 85025; 85027; 85610; 87641; 95819; J1650; J1815; J7030